=== PATIENT | male | born 1960 | race Caucasian/White ===

== ENCOUNTER 2017-02-22 14:36 | Outpatient (CLI) | payer OTHER | END 2017-02-22 14:37 | disposition home or self-care (01) | LOC: CP 14:36 | PROVIDERS: ATTEND Family Medicine | DX: J44.1 Chronic obstructive pulmonary disease with (acute) exacerbation (principal); R06.2 Wheezing | CPT/HCPCS: 94010; 94727; 94729 ==

== ENCOUNTER 2017-07-19 08:47 | Outpatient (CLI) | payer OTHER ==
[2017-07-19 11:04] LABS: #Eosinphils 0.1 thou/uL (0.0-0.7); #Lymphocytes 1.1 thou/uL (1.20-3.40); #Monocytes 0.7 thou/uL (0.11-0.59); #Neutrophils 4.9 thou/uL (1.40-6.50); %Basophils 0.6 % (0.0-1.0); %Eosinophils 1.1 % (0.0-10.0); %Lymphocytes 16.4 % (21.0-51.0); %Monocytes 9.8 % (0.0-10.0); %Neutrophils 72.2 % (42.0-75.0); Hemoglobin 16.2 g/dL (14.0-18.0); Mean Corpuscular HGB CONC 34.4 g/dL (32.0-36.0); Mean Corpuscular Hemoglobin 34.8 pg (27.0-31.0); Platelet Count 119 thou/uL (130-400); RBC Distribution Width 11.8 % (11.5-14.5); Red Blood Cell (RBC) Count 4.65 mill/uL (4.70-6.10); White Blood Cell (WBC) Count 6.8 thou/uL (4.8-10.8)
[2017-07-19 11:14] LABS: ALT (SGPT) 90 U/L (8-55); AST (SGOT) 87 U/L (5-34); Albumin 4.1 g/dL (3.5-5.0); Alkaline Phosphatase 106 U/L (40-150); Anion Gap 13 mmol/L (10-20); BUN (Urea Nitrogen) 6 mg/dL (8.4-25.7); Bilirubin, Total 0.9 mg/dL (0.2-1.2); Calc. Creatinine Clearance 0 mL/min (70-130); Calcium 9.7 mg/dL (7.8-10.44); Carbon Dioxide 24 mmol/L (22-29); Chloride 101 mmol/L (98-107); Estimated GFR-MDRD Greater than 90; Globulin 2.5 g/dL (2.4-3.5); Glucose 88 mg/dL (70-105); Potassium 4.3 mmol/L (3.5-5.1); Protein, Total 6.6 g/dL (6.0-8.3); Sodium 134 mmol/L (136-145)
== END 2017-07-19 08:48 | disposition home or self-care (01) ==
LOC: LABBT 08:47
PROVIDERS: ATTEND Specialist
DX: Z01.818 Encounter for other preprocedural examination (principal); Z01.812 Encounter for preprocedural laboratory examination; K42.9 Umbilical hernia without obstruction or gangrene
CPT/HCPCS: 80053; 85025; 93005; 93010

== ENCOUNTER 2017-07-26 05:48 | Day surgery (SDC) | payer OTHER ==
--- NOTE | 2017-07-18 14:20 | HP ---
ADDENDUM to H&P on 10/06/2016 HISTORY OF PRESENT ILLNESS: Mr. Ten Miller is a 57-year-old male who I saw in 10/2016 for symptomatic recurrent umbilical hernia. He had this repaired as a child and again about two years ago at the me time he had repair of a recurrent left inguinal hernia. He states that he had a robotic umbilical hernia repair, but they quickly recurred. He has no coronary artery disease. He has seen Dr. Carlos esteban who performed a stress test in his office and then a cardiac ablation for SVT and now reports fo r definitive repair. Plan is to perform this in an open fashion. He may need a transabdominal rectu s repair versus repair using mesh in open fashion as defect was about 3 cm. MEDICATIONS: Lisinopril 10 mg a day, vitamin B12 daily, aspirin 325 mg a day, metoprolol 25 mg twice a day, atorvastatin one a day, albuterol p.r.n., Plavix 75 mg a day, alprazolam 1 mg p.o. twice norman y as needed. PAST MEDICAL HISTORY: Coronary artery disease, multiple myocardial infarctions and stenting RCA, rec ent ablation, recent cardiac stress test at Dr. Joyce office, hypertension, history of alcohol us e, history of tobacco abuse. PAST SURGICAL HISTORY: Multiple cardiac stents and stenting, recent cardiac ablation, recent cardiac stress test, right occipital repair. Patient had bilateral hernia repairs as a child as well as umb ilical hernia he has had 3-5 repairs on each side of his inguinal area, more recently he had this don e in [place] about a year and a half ago at the same time he had umbilical hernia repair robotically , both that reoccurred and his umbilical hernia repaired at a short time afterwards, otherwise unrema rkable. REVIEW OF SYSTEMS: Otherwise noncontributory. PHYSICAL EXAMINATION: VITAL SIGNS: 145 pounds, 67 inches, 129/74, 74 heart rate, 97.2 degrees. HEENT: Unremarkable. LUNGS: Clear to auscultation. CARDIAC: Regular rate and rhythm without murmur or gallop. ABDOMEN: Soft, nontender. He has an umbilical hernia with 3 cm defect. ASSESSMENT AND PLAN: 1. Recurrent umbilical hernia. We will plan repair in an open fashion, certainly using mesh, possib le TAR repair. 2. Coronary artery disease, stable, status post recent cardiac stress test by Dr. Joyce and betsy hyatt. 3. Colonoscopy on 06/2017, completed. 4. On Plavix, continue taking that.
[2017-07-19 09:20] VITALS: BMI 24.1
[2017-07-26] MEDS ORDERED: Bupivacaine HCl 0.5%/Epinephrine 1:200,000/PF 30 ml Vial ONE (06:49)
[2017-07-26] MEDS ORDERED: Ketorolac Tromethamine 30 MG/ML VIAL ONE (08:13)
[2017-07-26] MEDS ORDERED: CEFAZOLIN/Water 2 GM/20 ML SYRINGE ONE (08:13)
[2017-07-26] MEDS ORDERED: Fentanyl 250 MCG/5 ML VIAL ONE ×2 (11:57→13:41)
[2017-07-26] MEDS ORDERED: Promethazine HCl 25 MG/ML VIAL ONE (11:57)
--- NOTE | 2017-07-26 13:22 | OP ---
DATE OF OPERATION: 07/26/2017 PREOPERATIVE DIAGNOSIS: Recurrent incisional hernia, umbilical area 4 cm defect. POSTOPERATIVE DIAGNOSIS: Recurrent incisional hernia, umbilical area 4 cm defect. PROCEDURE: Parietex coated 8.4 cm mesh, preperitoneal reinforcement of fascial closure. SURGEON: Dr. Curtis Latham ANESTHESIA: General. Local 0.5% Marcaine with epinephrine 30 mL. PROCEDURE IN DETAIL: The patient was taken to the operating room where under general anesthesia, abd omen was clipped of hair, prepared with ChloraPrep, draped in routine fashion. Incision was made chitra tically centered about the umbilicus, carried around the umbilicus down to skin, subcutaneous tissue to the fascial defect dissected free of subcutaneous tissue. I initially was planning a rectal rectu s repair, but the fascia seemed to come together easily and there was no evidence of prior mesh used thus a decision was made to close this primarily. Fascial edges dissected free and 8.4 cm mesh coate d Parietex placed in the preperitoneal space and fascia approximated with interrupted sutures of #1 P DS [id number] type fashion incorporating mesh into the fascial approximation. Once this was acc omplished, the straps were removed. Subcutaneous tissues approximated with continuous suture of 3-0 Monocryl, umbilicus secured to the fascia with 3-0 Monocryl, skin approximately with continuous subcu ticular suture of 4-0 Monocryl and DermaGlue applied. Local anesthetic infiltrated about the wound f or postoperative pain control.
[2017-07-26] MEDS ORDERED: HYDROcodone/Acetaminophen 5/325 mg Tablet ONE ×2 (14:51→17:00)
[2017-07-26] MEDS ORDERED: ePHEDrine/0.9% NaCl/PF SYRINGE 50 mg/10 ml ONE (15:45)
[2017-07-26] MEDS ORDERED: PHENYLEPHRINE-NS 100 MCG/ML 10 ML SYRINGE ONE (15:45)
[2017-07-26] MEDS ORDERED: Lidocaine 1% PF 5 ML VIAL ONE (15:45)
[2017-07-26] MEDS ORDERED: Glycopyrrolate 0.2 MG/ML 5 ML SYRINGE ONE (15:45)
[2017-07-26] MEDS ORDERED: Ondansetron HCl/PF 4 MG/2 ML Vial ONE (15:45)
[2017-07-26] MEDS ORDERED: Propofol 200 MG/20 ML VIAL ONE (15:45)
== END 2017-07-26 19:28 | disposition home or self-care (01) ==
LOC: SDC 05:48
PROVIDERS: ATTEND Specialist
PROC: 0WUF0JZ Supplement Abdominal Wall with Synthetic Substitute, Open Approach (ICD-10-PCS; principal; 2017-07-26)
DX: K43.2 Incisional hernia without obstruction or gangrene (principal); I25.10 Atherosclerotic heart disease of native coronary artery without angina pectoris; I25.2 Old myocardial infarction; I10 Essential (primary) hypertension; Z79.82 Long term (current) use of aspirin; Z79.02 Long term (current) use of antithrombotics/antiplatelets; Z79.899 Other long term (current) drug therapy; Z88.8 Allergy status to other drugs, medicaments and biological substances; Z98.890 Other specified postprocedural states; Z87.891 Personal history of nicotine dependence
CPT/HCPCS: J0131; J0670; J1885; J2001; J2405; J2550; J2704; J3010

== ENCOUNTER 2017-10-17 23:25 | Inpatient (IN) | payer OTHER ==
[2017-10-18] MEDS ORDERED: Fentanyl 100 MCG/2 ML VIAL ONE ×4 (00:30→05:18)
[2017-10-18 00:49] LABS: #Lymphocytes 0.8 thou/uL (1.20-3.40); #Monocytes 0.9 thou/uL (0.11-0.59); #Neutrophils 17.1 thou/uL (1.40-6.50); %Basophils 0.2 % (0.0-1.0); %Eosinophils 0.2 % (0.0-10.0); %Lymphocytes 4.1 % (21.0-51.0); %Monocytes 4.8 % (0.0-10.0); %Neutrophils 90.7 % (42.0-75.0); Hemoglobin 14.7 g/dL (14.0-18.0); Mean Corpuscular HGB CONC 34.1 g/dL (32.0-36.0); Mean Corpuscular Hemoglobin 34.4 pg (27.0-31.0); Mean Platelet Volume 7.2 fL (7.4-10.4); Platelet Count 149 thou/uL (130-400); RBC Distribution Width 11.8 % (11.5-14.5); Red Blood Cell (RBC) Count 4.26 mill/uL (4.70-6.10); White Blood Cell (WBC) Count 18.9 thou/uL (4.8-10.8)
[2017-10-18 00:57] LABS: INR-International Normal Ratio 0.9; Prothrombin Time 12.5 SEC (12.0-14.7)
[2017-10-18 01:17] LABS: ALT (SGPT) 66 U/L (8-55); AST (SGOT) 72 U/L (5-34); Albumin 3.9 g/dL (3.5-5.0); Alkaline Phosphatase 99 U/L (40-150); Anion Gap 19 mmol/L (10-20); BUN (Urea Nitrogen) 6 mg/dL (8.4-25.7); Bilirubin, Total 0.6 mg/dL (0.2-1.2); CK (CPK) 831 U/L (30-200); Calc. Creatinine Clearance 0 mL/min (70-130); Calcium 8.9 mg/dL (7.8-10.44); Carbon Dioxide 20 mmol/L (22-29); Chloride 103 mmol/L (98-107); Estimated GFR-MDRD Greater than 90; Globulin 2.3 g/dL (2.4-3.5); Glucose 106 mg/dL (70-105); Potassium 4.1 mmol/L (3.5-5.1); Protein, Total 6.2 g/dL (6.0-8.3); Sodium 138 mmol/L (136-145)
[2017-10-18 01:40] LABS: Troponin I 0.056 ng/mL (< 0.028)
[2017-10-18] MEDS ORDERED: Dextrose 5% in Water 1,000 ML IV PRN (02:39)
[2017-10-18] MEDS ORDERED: Dextrose 50% Abboject 50 ML SYRINGE SLOW IVP PRN (02:39)
[2017-10-18] MEDS ORDERED: Sodium Chloride 0.9% 1,000 ML IV SCH (02:45)
[2017-10-18] MEDS ORDERED: Rib Fracture Protocol PO SCH (02:45)
[2017-10-18] MEDS ORDERED: Lidocaine 1% w/Epinephrine 1:100K 20 ML VIAL ONE (03:20)
[2017-10-18 03:38] LABS: Bilirubin Negative (Negative); Blood, Urine Negative (Negative); Clarity CLEAR (Clear); Glucose, Urine (Dipstick) Negative (Negative); Leukocyte Negative (Negative); Nitrite Negative (Negative); Protein, Urine (Dipstick) Negative (Neg-Trace); Urobilinogen 0.2 mg/dL (0.2-1.0)
[2017-10-18 03:45] LABS: Specific Gravity, Urine Greater than 1.060 (1.002-1.036)
[2017-10-18 05:13] LABS: #Lymphocytes 0.5 thou/uL (1.20-3.40); #Monocytes 0.7 thou/uL (0.11-0.59); #Neutrophils 15.3 thou/uL (1.40-6.50); %Basophils 0.1 % (0.0-1.0); %Eosinophils 0.1 % (0.0-10.0); %Lymphocytes 3.1 % (21.0-51.0); %Monocytes 4.1 % (0.0-10.0); %Neutrophils 92.6 % (42.0-75.0); Hemoglobin 13.9 g/dL (14.0-18.0); Mean Corpuscular HGB CONC 33.5 g/dL (32.0-36.0); Mean Corpuscular Hemoglobin 33.9 pg (27.0-31.0); Mean Platelet Volume 7.1 fL (7.4-10.4); Platelet Count 146 thou/uL (130-400); RBC Distribution Width 11.9 % (11.5-14.5); Red Blood Cell (RBC) Count 4.09 mill/uL (4.70-6.10); White Blood Cell (WBC) Count 16.6 thou/uL (4.8-10.8)
[2017-10-18 05:28] LABS: Lactic Acid 2.8 mmol/L (0.5-2.2)
--- NOTE | 2017-10-18 05:29 | HP ---
DATE OF ADMISSION: 10/18/2017 ATTENDING PHYSICIAN: Curtis Latham M.D. TRAUMA ACTIVATION: Not applicable. HISTORY OF PRESENT ILLNESS: Ten Miller is a 57-year-old male with a significant cardiac past medical history who presented to [facility] status post fall from a ladder approximately 10 feet. Per pat ient, he was standing on the ladder this evening attempting to cut a branch from a tree and became un steady/unbalanced. He fell landing on his right side. He was evaluated in the emergency room and fo und to have a moderate right hemopneumothorax with multiple right-sided rib fractures. Trauma Servic was asked to admit. Upon my evaluation, the patient has a chief complaint of right-sided chest di scomfort worsened with inspiration or movement, improved with pain management. The patient rates his current pain as an 8/10. Of note, the patient is a daily alcohol drinker and was drinking prior to his accident. ALLERGIES: EFFIENT. CHRONIC MEDICAL ILLNESSES: Include coronary artery disease status PTCA x7, ND x10, hypertension. HOME MEDICATIONS: Plavix 75 mg p.o. daily, nitro tablets 0.4 mg p.r.n., aspirin 325 mg p.o. daily, m etoprolol XL 25 mg b.i.d., Xanax 1 mg t.i.d. p.r.n., lisinopril 10 mg p.o. daily, vitamin C supplemen t, vitamin B12 supplement, atorvastatin 40 mg p.o. daily, albuterol inhaler p.r.n. PAST SURGICAL HISTORY: Significant for 5 inguinal hernia surgeries and an umbilical hernia surgery a s well as a complex left arm laceration repair and left bicep repair and cardiac ablation. SOCIAL HISTORY: The patient is a daily drinker endorses a few beers daily. He is a former cigarette smoker with current cigar use. Denies illicit drug use. FAMILY HISTORY: Noncontributory. REVIEW OF SYSTEMS: A 10-point review of systems was performed and was negative except as indicated i n the HPI. PHYSICAL EXAMINATION: VITAL SIGNS: Most recent vital signs include blood pressure 110/68, pulse 78, respiration 18, O2 sat 95% on 2 liters nasal cannula. GENERAL: Well-developed elderly male in no acute distress, resting in bed. HEAD: Right occipital abrasion. EYES: Pupils are PERRL. Extraocular movements are intact. NECK: Supple. Trachea is midline. C-collar is in place. There was midline tenderness to palpation , as well as lateral tenderness to palpation. CHEST/PULMONARY: Symmetric chest rise. The patient unable to take deep breaths secondary to pain. LUNGS: Clear to auscultation bilaterally. There is some right anterior and lateral chest tenderness to palpation. No left-sided tenderness to palpation. CARDIOVASCULAR: Regular rate and rhythm, no obvious murmurs, rubs or gallops. GASTROINTESTINAL: Abdomen is atraumatic, soft, nontender, nondistended. Bowel sounds are positive. MUSCULOSKELETAL: There is a right upper shoulder abrasion with ecchymosis of the bilateral upper ext remities. BACK: Within normal limits. Pulses are 2+ bilaterally. There is no lower extremity edema. Range o f motion within normal limits for patient. NEUROLOGIC: GCS is 15. No focal deficit is noted. LABORATORY FINDINGS: WBC 18.9, hemoglobin 14.7, hematocrit 43.1, platelet count 149. INR 0.9. Sodi um 138, potassium 4.1, chloride 103, carbon dioxide 20, BUN 6, creatinine 0.66, glucose 106. Lactic acid 3.3, AST 72, ALT 66, total bilirubin 0.6. CK 831, CK-MB 18. Troponin 0.056. EKG: EKG was read as sinus rhythm with a heart rate of 85, no ST segment elevation, age indeterminat e inferior infarct. RADIOGRAPHIC FINDINGS: Shoulder x-ray official read is pending, but there is evidence of a moderate pneumothorax. Pelvic x-ray, official read is pending. CT of the brain was negative for acute intrac ranial abnormality. CT of the C-spine was negative for acute fracture or dislocation. CT of the [facility] st demonstrated a moderate right-sided hydropneumothorax with right pulmonary contusion as well as ri ght 2nd through 10th rib fracture and emphysematous changes. There was an infrarenal aortic aneurysm noted at 3.3 cm. ASSESSMENT: 1. Status post fall from ladder. 2. Right 2 through 10th rib fracture. 3. Right hemopneumothorax. 4. Acute traumatic pain. 5. History of coronary artery disease and multiple myocardial infarctions with elevated troponin. 6. Daily alcohol use. PLAN: ER MD to place a chest tube. Pain management with rib fracture protocol via p.o. pathway. Th e patient should be admitted to telemetry. Trend troponins. A.m. chest x-ray. Walking program. DV T and gastritis prophylaxis as appropriate. Plans for admission were discussed with the patient who vocalizes understanding. All questions were answered at the time of this dictation. Trauma attendin g has been notified of admission. Withdrawal prophylaxis with Serax, thiamine, multivitamin and foli c acid supplementation.
[2017-10-18 05:32] LABS: Anion Gap 18 mmol/L (10-20); BUN (Urea Nitrogen) 6 mg/dL (8.4-25.7); CK (CPK) 1000 U/L (30-200); Calc. Creatinine Clearance 0 mL/min (70-130); Calcium 8.5 mg/dL (7.8-10.44); Carbon Dioxide 20 mmol/L (22-29); Chloride 105 mmol/L (98-107); Estimated GFR-MDRD Greater than 90; Glucose 113 mg/dL (70-105); Potassium 4.6 mmol/L (3.5-5.1); Sodium 138 mmol/L (136-145)
[2017-10-18] MEDS ORDERED: Ketorolac Tromethamine 30 MG/ML VIAL ONE (05:41)
[2017-10-18 05:47] LABS: CKMB 17.9 ng/mL (0-6.6); Critical Call CKMBM RESULT DECREASING
[2017-10-18 06:19] VITALS: BMI 22.6
[2017-10-18] MEDS: Oxazepam 10 MG CAP PO SCH ×3 (06:55→20:48)
[2017-10-18] MEDS: Ibuprofen 800 MG TAB PO SCH ×4 (07:47→19:11)
[2017-10-18] MEDS: Acetaminophen 500 MG TAB PO SCH ×3 (07:47→23:08)
--- NOTE | 2017-10-18 08:37 | RAD ---
RIGHT SHOULDER 3 VIEWS: DATE: 10/18/17. COMPARISON: None. HISTORY: Trauma, pain. FINDINGS: There is an incompletely imaged pneumothorax in the right lung apex, small to moderate in size. CT a dvised. No widening of the AC or CC interspace. No evidence for glenohumeral joint dislocation. La teral rib fractures are suspected on the right at the level of the 3rd, 4th, 5th, and 6th ribs, which would also be better assessed via CT. No evidence for clavicle fracture. Subcutaneous emphysema is seen along the chest wall on the right inferior to the scapula on the scapu la-Y view. IMPRESSION: Incompletely imaged right-sided rib fractures and incompletely imaged right-sided pneumothorax. No e vidence for dislocation of the glenohumeral joint. Chest CT advised. POS: [facility]
[2017-10-18 08:49] LABS: Troponin I 0.176 ng/mL (< 0.028)
--- NOTE | 2017-10-18 08:53 | RAD ---
PELVIS 1 VIEW: HISTORY: Injury. COMPARISON: None. FINDINGS: There is abnormal increased lateral upturning of the right acetabulum with coccyx magna deformity of the right femoral head. No acute fracture. No malalignment. There is contrast within the urinary b ladder and distal ureters. IMPRESSION: No acute fracture. Chronic DDH right hip. POS: [facility]
[2017-10-18 08:55] LABS: CKMB 14.6 ng/mL (0-6.6)
--- NOTE | 2017-10-18 08:58 | RAD ---
CHEST 1 VIEW: HISTORY: Hemothorax. COMPARISON: CT of the chest same day. FINDINGS: Interval placement of a thoracostomy tube on the right. Trace right apical pneumothorax. Left lung relatively clear. IMPRESSION: 1. Small right apical pneumothorax. 2. Multiple right-sided displaced rib fractures. 3. Satisfactory position of the right thoracostomy tube. POS: [facility]
[2017-10-18] MEDS: Folic Acid 1 MG TAB PO SCH (09:10)
[2017-10-18] MEDS: Multivitamin W/ Minerals 1 TAB PO SCH (09:10)
[2017-10-18] MEDS: Gabapentin 300 MG CAP PO SCH ×3 (09:10→20:48)
[2017-10-18] MEDS: traMADol HCl 50 MG TAB PO SCH ×4 (09:12→23:09)
--- NOTE | 2017-10-18 09:22 | CT ---
PRELIMINARY REPORT/[facility]/EMERGENTY AFTER-HOURS PROCEDURE CT Head Without Intravenous Contrast CLINICAL HISTORY: 57 years old, male; Injury or trauma; Fall; Initial encounter; Blunt trauma (contusions or hematomas) ; Without loss of consciousness; Patient HX: 57m presents to the ed for evaluation of right sided rustam n after falling from a ladder about 10 feet. Reports neck pain, right shoulder pain, right sided rib pain, reports pain when he tries to take a deep breath. Reports fall was 3 hours prior to arrival. Re ports hitting his head, denies loc, reports the breath was knocked out of him. Reports drinking alcoh ol today prior to getting up on the ladder to trim trees TECHNIQUE: Axial computed tomography images of the head/brain without intravenous contrast. COMPARISON: No relevant prior studies available. FINDINGS: Brain: Mild volume loss No hemorrhage. No significant white matter disease. No edema. Ventricles: Normal. No ventriculomegaly. Bones/joints: Normal. No acute fracture. Sinuses: Minimal polypoid tissue/secretions in the pterygoid recess of the right sphenoid sinus and l eft maxillary sinus No acute sinusitis. Mastoid air cells: Normal as visualized. No mastoid effusion. Soft tissues: Normal. IMPRESSION: No intracranial hemorrhage. Please see discussion above. Thank you for allowing us to participate in the care of your patient. Dictated and Authenticated by: Gurdeep Rudd MD 10/18/2017 1:54 AM Central Time ([place] & [place]) FINAL REPORT CT BRAIN WITHOUT CONTRAST: I agree with the preliminary report given by Dr. Rudd of [facility]. POS: [facility]
--- NOTE | 2017-10-18 09:24 | CT ---
PRELIMINARY REPORT/[facility]/EMERGENTY AFTER-HOURS PROCEDURE CT Cervical Spine Without Intravenous Contrast CLINICAL HISTORY: 57 years old, male; Injury or trauma; Fall; Initial encounter; Blunt trauma; Patient HX: 57m presents to the ed for evaluation of right sided pain after falling from a ladder about 10 feet. Reports neck pain, right shoulder pain, right sided rib pain, reports pain when he tries to take a deep breath. R eports fall was 3 hours prior to arrival. Reports hitting his head, denies loc, reports the breath wa s knocked out of him. Reports drinking alcohol today prior to getting up on the ladder to trim trees TECHNIQUE: Axial computed tomography images of the cervical spine without intravenous contrast. COMPARISON: No relevant prior studies available. FINDINGS: Vertebrae: No acute fracture. Mild chronic loss of height if presumed degenerative Discs/Spinal canal/Neural foramina: Mild central canal stenosis and right greater than left foraminal stenosis at C3-C4 and C4-C5. Soft tissues: Unremarkable. Lung apices: Partially visualized right apical pneumothorax. Bullous changes at the apices IMPRESSION: No definite acute cervical fracture observed Partially visualized right apical pneumothorax. Please see chest CT report to follow up Thank you for allowing us to participate in the care of your patient. Dictated and Authenticated by: Gurdeep Rudd MD 10/18/2017 1:54 AM Central Time ([place] & [place]) FINAL REPORT CT CERVICAL SPINE WITH CORONAL AND SAGITTAL REFORMATIONS: I agree with the preliminary report given by Dr. Gurdeep Rudd of [facility]. POS: [facility]
--- NOTE | 2017-10-18 09:26 | CT ---
PRELIMINARY REPORT/[facility]/EMERGENTY AFTER-HOURS PROCEDURE Addendum created by Gurdeep Rudd MD on 10/18/2017 2:24 AM Central Time ([place] & [place]) THIS REPORT CONTA INS FINDINGS THAT MAY BE CRITICAL TO PATIENT CARE. The findings were verbally communicated via teleph one conference with MIRELA LEES at 2:24 AM CDT on 10/18/2017. The findings were acknowledged and und erstood. Initial Report created on 10/18/2017 1:53 AM Central Time ([place] & [place]) CT Chest With Intravenous Contrast CLINICAL HISTORY: 57 years old, male; Injury or trauma; Fall; Initial encounter; Blunt trauma (contusions or hematomas) ; Patient HX: 57m presents to the ed for evaluation of right sided pain after falling from a ladder a bout 10 feet. Reports neck pain, right shoulder pain, right sided rib pain, reports pain when he trie s to take a deep breath. Reports fall was 3 hours prior to arrival. Reports hitting his head, denies loc, reports the breath was knocked out of him. Reports drinking alcohol today prior to getting up on the ladder to trim trees TECHNIQUE: Axial computed tomography images of the chest with intravenous contrast. COMPARISON: No relevant prior studies available. FINDINGS: Moderate right-sided hydropneumothorax and associated right lower lobe pulmonary contusions. Fractures of the right second through 10th ribs noted with overlying mild air along the chest wall. The left hemithorax is grossly clear. Mild emphysema noted at the apices The heart and mediastinal structures are intact. No mediastinal hematoma or pericardial effusions. Coronary stents observed. Degenerative changes in the thoracic spine noted Partially visualized abnormal aortic aneurysm measuring up to 3.3 cm in AP diameter. Question minimal date infiltration adjacent to the supraumbilical bowel wall on image 82 IMPRESSION: Moderate right hydropneumothorax and right lower lobe pulmonary contusions Right second through 10th rib fractures No acute traumatic aortic injury Question minimal date infiltration adjacent to the anterior bowel wall on the final image. Further ev aluation as clinically indicated 3.3 cm infrarenal abnormal aortic aneurysm partially visualized Thank you for allowing us to participate in the care of your patient. Dictated and Authenticated by: Gurdeep Rudd MD 10/18/2017 1:53 AM Central Time ([place] & [place]) FINAL REPORT CT CHEST WITH CONTRAST: HISTORY: Fall. Trauma. FINDINGS/IMPRESSION: Findings and impression are concordant with the preliminary report. There is also a soft tissue cont usion at the level of the umbilicus. Low-grade fluid adjacent to the colon and adjacent small bowel for which omental or mesentery injury cannot be totally excluded. If clinically warranted, a CT of t he abdomen and pelvis is recommended. POS: [facility]
[2017-10-18] MEDS: Cyclobenzaprine 10 MG TAB PO PRN (09:51)
[2017-10-18] MEDS ORDERED: ISOVUE-370 76%-LOCM 1 ML ONE (10:31)
--- NOTE | 2017-10-18 14:58 | CON ---
DATE OF CONSULTATION: 10/18/2017 REASON FOR CONSULTATION: Elevated troponin, history of coronary artery disease with recent hemothora x. HISTORY OF PRESENT ILLNESS: Mr. Miller is a 57-year-old gentleman, who was seen and evaluated in the [facility]. He underwent coronary angiography in 09/2015. He was found to have a chronically occluded righ t coronary artery. He has been treated medically since that time period. He also was seen and evalu ated shortly thereafter with SVT and underwent a successful ablation. Recently, he was on a ladder and fell. He broke 8 ribs and developed a hemothorax. His troponin was in the indeterminate range. He currently has a chest tube in place without any anginal-type symptom s. PAST MEDICAL HISTORY: 1. CAD. 2. Chronically occluded right coronary artery. 3. Hypertension. 4. Hyperlipidemia. 5. Tobacco abuse. 6. Anxiety disorder. 7. Biceps repair. 8. Hernia repair. SOCIAL HISTORY: Positive tobacco. Positive alcohol use. ALLERGIES: EFFIENT. HOME MEDICATIONS: Include Nitrostat, aspirin, Zocor, alprazolam, lisinopril, and Plavix. REVIEW OF SYSTEMS: Ten-point review of systems is reviewed and as above, otherwise negative. PHYSICAL EXAMINATION: GENERAL: Patient is a pleasant male, who is in no acute distress. The patient appears his stated ag e. VITAL SIGNS: Blood pressure 146/68, pulse 71, temperature 97.5. NEUROLOGIC: The patient is alert and oriented times 3 with no focal neurologic deficits. HEENT: Sclerae without icterus. Mouth has moist mucous membranes with normal pallor. NECK: No JVD. Carotid upstroke brisk. No bruits bilaterally. LUNGS: Decreased breath sounds noted on right versus left. BACK: No scoliosis or kyphosis. CARDIAC: Regular rate and rhythm with normal S1 and S2. No S3 or S4 noted. No significant rubs, mu rmurs, thrills, or gallops noted throughout the precordium. PMI is not displaced. There is no chana ternal heave. ABDOMEN: Soft, nontender, nondistended. No peritoneal signs present. No hepatosplenomegaly. No ab normal striae. EXTREMITIES: 2+ femoral and 2+ dorsalis pedis pulses. No cyanosis, clubbing, or edema. SKIN: No gross abnormalities. PERTINENT LABORATORY DATA: Hemoglobin 13.9. Peak troponin 0.176 with a CK-MB of 18. IMPRESSION: 1. Indeterminate troponin. 2. Recent hemothorax. 3. Coronary artery disease. RECOMMENDATIONS: Mr. Miller, from a CV standpoint, appears stable. At this point, I would continue cl ose observation. I would not recommend any further aggressive means or measures from a CV standpoint . We would monitor on telemetry over the next 12 to 24 hours. If no significant dysrhythmias, it wo uld be okay from my standpoint to discharge to surgical. It would be okay from my standpoint to hold Plavix. He does have a completely occluded right coronary artery. This may help decrease his bleed ing.
[2017-10-18] MEDS: Senokot S 8.6-50 MG TAB PO SCH (20:48)
[2017-10-18] MEDS: Atorvastatin Calcium 40 MG TAB PO SCH (20:48)
[2017-10-19] MEDS: Ibuprofen 800 MG TAB PO SCH ×3 (01:45→17:28)
[2017-10-19] MEDS: traMADol HCl 50 MG TAB PO SCH ×3 (05:29→17:29)
[2017-10-19] MEDS: Acetaminophen 500 MG TAB PO SCH ×3 (05:30→17:28)
[2017-10-19] MEDS: Oxazepam 10 MG CAP PO SCH ×3 (05:30→21:59)
[2017-10-19 06:05] LABS: Anion Gap 8 mmol/L (10-20); BUN (Urea Nitrogen) 11 mg/dL (8.4-25.7); CK (CPK) 740 U/L (30-200); Calc. Creatinine Clearance 116 mL/min (70-130); Calcium 8.8 mg/dL (7.8-10.44); Carbon Dioxide 30 mmol/L (22-29); Chloride 103 mmol/L (98-107); Estimated GFR-MDRD Greater than 90; Glucose 101 mg/dL (70-105); Phosphorus 3.2 mg/dL (2.3-4.7); Potassium 4.1 mmol/L (3.5-5.1); Sodium 137 mmol/L (136-145)
--- NOTE | 2017-10-19 08:06 | RAD ---
CHEST 1 VIEW: HISTORY: Dyspnea. Followup. COMPARISON: 10/18/17. FINDINGS: Cardiac silhouette magnified by projection. Pulmonary vasculature remains engorged. Mediastinum mid line. Bibasilar atelectasis is apparent. Right thoracostomy tube remains in lace. Right pneumothorax is no longer reliably demonstrated. Rig ht rib fractures are apparent. IMPRESSION: No significant residual right pneumothorax is apparent. Other findings are stable. POS: [facility]
[2017-10-19] MEDS ORDERED: Clopidogrel Bisulfate 75 MG TAB PO SCH (09:00)
--- NOTE | 2017-10-19 09:08 | RAD ---
LEFT HAND 3 VIEWS: Date: 10/19/17 HISTORY: Thumb pain, fall. FINDINGS/IMPRESSION: There is a small bony density adjacent to the head of the proximal phalanx of the left thumb, which m ay represent a fracture. Clinical correlation is recommended. POS: [facility]
--- NOTE | 2017-10-19 09:24 | PDOC.CTH ---
Cardiology Progress Note - Subjective Patient without complaints other than pleuritic CP. Coughing up phlegm and some bloody sputum. - Objective Vital Signs Temp Pulse Resp BP Pulse Ox 10/19/17 07:18 66 16 95 10/19/17 07:15 98.5 F 64 18 123/69 96 10/19/17 04:07 98.0 F 67 12 92/55 L 100 10/19/17 00:08 96 10/18/17 23:39 71 18 96 10/18/17 10/19/17 10/20/17 06:59 06:59 06:59 Intake Total 980 Output Total 3175 Balance -2195 - Physical Examination General/Neuro: alert & oriented x3 Lungs: CTA, other: (right chest tube in place) Heart: RRR Abdomen: NT/ND - Labs Result Diagrams: 10/18/17 05:02 10/19/17 05:30 Troponin/CKMB CK-MB (CK-2) 14.6 ng/mL (0-6.6) H* 10/18/17 08:10 Troponin I 0.176 ng/mL (< 0.028) H 10/18/17 08:10 - Assessment/Plan 1. s/p Fall 2 Right PTX - chest tube in place 3. CAD - stable. Asymptomatic.
[2017-10-19] MEDS: Senokot S 8.6-50 MG TAB PO SCH ×2 (09:29→20:32)
[2017-10-19] MEDS: Gabapentin 300 MG CAP PO SCH ×3 (09:29→20:32)
[2017-10-19] MEDS: Lisinopril 10 MG TAB PO SCH (09:29)
[2017-10-19] MEDS: Enoxaparin Sodium 40 MG/0.4 ML SYRINGE SC SCH (09:30)
[2017-10-19] MEDS: Folic Acid 1 MG TAB PO SCH (09:30)
[2017-10-19] MEDS: Multivitamin W/ Minerals 1 TAB PO SCH (09:30)
--- NOTE | 2017-10-19 11:57 | PRG-2 ---
DATE OF SERVICE: 10/19/2017 SUBJECTIVE: The patient is a 57-year-old male status post fall from ladder of approximately 10 feet. The patient was intoxicated, unbalanced and trying to use a chainsaw to cut a tree branch. He sujit me unsteady and fell onto his right side. The patient was found to have a moderate hemopneumothorax with multiple right-sided rib fractures. This morning, the patient states that he is still having so me pain with deep breathing, but he has been using his incentive spirometer and trying to move. The patient had a chest tube placed and is having a decreased amount of output overnight. The patient do es complain of left hand pain this morning, especially his left thumb. No other complaints today. OBJECTIVE: VITAL SIGNS: Temperature 98.5, pulse of 66, respiratory rate 16, oxygen saturation 94% on room air, blood pressure was 123/69. GENERAL: The patient appears in no acute distress. He is resting comfortably in bed. NECK: Trachea is midline. No JVD. RESPIRATORY: Clear to auscultation bilaterally. He does have right lateral chest tenderness. CARDIOVASCULAR: Regular rate and rhythm, no murmurs. GASTROINTESTINAL: Abdomen is soft, nontender, nondistended. MUSCULOSKELETAL: He does have ecchymosis over his bilateral right upper extremity. NEUROLOGIC: GCS of 15. No focal deficits. LABORATORY DATA: Sodium 137, potassium 4.1, chloride 103, bicarbonate 30, BUN was 11, creatinine 0.6 5. CK was 740. RADIOGRAPHIC FINDINGS: The patient had a left hand x-ray that shows a small bony density adjacent to the head of the proximal phalanx of the left thumb which may represent a fracture. The patient also underwent a chest x-ray that showed no significant residual right pneumothorax is apparent. ASSESSMENT: 1. Status post fall from ladder 2. Right 2 through 10 rib fractures. 3. Right hemopneumothorax. 4. Acute chronic pain. 5. History of coronary artery disease, multiple myocardial infarctions with elevated troponin. 6. Daily alcohol use. PLAN: The patient had his chest tube turned off to suction, water sealed. The patient was seen by [facility]di[facility] and essentially cleared him from a cardiac standpoint at this time. They recommended he wa s stable for transfer to the surgical floor. The patient also complained of the left hand fractures and so we will continue with pain control at this time and consider an orthopedic consult if needed. The patient otherwise will continue supportive care. Continue incentive spirometer and the HAYLEE prot ocol for any withdrawal prophylaxis. All of his questions were answered at the time of this dictatio n. The case was discussed with the trauma attending, Dr. Mortensen, and he is in agreement.
[2017-10-19] MEDS: Atorvastatin Calcium 40 MG TAB PO SCH (20:33)
[2017-10-20] MEDS: Acetaminophen 500 MG TAB PO SCH ×5 (00:34→23:28)
[2017-10-20] MEDS: traMADol HCl 50 MG TAB PO SCH ×5 (00:34→23:27)
[2017-10-20] MEDS: Ibuprofen 800 MG TAB PO SCH ×3 (04:39→17:18)
[2017-10-20] MEDS: Oxazepam 10 MG CAP PO SCH ×3 (04:39→20:15)
--- NOTE | 2017-10-20 08:23 | RAD ---
PORTABLE CHEST: Date: 10/20/17 PROVIDED CLINICAL HISTORY: Hemopneumothorax. FINDINGS: Comparison with 10/19/17. Significant interval change with respect to the prior examination is not apparent. IMPRESSION: As above. POS: [facility]
[2017-10-20] MEDS: Lisinopril 10 MG TAB PO SCH (08:28)
[2017-10-20] MEDS: Multivitamin W/ Minerals 1 TAB PO SCH (08:28)
[2017-10-20] MEDS: Enoxaparin Sodium 40 MG/0.4 ML SYRINGE SC SCH (08:28)
[2017-10-20] MEDS: Senokot S 8.6-50 MG TAB PO SCH ×2 (08:28→20:15)
[2017-10-20] MEDS: Folic Acid 1 MG TAB PO SCH (08:28)
[2017-10-20] MEDS: Gabapentin 300 MG CAP PO SCH ×3 (08:28→20:15)
[2017-10-20] MEDS: Cyclobenzaprine 10 MG TAB PO PRN ×2 (09:11→17:17)
[2017-10-20] MEDS ORDERED: Polyethylene Glycol 3350 17 GM Packet PO SCH (11:30)
--- NOTE | 2017-10-20 11:38 | PRG ---
DATE OF SERVICE: 10/20/2017 SUBJECTIVE: This is a 57-year-old male status post fall from ladder resulting in right hemopneumotho rax, which was treated with tube thoracostomy. This morning, the patient reports increased pain and discomfort with deep breathing. He has been unable to reach his 2000 mL goal on incentive spirometry . However, upon further investigation, the patient has not been receiving his muscle relaxer and has been refusing his NSAIDs. Chest tube output overnight was minimal. OBJECTIVE: VITAL SIGNS: Temperature 97.9, pulse 75, respiration 14, O2 sat 94% on room air, blood pressure 118/ 80. GENERAL: The patient is resting in bed, in no acute distress. PULMONARY: Symmetric chest rise. Lungs are clear to auscultation bilaterally. Chest tube is in giovanni ce. IS 7517-2316 mL. CARDIOVASCULAR: Regular rate and rhythm. GASTROINTESTINAL: Soft, nontender, nondistended. MUSCULOSKELETAL: Moves all extremities x4. NEUROLOGIC: No focal deficits noted. LABORATORY DATA: No new laboratory findings. RADIOGRAPHIC FINDINGS: Chest x-ray this morning shows chest tube is in place. There is bibasilar at electasis with no evidence of residual pneumothorax. Chest x-ray was reviewed by myself and Dr. Sanjay noel. ASSESSMENT: 1. Status post fall from ladder. 2. Right 2nd through 10th rib fractures. 3. Right hemopneumothorax status post tube thoracostomy. 4. Acute traumatic pain. 5. History of coronary artery disease with multiple infarcts and elevated troponin, being followed b y Cardiology, stable. 6. Daily alcohol use. PLAN: Remove chest tube today. A.m. chest x-ray. Discuss pain regimen with the patient and [facility] nursing staff to offer Flexeril instead of making the patient asked for it. Encourage the patient to follow pain regimen as ordered. Continue to encourage mobility and incentive spirometry. The megan barakat was discussed with Dr. Mortensen.
[2017-10-20] MEDS: Atorvastatin Calcium 40 MG TAB PO SCH (20:15)
[2017-10-21] MEDS: Ibuprofen 800 MG TAB PO SCH ×3 (02:48→18:08)
[2017-10-21] MEDS: Oxazepam 10 MG CAP PO SCH ×3 (05:30→21:31)
[2017-10-21] MEDS: traMADol HCl 50 MG TAB PO SCH ×4 (05:30→23:32)
[2017-10-21] MEDS: Acetaminophen 500 MG TAB PO SCH ×4 (05:30→23:31)
--- NOTE | 2017-10-21 09:04 | RAD ---
PORTABLE CHEST: Date: 10/21/17 COMPARISON: Prior day's exam. HISTORY: Hemopneumothorax. FINDINGS: Heart size is borderline. Bibasilar atelectatic lung changes are seen. The right chest tube has been removed. Right-sided rib fractures are present. I do not see any signs of a recurrent pneumothorax. IMPRESSION: Interval removal of the right chest tube. No signs of pneumothorax. POS: [facility]
[2017-10-21] MEDS: Enoxaparin Sodium 40 MG/0.4 ML SYRINGE SC SCH (09:06)
[2017-10-21] MEDS: Lisinopril 10 MG TAB PO SCH (09:06)
[2017-10-21] MEDS: Polyethylene Glycol 3350 17 GM Packet PO SCH (09:06)
[2017-10-21] MEDS: Gabapentin 300 MG CAP PO SCH ×3 (09:07→21:32)
[2017-10-21] MEDS: Senokot S 8.6-50 MG TAB PO SCH ×2 (09:07→21:36)
[2017-10-21] MEDS: Multivitamin W/ Minerals 1 TAB PO SCH (09:07)
[2017-10-21] MEDS: Folic Acid 1 MG TAB PO SCH (09:07)
--- NOTE | 2017-10-21 16:34 | PRG ---
DATE OF SERVICE: 10/21/2017 ATTENDING PHYSICIAN: Dr. Mortensen. SUBJECTIVE: Mr. Miller is a 57-year-old male status post fall from ladder. He is hospital day #3. He was treated with a tube thoracostomy for a right hemopneumothorax. Chest tube was discontinued yest erday. Follow up chest x-ray this morning is without residual pneumothorax. He has been unable to w jai from 2 liters O2 nasal cannula. He apparently had not been receiving his muscle relaxer and had been refusing his NSAIDs. This is now being given on a more scheduled basis. He reports pain is bet ter controlled. OBJECTIVE: VITAL SIGNS: Temperature 97.8, pulse 78, respirations 18, O2 sat 96% on 2 liters O2, blood pressure 110/75. PULMONARY: Bilateral breath sounds clear. No respiratory distress. Incentive spirometer 1250 mL. CARDIOVASCULAR: Regular rate and rhythm. Heart sounds normal. ABDOMEN: Soft, nontender and nondistended. MUSCULOSKELETAL: Moves all extremities x4. NEUROLOGIC: GCS 15. Awake, alert and oriented x3. ASSESSMENT: 1. Status post fall from ladder. 2. Right second through 10th rib fractures. 3. Right hemopneumothorax status post tube thoracostomy. Chest tube discontinued yesterday. Follow up x-ray without residual pneumothorax. 4. Acute traumatic pain. 5. History of coronary artery disease with multiple infarcts and elevated troponin, being followed b y Cardiology. 6. History of daily alcohol use. PLAN: 1. Encourage incentive spirometer and pulmonary toilet. 2. Encourage ambulation. 3. Encouraged patient to be compliant with pain medication as needed. 4. Wean from O2 as tolerated. The patient was seen and examined with Dr. Mortensen who agrees with the assessment and plan.
[2017-10-21] MEDS: Cyclobenzaprine 10 MG TAB PO PRN ×2 (17:21→23:31)
[2017-10-21] MEDS: Atorvastatin Calcium 40 MG TAB PO SCH (21:31)
[2017-10-22] MEDS: Ibuprofen 800 MG TAB PO SCH ×3 (01:49→18:32)
[2017-10-22] MEDS: Acetaminophen 500 MG TAB PO SCH ×3 (06:50→18:32)
[2017-10-22] MEDS: Oxazepam 10 MG CAP PO SCH ×3 (06:50→22:08)
[2017-10-22] MEDS: traMADol HCl 50 MG TAB PO SCH ×3 (06:51→18:31)
[2017-10-22] MEDS: Gabapentin 300 MG CAP PO SCH ×3 (09:26→22:08)
[2017-10-22] MEDS: Multivitamin W/ Minerals 1 TAB PO SCH (09:27)
[2017-10-22] MEDS: Lisinopril 10 MG TAB PO SCH (09:27)
[2017-10-22] MEDS: Folic Acid 1 MG TAB PO SCH (09:27)
[2017-10-22] MEDS: Enoxaparin Sodium 40 MG/0.4 ML SYRINGE SC SCH (09:30)
--- NOTE | 2017-10-22 10:52 | RAD ---
PORTABLE UPRIGHT CHEST: Date: 10/22/17 PROVIDED CLINICAL HISTORY: Hypoxia. FINDINGS: Cardiac and mediastinal silhouette is unchanged in appearance. Parenchymal opacity at the right lung base is redemonstrated. Multiple right-sided rib fractures are again seen. No evidence for pleural fl uid or pneumothorax. IMPRESSION: Stable radiographic appearance of the chest. POS: [facility]
[2017-10-22] MEDS: Polyethylene Glycol 3350 17 GM Packet PO SCH (10:56)
[2017-10-22] MEDS: Senokot S 8.6-50 MG TAB PO SCH ×2 (10:56→22:11)
--- NOTE | 2017-10-22 15:42 | PRG ---
DATE OF SERVICE: 10/22/2017 ATTENDING PHYSICIAN: Dr. Mortensen. SUBJECTIVE: Mr. Miller is a 57-year-old man status post fall from ladder. He is hospital day #4. He was treated with a tube thoracostomy for a right hemopneumothorax. Chest tube was discontinued 2 day s ago. He has been unable to wean from O2. He apparently had not been receiving his muscle relaxant and had been refusing his NSAID yesterday. He did do better yesterday with pain control and taking his muscle relaxer, however, overnight. He reports that he got behind on his pain and was unable to do effective incentive spirometry. OBJECTIVE: VITAL SIGNS: Temperature 97.4, pulse 85, respirations 16, O2 sat 94% on 3 liters, blood pressure 109 /72. PULMONARY: Bilateral breath sounds clear, diminished in bases and incentive spirometer 1250 mL. CARDIOVASCULAR: Regular rate and rhythm. Heart sounds normal. ABDOMEN: Soft, nontender, nondistended. MUSCULOSKELETAL: Moves all extremities x4, ambulatory without assistance or difficulty. NEUROLOGIC: GCS of 15. Awake, alert, oriented x3. ASSESSMENT: 1. Status post fall from ladder. 2. Right second through 10th rib fractures. 3. Right hemopneumothorax status post tube thoracostomy, which was discontinued 2 days ago. 4. Acute traumatic pain. 5. History of coronary artery disease with multiple infarcts and elevated troponin, being followed b y Cardiology. 6. History of daily alcohol use. PLAN: 1. Continue to encourage incentive spirometry and pulmonary toilet. 2. Continue to encourage ambulation. 3. Repeat chest x-ray and BMP today. 4. Wean from O2 as tolerated. The patient was seen and examined with Dr. Mortensen who agrees with the assessment and plan.
[2017-10-22] MEDS: Atorvastatin Calcium 40 MG TAB PO SCH (22:08)
[2017-10-23] MEDS: traMADol HCl 50 MG TAB PO SCH ×5 (01:03→23:13)
[2017-10-23] MEDS: Ibuprofen 800 MG TAB PO SCH ×3 (01:04→18:47)
[2017-10-23] MEDS: Acetaminophen 500 MG TAB PO SCH ×5 (01:04→23:13)
[2017-10-23] MEDS: Oxazepam 10 MG CAP PO SCH ×3 (05:40→20:28)
[2017-10-23] MEDS: Lisinopril 10 MG TAB PO SCH (09:56)
[2017-10-23] MEDS: Gabapentin 300 MG CAP PO SCH ×3 (09:57→20:29)
[2017-10-23] MEDS: Polyethylene Glycol 3350 17 GM Packet PO SCH (09:57)
[2017-10-23] MEDS: Folic Acid 1 MG TAB PO SCH (09:57)
[2017-10-23] MEDS: Senokot S 8.6-50 MG TAB PO SCH ×2 (09:57→20:29)
[2017-10-23] MEDS: Multivitamin W/ Minerals 1 TAB PO SCH (09:57)
[2017-10-23] MEDS: Enoxaparin Sodium 40 MG/0.4 ML SYRINGE SC SCH (09:59)
--- NOTE | 2017-10-23 16:52 | PRG ---
DATE OF SERVICE: 10/23/2017 ATTENDING PHYSICIAN: Darius Mortensen DO SUBJECTIVE: Mr. Miller is a 57-year-old man, status post fall from ladder. He is hospital day #5. He was treated with a tube thoracostomy for a right hemopneumothorax. Chest tube was discontinued 3 da ys ago. He has been unable to wean from O2. He is up and ambulatory in the hallway. We have asked rehab for a consult as the patient feels like he could benefit from a short stay in rehab facility. He has been compliant with his incentive spirometry. OBJECTIVE: VITAL SIGNS: Temperature 97.8, pulse 69, blood pressure 116/73, O2 sat 93% on 2 liters nasal cannula , respirations 16. PULMONARY: Bilateral breath sounds clear, diminished in bases. Coarse breath sounds in right lower lobe. Incentive spirometry 1500 mL. CARDIOVASCULAR: Regular rate and rhythm. Heart sounds normal. ABDOMEN: Soft, nontender, nondistended. MUSCULOSKELETAL: Moves all extremities x4, ambulatory without assistance or difficulty. NEUROLOGIC: GCS 15. Awake, alert, oriented x3. ASSESSMENT: 1. Status post fall from ladder. 2. Right 2nd through 10th rib fractures. 3. Right hemopneumothorax status post tube thoracostomy, discontinued 3 days ago. 4. Acute traumatic pain, controlled. 5. History of coronary artery disease with multiple infarcts and elevated troponin, being followed b y Cardiology. 6. History of daily alcohol use. PLAN: 1. Continue to encourage incentive spirometry and pulmonary toilet. 2. Continue to encourage ambulation. 3. Wean from O2 as tolerated. If the patient is not able to be weaned, may need to set up home heal th and home O2. 4. Rehab referral made. reimbursement liaison to see. Hopefully, the patient will be able to be discharged to inpatient rehabilitation facility. The patient was reviewed with Dr. Mortensen who agrees with plan.
[2017-10-23] MEDS: Atorvastatin Calcium 40 MG TAB PO SCH (20:29)
[2017-10-24] MEDS: Ibuprofen 800 MG TAB PO SCH ×3 (02:59→17:51)
[2017-10-24] MEDS: Oxazepam 10 MG CAP PO SCH ×2 (02:59→17:19)
[2017-10-24] MEDS: Acetaminophen 500 MG TAB PO SCH ×4 (05:25→23:29)
[2017-10-24] MEDS: traMADol HCl 50 MG TAB PO SCH ×4 (05:26→23:29)
[2017-10-24] MEDS ORDERED: Furosemide 20 MG/2 ML VIAL SLOW IVP SCH ×2 (07:30→17:30)
--- NOTE | 2017-10-24 08:01 | RAD ---
AP VIEW OF THE CHEST: INDICATION: History of hypoxia status post hemothorax. COMPARISON: Prior exam dated 10/18/17 and 10/22/17. FINDINGS: There is more confluent airspace opacity within the right lower lobe suspicious for developing pneumo mario. An additional area of patchy opacity now is seen within the left lower lobe which may reflect e jonathan or pneumonia. There is slight prominence of the pulmonary vasculature with hazy bilateral perih ilar opacities which can be seen with pulmonary edema or diffuse pneumonia. Recommend correlation. No pneumothorax is evident. Right-sided rib fractures are similar-appearing. IMPRESSION: 1. More confluent bibasilar opacities suspicious for pneumonia. 2. Diffuse ground-glass opacity may reflect pulmonary edema or diffuse alveolitis. Recommend contin ued followup. 3. No pneumothorax is evident. 4. Persistent right-sided rib fracture. POS: [facility]
[2017-10-24] MEDS: Senokot S 8.6-50 MG TAB PO SCH ×2 (08:22→21:32)
[2017-10-24] MEDS: Lisinopril 10 MG TAB PO SCH (08:22)
[2017-10-24] MEDS: Gabapentin 300 MG CAP PO SCH ×3 (08:22→21:32)
[2017-10-24] MEDS: Polyethylene Glycol 3350 17 GM Packet PO SCH (08:23)
[2017-10-24] MEDS: Folic Acid 1 MG TAB PO SCH (08:23)
[2017-10-24] MEDS: Multivitamin W/ Minerals 1 TAB PO SCH (08:23)
[2017-10-24] MEDS: Enoxaparin Sodium 40 MG/0.4 ML SYRINGE SC SCH (08:41)
[2017-10-24] MEDS: Aspirin 81 mg Enteric Coated Tablet PO SCH (08:48)
[2017-10-24] MEDS: Clopidogrel Bisulfate 75 MG TAB PO SCH (08:48)
--- NOTE | 2017-10-24 11:52 | PRG ---
DATE OF SERVICE: 10/24/2017 SUBJECTIVE: This is a 57-year-old male, hospital day #6 status post fall from ladder resulting in a right hemopneumothorax and multiple right rib fractures. Chest tube has been removed. He continues to be unable to wean from O2 this morning. He was denied by inpatient rehabilitation secondary to th e level of mobility. He remains on 3 liters via nasal cannula. OBJECTIVE: VITAL SIGNS: Temperature 97.7, pulse 79, respirations 16, O2 sat 92% on 3 liters via nasal cannula, blood pressure 103/65. GENERAL: Sitting in a chair, out of bed, in no acute distress. PULMONARY: Normal work of breathing, incentive spirometry roughly 1250 mL. CARDIOVASCULAR: Regular rate and rhythm. GASTROINTESTINAL: The abdomen is soft, nontender, nondistended. MUSCULOSKELETAL: Moves all extremities x4. NEUROLOGIC: No focal deficit noted. ASSESSMENT: 1. Status post fall from ladder. 2. Right second through 10th rib fractures. 3. Right hemopneumothorax status post tube thoracostomy. 4. Acute traumatic pain. 5. Hypoxic respiratory failure, persistent. 6. History of coronary artery disease with multiple MIs and multiple PTCAs. 7. History of daily alcohol use. PLAN: he patient is encouraged to use incentive spirometry and cough frequently for pulmonary toilet ing. He reports ambulating in the halls regularly. He is having a productive cough. He does endors e a history of smoking. BNP 10/22 was mildly elevated. Chest x-ray by my review shows bilateral hazy opacities with significant right lower lobe atelectasis. Gentle IV Lasix. We will start Solu-Medro l 40 mg q.6 hours x24 hours followed by prednisone taper for suspected acute exacerbation of suspecte d lung disease. Wean O2 as tolerated. We will discuss with inpatient rehabilitation reasoning behin d denial. We will discuss with case management. The patient has been seen and evaluated with Dr. Mortensen.
[2017-10-24] MEDS: Cyclobenzaprine 10 MG TAB PO PRN (17:19)
[2017-10-24] MEDS: Atorvastatin Calcium 40 MG TAB PO SCH (21:32)
[2017-10-25] MEDS: Ibuprofen 800 MG TAB PO SCH ×3 (01:17→17:30)
[2017-10-25] MEDS: Acetaminophen 500 MG TAB PO SCH ×4 (05:17→23:38)
[2017-10-25] MEDS: traMADol HCl 50 MG TAB PO SCH ×4 (05:18→23:38)
[2017-10-25] MEDS: Oxazepam 10 MG CAP PO SCH ×2 (05:19→17:27)
[2017-10-25 05:36] LABS: Anion Gap 13 mmol/L (10-20); BUN (Urea Nitrogen) 14 mg/dL (8.4-25.7); Calc. Creatinine Clearance 113 mL/min (70-130); Calcium 9.5 mg/dL (7.8-10.44); Carbon Dioxide 29 mmol/L (22-29); Chloride 99 mmol/L (98-107); Estimated GFR-MDRD Greater than 90; Glucose 155 mg/dL (70-105); Magnesium 1.8 mg/dL (1.6-2.6); Phosphorus 3.3 mg/dL (2.3-4.7); Potassium 3.7 mmol/L (3.5-5.1); Sodium 137 mmol/L (136-145)
[2017-10-25 05:46] LABS: Band 19 % (5-11); Hemoglobin 10.4 g/dL (14.0-18.0); Lymphocytes 4 % (21-51); MDiff Complete? YES; Mean Corpuscular HGB CONC 33.4 g/dL (32.0-36.0); Mean Corpuscular Hemoglobin 34.1 pg (27.0-31.0); Mean Platelet Volume 7.3 fL (7.4-10.4); Monocytes 4 % (0-10); Neutrophil 73 % (42-75); PLT Morphology Comment Appears Adequate; Platelet Count 273 thou/uL (130-400); RBC Distribution Width 11.6 % (11.5-14.5); Red Blood Cell (RBC) Count 3.05 mill/uL (4.70-6.10); White Blood Cell (WBC) Count 14.1 thou/uL (4.8-10.8)
[2017-10-25] MEDS ORDERED: predniSONE 5 MG TAB PO SCH (08:00)
[2017-10-25] MEDS: Senokot S 8.6-50 MG TAB PO SCH ×2 (08:43→21:50)
[2017-10-25] MEDS: Aspirin 81 mg Enteric Coated Tablet PO SCH (08:44)
[2017-10-25] MEDS: Gabapentin 300 MG CAP PO SCH ×3 (08:44→21:50)
[2017-10-25] MEDS: Multivitamin W/ Minerals 1 TAB PO SCH (08:44)
[2017-10-25] MEDS: Lisinopril 10 MG TAB PO SCH (08:44)
[2017-10-25] MEDS: Folic Acid 1 MG TAB PO SCH (08:45)
[2017-10-25] MEDS: Clopidogrel Bisulfate 75 MG TAB PO SCH (08:45)
[2017-10-25] MEDS: Polyethylene Glycol 3350 17 GM Packet PO SCH (08:46)
[2017-10-25] MEDS: Piperacillin/Tazobactam 3.375 GM in Sodium Chloride 0.9% 100 ML IVPB SCH ×3 (10:45→21:57)
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
[2017-10-25] MEDS: Cyclobenzaprine 10 MG TAB PO PRN (17:27)
[2017-10-25] MEDS: Atorvastatin Calcium 40 MG TAB PO SCH (21:50)
[2017-10-26] MEDS: Ibuprofen 800 MG TAB PO SCH ×3 (02:03→17:28)
[2017-10-26] MEDS: Piperacillin/Tazobactam 3.375 GM in Sodium Chloride 0.9% 100 ML IVPB SCH ×3 (03:48→16:25)
[2017-10-26] MEDS: traMADol HCl 50 MG TAB PO SCH ×4 (05:35→23:42)
[2017-10-26] MEDS: Acetaminophen 500 MG TAB PO SCH ×4 (05:35→23:42)
[2017-10-26] MEDS: Oxazepam 10 MG CAP PO SCH ×2 (05:35→17:30)
[2017-10-26] MEDS: Folic Acid 1 MG TAB PO SCH (09:26)
[2017-10-26] MEDS: Aspirin 81 mg Enteric Coated Tablet PO SCH (09:26)
[2017-10-26] MEDS: Multivitamin W/ Minerals 1 TAB PO SCH (09:27)
[2017-10-26] MEDS: Clopidogrel Bisulfate 75 MG TAB PO SCH (09:27)
[2017-10-26] MEDS: Gabapentin 300 MG CAP PO SCH ×3 (09:27→20:23)
[2017-10-26] MEDS: Lisinopril 10 MG TAB PO SCH (09:27)
[2017-10-26] MEDS: Polyethylene Glycol 3350 17 GM Packet PO SCH (09:28)
[2017-10-26] MEDS: methylPREDNISolone 4 mg Tablet PO SCH (09:28)
[2017-10-26] MEDS: Senokot S 8.6-50 MG TAB PO SCH ×2 (09:28→21:21)
[2017-10-26] MEDS ORDERED: Azithromycin 250 MG TAB PO SCH (16:45)
--- NOTE | 2017-10-26 19:29 | PRG ---
DATE OF SERVICE: 10/26/2017 SUBJECTIVE: The patient is status post fall from a ladder when he has sustained a right hemothorax a nd multiple right rib fractures. The patient currently is still requiring oxygen specifically when h e is talking for extended period of time or ambulatory. The patient is not requiring the near amount that he was previously, but he still does have an oxygen requirement. He has also been started on I V antibiotics for suspected right lower lobe pneumonia. The patient today states his pain is control led. He is tolerating a diet and is able to work with physical and occupational therapy. OBJECTIVE: VITAL SIGNS: Temperature is 97.8, heart rate 88, blood pressure 131/69, respirations 18, oxygen satu ration is 92% on 2 liters via nasal cannula. GENERAL: The patient is resting comfortably in bed. He is again sitting in a bedside chair. He is able to get 2000 on his incentive spirometry. He is alert and oriented x3. LUNGS: Clear to auscultation bilaterally. HEART: Regular rate and rhythm. ABDOMEN: Soft, flat, nontender with active bowel sounds. EXTREMITIES: Neurovascularly intact x4. LABORATORY DATA AND IMAGING DATA: There are no labs or radiographs to review this morning. ASSESSMENT AND PLAN: 1. Status post fall from ladder. 2. Right 2nd through 10th rib fractures. 3. Right hemopneumothorax, resolved. 4. Status post right chest tube placement. 5. Right chronic obstructive pulmonary disease with acute exacerbation. 6. Suspected right lower lobe pneumonia. PLAN: Will be to continue supportive care. Encourage pulmonary toilet, incentive spirometry and amb ulation. We will change his antibiotics to p.o. today in hopes that should he not requiring oxygen t omorrow, we will again be able to attempt to discharge him. The evaluation and examination were disc ussed done with Dr. Mortensen during rounds this morning.
[2017-10-26] MEDS: Atorvastatin Calcium 40 MG TAB PO SCH (20:24)
[2017-10-27] MEDS: Ibuprofen 800 MG TAB PO SCH ×3 (01:51→17:09)
[2017-10-27 05:23] LABS: #Eosinphils 0.1 thou/uL (0.0-0.7); #Lymphocytes 1.7 thou/uL (1.20-3.40); #Monocytes 0.6 thou/uL (0.11-0.59); #Neutrophils 8.5 thou/uL (1.40-6.50); %Basophils 0.2 % (0.0-1.0); %Eosinophils 0.5 % (0.0-10.0); %Lymphocytes 15.5 % (21.0-51.0); %Monocytes 5.1 % (0.0-10.0); %Neutrophils 78.7 % (42.0-75.0); Hemoglobin 10.7 g/dL (14.0-18.0); Mean Corpuscular HGB CONC 32.3 g/dL (32.0-36.0); Mean Corpuscular Hemoglobin 33.1 pg (27.0-31.0); Mean Platelet Volume 6.8 fL (7.4-10.4); Platelet Count 398 thou/uL (130-400); RBC Distribution Width 12.2 % (11.5-14.5); Red Blood Cell (RBC) Count 3.24 mill/uL (4.70-6.10); White Blood Cell (WBC) Count 10.8 thou/uL (4.8-10.8)
[2017-10-27 05:35] LABS: Phosphorus 4.6 mg/dL (2.3-4.7)
[2017-10-27] MEDS: Oxazepam 10 MG CAP PO SCH ×2 (05:37→17:09)
[2017-10-27] MEDS: traMADol HCl 50 MG TAB PO SCH ×3 (05:37→17:10)
[2017-10-27] MEDS: Acetaminophen 500 MG TAB PO SCH ×3 (05:37→17:09)
[2017-10-27] MEDS ORDERED: Spiriva 18 MCG CAP (Box of 5 Caps) INH SCH (07:00)
--- NOTE | 2017-10-27 08:17 | RAD ---
AP VIEW CHEST: Date: 10/27/17 INDICATION: Follow-up pneumonia. FINDINGS: Areas of patchy air space opacity within the right lower lobe and left lower lobe persist. No pneumot horax is evident. Mild cardiomegaly is stable. Diffuse ground-glass opacity seen bilaterally appears similar. Right-sided rib fractures are unremarkable. IMPRESSION: 1. No pneumothorax. 2. Persistent bibasilar air space opacities suspicious for pneumonia. 3. Diffuse ground-glass opacities may reflect pulmonary edema or diffuse alveolitis. 4. Persistent right-sided rib fractures. POS: [facility]
[2017-10-27] MEDS ORDERED: Azithromycin 250 MG TAB PO SCH (09:00)
[2017-10-27] MEDS: methylPREDNISolone 4 mg Tablet PO SCH (09:35)
[2017-10-27] MEDS: Senokot S 8.6-50 MG TAB PO SCH (09:36)
[2017-10-27] MEDS: Multivitamin W/ Minerals 1 TAB PO SCH (09:37)
[2017-10-27] MEDS: Lisinopril 10 MG TAB PO SCH (09:37)
[2017-10-27] MEDS: Gabapentin 300 MG CAP PO SCH ×2 (09:37→15:43)
[2017-10-27] MEDS: Aspirin 81 mg Enteric Coated Tablet PO SCH (09:38)
[2017-10-27] MEDS: Clopidogrel Bisulfate 75 MG TAB PO SCH (09:38)
[2017-10-27] MEDS: Folic Acid 1 MG TAB PO SCH (09:38)
[2017-10-27] MEDS: Polyethylene Glycol 3350 17 GM Packet PO SCH (10:35)
[2017-10-27] MEDS: Cyclobenzaprine 10 MG TAB PO PRN (12:27)
--- NOTE | 2017-10-27 13:10 | PRG ---
DATE OF SERVICE: 10/27/2017 SUBJECTIVE: This is a 57-year-old male status post fall from ladder resulting in right hemopneumotho rax. Chest tube has been removed. During his hospitalization, the patient developed COPD exacerbati on with possible associated pneumonia. He continues to have oxygen dependence despite being treated with IV antibiotics, gentle diuresis and steroids. The patient states pain has been well controlled. He continues to ambulate frequently. He reports using his IS regularly and coughing for pulmonary toileting. Upon my evaluation, he vocalizes no complaint. OBJECTIVE: VITAL SIGNS: Temperature 97.7, pulse 90, respiration 16, O2 sat 94% to 95% on 2 liters nasal cannula , blood pressure 114/76. GENERAL: Well-developed male in no acute distress, sitting in a chair, out of bed. PULMONARY: Symmetric chest rise IS approximately 1500 mL. Lungs are clear to auscultation bilateral ly. CARDIOVASCULAR: Regular rate and rhythm. GASTROINTESTINAL: Abdomen is soft and nontender. MUSCULOSKELETAL: Moves all extremities x4. NEUROLOGIC: No focal deficit noted. LABORATORY DATA: WBC 10.8, hemoglobin 10.7, hematocrit 33.2, platelet count 398. ASSESSMENT: 1. Status post fall from ladder. 2. Right two through tenth rib fractures. 3. Right hemopneumothorax, resolved. 4. Status post right tube thoracostomy. 5. Mild chronic obstructive pulmonary disease with acute exacerbation. 6. Suspected lower lobe pneumonia. PLAN: Continue antibiotics as ordered. He has been switched to Z-[id number]. Continue Medrol Dosepak. Co ntinue to encourage pulmonary toileting IS and ambulation. Continue oxygen therapy and order home ox ygen evaluation. I have reviewed the patient's outpatient records and he has a PFT from 02/2017 marilin cating mild COPD. The patient should have outpatient followup with his primary care provider and Pul monology. Once discharged from the hospital, he will need a follow up with Trauma Services in 1 week with a chest x-ray. The patient was discussed with Dr. Mortensen.
[2017-10-27 20:13] VITALS: BP 113/64; TEMP 97.9
--- NOTE | 2017-10-28 02:21 | DIS ---
DATE OF ADMISSION: 10/18/2017 DATE OF DISCHARGE: 10/27/2017 ADMISSION DIAGNOSES: 1. Status post fall from ladder. 2. Right 2nd through 10th rib fractures. 3. Right hemopneumothorax. 4. Acute traumatic pain. 5. History of coronary artery disease and multiple myocardial infarctions with elevated troponins. 6. Daily alcohol use. 7. Dual antiplatelet therapy. DISCHARGE DIAGNOSES: 1. Status post fall from ladder. 2. Right 2nd through 10th rib fractures. 3. Right hemopneumothorax. 4. Acute traumatic pain. 5. History of coronary artery disease and multiple myocardial infarctions with elevated troponins. 6. Daily alcohol use. 7. Dual antiplatelet therapy. 8. History of chronic obstructive pulmonary disease, now with acute exacerbation. PROCEDURES: Right chest tube thoracostomy by ER physician on 10/18/2017. CONSULTANTS: Dr. Joyce, Cardiology. HOSPITAL COURSE: Mr. Ten Miller is a 57-year-old male who presented to [place] [facility] status post fall from ladder. He was found to have the above injuries. Additionally, he was found to have an elevat ed troponin. He was admitted to the telemetry floor for further management. Troponin stayed stable and Cardiology indicated that there was no acute indication for intervention or concerns regarding hi s elevated troponins. He was then transferred to the surgical floor. His chest tube was removed on 10/20/2017. A post-chest tube removal x-ray was performed and remained stable. Despite this, the pa tient continued to require oxygen for persistent hypoxia. Pain appeared to be controlled with p.o. a nalgesics and he was consistent with incentive spirometry. The patient reported a long smoking histo ry with recent PFTs that indicated possible COPD. He was treated with empiric antibiotics and steroi ds for an acute COPD exacerbation. He was deemed medically stable for discharge on 10/27/2017. DISCHARGE DISPOSITION: Home. DISCHARGE CONDITION: Fair. PHYSICAL EXAMINATION: As documented in daily progress note dated 10/27/2017. DISCHARGE INSTRUCTIONS: The patient was discharged on home oxygen 2 liters nasal cannula. He was ed ucated to refrain from smoking while on oxygen therapy. He is reminded to use his incentive spiromet ry 10-15 times per hour and continued coughing for pulmonary toileting. He may keep his wound uncove red and shower, but not soak in bath or hot tubs. He should not scrub the wound. He is to return to the emergency room for any increasing shortness of breath, fevers, chills, chest pain or dyspnea. DISCHARGE MEDICATIONS: The patient was discharged on the medications documented in the electronic in dical record. This includes resuming his home medications and adding azithromycin 250 mg p.o. for a total of 5 days, Spiriva inhaler 18 mcg one dose daily, Medrol Dosepak, Flexeril 10 mg p.o. t.i.d. p. r.n., Ultram 50-100 mg q.6 hours p.r.n. for severe pain, gabapentin 300 mg p.o. t.i.d., [id number] ter Tylenol and ibuprofen as directed, continuation of stool softener and/or laxatives over the count er. FOLLOWUP APPOINTMENTS: The patient should follow up with his primary care provider in approximately 1 week. We would recommend outpatient pulmonary followup for COPD exacerbation. The patient should follow up with Dr. Mortensen, Trauma services in approximately 1 week with a chest x-ray prior to his toshia ointment. This is merely a summary of the patient's hospitalization. For more in depth information, please see his medical record in its entirety.
== END 2017-10-27 18:00 | disposition home health service (06) | DRG 200 ==
LOC: ERS 23:25 → 2NO 10-18 03:19 → SURG B 10-19 10:43
PROVIDERS: ADMIT Specialist; ATTEND Specialist
PROC: 0W9930Z Drainage of Right Pleural Cavity with Drainage Device, Percutaneous Approach (ICD-10-PCS; principal; 2017-10-18)
DX: S27.2XXA Traumatic hemopneumothorax, initial encounter (principal); S22.41XA Multiple fractures of ribs, right side, initial encounter for closed fracture; J44.1 Chronic obstructive pulmonary disease with (acute) exacerbation; G89.11 Acute pain due to trauma; I25.10 Atherosclerotic heart disease of native coronary artery without angina pectoris; Z87.891 Personal history of nicotine dependence; W11.XXXA Fall on and from ladder, initial encounter; Y93.H2 Activity, gardening and landscaping; Y92.89 Other specified places as the place of occurrence of the external cause; E78.5 Hyperlipidemia, unspecified; I10 Essential (primary) hypertension; F41.9 Anxiety disorder, unspecified; I25.82 Chronic total occlusion of coronary artery; I25.2 Old myocardial infarction; R09.02 Hypoxemia; S00.03XA Contusion of scalp, initial encounter; S40.011A Contusion of right shoulder, initial encounter; S20.211A Contusion of right front wall of thorax, initial encounter; Z95.5 Presence of coronary angioplasty implant and graft
CPT/HCPCS: 32551; 36415; 70450; 71045; 71260; 72125; 72170; 80048; 80053; 80307; 81003; 82550; 82553; 83605; 83735; 83880; 84100; 84484; 85025; 85610; 85730; 93005; 93010; 94640; 94760; 96361; 96374; 96375; 96376; G0390; G8978-GP-CK; G8979-GP-CI; G8987-GO-CI; G8988-GO-CI; G8989-GO-CI; J1650; J1885; J1940; J2001; J2543; J2920; J3010; J7050; J7509; J7620

== ENCOUNTER 2017-10-29 00:24 | Inpatient (IN) | payer OTHER ==
[2017-10-29] MEDS ORDERED: Albuterol Sulfate 2.5 mg/3 ml Neb ONE (01:04)
[2017-10-29 01:13] LABS: #Eosinphils 0.3 thou/uL (0.0-0.7); #Lymphocytes 1.3 thou/uL (1.20-3.40); #Monocytes 0.5 thou/uL (0.11-0.59); #Neutrophils 9.1 thou/uL (1.40-6.50); %Basophils 0.2 % (0.0-1.0); %Eosinophils 2.4 % (0.0-10.0); %Lymphocytes 11.5 % (21.0-51.0); %Monocytes 4.6 % (0.0-10.0); %Neutrophils 81.3 % (42.0-75.0); Hemoglobin 12.5 g/dL (14.0-18.0); Mean Corpuscular HGB CONC 34.2 g/dL (32.0-36.0); Mean Corpuscular Hemoglobin 33.8 pg (27.0-31.0); Mean Corpuscular Volume 98.8 fL (78.0-98.0); Mean Platelet Volume 6.2 fL (7.4-10.4); Platelet Count 584 thou/uL (130-400); RBC Distribution Width 12.7 % (11.5-14.5); Red Blood Cell (RBC) Count 3.68 mill/uL (4.70-6.10); White Blood Cell (WBC) Count 11.3 thou/uL (4.8-10.8)
[2017-10-29] MEDS ORDERED: Ketorolac Tromethamine 30 MG/ML VIAL ONE (01:13)
[2017-10-29 01:19] LABS: Actual Bicarbonate (HCO3a) 24.2 mEq/L (22-28); CO2 Tension 33.1 mmHg (35.0-45.0); O2 Tension (PaO2) 68.3 mmHg (80.0-100.0); pH, Arterial 7.48 (7.35-7.45)
[2017-10-29 01:20] LABS: Analyzer IN Cardio ER; Base Excess (BEa) 1.2 mEq/L (-2.0 to +3.0); Calcium, Ionized 1.2 mmol/L (1.12-1.30); Hematocrit-ABG 36.2 % (42.0-52.0); Hemoglobin (Hb) 11.7 g/dL (14.0-18.0); Puncture Site RRA
[2017-10-29 01:21] LABS: ALV-art Gradient 88.565 (0-20)
[2017-10-29 01:29] LABS: ALT (SGPT) 23 U/L (8-55); AST (SGOT) 27 U/L (5-34); Albumin 3.3 g/dL (3.5-5.0); Alkaline Phosphatase 140 U/L (40-150); Anion Gap 15 mmol/L (10-20); BUN (Urea Nitrogen) 9 mg/dL (8.4-25.7); Bilirubin, Total 0.4 mg/dL (0.2-1.2); CK (CPK) 67 U/L (30-200); Calc. Creatinine Clearance 0 mL/min (70-130); Carbon Dioxide 24 mmol/L (22-29); Chloride 104 mmol/L (98-107); Estimated GFR-MDRD Greater than 90; Globulin 2.9 g/dL (2.4-3.5); Glucose 86 mg/dL (70-105); Potassium 3.7 mmol/L (3.5-5.1); Protein, Total 6.2 g/dL (6.0-8.3); Sodium 139 mmol/L (136-145)
[2017-10-29 01:33] LABS: CKMB 3.1 ng/mL (0-6.6); Troponin I Less than 0.010 ng/mL (< 0.028)
[2017-10-29] MEDS ORDERED: Dextrose 50% Abboject 50 ML SYRINGE SLOW IVP PRN (02:05)
[2017-10-29] MEDS ORDERED: Dextrose 5% in Water 1,000 ML IV PRN (02:05)
[2017-10-29] MEDS ORDERED: Ondansetron HCl/PF 4 MG/2 ML Vial IVP PRN (02:05)
[2017-10-29] MEDS ORDERED: Cyclobenzaprine 10 MG TAB PO PRN (02:05)
[2017-10-29] MEDS ORDERED: Ondansetron ODT 4 MG TAB PO PRN (02:05)
[2017-10-29] MEDS ORDERED: Ibuprofen 800 MG TAB PO SCH (02:30)
[2017-10-29] MEDS ORDERED: cefTRIAXone\\ROCEPHIN 2 GM in Sodium Chloride 0.9% 100 ML IVPB SCH (02:30)
[2017-10-29] MEDS ORDERED: Nitroglycerin 0.4 MG TAB (25 Tab Bottle) SL PRN (02:45)
[2017-10-29 04:28] VITALS: BMI 22.1
[2017-10-29] MEDS: traMADol HCl 50 MG TAB PO SCH ×2 (04:46→09:35)
[2017-10-29] MEDS: Acetaminophen 500 MG TAB PO SCH ×2 (04:46→09:35)
[2017-10-29] MEDS: cloNIDine 0.1 MG TAB PO SCH ×2 (04:48→09:35)
[2017-10-29 05:36] LABS: #Eosinphils 0.2 thou/uL (0.0-0.7); #Lymphocytes 1.4 thou/uL (1.20-3.40); #Monocytes 0.5 thou/uL (0.11-0.59); #Neutrophils 5.9 thou/uL (1.40-6.50); %Basophils 0.4 % (0.0-1.0); %Eosinophils 2.6 % (0.0-10.0); %Lymphocytes 17.6 % (21.0-51.0); %Monocytes 6.7 % (0.0-10.0); %Neutrophils 72.8 % (42.0-75.0); Hemoglobin 11.1 g/dL (14.0-18.0); Mean Corpuscular HGB CONC 34.2 g/dL (32.0-36.0); Mean Corpuscular Volume 99.5 fL (78.0-98.0); Mean Platelet Volume 6.2 fL (7.4-10.4); Platelet Count 512 thou/uL (130-400); RBC Distribution Width 12.6 % (11.5-14.5); Red Blood Cell (RBC) Count 3.27 mill/uL (4.70-6.10); White Blood Cell (WBC) Count 8.1 thou/uL (4.8-10.8)
[2017-10-29 05:56] LABS: Anion Gap 13 mmol/L (10-20); BUN (Urea Nitrogen) 10 mg/dL (8.4-25.7); Calc. Creatinine Clearance 121 mL/min (70-130); Calcium 8.3 mg/dL (7.8-10.44); Carbon Dioxide 25 mmol/L (22-29); Chloride 104 mmol/L (98-107); Estimated GFR-MDRD Greater than 90; Glucose 85 mg/dL (70-105); Potassium 3.5 mmol/L (3.5-5.1); Sodium 138 mmol/L (136-145)
[2017-10-29] MEDS ORDERED: Spiriva 18 MCG CAP (Box of 5 Caps) INH SCH (07:00)
[2017-10-29] MEDS: Ipratropium Bromide 2.5 ml Neb NEB SCH ×4 (07:14→23:35)
[2017-10-29] MEDS ORDERED: methylPREDNISolone 4 mg Tablet PO SCH (09:00)
[2017-10-29] MEDS ORDERED: Enoxaparin Sodium 40 MG/0.4 ML SYRINGE SC SCH (09:00)
--- NOTE | 2017-10-29 09:03 | RAD ---
SINGLE VIEW OF THE CHEST: COMPARISON: 10/27/17. HISTORY: Shortness of breath and right chest wall pain. FINDINGS: A single view of the chest shows a normal-size cardiomediastinal silhouette. Increased interstitial lung markings are present. There is no evidence of consolidation, mass, or pleural effusion. There may be a calcified pleural plaque in the right inferior thorax. IMPRESSION: No evidence of acute cardiopulmonary disease. POS: [facility]
[2017-10-29] MEDS ORDERED: HYDROcodone/Acetaminophen 10/325 mg Tablet PO SCH (09:30)
[2017-10-29] MEDS: Senokot S 8.6-50 MG TAB PO SCH ×2 (09:46→21:40)
[2017-10-29] MEDS: Lisinopril 10 MG TAB PO SCH (09:46)
[2017-10-29] MEDS: Metoprolol Tartrate 25 MG TAB PO SCH ×2 (09:47→21:40)
[2017-10-29] MEDS: Multivitamin W/ Minerals 1 TAB PO SCH (09:47)
[2017-10-29] MEDS: Ibuprofen 800 MG TAB PO SCH ×2 (09:47→17:47)
[2017-10-29] MEDS: Aspirin 81 mg Enteric Coated Tablet PO SCH (09:47)
[2017-10-29] MEDS: Folic Acid 1 MG TAB PO SCH (09:47)
[2017-10-29] MEDS: Gabapentin 300 MG CAP PO SCH ×3 (09:47→21:39)
[2017-10-29] MEDS: Clopidogrel Bisulfate 75 MG TAB PO SCH (09:48)
[2017-10-29] MEDS: methylPREDNISolone 4 mg Tablet PO SCH ×4 (09:48→21:40)
[2017-10-29] MEDS ORDERED: Azithromycin 250 MG TAB PO SCH (10:15)
--- NOTE | 2017-10-29 11:06 | HP ---
DATE OF ADMISSION: 10/29/2017. HISTORY OF PRESENT ILLNESS: Mr. Ten Miller is a 57-year-old male with a significant cardiac history w ho was recently discharged from [facility] status post fall from ladder resulting in a right hemopneumothorax requiring chest tube thoracostomy. Patient was discharged home on home oxygen, emp iric antibiotics, and steroids for suspected COPD exacerbation during his hospitalization. Per patie nt, post-discharge, despite taking his discharge medications as directed, his pain was uncontrolled a nd he was unable to get comfortable. He had increasing shortness of breath, because of uncontrolled pain. Per EMS report, it appears that patient has not been compliant with his pain medication regime n. He did have a temperature of 101 en route that resolved status post Tylenol. Upon my evaluation, the patient is lying on the stretcher, mildly tachypneic with 95% on 2 liters nasal cannula. He com plains of right-sided chest discomfort. PAST MEDICAL HISTORY: ALLERGIES: EFFIENT. CHRONIC MEDICAL ILLNESSES: COPD, mild; CAD status post PTCA x7; NM x10; hypertension; alcohol abuse. HOME MEDICATIONS: Include Plavix 75 mg p.o. daily, nitro tablet 0.4 mg p.r.n., aspirin 325 mg p.o. d aily, metoprolol XL 25 mg b.i.d., Xanax 1 mg t.i.d. p.r.n., lisinopril 10 mg p.o. daily, vitamin C romero pplement, vitamin B12 supplement, atorvastatin 40 mg p.o. daily. Additionally, he was discharged jaime e on Monday with Tylenol 1000 mg q.6 hours, azithromycin 250 mg p.o. daily, Flexeril 10 mg p.o. t.i.d . p.r.n., folic acid 1 mg daily, gabapentin 300 mg p.o. t.i.d., Motrin 800 mg q.8 hours, multivitamin , thiamine 100 mg p.o. daily, Spiriva inhaler, and Ultram 50-100 mg q.6 hours for pain. PAST SURGICAL HISTORY: Five inguinal hernia surgeries and an umbilical hernia surgery as well as com plex left arm laceration repair, left bicep repair, and cardiac ablation. SOCIAL HISTORY: The patient is a daily drinker. He is a former cigarette smoker with current cigar use. Denies illicit drug use. FAMILY HISTORY: Noncontributory. REVIEW OF SYSTEMS: A 10 point review of systems was performed and negative except as indicated in th e HPI. PHYSICAL EXAMINATION: VITAL SIGNS: Temperature 98, blood pressure 122/67, pulse 87, respiration 20, O2 saturation 94% on 2 liters nasal cannula. Pain 8/10. GENERAL: Resting in bed, in no acute distress. PULMONARY: Tachypneic, symmetric chest rise. LUNGS: Clear to auscultation bilaterally. CARDIOVASCULAR: Regular rate and rhythm. GASTROINTESTINAL: Abdomen is soft, nontender, nondistended. MUSCULOSKELETAL: Moves all extremities x4. NEUROLOGIC: No focal deficit noted. BACK: Reported as being within normal limits. NEUROLOGIC: GCS of 15. No focal deficit is noted. LABORATORY DATA AND IMAGING: WBC 11.3, hemoglobin 12.5, hematocrit 36.4, platelet count 584, pH 7.48 , pCO2 33.1, pO2 68.3. Sodium 139, potassium 3.7, chloride 104, carbon dioxide 24, BUN 9, creatinine 0.65. Troponin less than 0.010. Chest x-ray, official read is pending; however, appears stable fro m an exam dated 10/27/2017. There remained patchy infiltrates bilaterally, basilar atelectasis actua lly appears improved from previous. ASSESSMENT: 1. Status post fall from ladder. 2. Right 2nd through 10th rib fracture. 3. Right hemopneumothorax status post tube thoracostomy. 4. Acute traumatic pain. 5. Chronic obstructive pulmonary disease exacerbation. 6. Acute hypoxic respiratory failure secondary to above. 7. History of coronary artery disease, status post percutaneous transluminal coronary angioplasty an d multiple myocardial infarctions. 8. History of alcohol abuse. PLAN: Admit to trauma services for pain management. We will continue with broad spectrum antibiotic s. If the patient remains afebrile, we will switch to p.o. regimen. Continue Medrol taper, Spiriva inhaler and incentive spirometry/pulmonary toileting. Resume pain regimen as previously ordered as p ain was controlled prior to patient leaving hospital. Plans for admission were discussed with the megan barakat, who vocalizes understanding. Trauma attending has been notified of admission.
[2017-10-29] MEDS: HYDROcodone/Acetaminophen 10/325 mg Tablet PO SCH ×2 (15:43→21:41)
[2017-10-29] MEDS ORDERED: Potassium Chloride 20 MEQ TAB PO SCH (17:00)
--- NOTE | 2017-10-29 19:57 | PRG ---
DATE OF SERVICE: 10/29/2017 SUBJECTIVE: Mr. Ten Miller is a 57-year-old male admitted earlier this morning for uncontrolled pain and shortness of breath, status post fall from ladder. The patient's pain regimen has been increased to [place]. He states that his breathing is much more improved at this time and pain is better contro lled. OBJECTIVE: VITAL SIGNS: Temperature 97.9, pulse 68, respirations 18, O2 saturation 98% on 2 liters nasal cannul a, blood pressure 99/67. GENERAL: Sitting on edge of bed, in no acute distress. PULMONARY: Normal work of breathing. Symmetric rise. Lungs are clear to auscultation bilaterally. 1750 mL on incentive spirometry. ABDOMEN: Soft, nontender, nondistended. MUSCULOSKELETAL: Moves all extremities x4. NEUROLOGIC: No focal deficit noted. LABORATORY DATA: WBC 8.1, hemoglobin 11.1, hematocrit 32.6, platelet count 512,000. Sodium 138, pot assium 3.5, chloride 104, carbon dioxide 25, BUN 10, creatinine 0.61. ASSESSMENT: 1. Status post fall from ladder. 2. Right 2nd through 10th rib fractures. 3. Acute traumatic pain. 4. Acute chronic obstructive pulmonary disease exacerbation. 5. Hypoxic respiratory failure secondary to above. PLAN: Continue supportive care as ordered. Continue increased pain regimen as ordered at this time. Continue to monitor for fever or evidence of worsening pneumonia. Continue outpatient regimen of a ntibiotics and steroid taper. Continue inhaler as ordered. Continue to encourage incentive spiromet ry, pulmonary toileting and mobility. Replete potassium. Given the patient's elevated BNP and pedal edema and the cardiac history, we will check BNP. The patient was discussed with Trauma attending.
[2017-10-30] MEDS: Ibuprofen 800 MG TAB PO SCH ×3 (03:03→17:49)
[2017-10-30] MEDS: HYDROcodone/Acetaminophen 10/325 mg Tablet PO SCH ×4 (03:03→21:25)
[2017-10-30 05:49] LABS: Anion Gap 12 mmol/L (10-20); BUN (Urea Nitrogen) 10 mg/dL (8.4-25.7); Calc. Creatinine Clearance 112 mL/min (70-130); Calcium 9.3 mg/dL (7.8-10.44); Carbon Dioxide 26 mmol/L (22-29); Chloride 106 mmol/L (98-107); Estimated GFR-MDRD Greater than 90; Glucose 132 mg/dL (70-105); Phosphorus 4.6 mg/dL (2.3-4.7); Potassium 4.4 mmol/L (3.5-5.1); Sodium 140 mmol/L (136-145)
[2017-10-30] MEDS: Ipratropium Bromide 2.5 ml Neb NEB SCH ×4 (08:00→23:52)
[2017-10-30] MEDS: Clopidogrel Bisulfate 75 MG TAB PO SCH (08:41)
[2017-10-30] MEDS: methylPREDNISolone 4 mg Tablet PO SCH ×3 (08:41→17:48)
[2017-10-30] MEDS: Azithromycin 250 MG TAB PO SCH (08:41)
[2017-10-30] MEDS: Multivitamin W/ Minerals 1 TAB PO SCH (08:41)
[2017-10-30] MEDS: Gabapentin 300 MG CAP PO SCH ×3 (08:42→21:23)
[2017-10-30] MEDS: Metoprolol Tartrate 25 MG TAB PO SCH ×2 (08:42→21:23)
[2017-10-30] MEDS: Lisinopril 10 MG TAB PO SCH (08:42)
[2017-10-30] MEDS: Folic Acid 1 MG TAB PO SCH (08:42)
[2017-10-30] MEDS: Aspirin 81 mg Enteric Coated Tablet PO SCH (08:42)
[2017-10-30] MEDS: Senokot S 8.6-50 MG TAB PO SCH ×2 (08:42→21:27)
[2017-10-30] MEDS ORDERED: Furosemide 40 MG/4 ML VIAL SLOW IVP SCH (08:45)
--- NOTE | 2017-10-30 12:42 | PRG-2 ---
DATE OF SERVICE: 10/30/2017 SUBJECTIVE: The patient is a 57-year-old male admitted as a bounce back admission for uncontrolled p ain, shortness of breath, status post fall from ladder with a second through 10th rib fractures. The patient upon admission to the hospital, the patient's pain regimen was increased to [place]. The rocío ent states that his pain is much better. States that he is able to walk and breathe without much rustam n at all. Patient verbalizes no other complaints this morning. OBJECTIVE: VITAL SIGNS: Temperature 97.7, pulse 73, respirations are 24, oxygen sat was 95% on 2 liters, blood pressure was 125/78. GENERAL: Sitting in chair, in no acute distress. RESPIRATORY: Normal work of breathing. Symmetrical rise. CARDIOVASCULAR: Regular rate and rhythm. No murmurs. ABDOMEN: Soft, nontender, nondistended. MUSCULOSKELETAL: Moves all extremities x4 and ambulates easily. NEUROLOGIC: GCS of 15. No focal deficits noted. LABORATORY DATA: Sodium 140, potassium 4.4, chloride 106, carbon dioxide 26, BUN 10, creatinine 0.66 , glucose 132, calcium 9.3, phosphorus 4.6, magnesium 2.0. ASSESSMENT: 1. Status post fall from ladder. 2. Right second through 10th rib fractures. 3. Acute traumatic pain. 4. Acute chronic obstructive pulmonary disease exacerbation. 5. Hypoxic respiratory failure secondary to #4. PLAN: We will continue supportive care as needed. We will continue with increased pain regimen as o rdered at this time. We will continue to monitor for worsening signs of pneumonia or other systemic signs of infection. The patient will continue on his antibiotics and steroid taper which he is comin g to the end of in the next few days. The patient is encouraged to continue use incentive spirometry, pulmonary toileting and continue to b e mobile. The patient's electrolyte abnormalities have been replaced previously and on today's evalu ation, do not need any repletion. The patient was given a dose of Lasix today in an attempt to see i f there is some fluid retention or some fluid overload causing some of his desaturation. The patient has been able to walk and ambulate; however, he does desaturate down to 85% on room air with exertio n; however, he is able to tolerate a low 90s oxygen saturation on room air at rest. We will continue to work on weaning him off his oxygen and case management has been consulted for placement as this p atient has proven to not be successful going home on his own. This patient was seen and evaluated with Dr. Darius Mortensen, the trauma attending and he is in agreeme nt with this plan.
--- NOTE | 2017-10-30 17:00 | PQF ---
CLINICAL DOCUMENTATION IMPROVEMENT CLARIFICATION FORM: ICD-10 Updated PLEASE DO AN ADDENDUM TO THE PROGRESS NOTE WITH ANY DOCUMENTATION UPDATES OR ADDITIONS AND CARRY THROUGH TO DC SUMMARY. THANK YOU. DATE: 11/01/17 ATTN: DR. KING Please exercise your independent, professional judgment in responding to the clarification form. Clinical indicators are provided on the bottom of this form for your review Please check appropriate box(s) to clarify if the following diagnosis has been ruled in or ruled out: PNEUMONIA [ ] Ruled in diagnosis [ ] Continue to treat [ x] Resolved [ ] Ruled out diagnosis [ ] Cannot rule out diagnosis [ ] Other diagnosis [ ] Unable to determine In addition, please specify: Present on Admission (POA): [ ] Yes [ x ] No [ ] Unable to determine For continuity of documentation, please document condition throughout progress notes and discharge summary. Thank You. 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 All Rights Reserved ILIA [email or web address] Office: [phone] [place]
[2017-10-30] MEDS: HYDROcodone/Acetaminophen 10/325 mg Tablet PO PRN (23:46)
[2017-10-31] MEDS: Ibuprofen 800 MG TAB PO SCH ×2 (02:36→10:16)
[2017-10-31] MEDS: HYDROcodone/Acetaminophen 10/325 mg Tablet PO SCH ×2 (02:36→08:49)
[2017-10-31 06:03] LABS: Anion Gap 14 mmol/L (10-20); BUN (Urea Nitrogen) 12 mg/dL (8.4-25.7); Calc. Creatinine Clearance 116 mL/min (70-130); Calcium 9.3 mg/dL (7.8-10.44); Carbon Dioxide 27 mmol/L (22-29); Chloride 104 mmol/L (98-107); Estimated GFR-MDRD Greater than 90; Glucose 96 mg/dL (70-105); Phosphorus 5.4 mg/dL (2.3-4.7); Sodium 141 mmol/L (136-145)
[2017-10-31] MEDS: Ipratropium Bromide 2.5 ml Neb NEB SCH ×2 (06:52→12:21)
[2017-10-31] MEDS ORDERED: methylPREDNISolone 4 mg Tablet PO SCH (08:00)
[2017-10-31] MEDS: Senokot S 8.6-50 MG TAB PO SCH (08:48)
[2017-10-31] MEDS: Gabapentin 300 MG CAP PO SCH (08:48)
[2017-10-31] MEDS: Azithromycin 250 MG TAB PO SCH (08:48)
[2017-10-31] MEDS: Folic Acid 1 MG TAB PO SCH (08:48)
[2017-10-31] MEDS: Lisinopril 10 MG TAB PO SCH (08:49)
[2017-10-31] MEDS: Clopidogrel Bisulfate 75 MG TAB PO SCH (08:49)
[2017-10-31] MEDS: Multivitamin W/ Minerals 1 TAB PO SCH (08:49)
[2017-10-31] MEDS: Metoprolol Tartrate 25 MG TAB PO SCH (08:49)
[2017-10-31] MEDS: Aspirin 81 mg Enteric Coated Tablet PO SCH (08:49)
[2017-10-31 12:13] VITALS: BP 120/76; TEMP 98.1
[2017-10-31] MEDS: HYDROcodone/Acetaminophen 10/325 mg Tablet PO PRN (13:57)
--- NOTE | 2017-10-31 14:22 | DIS ---
DATE OF ADMISSION: 10/29/2017 DATE OF DISCHARGE: 10/31/2017 REASON FOR HOSPITALIZATION: Shortness of breath. HOSPITAL DIAGNOSES: 1. Status post fall from ladder. 2. Right second through 10th rib fractures. 3. Acute traumatic pain. 4. Acute chronic obstructive pulmonary disease exacerbation. 5. Hypoxic respiratory failure secondary to acute chronic obstructive pulmonary disease exacerbation . PROCEDURES: None. DISCHARGE CONDITION: Good. DISCHARGE DISPOSITION: senior living facility. DISCHARGE MEDICATIONS: 1. Aspirin 81 mg daily. 2. Zithromax 500 mg daily. 3. Clopidogrel 75 mg daily. 4. Flexeril 10 mg t.i.d. 5. Folic acid 1 mg daily. 6. Gabapentin 300 mg t.i.d. 7. [place] 10 mg/325 mg q.6h. 8. Ibuprofen 800 mg q.8 hours. 9. Atrovent 2.5 mL nebs q.6h. 10. Lisinopril 10 mg daily. 11. Methylprednisolone 4 mg x2 additional doses. 12. Lopressor 12.5 mg b.i.d. 13. Multivitamin with minerals 1 tablet daily. 14. Nitroglycerin 0.4 mg p.r.n. 15. Senokot-S 2 tablets b.i.d. 16. Thiamine 100 mg daily. 17. Albuterol 8.5 grams 2 puffs q.4 hours as needed. 18. Xanax 1 mg b.i.d. as needed. 19. Lipitor 40 mg daily. ACTIVITY: As tolerated. THERAPY: Physical and occupational therapy to resume at prison facility. DIETARY: Heart healthy diet. FOLLOWUP: Follow up with Dr. Mortensen in 2 weeks with repeat chest x-ray. BRIEF HISTORY OF HOSPITALIZATION: Mr. Miller is a 57-year-old male who was previously admitted for a f all off a ladder with right, multiple rib fractures and right pneumothorax. He was unable to be wean ed from oxygen and was sent home with home O2. He returned to the hospital a day later complaining o f shortness of breath. He was admitted to the hospital by Trauma Services with acute exacerbation of COPD. He was started on steroid Dosepak and antibiotic. He improved and on hospital day 2 was acce pted to prison facility. He had no additional complications. He was discharged to prison facility. He will follow up with Dr. Mortensen in 2 weeks with repeat chest x-ray. The patient was seen and examined with Dr. Mortensen who agrees with plan.
[2017-11-01] MEDS ORDERED: methylPREDNISolone 4 mg Tablet PO SCH (08:00)
== END 2017-10-31 15:41 | DRG 190 ==
LOC: ERS 00:24 → SURG A 01:00
PROVIDERS: ADMIT Specialist; ATTEND Specialist
DX: J44.1 Chronic obstructive pulmonary disease with (acute) exacerbation (principal); J96.01 Acute respiratory failure with hypoxia; S22.31XA Fracture of one rib, right side, initial encounter for closed fracture; W11.XXXA Fall on and from ladder, initial encounter; Z87.891 Personal history of nicotine dependence; F10.10 Alcohol abuse, uncomplicated; I25.10 Atherosclerotic heart disease of native coronary artery without angina pectoris; Z95.5 Presence of coronary angioplasty implant and graft; I25.2 Old myocardial infarction; I10 Essential (primary) hypertension
CPT/HCPCS: 36415; 71045; 80048; 80053; 80307; 82550; 82553; 82805; 83605; 83735; 83880; 84100; 84484; 85025; 87040; 93005; 94640; 94760; 96365; 96367; 96375; 96376; J0696; J1885; J1940; J1956; J2270; J3370; J7050; J7611; J7620; J7644

== ENCOUNTER 2017-10-31 21:27 | Emergency (ER) | payer OTHER ==
--- NOTE | 2017-10-31 23:10 | RAD ---
RADIOGRAPH CHEST 2 VIEWS: Date: 10/31/17 Time: 10:47 p.m. HISTORY: 57-year-old male with persistent right rib pain. Multiple rib fractures. COMPARISON: 10/27/17. FINDINGS: There is now a greater degree of displacement and angulations of the fractures involving the lateral aspects of the right third, fourth, fifth, sixth, seventh, and eighth, ribs, compared to the previous study. Previously, there was a dense air space density overlapping these fractured ribs at the later al aspect of the right mid and lower lung zones. This opacification has become slightly smaller and l ess dense, but it persists. The current findings may represent pleural thickening associated with the rib fractures. Otherwise, no consolidation in the rest of the lungs. No moderate sized or large pleu ral effusion. Cardiomediastinal silhouette is within normal limits. Diffusely prominent interstitial markings throughout both lungs. No pneumothorax. IMPRESSION: Interval worsening of displacement of the multiple acute/subacute right traumatic rib fractures jimmy red to 10/27/17. BRYANT [] POS: [facility]
[2017-10-31] MEDS ORDERED: HYDROcodone/Acetaminophen 10/325 mg Tablet ONE (23:33)
[2017-10-31 23:45] LABS: #Eosinphils 0.2 thou/uL (0.0-0.7); #Lymphocytes 1.8 thou/uL (1.20-3.40); #Neutrophils 9.1 thou/uL (1.40-6.50); %Basophils 0.3 % (0.0-1.0); %Eosinophils 1.4 % (0.0-10.0); %Lymphocytes 14.6 % (21.0-51.0); %Monocytes 8.2 % (0.0-10.0); %Neutrophils 75.6 % (42.0-75.0); Mean Corpuscular HGB CONC 33.2 g/dL (32.0-36.0); Mean Corpuscular Hemoglobin 33.4 pg (27.0-31.0); Mean Platelet Volume 6.2 fL (7.4-10.4); Platelet Count 649 thou/uL (130-400); Red Blood Cell (RBC) Count 3.59 mill/uL (4.70-6.10)
[2017-11-01 00:06] LABS: ALT (SGPT) 19 U/L (8-55); AST (SGOT) 16 U/L (5-34); Albumin 3.5 g/dL (3.5-5.0); Alkaline Phosphatase 151 U/L (40-150); Anion Gap 12 mmol/L (10-20); BUN (Urea Nitrogen) 14 mg/dL (8.4-25.7); Bilirubin, Total Less than 0.2 mg/dL (0.2-1.2); Calc. Creatinine Clearance 0 mL/min (70-130); Calcium 9.1 mg/dL (7.8-10.44); Carbon Dioxide 28 mmol/L (22-29); Chloride 104 mmol/L (98-107); Estimated GFR-MDRD Greater than 90; Globulin 2.6 g/dL (2.4-3.5); Glucose 92 mg/dL (70-105); Lipase 33 U/L (8-78); Potassium 4.4 mmol/L (3.5-5.1); Protein, Total 6.1 g/dL (6.0-8.3); Sodium 140 mmol/L (136-145)
[2017-11-01 00:46] LABS: Bilirubin Negative (Negative); Blood, Urine Negative (Negative); Clarity CLOUDY (Clear); Glucose, Urine (Dipstick) Negative (Negative); Leukocyte Negative (Negative); Nitrite Negative (Negative); Protein, Urine (Dipstick) Negative (Neg-Trace); Specific Gravity, Urine 1.012 (1.002-1.036); Urobilinogen 0.2 mg/dL (0.2-1.0); pH, Urine 7.5 (5.0-9.0)
== END 2017-11-01 01:02 | disposition home or self-care (01) ==
LOC: ERS 21:27
DX: S22.41XD Multiple fractures of ribs, right side, subsequent encounter for fracture with routine healing (principal); E78.5 Hyperlipidemia, unspecified; I10 Essential (primary) hypertension; I25.2 Old myocardial infarction; I25.119 Atherosclerotic heart disease of native coronary artery with unspecified angina pectoris; F41.9 Anxiety disorder, unspecified; W11.XXXD Fall on and from ladder, subsequent encounter
CPT/HCPCS: 36415; 71046; 81003; 83690; 85025

== ENCOUNTER 2017-11-26 10:39 | Observation (INO) | payer OTHER ==
[2017-11-26 11:15] LABS: #Basophils 0.1 thou/uL (0.0-0.2); #Eosinphils 0.1 thou/uL (0.0-0.7); #Lymphocytes 1.4 thou/uL (1.20-3.40); #Monocytes 0.3 thou/uL (0.11-0.59); #Neutrophils 10.3 thou/uL (1.40-6.50); %Basophils 0.4 % (0.0-1.0); %Eosinophils 0.6 % (0.0-10.0); %Lymphocytes 11.7 % (21.0-51.0); %Monocytes 2.6 % (0.0-10.0); %Neutrophils 84.6 % (42.0-75.0); Hemoglobin 16.6 g/dL (14.0-18.0); Mean Corpuscular HGB CONC 33.9 g/dL (32.0-36.0); Mean Corpuscular Hemoglobin 33.9 pg (27.0-31.0); Mean Platelet Volume 6.9 fL (7.4-10.4); Platelet Count 206 thou/uL (130-400); RBC Distribution Width 12.8 % (11.5-14.5); Red Blood Cell (RBC) Count 4.89 mill/uL (4.70-6.10); White Blood Cell (WBC) Count 12.2 thou/uL (4.8-10.8)
[2017-11-26 11:17] LABS: INR-International Normal Ratio 0.9; PTT 24.2 SEC (22.9-36.1); Prothrombin Time 11.9 SEC (12.0-14.7)
[2017-11-26] MEDS ORDERED: Nitroglycerin 0.4 MG TAB (25 Tab Bottle) ONE (11:28)
[2017-11-26 11:32] LABS: ALT (SGPT) 169 U/L (8-55); AST (SGOT) 230 U/L (5-34); Albumin 4.4 g/dL (3.5-5.0); Alkaline Phosphatase 176 U/L (40-150); Anion Gap 27 mmol/L (10-20); BUN (Urea Nitrogen) 7 mg/dL (8.4-25.7); CK (CPK) 45 U/L (30-200); Calc. Creatinine Clearance 0 mL/min (70-130); Carbon Dioxide 14 mmol/L (22-29); Chloride 102 mmol/L (98-107); Estimated GFR-MDRD Greater than 90; Globulin 2.8 g/dL (2.4-3.5); Glucose 65 mg/dL (70-105); Potassium 3.8 mmol/L (3.5-5.1); Protein, Total 7.2 g/dL (6.0-8.3); Sodium 139 mmol/L (136-145)
[2017-11-26 11:38] LABS: CKMB 2.1 ng/mL (0-6.6); Troponin I Less than 0.010 ng/mL (< 0.028)
--- NOTE | 2017-11-26 11:45 | RAD ---
FRONTAL VIEW CHEST: COMPARISON: 11/14/17. INDICATION: Emergency exam. New-onset chest pain. FINDINGS: There is stable chronic deformity of the lateral right chest wall with associated pleural-based densi ty. There is mild elevation of the lateral right hemidiaphragm. The left lung is clear. Cardiomedi astinal silhouette is accentuated by portable technique. There is scoliotic curvature of the imaged spine. IMPRESSION: Stable appearance of the chest. POS: [facility]
--- NOTE | 2017-11-26 12:36 | CT ---
CTA OF THE THORAX WITH IV CONTRAST AND 3D REFORMATTED IMAGING: INDICATION: Chest pain. History of fall off ladder 1 month ago with puncture. FINDINGS: There are multiple right-sided rib fractures as detailed on the CT of the chest, abdomen, and pelvis dated 10/18/17. No definite central or segmental pulmonary embolus is evident. There is some mild romero bsegmental atelectasis within the right lung base. No pneumothorax is evident. There is scattered e mphysema. There is scattered coronary artery and thoracic aortic calcifications. There is prominent fatty infiltration of the liver. There is a displaced right 1st rib fracture which was not well see n on the comparison examination. The majority of the rib fractures appear to be healing. IMPRESSION: 1. No central or segmental pulmonary embolus. 2. Multiple healing right-sided rib fractures. Mild right basilar atelectasis. 3. Interval displacement of a right anterolateral 1st rib fracture not well seen on the comparison e xamination. 4. Prominent fatty infiltration of the liver. POS: [facility]
--- NOTE | 2017-11-26 12:40 | CT ---
CT OF THE ABDOMEN AND PELVIS WITH IV CONTRAST: INDICATION: History of chest pain. COMPARISON: Prior exam dated 04/16/15. FINDINGS: There is prominent fatty infiltration of the liver. The liver demonstrates no focal hepatic lesion. There is mild right basilar atelectasis. The pancreas, spleen, adrenal glands, and kidneys appear within normal limits. The bladder is modera tely distended. A mild amount of retained stool within the colon. There are multiple right-sided rib fractures seen better on the trauma CT scan of the chest dated 10/06 07/23. There is scoliosis of the thoracolumbar spine. There is scattered degenerative and osteoarthr itic change. IMPRESSION: 1. Fatty liver. 2. Mild right basilar atelectasis. 3. Moderate distention of the bladder. 4. Other chronic findings as above. POS: [facility]
[2017-11-26] MEDS ORDERED: traMADol HCl 50 MG TAB ONE (13:00)
[2017-11-26 14:04] LABS: Troponin I 0.065 ng/mL (< 0.028)
[2017-11-26] MEDS ORDERED: traMADol HCl 50 MG TAB PO PRN (16:06)
[2017-11-26 17:51] LABS: Troponin I 0.107 ng/mL (< 0.028)
[2017-11-26] MEDS: traMADol HCl 50 MG TAB PO PRN (18:21)
[2017-11-26 18:32] VITALS: BMI 22.4
--- NOTE | 2017-11-26 19:41 | HP ---
DATE OF SERVICE: 11/26/2017 PRIMARY CARE PHYSICIAN: Dr. Lacy. CHIEF COMPLAINT: Chest pain. HISTORY OF PRESENT ILLNESS: Mr. Miller is a 57-year-old male with history of coronary artery disease and multiple stents, recent fall from a ladder resulting in two hospitalizations for pneumothorax/multiple rib fractures followed by COPD with exacerbation, dyslipidemia, hypertension, who presents to the hospital today complaining of chest pain. The patient reports around 9 o' clock this morning while sitting outside, he had the onset of substernal and left-sided chest pressure as well as stinging pain that has been constant. He states it has been intermittent over the past week in the same location, no radiation, no precipitating or relieving factors. He took 2 nitroglycerin today without any change and over the past week has averaged about 2 nitroglycerin per day. He reports this is different than the rib fracture pain , which is normally relieved by tramadol. He had taken already his alprazolam and aspirin this morning, after the nitroglycerin he tried some ibuprofen as well as using his Spiriva and there was no change in pain. Because of this, he presented to the emergency room. In addition to the chest pain/pressure, the patient complains of palpitations with an irregular heartbeat, shortness of breath, nausea, clammy and sweaty feeling. He denies any vomiting, fevers or chills. In the emergency room, the patient's presentation concerning for cardiac etiology of his chest pain and he received 1 liter of normal saline, 0.4 mg of nitroglycerin, 100 mg of tramadol and Hospitalist called for admission. ALLERGIES: EFFIENT (prasugrel). PAST MEDICAL HISTORY: 1. Chronic obstructive pulmonary disease with history of multiple stent placements, and MIs. 2. Hypertension. 3. Chronic obstructive pulmonary disease with recent exacerbation. 4. Rib fractures with recent hospitalization for pain management followed by COPD exacerbation with pneumonia. 5. Anxiety PAST SURGICAL HISTORY: 1. Hernia repairs x5. 2. Umbilical hernia surgery. 3. Right bicep repair. 4. Cardiac ablation. 5. Cardiac stents. SOCIAL HISTORY: The patient denies any tobacco use, in the past has used tobacco. He reports alcohol on the weekends averaging a 12-pack total, denies any weeks day alcohol use. He lives with his dad, who is his surrogate decision maker. FAMILY HISTORY: Mom at 58 of an MS. REVIEW OF SYSTEMS: As noted above is positive for palpitations, nausea, clammy and sweaty sensation. In addition, he noticed a change of his voiding on the tramadol that is slower than normal. He denies any vomiting, fevers or chills. All remaining review of systems are reviewed and negative. MEDICATIONS: Medications were reconciled with his last discharge summary to the best of the patient's ability. 1. Aspirin 325 mg daily. 2. Plavix 75 mg daily. 3. Flexeril 10 mg t.i.d. p.r.n. 4. Gabapentin 300 mg t.i.d. 5. Ibuprofen 400 mg every 8 hours as needed. 6. Lisinopril 10 mg daily. 7. Lopressor 12.5 mg b.i.d. 8. Multivitamin daily. 9. Nitroglycerin 0.4 mg as needed for chest pain. 10. Spiriva 1 inhalation daily. 11. Tramadol q.6 hours 50 mg tablets 1-2 tablets every 6 hours as needed. 12. Alprazolam 1 mg b.i.d. as needed. 13. Lipitor 40 mg daily. PHYSICAL EXAMINATION: VITAL SIGNS: Blood pressure 122/66, temperature 97.7, pulse 79, respirations 18 , saturations 95% on room air. GENERAL: Awake, alert, responsive, in no apparent distress, able to speak in full sentences. HEENT: Pupils are equal and round. No scleral icterus. Oral mucosa is pink and moist. NECK: Supple, nontender. LYMPHATICS: No palpable cervical or supraclavicular lymphadenopathy. LUNGS: Clear to auscultation bilateral. No audible wheezing, rhonchi or rales. HEART: Normal S1, S2, regular rate and rhythm, no audible murmurs. ABDOMEN: Soft. Present bowel sounds. Nontender, nondistended. EXTREMITIES: No pitting edema. VASCULAR: No audible carotid bruits. SKIN: Multiple areas of ecchymosis on his forearms. No visible rashes. PSYCH: Alert & oriented, euthymic, l/l/gd thought process. LABORATORY DATA: The patient underwent CT studies. CT abdomen, liver shows fatty liver, mild right basilar atelectasis, moderate distention of the bladder and other chronic findings. CT of the chest with contrast, negative for PE, multiple healing right-sided rib fractures and mild right basilar atelectasis, interval displacement of her right anterolateral first rib fracture not well seen on the comparison exam, prominent fatty liver. Chest x-ray, stable appearance of the chest. LABORATORY DATA: Reviewed. Renal panel, 139, 3.8, 102, 14, 7, 0.72 with a glucose of 65. Total bilirubin 1.0, AST 230, ALT 169, alkaline phosphatase 176. Troponin less than 0.01, second troponin 0.065. CBC: 12.2, 16.6, 48.9, 206 with an MCV of 100, 85% neutrophils. IMPRESSION: 1. Intermittent chest pain in a patient with known significant coronary artery disease and multiple stents. 2. Recent fall with rib fractures. 3. Chronic obstructive pulmonary disease with recent exacerbation and pneumonia , currently asymptomatic. 4. Elevated liver function tests of unknown etiology in the context of fatty liver based on CT exam. 5. Mild leukocytosis, unknown etiology. 6. Moderately distended bladder. 7. Low bicarbonate level of unknown etiology. 8. Anxiety PLAN: 1. Observation status in the hospital. 2. As the patient is unable to lay flat for a stress test, and I am uncertain of when his last stress test was, I will order an echocardiogram as well as Cardiology consultation to see if a stress test or other evaluation is warranted in the hospital. 3. Continue his beta lance, HAYLEE inhibitor with hold parameters, as well as his statin, full dose aspirin and Plavix. 4. Continue pain management for the healing rib fractures with the patient's home medication of gabapentin and tramadol as well as Tylenol. Hold the ibuprofen now given the cardiac workup. 5. The patient will benefit from seeing Dr. Lacy about the urinary symptoms for further evaluation. In addition, the fatty liver and elevated liver function tests will need to be further worked up. Recheck in AM. 6. I will order p.r.n. nebulizers, there are no signs of a chronic obstructive pulmonary disease exacerbation. 7. Continuing the p.r.n. Xanax. 8. We will monitor on an ASE protocol, no medications unless symptomatic 9. Deep venous thrombosis prophylaxis. The patient is ambulatory. 10. Gastrointestinal prophylaxis not indicated. CODE STATUS: FULL. Surrogate decision maker is the patient's father. I reviewed the plan of care with the patient. No questions or further needs at end of evaluation. MTDD
[2017-11-26] MEDS: Atorvastatin Calcium 40 MG TAB PO SCH (20:25)
[2017-11-26] MEDS: Gabapentin 300 MG CAP PO SCH (20:25)
[2017-11-26] MEDS: Metoprolol Tartrate 25 MG TAB PO SCH (20:26)
[2017-11-26] MEDS: Acetaminophen 325 MG TAB PO PRN (20:28)
[2017-11-26] MEDS ORDERED: Ondansetron HCl/PF 4 MG/2 ML Vial IVP PRN (21:48)
[2017-11-26] MEDS ORDERED: Ondansetron ODT 4 MG TAB PO PRN (21:49)
--- NOTE | 2017-11-26 23:32 | CON ---
DATE OF CONSULTATION: 11/26/2017 PRIMARY TRANSPORTATION ASSISTANT: Aleks Joyce M.D. REASON FOR ADMISSION: Recurrent chest pain. HISTORY OF PRESENT ILLNESS: Mr. Ten Miller is a 57-year-old gentleman with history of coronary artery disease with recurrent chest pain. Mr. Miller recently was admitted to the hospital after he fell off a ladder and developed a pneumothora x. He was seen here in the hospital by Dr. Joyce at that time, his decision was made to take him off Plavix. He has been doing relatively well and started having recurrent pain in the right lower anterior chest, this was he said the same place it hurt when he had a heart attack years ago. He cam e to the hospital and was found to have some increasing cardiac enzymes, also had found to have incre ased liver function tests, been consulted about further therapy until the patient is seen by Dr. Mike hughes tomorrow. MEDICATIONS: 1. The patient takes Lisinopril 10 mg a day. 2. Metoprolol 12.5 mg twice a day. 3. Clopidogrel. I believe he is no longer taking. 4. Gabapentin. 5. Thiamine. 6. Tramadol. ALLERGIES: PRASUGREL. SOCIAL HISTORY: Quit smoking. He says several years ago at least 3 years ago. REVIEW OF SYSTEMS: Constitutional: No significant weight gain or loss. Vision: No changes. Heari ng: No changes. Pulmonary: No cough or wheezing. Gastrointestinal: No nausea, vomiting, diarrhea . Skin: No rashes. Neurologic: No unilateral weakness or numbness. Psychiatric: No unusual depr ession or anxiety. PHYSICAL EXAMINATION: GENERAL: This is a pleasant 57-year-old man in no distress. VITAL SIGNS: Blood pressure 122/66, pulse 80, regular. HEENT: Sclerae nonicteric. Mouth mucous membranes moist. NECK: Supple, no lymphadenopathy. LUNGS: Clear, no wheezing, rales or rhonchi. CARDIAC: Normal S1, normal S2. There is no murmur, rub or gallop. ABDOMEN: Soft, nontender, no hepatosplenomegaly. EXTREMITIES: Warm, dry, no clubbing or cyanosis, no edema. LABORATORY AND X-RAY FINDINGS: Cardiac catheterization done in [address] Joyce revealed circum flex, LAD, no obstructive stenosis, right coronary 100% occluded with some collaterals right to right and left to right. There is some attempted right to right and left to right collaterals. Some atte mpt was made to open the vessel, but is not successful. It appeared to be chronically occluded. PERTINENT LABORATORY: In this occasion, the patient's AST 230, ALT 169. Troponin level of 0.107. E KG, no acute changes. ASSESSMENT: 1. Chest pain. He says it is reminiscent of the pain he had when he had a heart attack with some sl ight increased troponin level. 2. He also has increased liver function test. It is difficult to sort out how much of this could be angina, how much liver involvement. PLAN: 1. Ultrasound of the gallbladder to be done. 2. Dr. Joyce to review the patient's case tomorrow to decide whether cardiac catheterization wou ld be indicated or not. He will see the patient in the morning.
[2017-11-27] MEDS: traMADol HCl 50 MG TAB PO PRN ×4 (00:19→21:10)
[2017-11-27] MEDS: Nitroglycerin 0.4 MG TAB (25 Tab Bottle) PO PRN ×3 (02:34→03:04)
[2017-11-27] MEDS: Acetaminophen 325 MG TAB PO PRN ×2 (03:20→09:23)
[2017-11-27 05:07] LABS: ALT (SGPT) 120 U/L (8-55); AST (SGOT) 102 U/L (5-34); Albumin 3.5 g/dL (3.5-5.0); Alkaline Phosphatase 132 U/L (40-150); Anion Gap 11 mmol/L (10-20); BUN (Urea Nitrogen) 8 mg/dL (8.4-25.7); Bilirubin, Total 0.5 mg/dL (0.2-1.2); Calc. Creatinine Clearance 127 mL/min (70-130); Calcium 9.3 mg/dL (7.8-10.44); Carbon Dioxide 29 mmol/L (22-29); Chloride 100 mmol/L (98-107); Estimated GFR-MDRD Greater than 90; Globulin 2.1 g/dL (2.4-3.5); Glucose 82 mg/dL (70-105); Potassium 4.4 mmol/L (3.5-5.1); Protein, Total 5.6 g/dL (6.0-8.3); Sodium 136 mmol/L (136-145)
[2017-11-27] MEDS ORDERED: Nitroglycerin 2% Ointment 1 INCH/1 GM Packet TOP SCH ×2 (06:15→12:00)
--- NOTE | 2017-11-27 08:35 | ULT ---
RIGHT UPPER QUADRANT ABDOMINAL ULTRASOUND: INDICATION: Chest pain. FINDINGS: The liver is mildly echogenic consistent with changes of fatty infiltration. The gallbladder is mildly distended. The common bile duct is slightly prominent measuring up to 8.1 mm. No sonographic Goel's sign is reported. Visualized aspects of the pancreas are unremarkable. The right kidney measures 9.8 x 4.5 x 5.2 cm. IMPRESSION: 1. Slight prominence of the common bile duct without visible intraluminal filling defect. No stones are present within the gallbladder. No definite mass was evident within the region of the pancreati c head on the CT examination. The distal common bile duct does not apparent appreciably dilated. As a conservative measure, may consider an MRCP to exclude a distal obstructing process within the dist al common bile duct. Alternatively, a HIDA may be helpful. 2. Mild fatty liver. POS: [facility]
[2017-11-27] MEDS: Metoprolol Tartrate 25 MG TAB PO SCH ×2 (09:20→21:09)
[2017-11-27] MEDS: Gabapentin 300 MG CAP PO SCH ×3 (09:20→21:09)
[2017-11-27] MEDS: Clopidogrel Bisulfate 75 MG TAB PO SCH (09:20)
[2017-11-27] MEDS: Aspirin 325 MG TAB PO SCH (09:20)
[2017-11-27] MEDS: Lisinopril 10 MG TAB PO SCH (09:21)
--- NOTE | 2017-11-27 14:00 | MRI ---
MRI ABDOMEN WITHOUT IV CONTRAST: Date: 11/27/17 INDICATION: Abnormal LFTs, abdominal pain, and chest pain. COMPARISON: Right upper quadrant ultrasound dated 11/27/[address] of the abdomen/pelvis dated 11/26/17. FINDINGS: There are small bilateral pleural effusions. There is prominent fatty infiltration of the liver. The gallbladder is moderately distended without evidence of intraluminal stone. The common hepatic du ct measures up to 8.0 mm. The actual common bile duct is of normal caliber and measures 4.7 mm. The m ain pancreatic duct at the head measures 3.4 mm. The main pancreatic duct of the body measures 2.2 mm . The main pancreatic duct at the level of the proximal tail measures approximately 1.0 mm. No abnorm al signal intensity seen surrounding the pancreas. There are small, subcentimeter cysts, seen bilater ally within both kidneys. The spleen is normal in size measuring 10.6 cm. Visualized adrenal glands a re normal appearing. No free fluid is evident. There is levoscoliosis of the thoracolumbar spine. The re is mild aneurysmal dilatation of the infrarenal abdominal aorta measuring up to 3.0 cm. IMPRESSION: 1. Mild distention of the gallbladder is nonspecific. 2. There is no evidence of extrahepatic biliary ductal dilatation. 3. Prominent fatty liver. 4. Small renal cysts. 5. Infrarenal abdominal aortic aneurysm measuring up to 3.0 cm. POS: [facility]
--- NOTE | 2017-11-27 17:11 | EKG ---
Test Reason : STAT Blood Pressure : / mmHG Vent. Rate : 059 BPM Atrial Rate : 059 BPM P-R Int : 158 ms QRS Dur : 096 ms QT Int : 446 ms P-R-T Axes : 066 -11 023 degrees QTc Int : 441 ms Sinus bradycardia Low voltage QRS Inferior infarct (cited on or before 22-SEP-2015) Cannot rule out Anterior infarct (cited on or before 22-SEP-2015) Abnormal ECG When compared with ECG of 26-NOV-2017 11:29, (Unconfirmed) Premature atrial complexes are no longer Present Vent. rate has decreased BY 49 BPM QT has shortened Confirmed by DR. Ernesto SMITH MD ([id number]) on 11/27/2017 5:11:17 PM Referred By: ЕЛЕНА Confirmed By:DR. Ernesto SMITH MD
--- NOTE | 2017-11-27 17:12 | EKG ---
Test Reason : Blood Pressure : / mmHG Vent. Rate : 063 BPM Atrial Rate : 063 BPM P-R Int : 152 ms QRS Dur : 094 ms QT Int : 454 ms P-R-T Axes : 067 001 013 degrees QTc Int : 464 ms Normal sinus rhythm Low voltage QRS Inferior infarct (cited on or before 22-SEP-2015) Cannot rule out Anterior infarct (cited on or before 22-SEP-2015) Abnormal ECG When compared with ECG of 27-NOV-2017 02:42, (Unconfirmed) No significant change was found Confirmed by LUIS BURNETT, SHanane ([id number]) on 11/27/2017 5:12:09 PM Referred By: KEENA Confirmed By:DR. Ernesto SMITH MD
--- NOTE | 2017-11-27 17:54 | PRG ---
DATE OF SERVICE: 11/27/2017 SUBJECTIVE: Mr. Miller is doing well. No current complaints of chest pain or pressure. His LFTs have been elevated and are trending down. Mr. Miller did undergo coronary angiography 2 years ago. He was found to have a completely occluded ri ght coronary artery and [id number] disease of the LAD and circumflex artery. OBJECTIVE: VITAL SIGNS: Blood pressure 102/62, pulse 59, temperature 97.5. LUNGS: Clear to auscultation. CARDIAC: Regular rate and rhythm. ABDOMEN: Soft, nontender, nondistended. EXTREMITIES: No edema. PERTINENT LABORATORY DATA: Hemoglobin 16.6, creatinine 0.59. Peak troponin is 0.1. IMPRESSION: 1. Atypical chest pain. 2. Coronary artery disease. 3. Gallbladder disease ?. RECOMMENDATIONS: Mr. Miller did have a recent gallbladder ultrasound that did suggest prominence of co mmon bile duct and recommended HIDA versus MRCP. Given his last angiogram suggest complete occlusion of right coronary artery and a mildly elevated troponin likely due to demand, we would recommend a w orkup from a GI standpoint prior to proceeding with a cardiac etiology.
[2017-11-27] MEDS: ALPRAZolam 1 MG TAB PO PRN (21:10)
[2017-11-27] MEDS: Atorvastatin Calcium 40 MG TAB PO SCH (21:10)
[2017-11-28] MEDS: traMADol HCl 50 MG TAB PO PRN (05:55)
[2017-11-28 08:07] LABS: #Eosinphils 0.2 thou/uL (0.0-0.7); #Lymphocytes 1.5 thou/uL (1.20-3.40); #Monocytes 0.5 thou/uL (0.11-0.59); #Neutrophils 4.5 thou/uL (1.40-6.50); %Basophils 0.5 % (0.0-1.0); %Eosinophils 2.8 % (0.0-10.0); %Lymphocytes 22.1 % (21.0-51.0); %Monocytes 7.9 % (0.0-10.0); %Neutrophils 66.7 % (42.0-75.0); Hemoglobin 14.4 g/dL (14.0-18.0); Mean Corpuscular HGB CONC 33.9 g/dL (32.0-36.0); Mean Corpuscular Hemoglobin 34.1 pg (27.0-31.0); Mean Platelet Volume 7.4 fL (7.4-10.4); Platelet Count 131 thou/uL (130-400); RBC Distribution Width 12.7 % (11.5-14.5); Red Blood Cell (RBC) Count 4.22 mill/uL (4.70-6.10); White Blood Cell (WBC) Count 6.7 thou/uL (4.8-10.8)
[2017-11-28 08:13] VITALS: TEMP 97.5
--- NOTE | 2017-11-28 08:23 | PDOC.CTH ---
Cardiology Progress Note - Subjective Doing well. No recurrent episodes of CP - Objective Vital Signs Temp Pulse Resp BP BP Pulse Ox 11/28/17 07:11 97.5 F L 59 L 16 102/56 L 91 L 11/28/17 05:55 59 L 18 107/58 L Weight 142 lb 4.8 oz 11/27/17 11/28/17 11/29/17 06:59 06:59 06:59 Intake Total 1361 800 Output Total 1350 850 Balance 11 -50 - Physical Examination General/Neuro: alert & oriented x3, NAD Neck: carotid US brisk, no JVD present Lungs: CTA, unlabored respirations Heart: PMI normal, RRR Abdomen: no HSM, NT/ND, soft Extremities: + femoral B - Labs Result Diagrams: 11/28/17 07:45 11/27/17 04:00 Troponin/CKMB CK-MB (CK-2) 2.1 ng/mL (0-6.6) 11/26/17 11:05 Troponin I 0.107 ng/mL (< 0.028) H 11/26/17 17:13 - Assessment/Plan 1. Atypical CP 2. CAD 3. Occluded RCA Improved EF normal on echo ok from my standpoint to dc and close outpatient fu increase troponin likely demand ischemia from occluded RCA
[2017-11-28 08:26] LABS: ALT (SGPT) 126 U/L (8-55); AST (SGOT) 87 U/L (5-34); Alkaline Phosphatase 174 U/L (40-150); Anion Gap 15 mmol/L (10-20); BUN (Urea Nitrogen) 7 mg/dL (8.4-25.7); Bilirubin, Total 0.3 mg/dL (0.2-1.2); Calc. Creatinine Clearance 116 mL/min (70-130); Calcium 9.7 mg/dL (7.8-10.44); Carbon Dioxide 25 mmol/L (22-29); Chloride 103 mmol/L (98-107); Estimated GFR-MDRD Greater than 90; Globulin 2.7 g/dL (2.4-3.5); Glucose 90 mg/dL (70-105); Magnesium 1.9 mg/dL (1.6-2.6); Potassium 4.5 mmol/L (3.5-5.1); Protein, Total 6.7 g/dL (6.0-8.3); Sodium 138 mmol/L (136-145)
[2017-11-28 08:31] LABS: CKMB 1.4 ng/mL (0-6.6); Troponin I Less than 0.010 ng/mL (< 0.028)
[2017-11-28] MEDS: Aspirin 325 MG TAB PO SCH (08:44)
[2017-11-28] MEDS: Clopidogrel Bisulfate 75 MG TAB PO SCH (08:45)
[2017-11-28] MEDS: Gabapentin 300 MG CAP PO SCH (08:45)
[2017-11-28] MEDS: Lisinopril 10 MG TAB PO SCH (08:45)
[2017-11-28] MEDS: Metoprolol Tartrate 25 MG TAB PO SCH (08:45)
[2017-11-28 08:47] VITALS: BP 107/58
[2017-11-28] MEDS: ALPRAZolam 1 MG TAB PO PRN (08:47)
--- NOTE | 2017-12-02 11:46 | EKG ---
Test Reason : Blood Pressure : / mmHG Vent. Rate : 110 BPM Atrial Rate : 110 BPM P-R Int : 132 ms QRS Dur : 084 ms QT Int : 350 ms P-R-T Axes : 076 -44 011 degrees QTc Int : 473 ms Sinus tachycardia Possible Left atrial enlargement Left axis deviation Inferior infarct , age undetermined Anterolateral infarct , age undetermined Abnormal ECG Confirmed by CORTEZ SANCHEZ DO ([id number]), content editor CANDY FARFAN ([id number]) on 12/02/2017 11:46:18 AM Referred By: Confirmed By:CORTEZ SANCHEZ DO
== END 2017-11-28 10:04 | disposition home or self-care (01) ==
LOC: ERS 10:39 → 2SW 13:29
PROVIDERS: ADMIT Family Medicine; ATTEND Family Medicine
DX: R07.89 Other chest pain (principal); I25.10 Atherosclerotic heart disease of native coronary artery without angina pectoris; J44.9 Chronic obstructive pulmonary disease, unspecified; I10 Essential (primary) hypertension; F41.9 Anxiety disorder, unspecified; Z87.891 Personal history of nicotine dependence; Z79.82 Long term (current) use of aspirin; Z79.02 Long term (current) use of antithrombotics/antiplatelets; Z79.899 Other long term (current) drug therapy; Z88.8 Allergy status to other drugs, medicaments and biological substances
CPT/HCPCS: 36415; 71045; 71275; 74177; 74181; 76705; 80053; 82550; 82553; 83690; 83735; 84484; 85025; 85610; 85730; 93005; 93010; 93306; 94760; 96360; 96361; 96374; A4216; G0378; J2270; Q0162

== ENCOUNTER 2018-04-23 05:02 | Observation (INO) | payer OTHER ==
[2018-04-23 05:30] LABS: #Eosinphils 0.1 thou/uL (0.0-0.7); #Lymphocytes 1.4 thou/uL (1.20-3.40); #Monocytes 0.7 thou/uL (0.11-0.59); #Neutrophils 6.2 thou/uL (1.40-6.50); %Basophils 0.6 % (0.0-1.0); %Eosinophils 1.3 % (0.0-10.0); %Lymphocytes 16.6 % (21.0-51.0); %Monocytes 8.3 % (0.0-10.0); %Neutrophils 73.1 % (42.0-75.0); Hemoglobin 14.6 g/dL (14.0-18.0); Mean Corpuscular HGB CONC 34.7 g/dL (32.0-36.0); Mean Corpuscular Hemoglobin 34.3 pg (27.0-31.0); Mean Corpuscular Volume 98.9 fL (78.0-98.0); Mean Platelet Volume 7.7 fL (7.4-10.4); Platelet Count 141 thou/uL (130-400); RBC Distribution Width 11.5 % (11.5-14.5); Red Blood Cell (RBC) Count 4.24 mill/uL (4.70-6.10); White Blood Cell (WBC) Count 8.5 thou/uL (4.8-10.8)
[2018-04-23 05:51] LABS: ALT (SGPT) 42 U/L (8-55); AST (SGOT) 37 U/L (5-34); Albumin 3.8 g/dL (3.5-5.0); Alkaline Phosphatase 104 U/L (40-150); Anion Gap 14 mmol/L (10-20); BUN (Urea Nitrogen) 7 mg/dL (8.4-25.7); Bilirubin, Total 0.3 mg/dL (0.2-1.2); CK (CPK) 86 U/L (30-200); Calc. Creatinine Clearance 0 mL/min (70-130); Calcium 8.7 mg/dL (7.8-10.44); Carbon Dioxide 20 mmol/L (22-29); Chloride 104 mmol/L (98-107); Estimated GFR-MDRD 85; Globulin 2.3 g/dL (2.4-3.5); Glucose 99 mg/dL (70-105); Potassium 3.4 mmol/L (3.5-5.1); Protein, Total 6.1 g/dL (6.0-8.3); Sodium 135 mmol/L (136-145)
--- NOTE | 2018-04-23 08:38 | RAD ---
PORTABLE CHEST 1 VIEW: Date: 04/23/18 Time: 0529 hours HISTORY: Chest pain. FINDINGS: Comparison made with exam of 11/26/17. The heart size is normal. The lungs are well expanded without focal areas of consolidation, pneumotho rax, or pleural effusions. Old right-sided rib fractures are again seen. IMPRESSION: No acute process. POS: [facility]
[2018-04-23 09:18] LABS: Troponin I Less than 0.010 ng/mL (< 0.028)
--- NOTE | 2018-04-23 11:26 | HP ---
PRIMARY CARE PHYSICIAN: Dr. Bello Lacy. REASON FOR ADMISSION: Chest pain. HISTORY OF PRESENT ILLNESS: A 57-year-old male who has underlying history of hypertension, dyslipidemia, coronary artery disease, who presented to emergency room earlier today with complaint of chest pain. The patient reports that he woke up from sleep with chest pain and chest pain was substernal in location, heaviness, pressure-like sensation. This pain was different from his previous pain. He was not thinking that it was acid reflux because he can differentiate his GERD pain, which does not look like that. He woke up, he tried to drink water, but symptoms did not improve, and he took subsequently two nitroglycerin 5 minutes apart and after second nitroglycerin, his pain subsequently subsided. He did not have any associated nausea, vomiting, diaphoresis. He denies any radiation of pain. He denies any relation of chest pain with food, respiration, or activity. He did not have any recently this type of chest pain. He was scared and decided to come to emergency room for evaluation. When he came to ER, his chest pain was completely subsided. His routine blood test in the emergency room was unremarkable other than low potassium. The patient had negative cardiac enzymes. This patient was admitted in the past for similar type of chest pain. At that time, GI workup was done completely and it was unremarkable. The patient had last cardiac cath several years ago. The patient is following Dr. Joyce as an outpatient basis. He denies any fever, chills, cough. He denies any orthopnea, PND, or leg swelling. He denies any UTI symptoms. He denies any constipation, diarrhea, melena, or hematochezia. He was having headache after nitroglycerin in the emergency room. He did not have any focal neurological deficit. REVIEW OF SYSTEMS: CONSTITUTIONAL: Negative for weight loss or gain, ability to conduct usual activities. SKIN: Negative for rash, itching. EYES: Negative for double vision, pain. ENT/MOUTH: Negative for nose bleeding, neck stiffness, pain, tenderness. CARDIOVASCULAR: Negative for palpitations, dyspnea on exertion, orthopnea. RESPIRATORY: Negative for shortness of breath, wheezing, cough, hemoptysis, fever or night sweats. GASTROINTESTINAL: Negative for poor appetite, abdominal pain, heartburn, nausea, vomiting, constipation, or diarrhea. GENITOURINARY: Negative for urgency, frequency, dysuria, nocturia. MUSCULOSKELETAL: Negative for pain, swelling. NEUROLOGIC/PSYCHIATRIC: Negative for anxiety, depression. ALLERGY/IMMUNOLOGIC: Negative for skin rash, bleeding tendency. See my HPI for pertinent positives and negatives. All other review of systems reviewed and negative except as mentioned in HPI. PAST MEDICAL HISTORY: COPD, mild; coronary artery disease with multiple stent; history of [place]; hypertension; history of rib fractures, dyslipidemia. PAST PSYCHIATRIC HISTORY: Anxiety and depression. PAST SURGICAL HISTORY: Cardiac catheterization with stent placement, cardiac ablation, right biceps repair, umbilical hernia surgery. SOCIAL HISTORY: The patient is drinking alcohol, 2 to 3 beers on daily basis. He is former smoker. He quit smoking a few years ago. He denies any other illicit drug abuse. FAMILY HISTORY: Mom from [place] at the age of 58. CURRENT HOME MEDICATION: 1. Plavix 75 mg p.o. daily. 2. Nitroglycerin 0.4 mg sublingual p.r.n. for chest pain. 3. Aspirin 325 mg p.o. daily. 4. Toprol-XL 25 mg twice daily. 5. Xanax 1 mg three times daily p.r.n. 6. Lisinopril 10 mg daily. 7. Vitamin C 500 mg daily. 8. Vitamin B12 of 500 mcg daily. 9. Lipitor 40 mg p.o. daily. 10. [place] 5 one or two tablets q.6 hourly p.r.n. ALLERGIES: EFFIENT. EMERGENCY ROOM COURSE: The patient is given IV fluid. PHYSICAL EXAMINATION: VITAL SIGNS: On arrival, blood pressure 110/62, pulse 85, respiratory rate 20, temperature 98.4, saturation 96% on room air. Weight 69.4 kg. GENERAL: The patient is currently alert, awake. No obvious acute distress. HEENT: Head; normocephalic, atraumatic. Eyes; pupils round, reactive to light. Extraocular muscles are intact. ENT; oropharynx within normal limits. Moist mucous membranes. No oral lesion. No pharyngeal erythema. No exudate. NECK: Supple. No JVD. No thyromegaly. No carotid bruit. No jugular venous distention. LUNGS: Clear to auscultation without any rhonchi or rales. CARDIAC: S1, S2 regular. No murmur. No gallop. No rub. ABDOMEN: Soft. Bowel sounds present. Nontender. Nondistended. No organomegaly. No mass. No suprapubic tenderness. No epigastric tenderness. BACK: Unremarkable. No CVA tenderness. EXTREMITIES: Upper extremities; passive movement of all joints are normal. Lower extremity, no edema. No calf tenderness. Good distal pulsation. SKIN: No skin rash. HEMATOLOGICAL: No lymphadenopathy. PSYCHIATRIC: Normal affect. SIGNIFICANT LABORATORY DATA: EKG showing normal sinus rhythm without any acute ischemic changes. Chest x-ray based on my review, no acute cardiopulmonary process. CBC; WBC 8.5, hemoglobin 14.6, and platelet 141. BMP; sodium 135, potassium 3.4, chloride 104, carbon dioxide 20, anion gap 14, BUN 7, creatinine 0.92, glucose 99, and calcium 8.7. LFT; AST 37, ALT 42, alkaline phosphatase 104, and albumin 3.8. Cardiac enzymes, negative x2. ASSESSMENT AND PLAN: 1. Chest pain. The patient's chest pain description is atypical, started while sleeping and he woke up from the sleep. His description is atypical anginal. He has underlying coronary artery disease. At this point, EKG is negative for any acute ischemia and his troponins are already negative x2. We will perform pharmacological Cardiolite stress test for prognostic reason. The patient already has known coronary artery disease, but if stress test is abnormal, then we will consider Cardiology consultation. If stress test is normal, then the patient will be medically treated. We will continue with aspirin 325 mg p.o. daily, Plavix 75 mg p.o. daily, Lipitor 40 mg p.o. at bedtime, nitroglycerin p.r.n. basis. At this point, we are holding his Toprol-XL because we are going to do stress test, but after stress test, we will resume that medication as well. If blood pressure permits, then we will also continue lisinopril 10 mg p.o. daily. 2. Hypokalemia. The patient will be given potassium chloride 40 mEq p.o. one time dose. 3. Mild hypotension, likely related to nitroglycerin use. The patient is given fluid in the emergency room. We will monitor patient blood pressure and if blood pressure is below 110, then we will hold on antihypertensive medication. 4. Alcohol abuse counseling given to avoid alcohol product. The patient will be continued on folic acid 1 mg daily, vitamin B12 of 1000 mcg p.o. daily, thiamine 100 mg p.o. daily. 5. Dyslipidemia. Continue Lipitor 40 mg p.o. at bedtime and check lipid profile. 6. Gastroesophageal reflux disease. We will continue Pepcid 20 mg p.o. b.i.d. 7. Chronic back pain. We will continue gabapentin 300 mg p.o. three times daily along with pain medication as needed. 8. Coronary artery disease. Continue aspirin, Plavix, statin therapy as per home dosage. 9. Deep venous thrombosis prophylaxis not needed, because we are expecting discharge in 24 hours. 10. GI prophylaxis. Pepcid 20 mg p.o. b.i.d. CODE STATUS: The patient is full code. Plan of care discussed with the patient in detail. Job ID: [id number]
[2018-04-23 12:44] LABS: Troponin I Less than 0.010 ng/mL (< 0.028)
[2018-04-23] MEDS ORDERED: Cyclobenzaprine 10 MG TAB PO PRN (12:51)
[2018-04-23] MEDS ORDERED: Nitroglycerin 0.4 MG TAB (25 Tab Bottle) SL PRN (12:51)
[2018-04-23] MEDS ORDERED: Lisinopril 10 MG TAB PO SCH ×2 (12:51→13:30)
[2018-04-23] MEDS ORDERED: Ascorbic Acid 500 mg Chewable Tablet PO SCH ×2 (12:51→13:30)
[2018-04-23] MEDS ORDERED: Artificial Tears 18 DROP/0.9 ML EA EYE PRN (12:51)
[2018-04-23] MEDS ORDERED: Clopidogrel Bisulfate 75 MG TAB PO SCH ×2 (12:51→13:30)
[2018-04-23] MEDS ORDERED: Ondansetron ODT 4 MG TAB PO PRN (12:51)
[2018-04-23] MEDS ORDERED: Folic Acid 1 MG TAB PO SCH ×2 (12:51→13:30)
[2018-04-23] MEDS ORDERED: Gabapentin 300 MG CAP PO SCH ×2 (12:51→13:30)
[2018-04-23] MEDS ORDERED: Potassium Chloride 20 MEQ TAB PO SCH ×2 (12:51→13:15)
[2018-04-23] MEDS ORDERED: Cyanocobalamin (Vitamin B-12) 1,000 MCG TAB PO SCH ×2 (12:51→13:30)
[2018-04-23] MEDS ORDERED: Calcium Carbonate 500 MG ChewTAB PO PRN (12:51)
[2018-04-23] MEDS ORDERED: Eucerin (Mineral Oil/Petrolatum,White) 30 gm Jar TOP PRN (12:51)
[2018-04-23] MEDS ORDERED: Senokot S 8.6-50 MG TAB PO PRN (12:51)
[2018-04-23] MEDS ORDERED: Acetaminophen 325 MG TAB PO PRN (12:51)
[2018-04-23] MEDS ORDERED: Cepastat Lozenges 1 LOZ PO PRN (12:51)
[2018-04-23] MEDS ORDERED: Famotidine 20 MG TAB PO SCH ×2 (12:51→13:30)
[2018-04-23] MEDS ORDERED: Bisacodyl 10 MG SUPP PR PRN (12:51)
[2018-04-23] MEDS ORDERED: Nitroglycerin 0.4 MG TAB (25 Tab Bottle) PO PRN (12:51)
[2018-04-23] MEDS ORDERED: Ondansetron PF 4 MG/2 ML Vial IVP PRN (12:51)
[2018-04-23] MEDS ORDERED: Diabetic Tussin 200 MG/10 ML UDCUP PO PRN (12:51)
[2018-04-23] MEDS ORDERED: Zolpidem Tartrate 5 MG TAB PO PRN (12:51)
[2018-04-23] MEDS ORDERED: Loratadine 10 MG TAB PO PRN (12:51)
[2018-04-23] MEDS ORDERED: Loperamide HCl 2 MG CAP PO PRN (12:51)
[2018-04-23] MEDS ORDERED: Aspirin 325 MG TAB PO SCH ×2 (12:51→13:30)
[2018-04-23] MEDS ORDERED: HYDROcodone/Acetaminophen 5/325 mg Tablet PO PRN (12:51)
[2018-04-23] MEDS ORDERED: hydrALAZINE 20 MG/ML VIAL SLOW IVP PRN (12:51)
[2018-04-23] MEDS ORDERED: Sodium Chloride 0.65% Nasal 44 ML BOT EA NARE PRN (12:51)
[2018-04-23 12:53] VITALS: BMI 23.1
[2018-04-23 14:51] LABS: Cardiac Risk 1.7 (Less than 4.5)
[2018-04-23] MEDS: Gabapentin 300 MG CAP PO SCH ×2 (15:18→20:21)
[2018-04-23] MEDS: Metoprolol Tartrate 25 MG TAB PO SCH (20:20)
[2018-04-23] MEDS: Famotidine 20 MG TAB PO SCH (20:21)
[2018-04-23] MEDS ORDERED: Atorvastatin Calcium 40 MG TAB PO SCH (21:00)
[2018-04-23] MEDS: ALPRAZolam 1 MG TAB PO PRN (21:00)
[2018-04-24 08:12] VITALS: TEMP 97.6
[2018-04-24] MEDS ORDERED: Lisinopril 10 MG TAB PO SCH (09:00)
[2018-04-24] MEDS ORDERED: Cyanocobalamin (Vitamin B-12) 1,000 MCG TAB PO SCH (09:00)
[2018-04-24] MEDS ORDERED: Folic Acid 1 MG TAB PO SCH (09:00)
[2018-04-24] MEDS ORDERED: Aspirin 325 MG TAB PO SCH (09:00)
[2018-04-24] MEDS ORDERED: Ascorbic Acid 500 mg Chewable Tablet PO SCH (09:00)
[2018-04-24] MEDS ORDERED: Clopidogrel Bisulfate 75 MG TAB PO SCH (09:00)
--- NOTE | 2018-04-24 09:54 | NM ---
CARDIAC SPECT: HISTORY: A 57-year-old male with chest pain, coronary artery disease, stent placement, status post ablation, C OPD, hypertension, and dyslipidemia. TECHNIQUE: A myocardial perfusion scan was performed using the single isotope two-day protocol with 38 millicuri es technetium 99m sestamibi, injected intravenously, for rest and stress images. Pharmacologic stres s with Lexiscan was monitored and interpreted by Dr. Mcnamara. FINDINGS: There is a fixed defect in the proximal inferior wall. No reversible defects are seen. GATED SPECT LVEF: 56% WALL MOTION EXAM: Mild inferior wall hypokinesis. IMPRESSION: 1. No evidence of reversible ischemia. 2. Proximal inferior wall scar. POS: [facility]
[2018-04-24] MEDS: Gabapentin 300 MG CAP PO SCH (10:04)
[2018-04-24] MEDS: Famotidine 20 MG TAB PO SCH (10:04)
[2018-04-24] MEDS: Metoprolol Tartrate 25 MG TAB PO SCH (10:07)
[2018-04-24] MEDS: ALPRAZolam 1 MG TAB PO PRN (10:08)
[2018-04-24 10:09] VITALS: BP 114/69
--- NOTE | 2018-04-24 11:42 | DIS ---
DATE OF ADMISSION: 04/23/2018 DATE OF DISCHARGE: 04/24/2018 PRIMARY CARE PHYSICIAN: Dr. Bello Lacy. DISCHARGE DISPOSITION: Home. PRIMARY DISCHARGE DIAGNOSIS: Chest pain, ruled out acute coronary syndrome. SECONDARY DISCHARGE DIAGNOSES: Alcohol abuse, coronary artery disease, hypertension, and dyslipidemia. PRIMARY PROCEDURE/OPERATION: None. RADIOLOGICAL INVESTIGATION: Chest x-ray, normal. Stress test, negative. SIGNIFICANT LABORATORY DATA: WBC 8.5, hemoglobin 14.6, platelet 141. Sodium 135, potassium 3.4, BUN 7, creatinine 0.92. LFT unremarkable. Cardiac enzyme negative. LDL 59. DISCHARGE MEDICATIONS: 1. Nitroglycerin 0.4 mg sublingual p.r.n. for chest pain. 2. Xanax 1 mg p.o. b.i.d. p.r.n. 3. Vitamin C 1000 mg p.o. daily. 4. Aspirin 81 mg daily. 5. Lipitor 40 mg p.o. at bedtime. 6. Vitamin B12 of 500 mcg p.o. daily. 7. Lisinopril 10 mg p.o. daily. 8. Metoprolol 12.5 mg p.o. b.i.d. 9. Omeprazole 20 mg p.o. daily. 10. Multivitamin one tablet daily. 11. Thiamine 100 mg p.o. daily. 12. Plavix 75 mg daily. 13. Spiriva 18 mcg inhalation daily. CONTRAINDICATION: None. CODE STATUS: Full code. INPATIENT SR ACCOUNT EXECUTIVE: None. TEST RESULTS PENDING ON DISCHARGE: None. ALLERGIES: PRASUGREL. DISCHARGE PLAN: Posthospital, the patient will follow up with primary care physician in 1 week. HOSPITAL COURSE: A 57-year-old male with above-mentioned medical problem, who was admitted by me. Please see my HPI for further details. The patient presented to emergency room with complaint of chest pain. His chest pain description was atypical and consistent with atypical angina. His electrocardiogram was unremarkable, and his troponin was negative. We kept this patient in the hospital for observation. We did serial cardiac enzyme and that was negative. The patient underwent a stress test for risk stratification and that also came back negative for any reversible ischemia. While in hospital, we replaced his hypokalemia. All his home medication was continued while in hospital as well as upon discharge. At this point, the patient does not have any further chest pain. His telemetry remained unremarkable. We discussed with the patient about healthy lifestyle and avoidance of alcohol abuse. The patient will continue all his previous medication. The patient is seen and examined at bedside today. REVIEW OF SYSTEMS: All review of system reviewed with him and negative. PHYSICAL EXAMINATION: VITAL SIGNS: Currently; temperature 97.6, pulse 71, respiratory rate 18, saturation 98%, and blood pressure 114/69. Weight 147 pounds. GENERAL: The patient is currently alert and awake. No obvious acute distress. HEENT: Head; normocephalic and atraumatic. Eyes; pupils round and reactive to light. Extraocular muscle intact. ENT; oropharynx within normal limits. Moist mucous membranes. No oral lesion. No pharyngeal erythema. No exudate. NECK: Supple. No JVD. No thyromegaly. No carotid bruit. LUNGS: Clear to auscultation without any rhonchi or rales. CARDIAC: S1 and S2, regular without any murmur. ABDOMEN: Soft and benign. EXTREMITIES: No edema. NEUROLOGIC: Nonfocal examination. The patient is medically stable for discharge today. Job ID: [id number]
--- NOTE | 2018-04-29 12:23 | STRESS ---
Acquisition Time: 2018-04-23 13:37:41 Total Exercise Time: 00:01:00 Test Indications: CHEST PAIN Medications: Protocol: LEXISCAN Max HR: 107 BPM 65% of Pred: 163 BPM Max BP: 120/068 mmHG Max Work Load: 1.0 METS RESTING ECG: NORMAL SINUS RHYTHM AT 73 BPM WITH POOR R-WAVE PROGRESSION; OLD INFERIOR AK SYMPTOMS: DYSPNEA NORMAL BP RESPONSE ECTOPY: NONE ECG STRESS: NO SIGNIFICANT CHANGES INTERPRETATION: AWAIT NUCLEAR IMAGES FOR DEFINITIVE DIAGNOSIS Confirmed by ANITA RAYMOND ([id number]), communications editor BHUMI PARRA ([id number]) on 04/29/2018 12:23:02 PM Referred By: MD Ernesto STEPHENSON Confirmed By:ANITA RAYMOND
== END 2018-04-24 12:29 | disposition home or self-care (01) ==
LOC: ERS 05:02 → 2SW 12:50
PROVIDERS: ADMIT Internal Medicine; ATTEND Internal Medicine
DX: R07.89 Other chest pain (principal); E78.5 Hyperlipidemia, unspecified; I25.10 Atherosclerotic heart disease of native coronary artery without angina pectoris; I25.2 Old myocardial infarction; E87.6 Hypokalemia; F10.10 Alcohol abuse, uncomplicated; G89.29 Other chronic pain; M54.9 Dorsalgia, unspecified; K21.9 Gastro-esophageal reflux disease without esophagitis; I10 Essential (primary) hypertension; Z87.891 Personal history of nicotine dependence; Z79.02 Long term (current) use of antithrombotics/antiplatelets; Z79.82 Long term (current) use of aspirin; Z79.899 Other long term (current) drug therapy; Z88.8 Allergy status to other drugs, medicaments and biological substances; Z95.5 Presence of coronary angioplasty implant and graft
CPT/HCPCS: 36415; 36416; 71045; 78452; 80053; 80061; 82550; 84484; 85025; 93005; 93017; 94760; A9500; G0378

== ENCOUNTER 2019-05-07 13:14 | Inpatient (IN) | payer OTHER ==
[2019-05-07 13:58] LABS: #Basophils 0.1 thou/uL (0.0-0.2); #Lymphocytes 0.9 thou/uL (1.20-3.40); #Monocytes 0.9 thou/uL (0.11-0.59); %Basophils 1.1 % (0.0-1.0); %Eosinophils 0.4 % (0.0-10.0); %Lymphocytes 9.7 % (21.0-51.0); %Monocytes 10.2 % (0.0-10.0); %Neutrophils 78.6 % (42.0-75.0); Mean Corpuscular HGB CONC 34.9 g/dL (32.0-36.0); Mean Corpuscular Hemoglobin 34.9 pg (27.0-31.0); Mean Corpuscular Volume 99.8 fL (78.0-98.0); Mean Platelet Volume 8.7 fL (7.4-10.4); Platelet Count 68 thou/uL (130-400); RBC Distribution Width 11.4 % (11.5-14.5); Red Blood Cell (RBC) Count 4.58 mill/uL (4.70-6.10); White Blood Cell (WBC) Count 8.9 thou/uL (4.8-10.8)
[2019-05-07 14:09] LABS: Platelet Morphology Comment Appears Decreased; RBC Morphology Normal
[2019-05-07 14:10] LABS: ALT (SGPT) 67 U/L (8-55); AST (SGOT) 70 U/L (5-34); Albumin 3.6 g/dL (3.5-5.0); Alkaline Phosphatase 119 U/L (40-110); Anion Gap 14 mmol/L (10-20); BUN (Urea Nitrogen) 7 mg/dL (8.4-25.7); Bilirubin, Total 1.1 mg/dL (0.2-1.2); Calc. Creatinine Clearance 0 mL/min (70-130); Carbon Dioxide 24 mmol/L (22-29); Chloride 106 mmol/L (98-107); Estimated GFR-MDRD 88; Globulin 2.8 g/dL (2.4-3.5); Glucose 103 mg/dL (70-105); Potassium 3.4 mmol/L (3.5-5.1); Protein, Total 6.4 g/dL (6.0-8.3); Sodium 141 mmol/L (136-145)
[2019-05-07 14:35] LABS: CKMB 1.9 ng/mL (0-6.6)
[2019-05-07] MEDS ORDERED: cefTRIAXone\\ROCEPHIN 2 GM VIAL ONE (14:48)
[2019-05-07] MEDS ORDERED: Azithromycin 500 MG VIAL ONE (14:48)
[2019-05-07] MEDS ORDERED: Aspirin Chewable 81 MG TAB ONE (14:56)
[2019-05-07 15:23] LABS: Bilirubin Negative (Negative); Blood, Urine Negative (Negative); Clarity Clear (Clear); Glucose, Urine (Dipstick) Normal (Negative); Leukocyte Negative Leu/uL (Negative); Nitrite Negative (Negative); Protein, Urine (Dipstick) 10 mg/dL (Neg-Trace); Urobilinogen Normal mg/dL (Less than 2)
[2019-05-07] MEDS ORDERED: Potassium Chloride 20 MEQ TAB PO SCH (16:30)
[2019-05-07 16:43] LABS: Lactic Acid 1.5 mmol/L (0.5-2.2)
[2019-05-07] MEDS ORDERED: Ondansetron PF 4 MG/2 ML Vial IVP PRN (16:51)
[2019-05-07] MEDS ORDERED: HYDROcodone/Acetaminophen 5/325 mg Tablet PO PRN (16:51)
[2019-05-07] MEDS ORDERED: Acetaminophen 325 MG TAB PO PRN (16:51)
[2019-05-07] MEDS ORDERED: Ondansetron ODT 4 MG TAB PO PRN (16:51)
[2019-05-07] MEDS ORDERED: Enoxaparin Sodium 40 MG/0.4 ML SYRINGE SC SCH (17:00)
[2019-05-07 17:39] LABS: Troponin I Less than 0.010 ng/mL (< 0.028)
--- NOTE | 2019-05-07 18:03 | HP ---
PRIMARY CARE PHYSICIAN: Dr. Chinmay Whitt. CHIEF COMPLAINT: Recurrent near-syncope episodes. HISTORY OF PRESENT ILLNESS: A 58-year-old male patient with known history of coronary artery disease, status post multiple [place], COPD, atrial fibrillation, who was brought in by EMS due to recurrent syncopal episodes. The patient has been having worsening cough, productive of yellow green sputum since about eight days as well as nausea, vomiting, and frequent loose stools associated with malaise, poor oral intake, and fever and chills, reportedly developed dizziness earlier this morning on waking up and walking to the kitchen. He sat down and symptoms improved. He, however, had another episode when he stood up. episode was actually while he was seated and that was associated with bilateral numbness of both hands, hence he was concerned that he may be having another heart attack and took three sublingual nitros 15 minutes apart. Due to persistence of dizziness, he called EMS and the patient was found to be hypotensive when EMS arrived and was started on IV fluid therapy. En route to the hospital, the patient had another dizzy spell. On presentation to the ER, the patient reported feeling better with pulse of 93 and respiratory rate of 18. Initial temperature was 98.1. Further evaluation revealed elevated lactic acid of 3.1, hence the patient was treated as a case of severe sepsis despite chest x-ray being unremarkable. The patient received IV fluid bolus and currently blood pressure has improved and he is feeling better. Further evaluation revealed troponin mildly elevated at 0.036. The patient denied chest pain, shortness of breath, palpitation, abdominal pain, hematemesis, hematochezia, melena, dysuria, hematuria, or leg swelling. He also denied focal weakness, headache, or change in vision. PAST MEDICAL HISTORY: 1. Coronary artery disease, status post 10 [place]. 2. Hyperlipidemia. 3. Hypertension. 4. COPD. PAST SURGICAL HISTORY: 1. Biceps repair on the right side. 2. Hernia repair. 3. PTCA with stent placement x10. 4. Pneumothorax. 5. Broken ribs. 6. Umbilical hernia repair. FAMILY HISTORY: Significant for heart attack in mother at age 58. Also, father had hypertension. SOCIAL HISTORY: The patient lives with father. He is . He is a long-time smoker for more than 40 years that quit about 5 months ago. He drinks alcohol almost everyday with less than 5 drinks per day. Denied recreational drug use. He wants to be full code with father being the surrogate decision maker. ALLERGIES: EFFIENT. PRIOR TO HOSPITAL MEDICATIONS: 1. Plavix 75 mg p.o. daily. 2. Sublingual nitro 0.4 mg p.r.n. for chest pain. 3. Aspirin 325 mg p.o. daily. 4. Metoprolol succinate 25 mg p.o. b.i.d. 5. Xanax 1 mg three times daily. 6. Lisinopril 10 mg p.o. daily in the morning. 7. Vitamin B12, 500 mcg p.o. daily. 8. Lipitor 40 mg p.o. daily. REVIEW OF SYSTEMS: A 12-point review of system performed, was negative other than pertinent positives and negatives included in the history of present illness. PHYSICAL EXAMINATION: VITAL SIGNS: Most recent vitals showed temperature of 98.5, pulse 75, respiratory rate 15, SpO2 of 99 on room air, blood pressure is 108/78. GENERAL: Comfortable male patient, in no obvious distress. Afebrile, anicteric, acyanotic. HEENT: Normocephalic and atraumatic. Oral mucosa is moist. NECK: Supple with no JVD. CARDIOVASCULAR: Regular rhythm and rate with normal heart sounds 1 and 2. No murmur was appreciated. RESPIRATORY: Fair air entry bilaterally few transmitted breath sounds. No obvious crackle or rhonchi or use of accessory muscles appreciated. GI: Full, soft, nontender, nondistended with normal bowel sounds. EXTREMITIES: Grossly normal looking, atraumatic with no edema or erythema. 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 Cranial nerves 2 through 12 are grossly intact. The patient moves all extremities. DIAGNOSTIC DATA: CBC showed WBC count of 8.9, hemoglobin of 16, MCV of 99.9, platelets of 68. CMP showed sodium 141, potassium 3.4, chloride 106, CO2 of 24, BUN 7, creatinine 0.89, glucose 103, calcium 9.0, total bilirubin 1.1, AST 70, ALT 67, alkaline phosphatase 119, total protein 6.4, albumin 3.6, globulin 2.8. Initial lactic acid was 3.1 and 2 hours later it was 1.5. Initial cardiac markers showed CK-MB of 1.9, troponin of 0.036. Urinalysis showed yellow clear urine with pH of 7.0, specific gravity of 1.012, protein 10, normal glucose, negative ketone, blood, nitrite, bilirubin, and leukocyte esterase. EKG showed normal sinus rhythm with ectopic with rate of 97. Q-wave in inferior lead III and aVF, as well as poor R-wave progression noted. Chest x-ray reviewed by me, showed hyperinflated lungs, but no obvious consolidation or infiltrate. ASSESSMENT: 1. Hypotension: Multifactorial from volume depletion, from poor oral intake as well as increased GI losses and medications. The patient who is hypertensive and on medications, also took additional isosorbide, additional sublingual nitro. However, prior to the sublingual nitro, he was volume depleted from diarrhea, poor oral intake, and vomiting. 2. Acute gastroenteritis: Most likely viral, given association of respiratory symptoms as well as GI symptoms and hepatitis. 3. Hypokalemia: Due to GI losses. 4. Lactic acidosis: Due to hypotension. 5. Indeterminate troponin: Most likely due to hypotension leading to demand ischemia. Given the patient's history of 10 myocardial infarctions, acute coronary syndrome remains a concern here. 6. Recurrent near-syncope: Due to hypotension from volume depletion. 7. Chronic obstructive pulmonary disease with acute bronchitis. 8. Subjective fever: Subsided. The patient has been afebrile since hospitalization. 9. Hyperlipidemia. 10. Hypertension: Currently hypotensive. PLAN: 1. We will continue IV fluid therapy with LR. 2. We will replete serum potassium. 3. We will get magnesium level and replete if indicated. 4. We will get serial troponin to rule out acute myocardial infarction. 5. We will also get echocardiogram to assess cardiac function. 6. We will also get orthostatic vitals. 7. We will hold off with antibiotics at this time since the patient clearly had volume depletion from poor oral intake, GI losses, and use of antihypertensives. 8. We will however get respiratory culture. 9. We will recheck CMP in the morning. 10. Abnormal LFTs are either due to chronic alcohol use or acute viral infection with hepatitis. 11. Thrombocytopenia: The patient has chronic alcohol use history. This may be pointing to alcohol liver disease with portal hypertension. 12. We will however continue antiplatelets, given history of 10 myocardial infarctions in the past with seven stent placement. 13. With mildly elevated troponin, we will also get Cardiology input. 14. DVT prophylaxis with Lovenox will be commenced. We will avoid pharmacologic prophylaxis due to thrombocytopenia. 15. Further treatment to follow depending on hospital course. Job ID: [id number]
[2019-05-07 20:43] LABS: Troponin I 0.059 ng/mL (< 0.028)
[2019-05-08] MEDS: Lactated Ringer's 1,000 ML IV SCH ×4 (00:09→16:17)
[2019-05-08] MEDS: Famotidine 20 MG TAB PO SCH ×3 (00:19→20:40)
[2019-05-08] MEDS ORDERED: Famotidine 20 MG TAB ONE (00:19)
[2019-05-08] MEDS: Famotidine/PF 20 mg/2ml Vial SLOW IVP SCH ×3 (01:21→20:19)
[2019-05-08 04:08] LABS: ALT (SGPT) 44 U/L (8-55); AST (SGOT) 38 U/L (5-34); Albumin 2.9 g/dL (3.5-5.0); Alkaline Phosphatase 109 U/L (40-110); Anion Gap 12 mmol/L (10-20); BUN (Urea Nitrogen) 8 mg/dL (8.4-25.7); Bilirubin, Total 0.4 mg/dL (0.2-1.2); Calc. Creatinine Clearance 0 mL/min (70-130); Calcium 7.8 mg/dL (7.8-10.44); Carbon Dioxide 22 mmol/L (22-29); Chloride 111 mmol/L (98-107); Estimated GFR-MDRD Greater than 90; Globulin 2.1 g/dL (2.4-3.5); Glucose 98 mg/dL (70-105); Potassium 3.5 mmol/L (3.5-5.1); Sodium 141 mmol/L (136-145)
[2019-05-08 04:27] LABS: Band 1 % (5-11); Hemoglobin 12.9 g/dL (14.0-18.0); Lymphocytes 34 % (21-51); MDiff Complete? YES; Mean Corpuscular Hemoglobin 35.4 pg (27.0-31.0); Monocytes 8 % (0-10); Neutrophil 57 % (42-75); Platelet Count 56 thou/uL (130-400); Platelet Morphology Comment Appears Decreased; RBC Distribution Width 11.5 % (11.5-14.5); Red Blood Cell (RBC) Count 3.64 mill/uL (4.70-6.10); White Blood Cell (WBC) Count 5.7 thou/uL (4.8-10.8)
[2019-05-08 07:30] VITALS: BMI 24.3
[2019-05-08] MEDS ORDERED: Enoxaparin Sodium 40 MG/0.4 ML SYRINGE SC SCH (09:00)
[2019-05-08] MEDS ORDERED: Nitroglycerin 0.4 MG TAB (25 Tab Bottle) SL PRN (09:59)
[2019-05-08] MEDS: ALPRAZolam 0.5 MG TAB PO PRN ×2 (10:44→23:00)
--- NOTE | 2019-05-08 15:45 | PDOC.HOSPP ---
- Subjective Subjective: Seen and examined on intermediate medical care for patient with nausea, vomiting , and diarrhea for over a week. Patient tells me that he drinks beer every day, and if he skips beer he takes Xanax. Patient tells me that he does not drink beer and take the Xanax together though. Patient tells me that he has had 10 heart attacks. Cardiology consultation requested. Patient denies being told he has any problems with his liver and is never been diagnosed with cirrhosis. Patient with thrombocytopenia with platelets a 56 and a macrocytosis which would point towards liver dysfunction. Ultrasound of the abdomen to further evaluate. Abdomen does feel bloated and distended, possible ascites. - Objective Vital Signs & Weight: Vital Signs (12 hours) Temp Pulse Ox 05/08/19 10:28 97.4 F L 05/08/19 08:00 98 05/08/19 07:12 97.2 F L Weight Weight 155 lb Most Recent Monitor Data Heart Rate from ECG 54 NIBP 126/80 NIBP BP-Mean 95 Respiration from ECG 17 SpO2 94 I&O: 05/07/19 05/08/19 05/09/19 06:59 06:59 06:59 Intake Total 450 Balance 450 Result Diagrams: 05/08/19 03:32 05/08/19 03:32 Radiology Reviewed by me: Yes Hospitalist ROS - Review of Systems All other systems reviewed; all pertinent +/- noted in HPI/Subj - Medication Medications: Active Medications Generic Name Dose Route Start Last Admin Trade Name Freq PRN Reason Stop Dose Admin Alprazolam 0.5 mg 05/08/19 10:01 05/08/19 10:44 Xanax PO 0.5 mg Q4H PRN Administration Anxiety/Agitation Famotidine 20 mg 05/07/19 21:00 05/08/19 08:01 Pepcid SLOW IVP Not Given Q12HR PAWEL Famotidine 20 mg 05/07/19 21:00 05/08/19 08:40 Pepcid PO 20 mg BID PAWEL Administration Lactated Ringer's 1,000 mls @ 125 mls/hr 05/07/19 17:00 05/08/19 08:40 Lactated Ringer's IV 1,000 mls .Q8H PAWEL Administration Sodium Chloride 10 ml 05/08/19 09:00 05/08/19 08:02 Flush - Normal Saline IVF Not Given Q12HR PAWEL - Exam General Appearance: NAD, awake alert Eye: PERRL ENT: normocephalic atraumatic, moist mucosa Neck: supple, symmetric, no lymphadenopathy Heart: RRR, no murmur, no gallops Respiratory: no rales, no ronchi, no tachypnea, wheezes Gastrointestinal: soft, non-tender, normal bowel sounds, no guarding, no rigidity, distended Extremities: no edema Skin: no lesions, no rashes Neurological: cranial nerve grossly intact, no weakness Musculoskeletal: no muscle wasting, generalized weakness Psychiatric: normal behavior, A&O x 3 Hosp A/P (1) Nausea & vomiting Code(s): R11.2 - NAUSEA WITH VOMITING, UNSPECIFIED Status: Acute (2) Diarrhea Code(s): R19.7 - DIARRHEA, UNSPECIFIED Status: Acute (3) Viral gastroenteritis Code(s): A08.4 - VIRAL INTESTINAL INFECTION, UNSPECIFIED Status: Acute (4) Alcohol abuse Code(s): F10.10 - ALCOHOL ABUSE, UNCOMPLICATED Status: Chronic (5) CAD (coronary artery disease) Code(s): I25.10 - ATHSCL HEART DISEASE OF [place] CORONARY ARTERY W/O ANG PCTRS Status: Chronic (6) HLD (hyperlipidemia) Code(s): E78.5 - HYPERLIPIDEMIA, UNSPECIFIED Status: Chronic (7) HTN (hypertension) Code(s): I10 - ESSENTIAL (PRIMARY) HYPERTENSION Status: Chronic (8) Paroxysmal a-fib Code(s): I48.0 - PAROXYSMAL ATRIAL FIBRILLATION Status: Chronic (9) Thrombocytopathia Code(s): D69.1 - QUALITATIVE PLATELET DEFECTS Status: Acute (10) Macrocytic anemia Code(s): D53.9 - NUTRITIONAL ANEMIA, UNSPECIFIED Status: Acute - Plan Plan: intermediate medical care floor cardiology consultation, recommendations patient no point does patient have any chest pain cardiac enzymes are indeterminate patient with history of "10 heart attacks" echocardiogram noted for preserved ejection fraction, see report for details symptomatic therapy for viral gastroenteritis control of nausea and vomiting with symptomatic medications as needed patient tells me that he drinks beer or take Xanax every day, has not been formally diagnosed with cirrhosis ultrasound of the abdomen to eval for ascites thrombocytopenia, maybe secondary to EtOH use macrocytic anemia, patient denies black or bloody bowel movements consider gastroenterology consultation pending above workup
--- NOTE | 2019-05-08 16:17 | CON ---
DATE OF CONSULTATION: 05/08/2019 INDICATION FOR CONSULTATION: A 58-year-old gentleman with history of coronary artery disease in the past, who had a myocardial infarction, who had a totally occluded right coronary artery. He underwent angioplasty and stent placed in the past and the stent had occluded. He underwent cardiac catheterization with Dr. Joyce about 2 years ago and was found to have normal left coronary artery, left circumflex without any other significant problems with a totally occluded right coronary artery. They were unable to open the vessel. He has been treated with Plavix since that time. He had a negative stress test on 24 of April, no evidence of ischemia, but had a proximal inferior wall scar compatible with his previous myocardial infarction with a totally occluded right coronary artery. He had an echocardiogram performed on this admission, which showed an ejection fraction 50% to 55% with mild diastolic dysfunction, otherwise relatively unremarkable. We were asked to see him because he had some indeterminate cardiac enzymes. Troponin-I was 0.036 and then decreased down to 0.01, and third set showed a troponin-I of 0.059. He denies any chest pain or any significant shortness of breath and otherwise is doing very well. PAST MEDICAL HISTORY: Significant for coronary artery disease, angioplasty, stent placement, myocardial infarction. He has history of paroxysmal supraventricular tachycardia. He has undergone ablation by Dr. Bryan. He has also had a history of PEs in the past. He has had multiple rib fractures in the past after a fall. He has had hypertension, hyperlipidemia, history of alcohol abuse. He continues to drink. He had a history of tobacco abuse in the past, but he stopped smoking. ALLERGIES: HE IS ALLERGIC TO ISOSORBIDE AND PRASUGREL AND ALSO EFFIENT. MEDICATIONS: Prior to admission included; 1. Xanax. 2. Lisinopril. 3. Atorvastatin. 4. Metoprolol. 5. Plavix. 6. Vitamin B12. 7. Aspirin. 8. P.r.n. nitroglycerin. FAMILY HISTORY: Noncontributory. REVIEW OF SYSTEMS: A 12-point review of systems unremarkable except what is noted in the history of present illness with diarrhea and otherwise relatively unremarkable and significant bruising, which he attributes to the Plavix. PHYSICAL EXAMINATION: GENERAL: Reveals a well-developed, well-nourished gentleman. VITAL SIGNS: Blood pressure 126/80, heart rate 54 and regular, respiratory rate 17, O2 saturations 94%. HEENT: Shows head to be normocephalic and atraumatic. NECK: Carotid pulses are present. There are no bruits. CHEST: Clear to auscultation without rales, rhonchi, or wheezing. CARDIOVASCULAR: Reveals regular rate and rhythm. Normal S1 and S2. There was no S3 or S4. There were no significant murmurs, heaves, thrills, bruits, or rubs. ABDOMEN: Soft. Positive bowel sounds are present. There is no organomegaly or masses noted. Femoral pulses are present. Pedal pulses are present. EXTREMITIES: Showed no edema. He does have some ecchymoses in the upper extremities after trying to start IVs apparently. Otherwise, he appears to be relatively unremarkable. Overall, physical examination is within normal limits. LABORATORY DATA: Shows a potassium of 3.5, BUN was 8, creatinine 0.61. Troponin as noted above. WBC is 5.7, hemoglobin 12.9, platelet count was low at 56,000. This may be due to infection, and hopefully, this will improve. On his previous admissions, his platelet count had been as high as 649,000. In April of last year, his platelet count was 141,000. He has not had a low platelet count like this before. This may be due to infection with the associated diarrhea. IMPRESSION: 1. A 58-year-old gentleman with a slight abnormalities of cardiac enzymes, which did not appear to be with any evidence of ischemia with a recent negative stress test. No evidence of chest pain, and EKG without any evidence of ischemia. It does not appear that this patient is having any cardiac issues at this time. Should anything further developed, we more than happy to continue to follow the patient with you. However, at this time, his cardiac status appears to be stable. 2. History of angioplasty and stent placement with occluded right coronary artery, this has been stable. This occurred several years ago and the other arteries remain normal. No indication of the patient needs to undergo any further cardiac evaluation at this time. Thank you much for the consultation. I will sign off unless the patient has any new issues that would arise from a cardiac standpoint. Job ID: [id number]
[2019-05-08] MEDS ORDERED: Metoprolol Tartrate 25 MG TAB PO SCH (21:00)
[2019-05-09] MEDS: Lactated Ringer's 1,000 ML IV SCH ×3 (05:06→09:01)
[2019-05-09] MEDS: ALPRAZolam 0.5 MG TAB PO PRN (06:44)
--- NOTE | 2019-05-09 07:34 | RAD ---
EXAM: Single view of the chest HISTORY: Near syncope COMPARISON: 04/23/2018 FINDINGS: Single view of the chest shows a normal sized cardiomediastinal silhouette. There is no perlita dence of consolidation, mass, or pleural effusion. Multiple remote right rib fractures are seen. IMPRESSION: No evidence of acute cardiopulmonary disease
[2019-05-09] MEDS: Famotidine 20 MG TAB PO SCH (09:00)
[2019-05-09] MEDS ORDERED: Clopidogrel Bisulfate 75 MG TAB PO SCH (09:00)
[2019-05-09] MEDS ORDERED: Cyanocobalamin (Vitamin B-12) 1,000 MCG TAB PO SCH (09:00)
[2019-05-09] MEDS: Famotidine/PF 20 mg/2ml Vial SLOW IVP SCH (09:00)
[2019-05-09] MEDS ORDERED: Metoprolol Tartrate 25 MG TAB PO SCH (09:00)
[2019-05-09] MEDS ORDERED: Aspirin 325 MG TAB PO SCH (09:00)
[2019-05-09] MEDS ORDERED: Lisinopril 10 MG TAB PO SCH (09:00)
[2019-05-09 09:01] VITALS: BP 154/81
--- NOTE | 2019-05-09 09:10 | ULT ---
GALLBLADDER ULTRASOUND: HISTORY: Abdominal distention. Alcohol abuse. FINDINGS: The liver demonstrates increased echogenicity, consistent with fatty infiltration. No shadowing galls tones, gallbladder wall thickening or pericholecystic fluid is seen. The common duct measures 5 mm in diameter. The right kidney and the visualized portions of the pancreas are unremarkable. No free flu id is seen. IMPRESSION: 1. Fatty liver. 2. No evidence of cholelithiasis. POS: KEN
[2019-05-09 11:57] VITALS: TEMP 98
--- NOTE | 2019-05-09 12:08 | PDOC.CPN ---
- Subjective Date: 05/09/19 Time: 12:15 Interval history: The pt seen and examined. No overnight events. No cardiac complaints. - Objective Allergies/Adverse Reactions: Allergies Allergy/AdvReac Type Severity Reaction Status Date / Time prasugrel HCl [From Effient] Allergy Severe Severe Verified 05/08/19 06:26 Hives prasugrel [From Effient] Allergy Verified 05/08/19 06:26 Visit Medications: Current Medications Acetaminophen (Tylenol) 650 mg PO Q4H PRN PRN Reason: Headache/Fever/Mild Pain (1-3) Hydrocodone Bitart/Acetaminophen ([place] 5/325) 1 tab PO Q4H PRN PRN Reason: Moderate Pain (4-6) Alprazolam (Xanax) 0.5 mg PO Q4H PRN PRN Reason: Anxiety/Agitation Last Admin: 05/09/19 06:44 Dose: 0.5 mg Aspirin (Aspirin) 325 mg PO DAILY [facility] Last Admin: 05/09/19 09:00 Dose: 325 mg Atorvastatin Calcium (Lipitor) 40 mg PO [facility] Clopidogrel Bisulfate (Plavix) 75 mg PO DAILY [facility] Last Admin: 05/09/19 09:00 Dose: 75 mg Cyanocobalamin (Vitamin B-12) 500 mcg PO DAILY [facility] Last Admin: 05/09/19 08:59 Dose: 500 mcg Famotidine (Pepcid) 20 mg SLOW IVP Q12HR [facility] Last Admin: 05/09/19 09:00 Dose: Not Given Famotidine (Pepcid) 20 mg PO BID [facility] Last Admin: 05/09/19 09:00 Dose: 20 mg Lactated Ringer's (Lactated Ringer's) 1,000 mls @ 125 mls/hr IV .Q8H [facility] Last Admin: 05/09/19 09:01 Dose: 1,000 mls Lisinopril (Zestril) 10 mg PO DAILY [facility] Last Admin: 05/09/19 08:59 Dose: 10 mg Metoprolol Tartrate (Lopressor) 12.5 mg PO BID [facility] Last Admin: 05/09/19 09:00 Dose: 12.5 mg Nitroglycerin (Nitrostat) 0.4 mg SL Q5MIN PRN PRN Reason: Chest Pain Ondansetron HCl (Zofran Odt) 4 mg PO Q6H PRN PRN Reason: Nausea/Vomiting Ondansetron HCl (Zofran) 4 mg IVP Q6H PRN PRN Reason: Nausea/Vomiting Sodium Chloride (Flush - Normal Saline) 10 ml IVF Q12HR PAWEL Last Admin: 05/09/19 09:03 Dose: Not Given Sodium Chloride (Flush - Normal Saline) 10 ml IVF PRN PRN PRN Reason: Saline Flush Vital Signs & Weight: Vital Signs Temp BP BP BP BP Pulse Ox 05/09/19 11:56 98 F 05/09/19 08:59 154/81 H 05/09/19 08:00 98 05/09/19 07:13 97.6 F 05/09/19 05:57 149/86 H 166/88 H 147/81 H 05/09/19 03:41 98.2 F Weight 155 lb - Physical Exam General: alert & oriented x3 HEENT: mucus membranes moist Neck: supple neck Cardiac: regular rate and rhythm, S1/S2 Lungs: clear to auscultation - Labs Result Diagrams: 05/08/19 03:32 05/08/19 03:32 Troponin/CKMB CK-MB (CK-2) 1.9 ng/mL (0-6.6) 05/07/19 13:39 Troponin I 0.059 ng/mL (< 0.028) H 05/07/19 20:07 - Telemetry Sinus rhythms and dysrhythmias: sinus rhythm - Assessment/Plan Assessment/Plan: 1. Elevated Trop - 2/2 severe dehydration from N&V for more than 10 days per the pt. 2. CAD with hx of stent - 3. HTN - 4. HLD - 5. hx of parox SVT with RFA by Dr Bryan 6. hx of PE 7. ETOH abuse - MAR reviewed * Dr Joyce's pt; Per the pt, he already has f/u appt with Dr Briggs this month. * Echo on 05/08/2019 with EF 50-55%, grade I dd, trace MR and mild MR
--- NOTE | 2019-05-09 17:42 | DIS ---
DATE OF ADMISSION: 05/07/2019 DATE OF DISCHARGE: 05/09/2019 REASON FOR HOSPITALIZATION: Chest pain and shortness of breath. SIGNIFICANT FINDINGS: The patient found to have mildly elevated cardiac enzymes. The patient also with nausea and vomiting and diarrhea, which resolved with symptomatic therapy. PROCEDURES PERFORMED AND TREATMENTS RENDERED: The patient was admitted to the intermediate medical care floor for close medical management. The patient was seen and evaluated by Cardiology, please see full consultation and progress notes for details. The patient had echocardiogram, please see full radiographic report for details. The patient with preserved ejection fraction without significant valvular pathology. The patient was monitored on continuous telemetry throughout his hospitalization and there were no acute events. The patient was recommended safe for discharge by Cardiology with close followup in the outpatient setting. CONDITION ON DISCHARGE: Stable. SPECIFIC INSTRUCTIONS FOR THE PATIENT/FAMILY: 1. The patient recommended to abstain from alcohol use. 2. The patient recommended to take all medications as directed, to be re-evaluated by primary care physician and converting operator in the outpatient setting in the upcoming weeks. 3. The patient recommended to follow up with Cardiology in the next 1 to 2 weeks. 4. The patient recommended to follow up with primary care physician in the next 5 to 7 days. 5. The patient recommended to return to acute care hospital immediately if signs or symptoms return, worsen, or any other new symptoms occur. DISCHARGE MEDICATIONS: 1. Metoprolol tartrate 0.25 mg one tablet p.o. b.i.d. 2. Nitroglycerin 0.4 mg sublingual q.5 minutes p.r.n. chest pain. 3. Lisinopril 10 mg one tablet p.o. daily. 4. Vitamin B12 of 500 mcg one tablet p.o. daily. 5. Clopidogrel 75 mg one tablet p.o. daily. 6. Atorvastatin 40 mg one tablet p.o. daily. 7. Aspirin 325 mg one tablet p.o. daily. 8. Alprazolam 1 mg one tablet p.o. b.i.d., this medication is to be weaned by primary care physician in the upcoming days and weeks. HOSPITAL COURSE: Mr. Miller is a pleasant 58-year-old gentleman, who presented to [facility] in [place], [place] on 05/06/2019 with chest discomfort, shortness of breath, nausea, vomiting, and diarrhea. The patient was admitted to intermediate medical care floor for further evaluation and treatment. The patient was seen and evaluated by Cardiology, please see full consultation note for details. Please see full progress notes for details. The patient having an echocardiogram, please see full radiographic report for details. Echocardiogram with preserved ejection fraction. The patient monitored on continuous telemetry throughout his hospitalization and there were no acute events. The patient no longer having chest pain, shortness of breath, no near syncopal episodes, and the patient was recommended safe for discharge by Cardiology. The patient also with nausea, vomiting, and diarrhea with poor oral intake. The patient does admit that he drinks alcohol every day, when the patient is not feeling well he does not drink alcohol and he takes Xanax instead. The patient states that he does not take Xanax while he drinks alcohol regularly, though it does happen from [id number]. The patient with blood work suggestive of chronic alcohol use including macrocytic anemia with MCV of 101. The patient also with thrombocytopenia with a platelet level of 56. The patient does not have any episodes of bleeding, denies black or bloody bowel movements. States his bowel movements have been brown and formed since hospitalized. The patient feeling significantly better and there was resolution of nausea, vomiting, and diarrhea with symptomatic therapy, IV fluids and regular fluid intake. The patient was placed on benzodiazepine medications in the hospital, so he did not go through withdrawal. An ultrasound of the patient's abdomen was performed, please see full report for details, no ascites or other acute process and the liver was identified as fatty liver disease. The patient recommended to follow up with primary care physician for chronic manifestations of alcoholism. The patient recommended safe for discharge with close followup in the outpatient setting with primary care physician in the next 5 to 7 days and converting operator in the next 1 to 2 weeks. The patient recommended to take all medications as directed. The patient recommended to abstain from alcohol use. The patient recommended to wean off benzodiazepine. The patient recommended to return to acute care hospital immediately if signs or symptoms return, worsen, or any other new symptoms occur. Greater than 36 minutes spent coordinating care and discharge process for this patient. Job ID: [id number]
[2019-05-09] MEDS ORDERED: Atorvastatin Calcium 40 MG TAB PO SCH (21:00)
--- NOTE | 2019-05-11 00:08 | PQF ---
FLORIDALMADEDRICK FAGAN GHADA NG [id number] [facility] [id number] CLINICAL DOCUMENTATION CLARIFICATION FORM: POST DISCHARGE Addendum to original discharge summary date: ____ Late entry note date: __ DATE:05/10/2019 ATTN: HGADA NG Please exercise your independent, professional judgment in responding to the clarification form. Clinical indicators are provided on the bottom of this form for your review Please check appropriate box(s) to clarify if the following diagnosis has been ruled in or ruled out:Sepsis [ ] Ruled in diagnosis [ ] Continue to treat [ ] Resolved [ ] Ruled out diagnosis [ ] Cannot rule out diagnosis [ ] Other diagnosis [ ] Unable to determine In addition, please specify: Present on Admission (POA): [ ] Yes [ ] No [ ] Unable to determine For continuity of documentation, please document condition throughout progress notes and discharge summary. Thank You. CLINICAL INDICATORS - SIGNS / SYMPTOMS / LABS Fever-Documented in ED on 05/07 by Kandi Vera Severe sepsis,clinical pneumonia-Documented in ED on 05/07 by Kandi Vera The patient was found to be hypotension when EMS arrived and was stares on IV fluid therapy. En route to [facility] the patient had another dizzy spell. on presentation to the ER. The patient reported feeling better with pulse of 93 and respiratory rate of 18. intial temperature was 98.1. Further evaluation revealed elevated lactic acid of 3.1 hence the patient was treated as a case of severe sepsis despite-Documented in H&P on 05/07 by Ghada Ng Hypotension-Documented in H&P on 05/07 by Ghaad Ng Lactic acidosis due to hypotension-Documented in H&P on 05/07 by Hernandez, Ghada COPD with acute bronchitis-Documented in H&P on 05/07 by Ghada Ng Subjective fever-Documented in H&P on 05/07 by Ghada Ng Viral gastroenteritis-Documented in Hospitalist progress note on 05/09/2019 by Maurice Freeman RISK FACTORS Viral gastroenteritis-Documented in Hospitalist progress note on 05/09/2019 by Maurice Freeman COPD with acute bronchitis-Documented in H&P on 05/07 by Ghada Ng TREATMENTS We will hold off with antibiotics at this time since the patient clearly had volume depletion from poor oral intake -Documented in H&P on 05/07 by Ghada Ng Rocephin 2mg ,Azithromycin 500 mg -Documented in medication snapshot (This form is maintained as a part of the permanent medical record) 2014 [employer], [email or web address]. All Rights Reserved [email or web address] [not provided] MTDD
== END 2019-05-09 13:05 | disposition home or self-care (01) | DRG 392 ==
LOC: ERS 13:14 → ERHOLD 18:06 → IMCU/EMU 05-08 05:54
PROVIDERS: ADMIT Internal Medicine Nephrology; ATTEND Internal Medicine Nephrology
DX: A08.4 Viral intestinal infection, unspecified (principal); E87.2 Acidosis; I24.8 Other forms of acute ischemic heart disease; J44.0 Chronic obstructive pulmonary disease with (acute) lower respiratory infection; E87.6 Hypokalemia; I95.9 Hypotension, unspecified; I25.10 Atherosclerotic heart disease of native coronary artery without angina pectoris; E78.5 Hyperlipidemia, unspecified; I10 Essential (primary) hypertension; Z95.5 Presence of coronary angioplasty implant and graft; J20.9 Acute bronchitis, unspecified; D69.6 Thrombocytopenia, unspecified; I25.2 Old myocardial infarction; Z88.8 Allergy status to other drugs, medicaments and biological substances; D53.9 Nutritional anemia, unspecified; F10.10 Alcohol abuse, uncomplicated; E86.0 Dehydration
CPT/HCPCS: 36415; 36416; 71045; 76705; 80053; 81003; 82553; 83605; 83735; 84484; 85007; 85025; 85027; 87040; 87804; 93005; 93306; 96365; 96375; J0456; J0696

== ENCOUNTER 2019-07-05 15:07 | Outpatient (CLI) | payer OTHER ==
--- NOTE | 2019-07-05 15:37 | RAD ---
Exam: 6 views lumbar spine HISTORY: Left leg weakness and pain. Patient was heavy objects ulna time FINDINGS: There is a leftward curvature of the lumbar spine centered at the thoracolumbar junction. [place] y rightward curvature lumbar spine centered at the L4-L5 level. There are 5 lumbar type vertebra. There is severe loss of disc space height at the thoracolumbar junction as well as severe loss of dis c space on the right aspect of the L1-L2 level. There is severe loss of disc space along the left aspect of the L4-L5 level. Osteophyte formation and sclerosis is noted Visualized bony pelvis and sacrum are unremarkable Oblique projections do not demonstrate evidence of spondylolysis. Spondylolisthesis: L5-S1: 5.5 mm of retrolisthesis in the neutral weightbearing position, 5 mm retrolisthesis upon flexi on, 4.3 mm retrolisthesis upon extension L1-L2: Neutral weightbearing position 3 mm of retrolisthesis, flexion 1.7 mm retrolisthesis, extensio n 2.3 mm of retrolisthesis IMPRESSION: Scoliosis and degenerative changes as described above.
== END 2019-07-05 15:08 | disposition home or self-care (01) ==
LOC: BICRAD 15:07
PROVIDERS: ATTEND Family Medicine
DX: M54.9 Dorsalgia, unspecified (principal); M41.9 Scoliosis, unspecified; M47.816 Spondylosis without myelopathy or radiculopathy, lumbar region
CPT/HCPCS: 72100; 80306

== ENCOUNTER 2019-08-06 14:29 | Emergency (ER) | payer OTHER ==
--- NOTE | 2019-08-06 16:08 | RAD ---
PORTABLE CHEST ONE VIEW: 08/06/19 at 2:58 p.m. HISTORY: Cough with shortness of breath. COMPARISON: 05/07/19. The heart size is normal. The lungs are well expanded without lobar consolidation, pneumothoraces, or pleural effusions. Old right sided rib fractures are redemonstrated. IMPRESSION: No radiographic evidence of acute cardiopulmonary process. POS: MZA
[2019-08-06 16:19] LABS: Hemoglobin 15.6 g/dL (14.0-18.0); Mean Corpuscular HGB CONC 32.7 g/dL (32.0-36.0); Mean Corpuscular Hemoglobin 31.3 pg (27.0-31.0); Mean Corpuscular Volume 95.7 fL (78.0-98.0); Mean Platelet Volume 8.6 fL (7.4-10.4); Platelet Count 122 thou/uL (130-400); RBC Distribution Width 11.7 % (11.5-14.5); Red Blood Cell (RBC) Count 4.99 mill/uL (4.70-6.10); White Blood Cell (WBC) Count 5.8 thou/uL (4.8-10.8)
[2019-08-06 16:28] LABS: ALT (SGPT) 21 U/L (8-55); AST (SGOT) 22 U/L (5-34); Alkaline Phosphatase 99 U/L (40-110); Anion Gap 14 mmol/L (10-20); BUN (Urea Nitrogen) 6 mg/dL (8.4-25.7); Bilirubin, Total 0.7 mg/dL (0.2-1.2); Calc. Creatinine Clearance 0 mL/min (70-130); Carbon Dioxide 23 mmol/L (22-29); Chloride 103 mmol/L (98-107); Estimated GFR-MDRD Greater than 90; Glucose 93 mg/dL (70-105); Sodium 137 mmol/L (136-145)
[2019-08-06 16:44] LABS: Band 27 % (5-11); Eosinophils 2 % (0-10); Lymphocytes 5 % (21-51); MDiff Complete? YES; Monocytes 10 % (0-10); Neutrophil 46 % (42-75); Platelet Morphology Comment Appears Decreased; RBC Morphology Normal; Reactive Lymphocytes 10 % (0-10)
[2019-08-06 16:58] LABS: Potassium 2.9 mmol/L (3.5-5.1)
[2019-08-06 16:58] LABS: Bilirubin Negative (Negative); Blood, Urine Negative (Negative); Clarity Clear (Clear); Glucose, Urine (Dipstick) Normal (Negative); Leukocyte Negative Leu/uL (Negative); Nitrite Negative (Negative); Protein, Urine (Dipstick) Negative (Neg-Trace); Urobilinogen Normal mg/dL (Less than 2)
[2019-08-06] MEDS ORDERED: Potassium Chloride 20 MEQ TAB ONE ×2 (17:05→17:06)
== END 2019-08-06 17:20 | disposition home or self-care (01) ==
LOC: ERS 14:29
DX: R19.7 Diarrhea, unspecified (principal); R05 Cough; E78.5 Hyperlipidemia, unspecified; I10 Essential (primary) hypertension; I25.2 Old myocardial infarction; Z87.891 Personal history of nicotine dependence; Z79.899 Other long term (current) drug therapy
CPT/HCPCS: 71045; 80053; 81003; 83605; 85025; 87040; 96360

== ENCOUNTER 2019-09-14 15:26 | Inpatient (IN) | payer OTHER ==
[~2019-09-14 15:26] MED LIST: Iopamidol-370 76% 500 ML 1 ML ONE
[2019-09-14 15:51] LABS: #Monocytes 1.2 thou/uL (0.11-0.59); %Basophils 0.1 % (0.0-1.0); %Eosinophils 0.2 % (0.0-10.0); %Lymphocytes 8.5 % (21.0-51.0); %Monocytes 10.7 % (0.0-10.0); %Neutrophils 80.5 % (42.0-75.0); Hemoglobin 15.8 g/dL (14.0-18.0); Mean Corpuscular HGB CONC 32.8 g/dL (32.0-36.0); Mean Corpuscular Hemoglobin 31.8 pg (27.0-31.0); Mean Platelet Volume 7.5 fL (7.4-10.4); Platelet Count 168 thou/uL (130-400); RBC Distribution Width 12.5 % (11.5-14.5); Red Blood Cell (RBC) Count 4.96 mill/uL (4.70-6.10); White Blood Cell (WBC) Count 11.1 thou/uL (4.8-10.8)
[2019-09-14] MEDS ORDERED: Morphine 4 MG/ML VIAL ONE (15:53)
[2019-09-14] MEDS ORDERED: Promethazine HCl 25 MG/ML VIAL ONE (16:04)
[2019-09-14 16:11] LABS: ALT (SGPT) 41 U/L (8-55); AST (SGOT) 49 U/L (5-34); Albumin 4.1 g/dL (3.5-5.0); Alkaline Phosphatase 124 U/L (40-110); Anion Gap 19 mmol/L (10-20); BUN (Urea Nitrogen) 4 mg/dL (8.4-25.7); Bilirubin, Total 0.5 mg/dL (0.2-1.2); CK (CPK) 75 U/L (30-200); Calc. Creatinine Clearance 0 mL/min (70-130); Calcium 9.3 mg/dL (7.8-10.44); Carbon Dioxide 21 mmol/L (22-29); Chloride 100 mmol/L (98-107); Estimated GFR-MDRD Greater than 90; Glucose 126 mg/dL (70-105); Potassium 3.9 mmol/L (3.5-5.1); Protein, Total 7.1 g/dL (6.0-8.3); Sodium 136 mmol/L (136-145)
[2019-09-14] MEDS ORDERED: cefTRIAXone\\ROCEPHIN 2 GM VIAL ONE (16:25)
[2019-09-14] MEDS ORDERED: Fentanyl 100 MCG/2 ML VIAL ONE (16:25)
[2019-09-14] MEDS ORDERED: Azithromycin 500 MG VIAL ONE (16:25)
[2019-09-14 16:32] LABS: CKMB 2.8 ng/mL (0-6.6)
[2019-09-14] MEDS ORDERED: Albuterol 200 PUFF (6.7GM INHALER) ONE (17:27)
[2019-09-14] MEDS ORDERED: Aspirin 325 MG TAB ONE (17:27)
--- NOTE | 2019-09-14 17:37 | CT ---
CT abdomen and pelvis with IV contrast HISTORY: Abdominal pain. FINDINGS: Old right posterolateral rib fractures. Solid organs of the abdomen are intact. Fusiform di latation of the lower abdominal aorta with internal thrombus measures up to 3.8 cm depth by 4.8 cm width. No fluid within the retroperitoneum. Retroaortic left renal vein is noted. No evidence of bowel obstruction or inflammation. Urinary bladder is unremarkable. Prominent degenerative changes throughout the lumbar spine. IMPRESSION : No acute abnormalities are demonstrated. Fusiform lower abdominal aortic aneurysm measuring up to 4.8 cm diameter. Atherosclerosis.
--- NOTE | 2019-09-14 17:40 | CT ---
CT arteriogram chest with IV contrast and 3-D imaging HISTORY: Positive COVID 19 test. Dyspnea. COMPARISON: 11/26/2017. FINDINGS: There is good contrast opacification of the pulmonary arteries and thoracic aorta with norm al branching of the great vessels at the aortic arch. No focal airspace disease, pleural fluid, or pneumothorax. Old right rib fractures are again demonstrated. Abnormalities of the partially visualized upper abdomen are better detailed on CT abdomen performed a t the same time. There are degenerative changes throughout the thoracolumbar spine. IMPRESSION : No CT evidence of pulmonary embolus. No active lung disease.
[2019-09-14 18:01] LABS: Bilirubin Negative (Negative); Blood, Urine Negative (Negative); Clarity Clear (Clear); Glucose, Urine (Dipstick) Normal (Negative); Leukocyte Negative Leu/uL (Negative); Nitrite Negative (Negative); Protein, Urine (Dipstick) Negative (Neg-Trace); Urobilinogen Normal mg/dL (Less than 2)
[2019-09-14 19:18] LABS: Troponin I 0.023 ng/mL (< 0.028)
[2019-09-14 19:58] VITALS: BMI 22.8
[2019-09-14] MEDS ORDERED: Ondansetron ODT 4 MG TAB SL PRN (20:14)
[2019-09-14] MEDS ORDERED: Acetaminophen 325 MG TAB PO PRN (20:14)
[2019-09-14] MEDS ORDERED: Ondansetron PF 4 MG/2 ML Vial IVP PRN (20:14)
[2019-09-14] MEDS ORDERED: Fentanyl 100 MCG/2 ML VIAL SLOW IVP PRN (20:14)
[2019-09-14] MEDS ORDERED: HYDROcodone/Acetaminophen 5/325 mg Tablet PO PRN (20:59)
[2019-09-14] MEDS ORDERED: Nitroglycerin 0.4 MG TAB (25 Tab Bottle) SL PRN (21:02)
--- NOTE | 2019-09-14 21:13 | PDOC.HHP ---
Hospitalist HPI - History of Present Illness generalise weakness History of Present Illness: Case of an 59y/o male with pmhx of htn hypercholesterolemia, copd and cad who comes to [facility] due to generalize weakeners. patient refers he was on his usual state of health until about a week ago when he started with diarrhea non bloody multiple episodes a day, with associated nausea and occasional vomiting. then 3 days ago he started with fever chill and cough non productive and got tested for covid with positive results. patient refereed he has been staying at home tryng to maintain hydrate but has not been eating well and has getting progressively weaker almost passing out today for which he called ems and was brought to the hospital. Hospitalist ROS - Review of Systems All other systems reviewed; all pertinent +/- noted in HPI/Subj Hospitalist History - Past Medical History Cardiac: reports: CAD, HTN, Hyperlipidemia Pulmonary: reports: COPD - Past Surgical History Past Surgical History: reports: Hernia Repair - Family History Family History: reports: cardiac disorder, hypertension - Social History Smoking Status: Current some day smoker Alcohol: reports: Occassional Drugs: reports: none Living Situation: With Family - Exam General Appearance: ill appearing Eye: PERRL, anicteric sclera ENT: normocephalic atraumatic, no oropharyngeal lesions Neck: supple, symmetric, no JVD, no thyromegaly Heart: no gallops, no rubs, normal peripheral pulses Heart - other findings: tachycardic Respiratory: CTAB, no wheezes, no rales, no ronchi, tachypneic Gastrointestinal: soft, non-tender, non-distended, normal bowel sounds Extremities: no cyanosis, no clubbing, no edema Skin: normal turgor, no rashes Neurological: cranial nerve grossly intact, normal sensation to touch Musculoskeletal: normal tone, normal strength, no muscle wasting Psychiatric: normal affect, normal behavior, A&O x 3 Hospitalist Results - Labs Result Diagrams: 09/14/19 15:37 09/14/19 15:37 Lab results: WBC 11.1 thou/uL (4.8-10.8) H 09/14/19 15:37 Hgb 15.8 g/dL (14.0-18.0) 09/14/19 15:37 Hct 48.1 % (42.0-52.0) 09/14/19 15:37 MCV 97.0 fL (78.0-98.0) 09/14/19 15:37 Plt Count 168 thou/uL (130-400) 09/14/19 15:37 Neutrophils % 80.5 % (42.0-75.0) H 09/14/19 15:37 Sodium 136 mmol/L (136-145) 09/14/19 15:37 Potassium 3.9 mmol/L (3.5-5.1) 09/14/19 15:37 Chloride 100 mmol/L (98-107) 09/14/19 15:37 Carbon Dioxide 21 mmol/L (22-29) L 09/14/19 15:37 BUN 4 mg/dL (8.4-25.7) L 09/14/19 15:37 Creatinine 0.65 mg/dL (0.7-1.3) L 09/14/19 15:37 Glucose 126 mg/dL (70-105) H 09/14/19 15:37 Lactic Acid 3.0 mmol/L (0.5-2.2) H 09/14/19 19:04 Calcium 9.3 mg/dL (7.8-10.44) 09/14/19 15:37 Total Bilirubin 0.5 mg/dL (0.2-1.2) 09/14/19 15:37 AST 49 U/L (5-34) H 09/14/19 15:37 ALT 41 U/L (8-55) 09/14/19 15:37 Alkaline Phosphatase 124 U/L (40-110) H 09/14/19 15:37 Creatine Kinase 75 U/L (30-200) 09/14/19 15:37 CK-MB (CK-2) 2.8 ng/mL (0-6.6) 09/14/19 15:37 Troponin I 0.023 ng/mL (< 0.028) 09/14/19 18:41 B-Natriuretic Peptide 63.5 pg/mL (0-100) 09/14/19 15:37 Serum Total Protein 7.1 g/dL (6.0-8.3) 09/14/19 15:37 Albumin 4.1 g/dL (3.5-5.0) 09/14/19 15:37 Urine Ketones Negative mg/dL (Negative) 09/14/19 17:45 Urine Blood Negative (Negative) 09/14/19 17:45 Urine Nitrite Negative (Negative) 09/14/19 17:45 Ur Leukocyte Esterase Negative Shruti/uL (Negative) 09/14/19 17:45 - Radiology Interpretation CT scan - abdomen Status: report reviewed by me (aaa 4.8cm) CT scan - chest Status: report reviewed by me (no pe) Hospitalist H&P A/P - Problem (1) COVID-19 virus infection Code(s): U07.1 - COVID-19 Status: Acute (2) Sepsis Code(s): A41.9 - SEPSIS, UNSPECIFIED ORGANISM Status: Acute (3) Diarrhea Code(s): R19.7 - DIARRHEA, UNSPECIFIED Status: Acute (4) Nausea & vomiting Code(s): R11.2 - NAUSEA WITH VOMITING, UNSPECIFIED Status: Acute (5) Alcohol abuse Code(s): F10.10 - ALCOHOL ABUSE, UNCOMPLICATED Status: Chronic (6) CAD (coronary artery disease) Code(s): I25.10 - ATHSCL HEART DISEASE OF [place] CORONARY ARTERY W/O ANG PCTRS Status: Chronic (7) HLD (hyperlipidemia) Code(s): E78.5 - HYPERLIPIDEMIA, UNSPECIFIED Status: Chronic (8) HTN (hypertension) Code(s): I10 - ESSENTIAL (PRIMARY) HYPERTENSION Status: Chronic - Plan Plan: sepsis / covid 19 - tachycardic, febrile leukocytosis and elevated lactid acid, likely secondary to covid 19, positive test 2 days ago. pt started on sepsis protocol, lactic acid improved, will continue with iv hydration. ruling out other possivle sources, u/a looks clean as well as cxr cta, f/u u/c blood sputum and stool cultures. covered prphylactically with rocephin and ruthann nause and vomiting - symptomatic tx prn cad - continue home meds, holding htn medication hypoercholesterolemia - continue statin htn - holding for now due to sepsis
[2019-09-14] MEDS: Sodium Chloride 0.9% 1,000 ML IV SCH (21:39)
[2019-09-14] MEDS: HYDROcodone/Acetaminophen 5/325 mg Tablet PO PRN (21:40)
[2019-09-14] MEDS ORDERED: ALPRAZolam 1 MG TAB PO SCH (22:00)
[2019-09-14 22:03] LABS: Troponin I 0.016 ng/mL (< 0.028)
[2019-09-15 05:17] LABS: ALT (SGPT) 31 U/L (8-55); AST (SGOT) 45 U/L (5-34); Albumin 3.1 g/dL (3.5-5.0); Alkaline Phosphatase 90 U/L (40-110); Anion Gap 12 mmol/L (10-20); BUN (Urea Nitrogen) 4 mg/dL (8.4-25.7); Bilirubin, Total 0.6 mg/dL (0.2-1.2); Calc. Creatinine Clearance 133 mL/min (70-130); Calcium 7.9 mg/dL (7.8-10.44); Carbon Dioxide 25 mmol/L (22-29); Chloride 106 mmol/L (98-107); Estimated GFR-MDRD Greater than 90; Globulin 2.4 g/dL (2.4-3.5); Glucose 52 mg/dL (70-105); Potassium 3.8 mmol/L (3.5-5.1); Protein, Total 5.5 g/dL (6.0-8.3); Sodium 139 mmol/L (136-145)
[2019-09-15] MEDS: HYDROcodone/Acetaminophen 5/325 mg Tablet PO PRN ×4 (06:17→21:02)
[2019-09-15] MEDS: Thiamine 100 MG TAB PO SCH (08:11)
[2019-09-15] MEDS: Enoxaparin Sodium 40 MG/0.4 ML SYRINGE SC SCH (08:11)
[2019-09-15] MEDS: Aspirin 325 MG TAB PO SCH (08:11)
[2019-09-15] MEDS: ALPRAZolam 1 MG TAB PO SCH ×2 (08:12→21:02)
[2019-09-15] MEDS: Folic Acid 1 MG TAB PO SCH (08:12)
[2019-09-15] MEDS: Atorvastatin Calcium 40 MG TAB PO SCH (08:12)
[2019-09-15] MEDS: Sodium Chloride 0.9% 1,000 ML IV SCH (08:12)
[2019-09-15] MEDS: Clopidogrel Bisulfate 75 MG TAB PO SCH (08:12)
[2019-09-15 08:15] LABS: Band 10 % (5-11); Hemoglobin 13.3 g/dL (14.0-18.0); Lymphocytes 27 % (21-51); MDiff Complete? YES; Mean Corpuscular HGB CONC 32.6 g/dL (32.0-36.0); Mean Corpuscular Hemoglobin 32.1 pg (27.0-31.0); Mean Corpuscular Volume 98.4 fL (78.0-98.0); Mean Platelet Volume 8.2 fL (7.4-10.4); Monocytes 3 % (0-10); Neutrophil 59 % (42-75); Platelet Count 106 thou/uL (130-400); Platelet Morphology Comment Appears Decreased; RBC Distribution Width 12.4 % (11.5-14.5); Red Blood Cell (RBC) Count 4.15 mill/uL (4.70-6.10); White Blood Cell (WBC) Count 5.6 thou/uL (4.8-10.8)
[2019-09-15] MEDS ORDERED: cefTRIAXone\\ROCEPHIN 1 GM in Sodium Chloride 0.9% 100 ML IVPB SCH (16:00)
[2019-09-15] MEDS ORDERED: Azithromycin 500 MG in Sodium Chloride 0.9% 250 ML 250 ML IVPB SCH (17:00)
[2019-09-15] MEDS: Zinc Sulfate 220 MG CAP PO SCH (17:19)
[2019-09-15 19:26] LABS: SARS-CoV-2 MS2 Positive; SARS-CoV-2 N Gene Negative; SARS-CoV-2 S Gene Negative; SARS-CoV-2 orf1ab Negative
--- NOTE | 2019-09-15 19:48 | PDOC.HOSPP ---
- Subjective Encounter Date: 09/15/19 Encounter Time: 19:20 Subjective: f/u for sepsis/lactic acidosis and COVID-19 rule out. Some coughing but no fever. Receiving Rocephin/Zithromax. + diarrhea but no melena - Objective Vital Signs & Weight: Vital Signs (12 hours) Temp Pulse Resp BP Pulse Ox 09/15/19 15:10 98.3 F 71 18 114/63 96 09/15/19 11:20 98.5 F 86 16 102/55 L 96 09/15/19 08:12 98.3 F 83 16 93/61 97 Weight Weight 146 lb 1.6 oz I&O: 09/14/19 09/15/19 09/16/19 06:59 06:59 06:59 Intake Total 1203 840 Output Total 700 300 Balance 503 540 Result Diagrams: 09/15/19 04:26 09/15/19 04:26 Additional Labs: Accuchecks 09/15/19 05:25 POC Glucose 85 Laboratory Tests 09/14/19 09/14/19 09/14/19 15:37 15:37 15:37 WBC 11.1 H Lactic Acid Troponin I 0.042 H B-Natriuretic Peptide 63.5 COVID-19 PCR 09/14/19 09/14/19 09/14/19 16:28 18:41 19:04 WBC Lactic Acid 6.0 H* 3.0 H Troponin I 0.023 B-Natriuretic Peptide COVID-19 PCR 09/14/19 09/15/19 21:29 01:15 WBC Lactic Acid Troponin I 0.016 B-Natriuretic Peptide COVID-19 PCR Not Detected Radiology Reviewed by me: Yes (CTA chest - no lung infiltrate, PE) EKG Reviewed by me: Yes (Tele - SR) Hospitalist ROS - Medication Medications: Active Medications Generic Name Dose Route Start Last Admin Trade Name Freq PRN Reason Stop Dose Admin Hydrocodone Bitart/Acetaminophen 1 tab 09/14/19 20:59 09/15/19 17:18 [place] 5/325 PO 1 tab Q4H PRN Administration Moderate Pain (4-6) Hydrocodone Bitart/Acetaminophen 2 tab 09/14/19 20:59 09/15/19 01:17 [place] 5/325 PO 2 tab Q4H PRN Administration Severe Pain (7-10) Alprazolam 1 mg 09/15/19 09:00 09/15/19 08:12 Xanax PO 1 mg BID PAWEL Administration Aspirin 325 mg 09/15/19 09:00 09/15/19 08:11 Aspirin PO 325 mg DAILY PAWEL Administration Atorvastatin Calcium 40 mg 09/15/19 09:00 09/15/19 08:12 Lipitor PO 40 mg DAILY PAWEL Administration Clopidogrel Bisulfate 75 mg 09/15/19 09:00 09/15/19 08:12 Plavix PO 75 mg DAILY PAWEL Administration Enoxaparin Sodium 40 mg 09/15/19 09:00 09/15/19 08:11 Lovenox SC 40 mg 0900 PAWEL Administration Folic Acid 1 mg 09/15/19 09:00 09/15/19 08:12 Folvite PO 1 mg DAILY PAWEL Administration Azithromycin 500 mg/ Sodium 250 mls @ 250 mls/hr 09/15/19 17:00 09/15/19 17: 18 Chloride IVPB 250 mls 1700 PAWEL Administration Ceftriaxone Sodium 1 gm/ 100 mls @ 200 mls/hr 09/15/19 16:00 09/15/19 15:10 Sodium Chloride IVPB 100 mls 1600 PAWEL Administration Sodium Chloride 1,000 mls @ 70 mls/hr 09/14/19 21:15 09/15/19 08:12 Normal Saline 0.9% IV 1,000 mls .[id number] PAWEL Administration Thiamine HCl 100 mg 09/15/19 09:00 09/15/19 08:11 Thiamine PO 100 mg DAILY PAWEL Administration Zinc Sulfate 220 mg 09/15/19 17:00 09/15/19 17:19 Zinc Sulfate PO 220 mg 1700 PAWEL Administration - Exam General Appearance: NAD, awake alert Eye: PERRL, anicteric sclera ENT: normocephalic atraumatic, no oropharyngeal lesions Neck: supple, symmetric, no JVD, no thyromegaly Heart: RRR, no murmur, no gallops, no rubs, normal peripheral pulses Respiratory: CTAB, no wheezes, no rales, no ronchi, normal chest expansion Gastrointestinal: soft, non-tender, non-distended, normal bowel sounds Extremities: no cyanosis, no clubbing, no edema Skin: normal turgor, no lesions Neurological: cranial nerve grossly intact, no new deficit Musculoskeletal: normal tone, normal strength, no muscle wasting Psychiatric: normal affect, A&O x 3 Hosp A/P (1) Sepsis Code(s): A41.9 - SEPSIS, UNSPECIFIED ORGANISM Status: Acute Plan: Suspected but unclear source, COVID-19 ruled out, continue IV abx another 24h then d/c if all cx negative (2) Chest pain Code(s): R07.9 - CHEST PAIN, UNSPECIFIED Status: Acute Plan: Unclear etiology, cardiac biomarkers negative (3) Diarrhea Code(s): R19.7 - DIARRHEA, UNSPECIFIED Status: Acute Plan: Imodium, IVF's, stool studies pending (4) Hypokalemia Code(s): E87.6 - HYPOKALEMIA Status: Acute Plan: resolving (5) Nausea & vomiting Code(s): R11.2 - NAUSEA WITH VOMITING, UNSPECIFIED Status: Acute Plan: Resolving, advance diet - Plan continue antibiotics, perinatal social worker, out of bed/ambulate, DVT proph w/SCDs Stable currently COVID-19 ruled out Continue Rocephin/Zithromax another 24h then d/c Continue IVF's OOB/ambulate Protonix 40mg po daily D/C resp precautions Likely home in 24h
[2019-09-15] MEDS: Loperamide HCl 1 MG/7.5 ML UDCUP PO PRN (21:46)
[2019-09-16] MEDS: Sodium Chloride 0.9% 1,000 ML IV SCH ×2 (01:20→18:01)
[2019-09-16] MEDS: HYDROcodone/Acetaminophen 5/325 mg Tablet PO PRN ×2 (03:35→08:56)
[2019-09-16] MEDS: Loperamide HCl 1 MG/7.5 ML UDCUP PO PRN ×2 (03:37→22:01)
[2019-09-16] MEDS: Thiamine 100 MG TAB PO SCH (08:08)
[2019-09-16] MEDS: Clopidogrel Bisulfate 75 MG TAB PO SCH (08:09)
[2019-09-16] MEDS: Aspirin 325 MG TAB PO SCH (08:09)
[2019-09-16] MEDS: Atorvastatin Calcium 40 MG TAB PO SCH (08:09)
[2019-09-16] MEDS: ALPRAZolam 1 MG TAB PO SCH ×2 (08:09→20:17)
[2019-09-16] MEDS: Folic Acid 1 MG TAB PO SCH (08:09)
[2019-09-16] MEDS: Enoxaparin Sodium 40 MG/0.4 ML SYRINGE SC SCH (11:59)
--- NOTE | 2019-09-16 13:24 | PDOC.HOSPP ---
- Subjective Encounter Date: 09/16/19 Encounter Time: 13:05 Subjective: f/u for sepsis of unclear source, lactic acidosis and COVID-19 rule out. Feels better overall. Diarrhea improved. Appetite ok. - Objective Vital Signs & Weight: Vital Signs (12 hours) Temp Pulse Resp BP BP Pulse Ox 09/16/19 11:04 98.1 F 86 14 128/79 99 09/16/19 08:11 93 L 09/16/19 07:46 98.5 F 87 14 120/74 95 09/16/19 03:58 98.1 F 89 20 140/76 95 Weight Weight 146 lb 1.6 oz I&O: 09/15/19 09/16/19 09/17/19 06:59 06:59 06:59 Intake Total 1203 2483 Output Total 700 300 300 Balance 503 2183 -300 Result Diagrams: 09/15/19 04:26 09/15/19 04:26 Additional Labs: Microbiology 09/15/19 06:20 Stool Stool Lactoferrin - Final 09/15/19 06:20 Stool Campylobacter Antigen Assay - Final 09/15/19 06:20 Stool Shiga Toxin Test - Final 09/15/19 06:20 Stool C. difficile GDH Antigen & Toxins - Final 09/14/19 17:45 Urine voided Urine Culture - Final NO GROWTH AT 36 HOURS 09/15/19 06:20 Stool Stool Culture - Preliminary 09/15/19 03:47 Sputum Respiratory Culture - Preliminary 09/14/19 16:28 Venous blood - Right Hand Blood Culture - Preliminary NO GROWTH AT 48 HOURS 09/14/19 16:28 Venous blood - Left Hand Blood Culture - Preliminary NO GROWTH AT 48 HOURS Laboratory Tests 09/14/19 09/14/19 09/14/19 15:37 15:37 15:37 WBC 11.1 H Lactic Acid Troponin I 0.042 H B-Natriuretic Peptide 63.5 COVID-19 PCR 09/14/19 09/14/19 09/14/19 16:28 18:41 19:04 WBC Lactic Acid 6.0 H* 3.0 H Troponin I 0.023 B-Natriuretic Peptide COVID-19 PCR 09/14/19 09/15/19 21:29 01:15 WBC Lactic Acid Troponin I 0.016 B-Natriuretic Peptide COVID-19 PCR Not Detected EKG Reviewed by me: Yes (Tele - SR) Hospitalist ROS - Medication Medications: Active Medications Generic Name Dose Route Start Last Admin Trade Name Freq PRN Reason Stop Dose Admin Hydrocodone Bitart/Acetaminophen 1 tab 09/14/19 20:59 09/16/19 08:56 [place]o 5/325 PO 1 tab Q4H PRN Administration Moderate Pain (4-6) Hydrocodone Bitart/Acetaminophen 2 tab 09/14/19 20:59 09/15/19 01:17 [place] 5/325 PO 2 tab Q4H PRN Administration Severe Pain (7-10) Alprazolam 1 mg 09/15/19 09:00 09/16/19 08:09 Xanax PO 1 mg BID PAWEL Administration Aspirin 325 mg 09/15/19 09:00 09/16/19 08:09 Aspirin PO 325 mg DAILY PAWEL Administration Atorvastatin Calcium 40 mg 09/15/19 09:00 09/16/19 08:09 Lipitor PO 40 mg DAILY PAWEL Administration Clopidogrel Bisulfate 75 mg 09/15/19 09:00 09/16/19 08:09 Plavix PO 75 mg DAILY PAWEL Administration Enoxaparin Sodium 40 mg 09/15/19 09:00 09/16/19 11:59 Lovenox SC Not Given 0900 PAWEL Folic Acid 1 mg 09/15/19 09:00 09/16/19 08:09 Folvite PO 1 mg DAILY PAWEL Administration Azithromycin 500 mg/ Sodium 250 mls @ 250 mls/hr 09/15/19 17:00 09/15/19 17: 18 Chloride IVPB 250 mls 1700 PAWEL Administration Ceftriaxone Sodium 1 gm/ 100 mls @ 200 mls/hr 09/15/19 16:00 09/15/19 15:10 Sodium Chloride IVPB 100 mls 1600 PAWEL Administration Sodium Chloride 1,000 mls @ 70 mls/hr 09/14/19 21:15 09/16/19 01:20 Normal Saline 0.9% IV 1,000 mls .[id number] PAWEL Administration Loperamide HCl 1 mg 09/15/19 19:44 09/16/19 03:37 Imodium PO 1 mg Q4H PRN Administration Diarrhea/Loose Stools Pantoprazole Sodium 40 mg 09/16/19 09:00 09/16/19 08:09 Protonix PO 40 mg DAILY PAWEL Administration Thiamine HCl 100 mg 09/15/19 09:00 09/16/19 08:08 Thiamine PO 100 mg DAILY PAWEL Administration Zinc Sulfate 220 mg 09/15/19 17:00 09/15/19 17:19 Zinc Sulfate PO 220 mg 1700 PAWEL Administration - Exam General Appearance: NAD, awake alert Eye: PERRL, anicteric sclera ENT: normocephalic atraumatic, no oropharyngeal lesions Neck: supple, symmetric, no JVD, no thyromegaly Heart: RRR, no murmur, no gallops, no rubs, normal peripheral pulses Heart - other findings: S1, S2 Respiratory: CTAB, no wheezes, no rales, no ronchi, normal chest expansion Gastrointestinal: soft, non-tender, non-distended, normal bowel sounds, no palpable masses Extremities: no cyanosis, no clubbing, no edema Skin: normal turgor, no lesions Neurological: cranial nerve grossly intact, no new deficit Musculoskeletal: normal tone, normal strength, no muscle wasting Psychiatric: normal affect, A&O x 3 Hosp A/P (1) Sepsis Code(s): A41.9 - SEPSIS, UNSPECIFIED ORGANISM Status: Acute Plan: Resolving, D/C IV abx as no identified source (2) Chest pain Code(s): R07.9 - CHEST PAIN, UNSPECIFIED Status: Acute Plan: Due to dehydration (3) Diarrhea Code(s): R19.7 - DIARRHEA, UNSPECIFIED Status: Acute Plan: ? etiology, resolving, continue Imodium PRN (4) Hypokalemia Code(s): E87.6 - HYPOKALEMIA Status: Acute (5) Nausea & vomiting Code(s): R11.2 - NAUSEA WITH VOMITING, UNSPECIFIED Status: Acute Plan: Resolved - Plan out of bed/ambulate, DVT proph w/SCDs Stable currently COVID-19 ruled out D/C Rocephin/Zithromax Continue IVF's OOB/ambulate Protonix 40mg po daily D/C resp precautions Likely home in 24h
[2019-09-16] MEDS: Zinc Sulfate 220 MG CAP PO SCH (18:26)
[2019-09-17] MEDS ORDERED: Magnesium 2 GM/50 ML 2 GM in Premix Bag 1 BAG IVPB SCH (03:00)
[2019-09-17 03:27] LABS: #Eosinphils 0.2 thou/uL (0.0-0.7); #Lymphocytes 1.1 thou/uL (1.20-3.40); #Monocytes 0.6 thou/uL (0.11-0.59); #Neutrophils 3.8 thou/uL (1.40-6.50); %Basophils 0.6 % (0.0-1.0); %Eosinophils 3.2 % (0.0-10.0); %Lymphocytes 18.6 % (21.0-51.0); %Monocytes 10.5 % (0.0-10.0); %Neutrophils 67.1 % (42.0-75.0); Hemoglobin 14.7 g/dL (14.0-18.0); Mean Corpuscular HGB CONC 31.8 g/dL (32.0-36.0); Mean Corpuscular Hemoglobin 31.2 pg (27.0-31.0); Mean Corpuscular Volume 98.2 fL (78.0-98.0); Mean Platelet Volume 7.9 fL (7.4-10.4); Platelet Count 83 thou/uL (130-400); RBC Distribution Width 12.6 % (11.5-14.5); White Blood Cell (WBC) Count 5.7 thou/uL (4.8-10.8)
[2019-09-17 03:43] LABS: ALT (SGPT) 38 U/L (8-55); AST (SGOT) 69 U/L (5-34); Albumin 3.3 g/dL (3.5-5.0); Alkaline Phosphatase 112 U/L (40-110); Anion Gap 13 mmol/L (10-20); BUN (Urea Nitrogen) 4 mg/dL (8.4-25.7); Bilirubin, Total 0.7 mg/dL (0.2-1.2); Calc. Creatinine Clearance 120 mL/min (70-130); Calcium 8.7 mg/dL (7.8-10.44); Carbon Dioxide 25 mmol/L (22-29); Chloride 105 mmol/L (98-107); Estimated GFR-MDRD Greater than 90; Globulin 2.8 g/dL (2.4-3.5); Glucose 79 mg/dL (70-105); Magnesium 1.5 mg/dL (1.6-2.6); Potassium 3.8 mmol/L (3.5-5.1); Protein, Total 6.1 g/dL (6.0-8.3); Sodium 139 mmol/L (136-145)
[2019-09-17] MEDS: Folic Acid 1 MG TAB PO SCH (09:14)
[2019-09-17] MEDS: Aspirin 325 MG TAB PO SCH (09:14)
[2019-09-17] MEDS: Thiamine 100 MG TAB PO SCH (09:14)
[2019-09-17] MEDS: Clopidogrel Bisulfate 75 MG TAB PO SCH (09:14)
[2019-09-17] MEDS: Atorvastatin Calcium 40 MG TAB PO SCH (09:14)
[2019-09-17] MEDS: ALPRAZolam 1 MG TAB PO SCH (09:15)
[2019-09-17] MEDS: HYDROcodone/Acetaminophen 5/325 mg Tablet PO PRN (09:15)
[2019-09-17] MEDS: Loperamide HCl 1 MG/7.5 ML UDCUP PO PRN (09:17)
[2019-09-17] MEDS: Sodium Chloride 0.9% 1,000 ML IV SCH (09:36)
[2019-09-17 11:49] VITALS: BP 145/91; TEMP 99
--- NOTE | 2019-09-17 12:29 | DIS ---
DATE OF ADMISSION: 09/14/2019 DATE OF DISCHARGE: 09/17/2019 DISCHARGE DIAGNOSES: 1. Sepsis, suspected unclear etiology, resolved. 2. Chest pain secondary to dehydration, resolved. 3. Dehydration, resolved. 4. Diarrhea, organism not identified. 5. Hypokalemia, resolved. 6. Nausea and vomiting, resolved. CONSULTATIONS: None. PERTINENT LABORATORY AND X-RAY FINDINGS: Lactic acid ranged between 3.0 to 6.0. Magnesium level ranged between 1.5 to 1.8. AST ranged between 45 to 69, ALT ranged between 31 to 38, alkaline phosphatase ranged between 90 to 112. Troponin I ranged between 0.016 to 0.042. BNP 63.5. CBC showed a white blood cell count ranged between 5.7 to 11.1, hemoglobin ranged between 13.3 to 15.8. COVID-19 PCR not detected on 09/15/2019. Blood cultures x2 dated 09/14/2019 negative at 48 hours. Urine culture dated 09/14/2019, showed no growth at 36 hours. Respiratory culture dated 09/15/2019, showed moderate normal respiratory marcos. Clostridium difficile antigen and toxin negative on 09/15/2019. Stool culture dated 09/15/2019 showed normal marcos. Shigella and Campylobacter negative on 09/15/2019. CT of the abdomen and pelvis dated 09/14/2019, showed no acute intraabdominal process. Lower abdominal aortic aneurysm measuring 4.8 cm, stable. CT angiogram of the chest dated 09/14/2019, showed no evidence for pulmonary embolus. No acute infiltrates. HOSPITAL COURSE: The patient was initially admitted after presenting with generalized weakness and dehydration. The patient underwent extensive evaluation with initial concern for potential COVID-19 infection. The patient was ruled out with PCR testing as stated previously. The patient was treated for sepsis syndrome, however, no specific dominant organism was identified. The patient received broad-spectrum IV antibiotic therapy, which was discontinued prior to discharge, as no dominant organism was identified. The patient was noted with severe dehydration, receiving IV fluids through the remainder of his hospital course. The patient clinically stabilized and electrolytes returned to normal status prior to discharge. I have examined the patient at the time of discharge and discussed followup instructions. The patient verbalized understanding and agreement, ready for discharge on 09/17/2019. DISCHARGE MEDICATIONS: 1. Xanax 0.5 mg p.o. b.i.d. 2. Aspirin 325 mg p.o. daily. 3. Lipitor 40 mg p.o. daily. 4. Lisinopril 10 mg p.o. daily. 5. Metoprolol tartrate 12.5 mg p.o. b.i.d. 6. Omeprazole 20 mg p.o. daily. 7. Spiriva 18 mcg inhaled daily. 8. Plavix 75 mg p.o. daily. 9. Breo Ellipta 100 mcg/25 mcg one inhalation daily. FOLLOWUP: The patient may follow up with Dr. Chinmay Whitt within 7 days of discharge. CONDITION ON DISCHARGE: Stable. ACTIVITY: Ad-parrish. DIET: Heart healthy. CODE STATUS: Full. DISPOSITION: Home on 09/17/2019. Job ID: [id number]
--- NOTE | 2019-09-19 06:39 | PQF ---
DEDRICK HEDRICKTELMA DO [id number] CLINICAL DOCUMENTATION CLARIFICATION FORM: POST DISCHARGE Addendum to original discharge summary date: ____ Late entry note date: __ DATE: 09/19/2019 ATTN: Telma Sexton Please exercise your independent, professional judgment in responding to the clarification form. Clinical indicators are provided on the bottom of this form for your review Please check appropriate box(s) to clarify if the following diagnosis has been ruled in or ruled out: PNEUMONIA [ ] Ruled in diagnosis [ ] Continue to treat [ ] Resolved [ x ] Ruled out diagnosis [ ] Cannot rule out diagnosis [ ] Other diagnosis [ ] Unable to determine In addition, please specify: Present on Admission (POA): [ ] Yes [ x ] No [ ] Unable to determine For continuity of documentation, please document condition throughout progress notes and discharge summary. Thank You. CLINICAL INDICATORS - SIGNS / SYMPTOMS / LABS ED Notes 09/13 "pneumonia" Chest xray 09/13 "opacification of the pulmonary" ED Notes 09/13 "evaluation of SOB associated with cough" HP 09/13 "nausea and vomiting" Vital signs 09/13: utue=725.3 Pulse=92 Respi=20 RS=002/64 Labs WBC: 09/13=11.1 09/14=5.6 09/16=5.7 Collected 09/14 "sputum culture:gram positive Cocci" RISK FACTORS COPD-ED Notes 09/13 Smoker-ED Notes 09/13 Hx of covid 19-HP 09/13 Sepsis-HP 09/13 TREATMENTS Chest Xray-Collected 09/13 Sputum culture-Collected 09/14 Azithromycin 500mg IV - JUL 10 Rocephin 2gm IV - JUL 10 (This form is maintained as a part of the permanent medical record) 2014 [email or web address]. All Rights Reserved Maica [email or web address] [email or web address] [phone] [email or web address]
== END 2019-09-17 13:53 | disposition home or self-care (01) | DRG 872 ==
LOC: ERS 15:26 → 2SW 18:09
PROVIDERS: ADMIT Internal Medicine; ATTEND Internal Medicine
DX: A41.9 Sepsis, unspecified organism (principal); E87.2 Acidosis; J44.9 Chronic obstructive pulmonary disease, unspecified; E78.5 Hyperlipidemia, unspecified; Z20.828 Contact with and (suspected) exposure to other viral communicable diseases; I10 Essential (primary) hypertension; I25.10 Atherosclerotic heart disease of native coronary artery without angina pectoris; F41.9 Anxiety disorder, unspecified; F17.210 Nicotine dependence, cigarettes, uncomplicated; F10.10 Alcohol abuse, uncomplicated; R19.7 Diarrhea, unspecified; E87.6 Hypokalemia; E86.0 Dehydration; I71.4 Abdominal aortic aneurysm, without rupture; Z86.19 Personal history of other infectious and parasitic diseases; I25.2 Old myocardial infarction; Z95.5 Presence of coronary angioplasty implant and graft; Z88.8 Allergy status to other drugs, medicaments and biological substances; Z79.02 Long term (current) use of antithrombotics/antiplatelets; Z79.82 Long term (current) use of aspirin; Z79.899 Other long term (current) drug therapy
CPT/HCPCS: 36415; 36416; 71275; 74177; 80053; 81003; 82550; 82553; 83605; 83630; 83735; 83880; 84484; 85007; 85025; 85027; 87040; 87045; 87046; 87070; 87086; 87205; 87324; 87427; 87449; 87635; 93005; 96361; 96365; 96375; J0456; J0696; J1650; J2270; J2550; J3010; J3475; J3490; J7050; Q9967; U0003

== ENCOUNTER 2019-09-18 01:34 | Emergency (ER) | payer OTHER ==
[2019-09-18 02:18] LABS: #Eosinphils 0.1 thou/uL (0.0-0.7); #Lymphocytes 0.8 thou/uL (1.20-3.40); #Monocytes 0.8 thou/uL (0.11-0.59); #Neutrophils 8.8 thou/uL (1.40-6.50); %Basophils 0.4 % (0.0-1.0); %Eosinophils 1.3 % (0.0-10.0); %Monocytes 7.4 % (0.0-10.0); Hemoglobin 15.3 g/dL (14.0-18.0); Mean Corpuscular Hemoglobin 32.5 pg (27.0-31.0); Mean Corpuscular Volume 98.7 fL (78.0-98.0); Mean Platelet Volume 8.5 fL (7.4-10.4); Platelet Count 105 thou/uL (130-400); RBC Distribution Width 12.6 % (11.5-14.5); White Blood Cell (WBC) Count 10.6 thou/uL (4.8-10.8)
[2019-09-18 02:32] LABS: ALT (SGPT) 51 U/L (8-55); AST (SGOT) 91 U/L (5-34); Albumin 3.9 g/dL (3.5-5.0); Alkaline Phosphatase 118 U/L (40-110); Anion Gap 16 mmol/L (10-20); BUN (Urea Nitrogen) 4 mg/dL (8.4-25.7); Bilirubin, Total 0.7 mg/dL (0.2-1.2); Calc. Creatinine Clearance 0 mL/min (70-130); Carbon Dioxide 25 mmol/L (22-29); Chloride 103 mmol/L (98-107); Estimated GFR-MDRD Greater than 90; Globulin 3.2 g/dL (2.4-3.5); Glucose 104 mg/dL (70-105); Potassium 3.6 mmol/L (3.5-5.1); Protein, Total 7.1 g/dL (6.0-8.3); Sodium 140 mmol/L (136-145)
[2019-09-18] MEDS ORDERED: predniSONE 20 MG TAB ONE (02:55)
--- NOTE | 2019-09-18 07:55 | RAD ---
SINGLE VIEW OF THE CHEST: Comparison: 08-06-19 History: Shortness of breath, dyspnea. FINDINGS: Single view of the chest shows a normal sized cardiomediastinal silhouette. There is no evidence of c onsolidation, mass, or pleural effusion. Multiple remote right rib fractures are seen. IMPRESSION: No evidence of acute cardiopulmonary disease. POS: EAA
--- NOTE | 2019-09-21 13:22 | EKG ---
Test Reason : Blood Pressure : / mmHG Vent. Rate : 108 BPM Atrial Rate : 108 BPM P-R Int : 112 ms QRS Dur : 088 ms QT Int : 360 ms P-R-T Axes : 083 042 043 degrees QTc Int : 482 ms Sinus tachycardia Possible Anterior infarct , age undetermined Abnormal ECG Confirmed by HANANE ZHANG ([id number]), movie editor CANDY FARFAN ([id number]) on 09/21/2019 1:22:20 PM Referred By: Confirmed By:HANANE ZHANG
== END 2019-09-18 03:05 | disposition home or self-care (01) ==
LOC: ERS 01:34
DX: J44.1 Chronic obstructive pulmonary disease with (acute) exacerbation (principal); E78.5 Hyperlipidemia, unspecified; E78.00 Pure hypercholesterolemia, unspecified; I10 Essential (primary) hypertension; I25.119 Atherosclerotic heart disease of native coronary artery with unspecified angina pectoris; I25.2 Old myocardial infarction; J44.9 Chronic obstructive pulmonary disease, unspecified; F41.9 Anxiety disorder, unspecified; Z87.891 Personal history of nicotine dependence; Z79.82 Long term (current) use of aspirin; Z79.899 Other long term (current) drug therapy
CPT/HCPCS: 71045; 80053; 83880; 84484; 85025; 93005; 94640; 94760; J7512; J7620

== ENCOUNTER 2019-10-06 12:31 | Emergency (ER) | payer OTHER ==
[2019-10-06] MEDS ORDERED: Aspirin Chewable 81 MG TAB ONE (13:15)
[2019-10-06] MEDS ORDERED: Lorazepam 2 MG/ML VIAL ONE (13:15)
[2019-10-06] MEDS ORDERED: Nitroglycerin 2% Ointment 1 INCH/1 GM Packet ONE (13:15)
[2019-10-06 14:01] LABS: #Eosinphils 0.3 thou/uL (0.0-0.7); #Monocytes 0.9 thou/uL (0.11-0.59); #Neutrophils 12.6 thou/uL (1.40-6.50); %Basophils 0.3 % (0.0-1.0); %Eosinophils 2.1 % (0.0-10.0); %Lymphocytes 6.9 % (21.0-51.0); %Monocytes 6.1 % (0.0-10.0); %Neutrophils 84.7 % (42.0-75.0); Hemoglobin 15.5 g/dL (14.0-18.0); Mean Corpuscular HGB CONC 33.1 g/dL (32.0-36.0); Mean Corpuscular Volume 96.5 fL (78.0-98.0); Mean Platelet Volume 7.9 fL (7.4-10.4); Platelet Count 238 thou/uL (130-400); RBC Distribution Width 12.4 % (11.5-14.5); Red Blood Cell (RBC) Count 4.85 mill/uL (4.70-6.10); White Blood Cell (WBC) Count 14.9 thou/uL (4.8-10.8)
--- NOTE | 2019-10-06 14:11 | RAD ---
ONE VIEW CHEST: History: Patient admitted earlier this week for dehydration. Patient has been on antibiotics and now has diarrhea. Headache. Shortness of breath. Comparison: 09-23-2019 FINDINGS: Cardiac silhouette and pulmonary vasculature are within normal limits. Lungs are again clear. Multipl e remote right sided rib fractures and deformities are again seen. Coronary arteries are seen overlyi ng the right cardiac border. There has been no interval change from the prior exam. IMPRESSION: No acute cardiopulmonary process. POS: WILLIAM
[2019-10-06 14:21] LABS: ALT (SGPT) 25 U/L (8-55); AST (SGOT) 26 U/L (5-34); Albumin 4.4 g/dL (3.5-5.0); Alkaline Phosphatase 172 U/L (40-110); Anion Gap 16 mmol/L (10-20); BUN (Urea Nitrogen) 6 mg/dL (8.4-25.7); Bilirubin, Total 0.8 mg/dL (0.2-1.2); Calc. Creatinine Clearance 0 mL/min (70-130); Calcium 9.5 mg/dL (7.8-10.44); Carbon Dioxide 23 mmol/L (22-29); Chloride 96 mmol/L (98-107); Estimated GFR-MDRD Greater than 90; Globulin 3.4 g/dL (2.4-3.5); Glucose 95 mg/dL (70-105); Lipase 33 U/L (8-78); Potassium 4.2 mmol/L (3.5-5.1); Protein, Total 7.8 g/dL (6.0-8.3); Sodium 131 mmol/L (136-145)
== END 2019-10-06 15:45 | disposition home or self-care (01) ==
LOC: ERS 12:31
DX: R53.1 Weakness (principal); F41.9 Anxiety disorder, unspecified; E78.5 Hyperlipidemia, unspecified; E78.00 Pure hypercholesterolemia, unspecified; I10 Essential (primary) hypertension; I25.10 Atherosclerotic heart disease of native coronary artery without angina pectoris; I25.2 Old myocardial infarction; J44.9 Chronic obstructive pulmonary disease, unspecified; F17.290 Nicotine dependence, other tobacco product, uncomplicated; Z79.82 Long term (current) use of aspirin; Z79.52 Long term (current) use of systemic steroids; Z79.899 Other long term (current) drug therapy
CPT/HCPCS: 36415; 71045; 80053; 83690; 83880; 84484; 85025; 93005; 96361; 96374; J2060

== ENCOUNTER 2019-10-08 21:28 | Emergency (ER) | payer OTHER ==
[2019-10-08 22:19] LABS: #Eosinphils 0.3 thou/uL (0.0-0.7); #Lymphocytes 0.7 thou/uL (1.20-3.40); #Monocytes 0.8 thou/uL (0.11-0.59); %Basophils 0.5 % (0.0-1.0); %Eosinophils 3.9 % (0.0-10.0); %Lymphocytes 8.3 % (21.0-51.0); %Monocytes 9.2 % (0.0-10.0); %Neutrophils 78.1 % (42.0-75.0); Hemoglobin 15.2 g/dL (14.0-18.0); Mean Corpuscular HGB CONC 34.4 g/dL (32.0-36.0); Mean Corpuscular Hemoglobin 32.1 pg (27.0-31.0); Mean Corpuscular Volume 93.3 fL (78.0-98.0); Mean Platelet Volume 7.5 fL (7.4-10.4); Platelet Count 218 thou/uL (130-400); RBC Distribution Width 12.1 % (11.5-14.5); Red Blood Cell (RBC) Count 4.73 mill/uL (4.70-6.10); White Blood Cell (WBC) Count 8.9 thou/uL (4.8-10.8)
[2019-10-08 22:41] LABS: Digoxin Less than 0.15 ng/mL (0.8-2.0)
[2019-10-08 22:43] LABS: ALT (SGPT) 22 U/L (8-55); AST (SGOT) 27 U/L (5-34); Alkaline Phosphatase 151 U/L (40-110); Anion Gap 11 mmol/L (10-20); BUN (Urea Nitrogen) 5 mg/dL (8.4-25.7); Bilirubin, Total 0.7 mg/dL (0.2-1.2); CK (CPK) 57 U/L (30-200); Calc. Creatinine Clearance 0 mL/min (70-130); Calcium 9.1 mg/dL (7.8-10.44); Carbon Dioxide 26 mmol/L (22-29); Chloride 98 mmol/L (98-107); Estimated GFR-MDRD Greater than 90; Globulin 3.3 g/dL (2.4-3.5); Glucose 95 mg/dL (70-105); Lipase 48 U/L (8-78); Potassium 4.3 mmol/L (3.5-5.1); Protein, Total 7.3 g/dL (6.0-8.3); Sodium 131 mmol/L (136-145)
[2019-10-09] MEDS ORDERED: Lidocaine Viscous Sol 2% 15 ml UD Cup ONE (00:16)
[2019-10-09] MEDS ORDERED: Mag-Al 1200 mg/1200 mg/30 ML UDCUP ONE (00:16)
[2019-10-09 01:09] LABS: Troponin I 0.011 ng/mL (< 0.028)
--- NOTE | 2019-10-09 07:21 | RAD ---
CHEST 1 VIEW: Date: 10/08/2019 HISTORY: Heart failure. COMPARISON: Radiograph dated 10/06/2019. FINDINGS: Heart size is normal. Scarring through lung bases. No confluent air space consolidation, pneumothorax , or effusion. Old right-sided rib fracture. Mild background pulmonary emphysema. IMPRESSION: No acute intrathoracic abnormality. POS: HOME
--- NOTE | 2019-10-12 11:55 | EKG ---
Test Reason : CP Blood Pressure : / mmHG Vent. Rate : 083 BPM Atrial Rate : 083 BPM P-R Int : 124 ms QRS Dur : 086 ms QT Int : 386 ms P-R-T Axes : 073 013 034 degrees QTc Int : 453 ms Normal sinus rhythm Inferior infarct , age undetermined Abnormal ECG Confirmed by HANANE ZHANG ([id number]), editor news CANDY FARFAN ([id number]) on 10/12/2019 11:55:13 AM Referred By: Confirmed By:AHNANE ZHANG
--- NOTE | 2019-10-12 11:55 | EKG ---
Test Reason : REPEAT Blood Pressure : / mmHG Vent. Rate : 078 BPM Atrial Rate : 078 BPM P-R Int : 124 ms QRS Dur : 090 ms QT Int : 410 ms P-R-T Axes : 070 -22 026 degrees QTc Int : 467 ms Normal sinus rhythm Inferior infarct , age undetermined Abnormal ECG Confirmed by HANANE ZHANG ([id number]), supervising editor news reel CANDY FARFAN ([id number]) on 10/12/2019 11:55:22 AM Referred By: Confirmed By:HANANE ZHANG
== END 2019-10-09 02:26 | disposition home or self-care (01) ==
LOC: ERS 21:28
DX: R07.9 Chest pain, unspecified (principal); R06.02 Shortness of breath; E78.00 Pure hypercholesterolemia, unspecified; E78.5 Hyperlipidemia, unspecified; I10 Essential (primary) hypertension; I25.119 Atherosclerotic heart disease of native coronary artery with unspecified angina pectoris; F41.9 Anxiety disorder, unspecified; I25.2 Old myocardial infarction; J44.9 Chronic obstructive pulmonary disease, unspecified; Z87.891 Personal history of nicotine dependence; Z79.82 Long term (current) use of aspirin; Z79.899 Other long term (current) drug therapy
CPT/HCPCS: 36415; 71045; 80053; 80162; 82550; 83690; 84484; 85025; 93005; 94640; 94760; J7620

== ENCOUNTER 2019-12-06 19:22 | Emergency (ER) | payer OTHER ==
[2019-12-06] MEDS ORDERED: Ondansetron PF 4 MG/2 ML Vial ONE (20:42)
[2019-12-06 21:43] LABS: #Lymphocytes 0.5 thou/uL (1.20-3.40); #Monocytes 0.5 thou/uL (0.11-0.59); #Neutrophils 6.3 thou/uL (1.40-6.50); %Basophils 0.3 % (0.0-1.0); %Eosinophils 0.2 % (0.0-10.0); %Lymphocytes 6.7 % (21.0-51.0); %Monocytes 7.1 % (0.0-10.0); %Neutrophils 85.7 % (42.0-75.0); Hemoglobin 14.6 g/dL (14.0-18.0); Mean Corpuscular HGB CONC 33.1 g/dL (32.0-36.0); Mean Corpuscular Hemoglobin 32.1 pg (27.0-31.0); Mean Corpuscular Volume 96.9 fL (78.0-98.0); RBC Distribution Width 12.8 % (11.5-14.5); Red Blood Cell (RBC) Count 4.56 mill/uL (4.70-6.10); White Blood Cell (WBC) Count 7.4 thou/uL (4.8-10.8)
[2019-12-06 22:01] LABS: ALT (SGPT) 56 U/L (8-55); AST (SGOT) 85 U/L (5-34); Albumin 3.9 g/dL (3.5-5.0); Alkaline Phosphatase 92 U/L (40-110); Anion Gap 15 mmol/L (10-20); BUN (Urea Nitrogen) 4 mg/dL (8.4-25.7); Bilirubin, Total 1.1 mg/dL (0.2-1.2); Calc. Creatinine Clearance 0 mL/min (70-130); Calcium 8.7 mg/dL (7.8-10.44); Carbon Dioxide 25 mmol/L (22-29); Chloride 100 mmol/L (98-107); Estimated GFR-MDRD Greater than 90; Globulin 2.7 g/dL (2.4-3.5); Glucose 75 mg/dL (70-105); Lipase 48 U/L (8-78); Potassium 4.3 mmol/L (3.5-5.1); Protein, Total 6.6 g/dL (6.0-8.3); Sodium 136 mmol/L (136-145)
[2019-12-06 22:10] LABS: MDiff Complete? YES; Mean Platelet Volume 8.4 fL (7.4-10.4); Platelet Count 70 thou/uL (130-400); Platelet Morphology Comment Appears Decreased; Polychromasia SLIGHT = 2-3 cells (100X) (0-2/hpf); Target Cells SLIGHT = 2-5 cells (100X) (0-1/hpf)
[2019-12-06] MEDS ORDERED: Acetaminophen 500 MG TAB ONE (22:15)
[2019-12-06 22:24] LABS: Bilirubin Negative (Negative); Blood, Urine Negative (Negative); Clarity Clear (Clear); Glucose, Urine (Dipstick) Normal (Negative); Ketone, Urine 10 mg/dL (Negative); Leukocyte Negative Leu/uL (Negative); Nitrite Negative (Negative); Protein, Urine (Dipstick) 10 mg/dL (Neg-Trace); Specific Gravity, Urine 1.015 (1.002-1.036); Urobilinogen Normal mg/dL (Less than 2); pH, Urine 6.5 (5.0-9.0)
== END 2019-12-06 22:48 | disposition home or self-care (01) ==
LOC: ERS 19:22
DX: R11.2 Nausea with vomiting, unspecified (principal); R19.7 Diarrhea, unspecified; I10 Essential (primary) hypertension; E78.5 Hyperlipidemia, unspecified; I25.10 Atherosclerotic heart disease of native coronary artery without angina pectoris; I25.2 Old myocardial infarction; F41.9 Anxiety disorder, unspecified; Z87.891 Personal history of nicotine dependence; Z79.899 Other long term (current) drug therapy; Z79.82 Long term (current) use of aspirin
CPT/HCPCS: 36415; 80053; 81003; 83690; 85025; 96361; 96374; J2405

== ENCOUNTER 2020-02-29 14:50 | Emergency (ER) | payer OTHER ==
[2020-02-29] MEDS ORDERED: Ondansetron ODT 4 MG TAB ONE (15:34)
[2020-02-29 15:51] LABS: #Eosinphils 0.1 thou/uL (0.0-0.7); #Lymphocytes 1.3 thou/uL (1.20-3.40); #Monocytes 0.6 thou/uL (0.11-0.59); #Neutrophils 5.7 thou/uL (1.40-6.50); %Basophils 0.4 % (0.0-1.0); %Eosinophils 0.8 % (0.0-10.0); %Lymphocytes 16.7 % (21.0-51.0); %Monocytes 8.3 % (0.0-10.0); %Neutrophils 73.8 % (42.0-75.0); Hemoglobin 15.9 g/dL (14.0-18.0); Mean Corpuscular HGB CONC 34.7 g/dL (32.0-36.0); Mean Corpuscular Hemoglobin 33.4 pg (27.0-31.0); Mean Corpuscular Volume 96.4 fL (78.0-98.0); Mean Platelet Volume 7.9 fL (7.4-10.4); Platelet Count 188 thou/uL (130-400); RBC Distribution Width 11.7 % (11.5-14.5); Red Blood Cell (RBC) Count 4.76 mill/uL (4.70-6.10); White Blood Cell (WBC) Count 7.7 thou/uL (4.8-10.8)
[2020-02-29 16:13] LABS: ALT (SGPT) 108 U/L (8-55); AST (SGOT) 127 U/L (5-34); Albumin 4.2 g/dL (3.5-5.0); Alkaline Phosphatase 112 U/L (40-110); Anion Gap 18 mmol/L (10-20); BUN (Urea Nitrogen) 9 mg/dL (8.4-25.7); Bilirubin, Total 1.8 mg/dL (0.2-1.2); Calc. Creatinine Clearance 0 mL/min (70-130); Calcium 9.4 mg/dL (7.8-10.44); Carbon Dioxide 20 mmol/L (22-29); Chloride 102 mmol/L (98-107); Estimated GFR-MDRD Greater than 90; Globulin 2.8 g/dL (2.4-3.5); Glucose 108 mg/dL (70-105); Sodium 136 mmol/L (136-145)
[2020-03-01 11:41] LABS: SARS-CoV-2 MS2 Positive; SARS-CoV-2 N Gene Negative; SARS-CoV-2 S Gene Negative; SARS-CoV-2 by NAA Not Detected (NotDetected); SARS-CoV-2 orf1ab Negative
== END 2020-02-29 17:05 | disposition home or self-care (01) ==
LOC: ERS 14:50
DX: R19.7 Diarrhea, unspecified (principal); R11.0 Nausea; R63.0 Anorexia; Z20.828 Contact with and (suspected) exposure to other viral communicable diseases; E78.5 Hyperlipidemia, unspecified; E78.00 Pure hypercholesterolemia, unspecified; I10 Essential (primary) hypertension; I25.10 Atherosclerotic heart disease of native coronary artery without angina pectoris; I25.2 Old myocardial infarction; J44.9 Chronic obstructive pulmonary disease, unspecified; F41.9 Anxiety disorder, unspecified; Z87.891 Personal history of nicotine dependence; Z79.899 Other long term (current) drug therapy; Z79.82 Long term (current) use of aspirin; Z79.52 Long term (current) use of systemic steroids
CPT/HCPCS: 36415; 80053; 83605; 83690; 85025; 87635; 99284; Q0162; U0003

== ENCOUNTER 2020-04-03 13:15 | Emergency (ER) | payer OTHER ==
--- NOTE | 2020-04-03 14:14 | CT ---
EXAM: CT brain without contrast HISTORY: Confusion COMPARISON: 10/18/2017 TECHNIQUE: Multiple contiguous axial images were obtained and a CT of the brain without contrast. FINDINGS: The brain is normal in morphology and attenuation without focal lesions or confluent areas of infarction. There is no evidence of hydrocephalus, intracranial hemorrhage, or extra-axial fluid collection. The calvarium and overlying soft tissues are unremarkable. The visualized paranasal sinuses and masto id air cells are well aerated. IMPRESSION: No evidence of acute intracranial abnormality
[2020-04-03 14:16] LABS: #Basophils 0.1 thou/uL (0.0-0.2); #Lymphocytes 1.6 thou/uL (1.20-3.40); #Monocytes 0.6 thou/uL (0.11-0.59); #Neutrophils 5.6 thou/uL (1.40-6.50); %Basophils 0.7 % (0.0-1.0); %Eosinophils 0.3 % (0.0-10.0); %Lymphocytes 20.4 % (21.0-51.0); %Monocytes 7.6 % (0.0-10.0); Hemoglobin 14.9 g/dL (14.0-18.0); Mean Corpuscular HGB CONC 32.7 g/dL (32.0-36.0); Mean Corpuscular Hemoglobin 32.2 pg (27.0-31.0); Mean Corpuscular Volume 98.4 fL (78.0-98.0); Mean Platelet Volume 7.6 fL (7.4-10.4); Platelet Count 176 thou/uL (130-400); RBC Distribution Width 12.1 % (11.5-14.5); Red Blood Cell (RBC) Count 4.65 mill/uL (4.70-6.10); White Blood Cell (WBC) Count 7.9 thou/uL (4.8-10.8)
[2020-04-03 14:35] LABS: ALT (SGPT) 22 U/L (8-55); AST (SGOT) 26 U/L (5-34); Albumin 3.7 g/dL (3.5-5.0); Alcohol Less than 10 mg/dL (Less than 10); Alkaline Phosphatase 76 U/L (40-110); Anion Gap 17 mmol/L (10-20); BUN (Urea Nitrogen) 7 mg/dL (8.4-25.7); Bilirubin, Total 0.3 mg/dL (0.2-1.2); Calc. Creatinine Clearance 0 mL/min (70-130); Calcium 8.4 mg/dL (7.8-10.44); Carbon Dioxide 18 mmol/L (22-29); Chloride 107 mmol/L (98-107); Estimated GFR-MDRD Greater than 90; Globulin 2.9 g/dL (2.4-3.5); Glucose 100 mg/dL (70-105); Potassium 4.2 mmol/L (3.5-5.1); Protein, Total 6.6 g/dL (6.0-8.3); Sodium 138 mmol/L (136-145)
[2020-04-03 14:37] LABS: Acetaminophen Less than 6.0 mcg/mL (10.0-30.0); Alcohol Less than 10 mg/dL (Less than 10); CK (CPK) 44 U/L (30-200); Salicylate Less than 8.0 mg/dL (15.0-30.0)
[2020-04-03 15:23] LABS: Bilirubin Negative (Negative); Blood, Urine Negative (Negative); Clarity Clear (Clear); Glucose, Urine (Dipstick) Normal (Negative); Ketone, Urine 20 mg/dL (Negative); Leukocyte Negative Leu/uL (Negative); Nitrite Negative (Negative); Protein, Urine (Dipstick) Negative (Neg-Trace); Specific Gravity, Urine 1.005 (1.002-1.036); Urobilinogen Normal mg/dL (Less than 2); pH, Urine 6.5 (5.0-9.0)
[2020-04-03 15:36] LABS: Amphetamine Not Detected (NotDetected); Barbiturates Screen Not Detected (NotDetected); Benzodiazepine Screen Detected (NotDetected); Cocaine Metabolite Screen Not Detected (NotDetected); Medtox Control Line Valid? VALID (VALID); Medtox Reader # READER 1; Methadone Not Detected (NotDetected); Methamphetamine Not Detected (NotDetected); Opiate Screen Not Detected (NotDetected); Oxycodone Screen Not Detected (NotDetected); Phencyclidine (PCP) Not Detected (NotDetected); THC/Cannabinoid Screen Not Detected (NotDetected); Tricyclic Screen Not Detected (NotDetected)
[2020-04-03 17:05] LABS: Lactic Acid 2.1 mmol/L (0.5-2.2)
[2020-04-03 18:13] LABS: ALT (SGPT) 19 U/L (8-55); AST (SGOT) 20 U/L (5-34); Albumin 3.8 g/dL (3.5-5.0); Alkaline Phosphatase 74 U/L (40-110); Anion Gap 16 mmol/L (10-20); BUN (Urea Nitrogen) 6 mg/dL (8.4-25.7); Bilirubin, Total 0.3 mg/dL (0.2-1.2); Calc. Creatinine Clearance 0 mL/min (70-130); Calcium 8.2 mg/dL (7.8-10.44); Carbon Dioxide 21 mmol/L (22-29); Chloride 108 mmol/L (98-107); Estimated GFR-MDRD Greater than 90; Globulin 2.7 g/dL (2.4-3.5); Glucose 99 mg/dL (70-105); Potassium 3.7 mmol/L (3.5-5.1); Protein, Total 6.5 g/dL (6.0-8.3); Sodium 141 mmol/L (136-145)
[2020-04-03 20:44] LABS: ALT (SGPT) 19 U/L (8-55); AST (SGOT) 21 U/L (5-34); Albumin 3.8 g/dL (3.5-5.0); Alkaline Phosphatase 75 U/L (40-110); Anion Gap 16 mmol/L (10-20); BUN (Urea Nitrogen) 5 mg/dL (8.4-25.7); Bilirubin, Total 0.3 mg/dL (0.2-1.2); Calc. Creatinine Clearance 0 mL/min (70-130); Calcium 8.5 mg/dL (7.8-10.44); Carbon Dioxide 23 mmol/L (22-29); Chloride 107 mmol/L (98-107); Estimated GFR-MDRD Greater than 90; Globulin 2.8 g/dL (2.4-3.5); Glucose 100 mg/dL (70-105); Potassium 3.9 mmol/L (3.5-5.1); Protein, Total 6.6 g/dL (6.0-8.3); Sodium 142 mmol/L (136-145)
== END 2020-04-03 21:39 | disposition home or self-care (01) ==
LOC: ERS 13:15
DX: T65.891A Toxic effect of other specified substances, accidental (unintentional), initial encounter (principal); E78.5 Hyperlipidemia, unspecified; E78.00 Pure hypercholesterolemia, unspecified; I25.2 Old myocardial infarction; J44.9 Chronic obstructive pulmonary disease, unspecified; I10 Essential (primary) hypertension; F41.9 Anxiety disorder, unspecified; F17.290 Nicotine dependence, other tobacco product, uncomplicated
CPT/HCPCS: 36415; 70450; 80053; 80306; 80307; 81003; 82550; 83605; 83930; 84443; 85025; 93005

== ENCOUNTER 2020-04-11 19:41 | Inpatient (IN) | payer OTHER ==
[2020-04-11] MEDS ORDERED: Adenosine 6 MG/2 ML VIAL ONE (19:51)
[2020-04-11] MEDS ORDERED: Midazolam HCl 2 mg/2 ml Vial ONE (20:08)
[2020-04-11] MEDS ORDERED: Diltiazem 125 MG/25 ML ONE (20:08)
[2020-04-11] MEDS ORDERED: Magnesium 2 GM/50 ML BAG (IN WATER) ONE ×2 (20:20→20:22)
[2020-04-11] MEDS ORDERED: Esmolol 2,500 MG/250 ML 0 ML ONE (20:20)
[2020-04-11] MEDS ORDERED: Esmolol 2,500 MG/250 ML 250 ML ONE (20:22)
[2020-04-11 20:44] LABS: #Eosinphils 0.2 thou/uL (0.0-0.7); #Lymphocytes 3.4 thou/uL (1.20-3.40); #Neutrophils 6.3 thou/uL (1.40-6.50); %Basophils 0.4 % (0.0-1.0); %Eosinophils 1.5 % (0.0-10.0); %Lymphocytes 31.5 % (21.0-51.0); %Neutrophils 57.5 % (42.0-75.0); Hemoglobin 15.3 g/dL (14.0-18.0); Mean Corpuscular Hemoglobin 33.9 pg (27.0-31.0); Mean Corpuscular Volume 96.9 fL (78.0-98.0); Mean Platelet Volume 7.1 fL (7.4-10.4); Platelet Count 364 thou/uL (130-400); RBC Distribution Width 12.1 % (11.5-14.5); Red Blood Cell (RBC) Count 4.52 mill/uL (4.70-6.10); White Blood Cell (WBC) Count 10.9 thou/uL (4.8-10.8)
--- NOTE | 2020-04-11 20:57 | RAD ---
CHEST ONE VIEW PORTABLE: 04/11/20 HISTORY: Chest pain. COMPARISON: 10/08/19. FINDINGS: Heart size is within normal limits. Numerous healed right rib fractures. No confluent pneumonia, over t edema, or pleural effusion. IMPRESSION: No significant acute intrathoracic disease. Stable from prior study. POS: RRE
[2020-04-11 21:03] LABS: ALT (SGPT) 19 U/L (8-55); AST (SGOT) 28 U/L (5-34); Albumin 4.2 g/dL (3.5-5.0); Alkaline Phosphatase 103 U/L (40-110); Anion Gap 25 mmol/L (10-20); BUN (Urea Nitrogen) 9 mg/dL (8.4-25.7); Bilirubin, Total Less than 0.2 mg/dL (0.2-1.2); Calc. Creatinine Clearance 0 mL/min (70-130); Calcium 8.9 mg/dL (7.8-10.44); Carbon Dioxide 18 mmol/L (22-29); Chloride 101 mmol/L (98-107); Glucose 90 mg/dL (70-105); Potassium 4.6 mmol/L (3.5-5.1); Protein, Total 7.2 g/dL (6.0-8.3); Sodium 139 mmol/L (136-145)
--- NOTE | 2020-04-11 21:11 | CT ---
Exam: CT angiogram of the chest HISTORY: Chest pain. SVT. COMPARISON: 09/23/2019 TECHNIQUE: CT angiogram of the chest is performed in the axial plane. Three-dimensional reformatted i mages are submitted for interpretation FINDINGS: Mediastinum: No mass, lymphadenopathy or hematoma. HEART: Normal size. No significant pericardial fluid. Aorta: No aneurysm or dissection Upper solid abdominal viscera: No abnormality enhancement. Trachea and central bronchi: Patent Pleural spaces: No effusion Lung parenchyma: No masses or consolidation. Pneumothorax: None Osseous structures: No lytic or blastic lesions. Multiple old right rib fractures. Pulmonary arteries: Adequate contrast opacification pulmonary arterial system to the level of segment al arteries. No filling defect to suggest pulmonary embolism IMPRESSION:No evidence of pulmonary arterial embolism to level of segmental arteries.
--- NOTE | 2020-04-11 22:05 | PDOC.FPRHP ---
- History of Present Illness Chief Complaint: Racing Heart History of Present Illness: This is a 59yo M presenting via EMS to ER for CC of SVT. He reports his HR has been "nuts" off and on the last few days. He reports he has been stressed due to a in the family. His uncle of COVID last Monday and he has been very upset by this. He was never exposed to his uncle. He reports that today he had a fast HR for about 3 hours and it was not going away on its own. Prior to the last few days he has had a couple episodes of elevated HR but they go away. Started around 4 or 5pm this evening and was constant. He tried to "fend it off" and took 2 ASA, drank gatorade. Reports feeling, lightheaded, dizziness during the episode. Reports mild headache. Reports taking his medications as directed and has not missed doses. Has been taking benadryl and melatonin for sleep at night - he has been weened off of benzos. Reports some body aches and chills 2 days ago. He had an ablation by Dr. Bryan 2-3 years ago. He also follows with Dr. Joyce and has a hx of VA s/p stents. ED Course: Patient received adenosine 6 then 12 by EMS, HR was 170-180 on admission, received another 12 mg of adenosine. He then got 15 then 20 of Cardizem with no resolution. He refused cardioversion, was started on esmolol drip at 50 mcg and was weaned to 25 mcg. Patient reports that he did not refuse cardioversion but said to not do it if there was an alternative. - Allergies/Adverse Reactions Allergies Allergy/AdvReac Type Severity Reaction Status Date / Time prasugrel HCl [From Effient] Allergy Severe Severe Verified 09/23/19 17:01 Hives prasugrel [From Effient] Allergy Verified 09/23/19 17:01 - Home Medications Medication Instructions Recorded Confirmed Type Lisinopril 10 mg PO DAILY 06/27/15 04/12/20 History Atorvastatin Calcium [Lipitor] 40 mg PO DAILY 07/19/17 04/12/20 History Metoprolol Tartrate [Lopressor] 0.5 tab PO BID 10/18/17 04/12/20 History Clopidogrel Bisulfate [Plavix] 75 mg PO DAILY tab 10/27/17 04/12/20 Rx Aspirin 325 mg PO DAILY 05/08/19 04/12/20 History Fluticasone/Vilanterol [Breo 1 inh INH PRN PRN 09/14/19 04/12/20 History Ellipta] Omeprazole 20 mg PO DAILY 09/14/19 04/12/20 History Tiotropium [place] [Spiriva] 1 inh INH PRN PRN 09/14/19 04/12/20 History Albuterol Sulfate [Albuterol 2.5 mg NEB Q6H PRN #2 vial 09/25/19 04/12/20 Rx Sulfate Neb] - History PMHx: HTN, HLD, VA X 10, chronic diarrhea, anxiety, VA X10, CAD PSHx: Bicep repair, hernia repair X 5, Cardiac stent FHx: Significant family hx of CAD, mother with VA @ 58, grandfather and grandmother with MIs Social: currently vapes- e cig 5mg, hx of 40 yrs of 0.5 ppd, denies drug use; Alcohol - had a beer at 1pm, usually drinks only on the weekends (either F or Sat)- about 3 beers - Review of Systems General: reports: fever/chills (Endorses chills-"freezing under a blanket a couple nights ago"). denies: weight/appetite/sleep changes, night sweats, fatigue Eyes: denies: vision changes ENT: denies: nasal congestion, rhinorrhea Respiratory: denies: cough, congestion, shortness of breath, exercise intolerance Cardiovascular: reports: palpitation. denies: chest pain, edema, paroxysmal nocturnal dyspnea, orthopnea Gastrointestinal: reports: diarrhea. denies: nausea, vomiting, constipation, abdominal pain Genitourinary: denies: dysuria Skin: denies: rashes, lesions Musculoskeletal: denies: pain, tenderness, stiffness, swelling Neurological: reports: syncope (Presyncope). denies: weakness Psychological: reports: anxiety, depression - Vital signs BP: 97/72, Pulse: 179, Resp: 18, Temp: 98.5 (Oral), Pain: 7, O2 sat: 93 on (Room Air), Time: 04/11/2020 19:42. Wt 62 kg BP: 86/62, MAP: 70, Pulse: 63, Resp: 20, Pain: 0, O2 sat: 96 on (Room Air), Time: 04/11/2020 21:52. - Physical Exam Constitutional: NAD, awake, alert and oriented, well developed HEENT: normocephalic and atraumatic, PERRLA, EOMI, grossly normal vision, grossly normal hearing, MMM Neck: supple, FROM, trachea midline, no LAD Chest: no-tender to palpation Heart: RRR, normal S1/S2, no murmurs/rubs/gallops, pulses present, no edema Lungs: CTAB, no respiratory distress, good air movement, no rales/rhonchi, no wheezing, no retractions Abdomen: soft, non-tender, bowel sounds present, no masses/distention, no hernias Musculoskeletal: normal structure, normal tone, ROM grossly normal Neurological: no focal deficit Skin: good turgor, capillary refill <2 seconds -Heme/Lymphatic: Significant bruising of BLT arms Psychiatric: normal mood and affect FMR H&P: Results - Labs Result Diagrams: 04/12/20 03:50 04/12/20 07:03 Lab results: WBC 10.9 thou/uL (4.8-10.8) H 04/11/20 19:56 Hgb 15.3 g/dL (14.0-18.0) 04/11/20 19:56 Hct 43.8 % (42.0-52.0) 04/11/20 19:56 MCV 96.9 fL (78.0-98.0) 04/11/20 19:56 Plt Count 364 thou/uL (130-400) 04/11/20 19:56 Neutrophils % 57.5 % (42.0-75.0) 04/11/20 19:56 Sodium 139 mmol/L (136-145) 04/11/20 19:56 Potassium 4.6 mmol/L (3.5-5.1) 04/11/20 19:56 Chloride 101 mmol/L (98-107) 04/11/20 19:56 Carbon Dioxide 18 mmol/L (22-29) L 04/11/20 19:56 BUN 9 mg/dL (8.4-25.7) 04/11/20 19:56 Creatinine 0.74 mg/dL (0.7-1.3) 04/11/20 19:56 Glucose 90 mg/dL (70-105) 04/11/20 19:56 Calcium 8.9 mg/dL (7.8-10.44) 04/11/20 19:56 Total Bilirubin Less than 0.2 mg/dL (0.2-1.2) L 04/11/20 19:56 AST 28 U/L (5-34) 04/11/20 19:56 ALT 19 U/L (8-55) 04/11/20 19:56 Alkaline Phosphatase 103 U/L (40-110) 04/11/20 19:56 Serum Total Protein 7.2 g/dL (6.0-8.3) 04/11/20 19:56 Albumin 4.2 g/dL (3.5-5.0) 04/11/20 19:56 - EKG Interpretation EKG: SVT HR 179 on admission, repeat NSR - Radiology Interpretation Chest x-ray Status: report reviewed by me (no acute intrathoracic disease) Other Status: report reviewed by me (CTA neg for PE) FMR H&P: A/P - Plan Unstable SVT - Hypotensive w/ presyncope @ admission - hx of SVT s/p ablation 2-3 yrs ago with Randi, follows w/ Isiah - On esmolol drip @ 25 mcg/kg/min - Procalcitonin, TSH, UDS, EtOH, BNP to evaluate for cause of SVT - Repeat EKG - Attempt to wean esmolol as tolerated based on HR and BP Metabolic acidosis w/ AG - Likely 2/2 chronic diarrhea - continue home meds CAD s/p stent - resume home medications - Trend troponin HTN - Monitor, hold home medications until BP normalizes Anxiety/depression - Continue home medications Dispo: Admit to CCU, LOS > 48 hrs PCP [facility] Diet: NPO @ 0100 GI ppx: TUMS DVT ppx: Lovenox FMR H&P: Upper Level - Plan Date/Time: 04/11/202202 ISuzanna MD, have evaluated this patient and agree with findings/plan as outlined by corporate legal intern resident. Pertinent changes/additions are listed here. This is a 59yo M with PMH of paroxysmal SVT s/p ablation, CAD and VA s/p stents, HTN, resistant MDD who presented to the ER today via EMS due to elevated HR. He has elevated HR off and on, but today it persisted for several hours without getting better. He reported some dizziness, lightheadedness, and headache during this episode. Denies any chest pain or SOB. Reportedly drinks several gatorades/day. He did not try any vagal maneuvers. In the EMS - he was given 6 then 12 of adenosine. Given another dose of adenosine in the ER. Patient refused cardioconversion in the ER. He was started on an esmolol drip. Labs were not significant. CTA neg. CXR nml. On PE: patient was in RRR, no edema, CTAB, no significant findings. Will admit the patient for unstable SVT that has now resolved. He is on esmolol drip and we will ween as tolerated. Will work up with TSH, procal, BNP, UDS. Electrolytes normal. COVID pending. Will consult cards and possible EP as well. Sees Dr. Do outpatient. Metabolic acidosis 2/2 chronic diarrhea - low bicarb. Will continue chronic medications for other conditions. see corporate legal intern note for full HPI details Dispo: admit to CCU, inpt Diet: NPO @ midnight Code: FULL PCP: CHRISTIANO Wilkerson Case discussed with Dr. Cervantes. Addendum - Attending - Attending Attestation Date/Time: 04/12/20 1644 Late entry note for 04/11/20 2300 I personally evaluated the patient and discussed the management with Dr. Sy/Duarte. I agree with the History, Examination, Assessment and Plan documented above with any addition or exceptions noted below. SVT- on esmolol gtt and back in sinus. Appreciate cards input. Wean gtt as tolerated. Check TSH EtOh intoxication- counseling Anxiety/depression- recent stress from his uncle's from COVID- continue home meds. Chronic diarrhea- check c diff.
[2020-04-11] MEDS ORDERED: Acetaminophen 325 MG TAB PO PRN (22:54)
[2020-04-11] MEDS ORDERED: Ondansetron ODT 4 MG TAB PO PRN (22:54)
[2020-04-11] MEDS ORDERED: Ondansetron PF 4 MG/2 ML Vial IVP PRN (22:54)
[2020-04-11] MEDS ORDERED: Acetaminophen 650 MG Suppository PR PRN (22:54)
[2020-04-11 23:14] LABS: SARS-CoV-2 NAA Rapid Test Not Detected (NotDetected)
[2020-04-11 23:17] LABS: Troponin I 0.024 ng/mL (< 0.028)
[2020-04-11] MEDS ORDERED: Esmolol 2,500 MG/250 ML 250 ML IVPB SCH (23:45)
[2020-04-12] MEDS: diphenhydrAMINE 50 MG CAP PO PRN ×2 (00:01→22:48)
[2020-04-12 01:05] LABS: Alcohol 122 mg/dL (Less than 10); Anion Gap 18 mmol/L (10-20); BUN (Urea Nitrogen) 8 mg/dL (8.4-25.7); CK (CPK) 73 U/L (30-200); Calc. Creatinine Clearance 102 mL/min (70-130); Calcium 7.9 mg/dL (7.8-10.44); Carbon Dioxide 19 mmol/L (22-29); Chloride 106 mmol/L (98-107); Glucose 84 mg/dL (70-105); Potassium 4.4 mmol/L (3.5-5.1); Sodium 139 mmol/L (136-145)
[2020-04-12 01:28] LABS: Amphetamine Not Detected (NotDetected); Barbiturates Screen Not Detected (NotDetected); Benzodiazepine Screen Not Detected (NotDetected); Cocaine Metabolite Screen Not Detected (NotDetected); Medtox Control Line Valid? VALID (VALID); Medtox Reader # READER 4; Methadone Not Detected (NotDetected); Methamphetamine Not Detected (NotDetected); Opiate Screen Not Detected (NotDetected); Oxycodone Screen Not Detected (NotDetected); Phencyclidine (PCP) Not Detected (NotDetected); THC/Cannabinoid Screen Not Detected (NotDetected); Tricyclic Screen Detected (NotDetected)
[2020-04-12] MEDS ORDERED: Albuterol Sulfate 2.5 mg/3 ml Neb NEB PRN (02:30)
[2020-04-12 02:35] LABS: Troponin I 0.042 ng/mL (< 0.028)
[2020-04-12 04:43] LABS: #Eosinphils 0.1 thou/uL (0.0-0.7); #Lymphocytes 1.6 thou/uL (1.20-3.40); #Monocytes 0.5 thou/uL (0.11-0.59); #Neutrophils 5.7 thou/uL (1.40-6.50); %Basophils 0.3 % (0.0-1.0); %Eosinophils 1.3 % (0.0-10.0); %Lymphocytes 19.8 % (21.0-51.0); %Monocytes 6.6 % (0.0-10.0); %Neutrophils 72.1 % (42.0-75.0); Hemoglobin 12.8 g/dL (14.0-18.0); Mean Corpuscular HGB CONC 33.4 g/dL (32.0-36.0); Mean Corpuscular Hemoglobin 32.1 pg (27.0-31.0); Mean Corpuscular Volume 96.3 fL (78.0-98.0); Mean Platelet Volume 7.3 fL (7.4-10.4); Platelet Count 289 thou/uL (130-400); Red Blood Cell (RBC) Count 3.99 mill/uL (4.70-6.10); White Blood Cell (WBC) Count 7.9 thou/uL (4.8-10.8)
--- NOTE | 2020-04-12 06:02 | PDOC.FM ---
- Subjective Subjective: Patient denies chest pain this AM. No SOB. Had liquid stool this AM. feeling another one coming on. RN reports smell of C Diff. Sent sample. Pt reports chronic diarrhea since april 2019. - Objective MAR Reviewed: Yes Vital Signs & Weight: Vital Signs (12 hours) Temp Pulse Ox 04/12/20 04:00 98.7 F 04/11/20 23:00 98.5 F 99 Weight Weight 61.6 kg Most Recent Monitor Data Heart Rate from ECG 75 NIBP 100/60 NIBP BP-Mean 73 Respiration from ECG 14 SpO2 92 I&O: 04/10/20 04/11/20 04/12/20 06:59 06:59 06:59 Intake Total 120 Output Total 600 Balance -480 Result Diagrams: 04/12/20 03:50 04/12/20 07:03 Radiology Reviewed by me: Yes Phys Exam - Physical Examination Constitutional: NAD Respiratory: no wheezing, clear to auscultation bilateral Cardiovascular: RRR, no significant murmur Gastrointestinal: soft, non-tender, no distention Musculoskeletal: no edema (SCDs on) Neurological: non-focal Psychiatric: normal affect, A&O x 3 Dx/Plan - Plan Plan: Unstable SVT - Hypotensive w/ presyncope @ admission - hx of SVT s/p ablation 2-3 yrs ago with Randi, follows w/ Isiah - Titrating down esmolol drip @ 5 mcg/kg/min - Cardiology consulted, appreciate recs. - procal, TSH, electrolytes wnl. Awaiting magnesium lab this AM. Metabolic acidosis w/ AG - Likely 2/2 chronic diarrhea - continue home meds - CDiff pending CAD s/p stent - resume home medications HTN - Monitor, hold home medications until BP normalizes Anxiety/depression - Continue home medications Dispo: Admit to CCU, LOS > 48 hrs PCP [facility] Diet: NPO @ 0100 GI ppx: TUMS DVT ppx: Lovenox Addendum - Attending - Attending Attestation Date/Time: 04/12/20 5946 I personally evaluated the patient and discussed the management with Dr. Lackey. I agree with the History, Examination, Assessment and Plan documented above with any addition or exceptions noted below. SVT- off gtt and HR stable- transfer to tele. Appreciate cards recs. Most likely will need EP consult in am.
[2020-04-12 07:34] LABS: Anion Gap 16 mmol/L (10-20); BUN (Urea Nitrogen) 7 mg/dL (8.4-25.7); Calc. Creatinine Clearance 116 mL/min (70-130); Calcium 8.1 mg/dL (7.8-10.44); Carbon Dioxide 20 mmol/L (22-29); Chloride 106 mmol/L (98-107); Glucose 77 mg/dL (70-105); Potassium 4.1 mmol/L (3.5-5.1); Sodium 138 mmol/L (136-145)
[2020-04-12] MEDS: Ipratropium Bromide 2.5 ml Neb NEB SCH ×4 (07:52→23:49)
[2020-04-12] MEDS: Mometasone 100 MCG/Formoterol 5 MCG 120 PUFF INHALER INH SCH ×2 (07:52→18:21)
[2020-04-12] MEDS: Atorvastatin Calcium 40 MG TAB PO SCH (08:10)
[2020-04-12] MEDS: Metoprolol Tartrate 25 MG TAB PO SCH ×2 (08:10→21:11)
[2020-04-12] MEDS: Aspirin 325 MG TAB PO SCH (08:10)
[2020-04-12] MEDS: Lisinopril 10 MG TAB PO SCH (08:10)
[2020-04-12] MEDS: Clopidogrel Bisulfate 75 MG TAB PO SCH (08:10)
[2020-04-12] MEDS ORDERED: FLU VACC QS2020-21(6MOS UP)/PF 60 MCG/0.5 ML SYRINGE IM ONE (09:00)
[2020-04-12] MEDS ORDERED: Enoxaparin Sodium 30 MG/0.3 ML SYRINGE SC SCH (09:00)
--- NOTE | 2020-04-12 18:10 | CON ---
DATE OF CONSULTATION: HISTORY OF PRESENT ILLNESS: The patient is a 59-year-old gentleman who presents with recurrent palpitations. The patient has a history of coronary artery disease, status post PTCA and stent placement right coronary artery. The patient has a known occluded right coronary artery. He has a history of PTCA and stent placement of the right coronary artery. The patient also has a history of SVT. The patient has previously undergone ablation for SVT. The patient presented to the emergency room with rapid palpitations and chest discomfort. PAST MEDICAL HISTORY: 1. Coronary artery disease. 2. SVT. 3. Hypertension. 4. Depression. 5. History of pulmonary embolus. PAST SURGICAL HISTORY: Hernia repair. MEDICATIONS: 1. Aspirin 325 daily. 2. Plavix 75 daily. 3. Zocor 20 at bedtime. 4. Metoprolol 12.5 b.i.d. 5. Lisinopril 10 daily. ALLERGIES: PRASUGREL. SOCIAL HISTORY: Patient continues to smoke. PHYSICAL EXAMINATION: GENERAL: Thin gentleman,in no acute distress. VITAL SIGNS: Blood pressure 135/83. NECK: No jugular venous distention. Poor dentition. LUNGS: Decreased breath sounds bilateral. HEART: Regular rate and rhythm. Normal S1, S2. No murmurs. ABDOMEN: Nondistended. EXTREMITIES: No edema. LABORATORY DATA: Sodium 138, potassium 4.1, chloride 106, bicarbonate 20, BUN 7, creatinine 0.6. Troponin 0.042. EKG revealed supraventricular tachycardia, right bundle-branch block, and Q-wave suggestive of previous inferior infarct. Followup EKG revealed sinus rhythm with Q-waves suggestive of previous inferior infarct and anterior infarct. IMPRESSION: 1. Supraventricular tachycardia. 2. History of coronary artery disease. 3. History of pulmonary embolus. 4. Hypertension. This gentleman presents with recurrent SVT. We would recommend he be considered for repeat ablation. We will contact the wire annealer. We will follow this patient with you through his hospitalization. Job ID: [id number] [facility]
[2020-04-12] MEDS ORDERED: Metamucil PACK PO SCH (20:00)
[2020-04-12] MEDS ORDERED: Lactinex Tablet PO SCH (20:00)
[2020-04-12] MEDS: Melatonin 3 MG TAB PO PRN ×2 (22:48)
[2020-04-13 04:55] LABS: #Basophils 0.1 thou/uL (0.0-0.2); #Eosinphils 0.2 thou/uL (0.0-0.7); #Lymphocytes 1.6 thou/uL (1.20-3.40); #Monocytes 0.7 thou/uL (0.11-0.59); #Neutrophils 6.4 thou/uL (1.40-6.50); %Basophils 0.8 % (0.0-1.0); %Eosinophils 1.7 % (0.0-10.0); %Lymphocytes 17.8 % (21.0-51.0); %Monocytes 7.6 % (0.0-10.0); Hemoglobin 14.5 g/dL (14.0-18.0); Mean Corpuscular HGB CONC 33.5 g/dL (32.0-36.0); Mean Corpuscular Hemoglobin 32.7 pg (27.0-31.0); Mean Corpuscular Volume 97.5 fL (78.0-98.0); Mean Platelet Volume 7.2 fL (7.4-10.4); Platelet Count 295 thou/uL (130-400); Red Blood Cell (RBC) Count 4.43 mill/uL (4.70-6.10); White Blood Cell (WBC) Count 8.9 thou/uL (4.8-10.8)
[2020-04-13 05:38] LABS: Anion Gap 15 mmol/L (10-20); BUN (Urea Nitrogen) 11 mg/dL (8.4-25.7); Calc. Creatinine Clearance 100 mL/min (70-130); Calcium 8.9 mg/dL (7.8-10.44); Carbon Dioxide 23 mmol/L (22-29); Chloride 104 mmol/L (98-107); Glucose 111 mg/dL (70-105); Potassium 4.2 mmol/L (3.5-5.1); Sodium 138 mmol/L (136-145)
[2020-04-13] MEDS: Ipratropium Bromide 2.5 ml Neb NEB SCH ×3 (06:38→18:32)
[2020-04-13] MEDS: Mometasone 100 MCG/Formoterol 5 MCG 120 PUFF INHALER INH SCH ×2 (06:38→18:31)
--- NOTE | 2020-04-13 07:46 | PDOC.FM ---
- Subjective Subjective: Patient says he is feeling "wet and clammy" this morning. Thinks it is because he got his PNA and flu shot yesterday. Otherwise, he is very talkative this morning. He gets emotional when saying he could not visit his uncle in the hospital because of Covid. - Objective MAR Reviewed: Yes Vital Signs & Weight: Vital Signs (12 hours) Temp Pulse Resp BP Pulse Ox 04/13/20 03:46 98.0 F 64 20 119/76 97 04/12/20 22:52 60 15 118/71 95 04/12/20 19:58 97 Weight Weight 60.01 kg Most Recent Monitor Data Heart Rate from ECG 75 NIBP 141/79 NIBP BP-Mean 99 Respiration from ECG 20 SpO2 100 I&O: 04/12/20 04/13/20 04/14/20 06:59 06:59 06:59 Intake Total 422.4 890 850 Output Total 1400 1000 Balance -977.6 -110 850 Result Diagrams: 04/13/20 03:56 04/13/20 03:56 Phys Exam - Physical Examination Constitutional: NAD Respiratory: no wheezing, clear to auscultation bilateral Cardiovascular: RRR, no significant murmur Gastrointestinal: no distention Musculoskeletal: no edema, pulses present Neurological: non-focal Psychiatric: A&O x 3 Deviation from normal: patient emotional/tearful this AM talking about of uncle Dx/Plan - Plan Plan: Unstable SVT - hx of SVT s/p ablation 2-3 yrs ago with Randi, follows w/ Joyce - s/p esmolol drip - Cardiology consulted, appreciate recs. - Cardiology to consult EP, plan for ablation. Metabolic acidosis w/ AG - Likely 2/2 chronic diarrhea - infectious workup of diarrhea negative - immodium and metamucil given overnight CAD s/p stent HTN - Monitor, continue home meds Anxiety/depression - Continue home medications Dispo: inpatient telemetry. Awaiting EP intervention/recs. Will also place spiritual consult for patient. He says he and his family pray together often. PCP Matthew Diet: NPO @ 0100 DVT ppx: Lovenox Addendum - Attending - Attending Attestation Date/Time: 04/13/20 1116 I personally evaluated the patient and discussed the management with Dr. Lackey. I agree with the History, Examination, Assessment and Plan documented above with any addition or exceptions noted below. Patient with with recurrent SVT in setting of known CAD. Cardiology on board. Awaiting EP recs and likely ablation today or tomorrow. Further mgmt pending that result.
[2020-04-13] MEDS ORDERED: PROPOFOL 200 MG/20 ML VIAL ONE (10:54)
[2020-04-13] MEDS ORDERED: Lidocaine 1% PF 5 ML VIAL ONE (10:54)
[2020-04-13] MEDS ORDERED: Fentanyl 100 MCG/2 ML VIAL ONE ×2 (12:17→14:18)
[2020-04-13] MEDS ORDERED: Heparin 10,000 UNITS/ 10 ML VIAL ONE (12:18)
[2020-04-13] MEDS ORDERED: Propofol 1,000 MG/100 ML VIAL IV ONE ×2 (12:22→14:38)
[2020-04-13] MEDS ORDERED: Isoproterenol 0.2 MG/1 ML AMP ONE (13:29)
[2020-04-13 15:00] VITALS: BMI 20.7
[2020-04-13] MEDS: Metoprolol Tartrate 25 MG TAB PO SCH ×2 (15:06→21:18)
[2020-04-13] MEDS ORDERED: Midazolam HCl 2 mg/2 ml Vial ONE (15:39)
[2020-04-13] MEDS ORDERED: Promethazine HCl 25 MG/ML VIAL IM PRN (15:54)
[2020-04-13] MEDS ORDERED: HYDROmorphone 2 MG/ML VIAL SLOW IVP PRN (15:54)
[2020-04-13] MEDS ORDERED: PACU-Morphine 4MG/ML VIAL SLOW IVP PRN (15:54)
[2020-04-13] MEDS ORDERED: Promethazine HCl 25 MG/ML VIAL SLOW IVP PRN (15:54)
[2020-04-13] MEDS ORDERED: Ondansetron HCl/PF 4 MG/2 ML Vial IVP PRN (15:54)
[2020-04-13] MEDS ORDERED: Morphine Sulfate 2 MG/ML SYRINGE SLOW IVP PRN (15:54)
[2020-04-13] MEDS ORDERED: Acetaminophen/Codeine 30-300mg Tablet PO PRN ×2 (17:30)
[2020-04-13] MEDS: Clopidogrel Bisulfate 75 MG TAB PO SCH (18:03)
[2020-04-13] MEDS: Atorvastatin Calcium 40 MG TAB PO SCH (18:04)
[2020-04-13] MEDS: Lactinex Tablet PO SCH (18:04)
[2020-04-13] MEDS: Lisinopril 10 MG TAB PO SCH (18:04)
[2020-04-13] MEDS: Aspirin 325 MG TAB PO SCH (18:04)
[2020-04-13] MEDS: Metamucil PACK PO SCH (18:05)
--- NOTE | 2020-04-13 19:16 | CON ---
DATE OF CONSULTATION: 04/13/2020 REASON FOR CONSULTATION: SVT. HISTORY OF PRESENT ILLNESS: Mr. Miller is a 59-year-old man with a history of recurrent palpitations and EKG documenting a narrow complex SVT. He also has significant coronary artery disease with a complete RCA occlusion that is non-revascularizable. In 2017, he was taken to the EP lab for study and ablation. He was found to have a left accessory pathway in the left atrium that was ablated. He has never returned to clinic for followup, but now reports that he did well for about a year and a half and then began to have occasional fluttering sensations. He had not had any sustained or very rapid tachycardia episodes until recently. He had been doing some work outside and went to sit down and then felt his heart began to race like a light switch went off. He had subsequent chest pain and was scared if he was having a heart attack, so he took a couple of aspirin and came to the hospital for evaluation. He is found to be in SVT and EP consultation has been requested for management of this recurrent arrhythmia. EMS had given him 6 mg, then 12 mg of adenosine which was unsuccessful. Upon arriving to the hospital, heart rate was 171-180 beats per minute when he was given another 12 mg of adenosine which was also unsuccessful. He has been given 15-20 mg of IV Cardizem, but his tachycardia persists. He was then placed on an esmolol drip and his tachycardia eventually terminated. REVIEW OF SYSTEMS: Positive for heart racing palpitations. Otherwise, 12-point review of systems is negative. Also positive for chronic diarrhea. PAST MEDICAL HISTORY: 1. Supraventricular tachycardia. a. 01/24/2017, status post EP study and lateral accessory pathway and left atrial ablation. 2. Coronary artery disease. a. Prior [place]. b. Prior stents. c. Occluded RCA by left heart catheterization, 09/22/2015. 3. LVEF 50% to 55% by echo 05/13/2016. a. 2016 echocardiogram 40% to 45%. 4. History of pulmonary embolism. 5. Coronary artery disease risk factors include hypertension, hyperlipidemia. 6. History of alcohol abuse. 7. History of anxiety, depression. ALLERGIES: ISOSORBIDE AND PRASUGREL. HOME MEDICATION LIST: 1. Breo Ellipta. 2. Aspirin. 3. Albuterol as needed. 4. Lipitor. 5. Plavix 75 mg daily. 6. Lisinopril 10 mg daily. 7. Metoprolol tartrate b.i.d. 8. Omeprazole daily. 9. Spiriva as needed. FAMILY HISTORY: Does not recall. SOCIAL HISTORY: Active life. He denies alcohol, tobacco, or illicit drug use, but does endorse prior alcohol consumption. DATABASE: Telemetry and EKGs show narrow complex tachycardia with right bundle left axis morphology, P waves at the terminal portion of the QRS, ventricular rate up to 180 beats per minute. Repeat EKG in sinus rhythm with narrow QRS. normal intervals. LABORATORY DATA: Hematology stable. Chemistry; potassium 4.2, creatinine 0.69, magnesium 2. Electrolytes were stable on admission. TSH 1.8. IMPRESSION: 1. Supraventricular tachycardia. 2. History of coronary artery disease with negative troponin. 3. Metabolic acidosis. 4. Chronic diarrhea. PLAN AND RECOMMENDATIONS: Mr. Miller is a 59-year-old gentleman who we see has come in with a narrow complex tachycardia of 180 beats per minute. He has previously undergone EP study in 2017 and was seen to be inducible for a lateral accessory pathway mapped to the left atrium. This was ablated. He is now having recurrent tachycardia episodes. We discussed treatment options with him. He would like to proceed with EP study to determine if this is new arrhythmia or if his prior accessory pathways regained conduction. SVT ablation will be performed if location of the arrhythmias amenable to this. We discussed the risks, benefits, and alternatives. The patient voices understanding and wishes to proceed. He is n.p.o. There is a possibility this will happen later today. Job ID: [id number] [facility]
[2020-04-13] MEDS: diphenhydrAMINE 50 MG CAP PO PRN (21:19)
[2020-04-13] MEDS: Melatonin 3 MG TAB PO PRN (21:19)
--- NOTE | 2020-04-13 21:22 | OP ---
DATE OF PROCEDURE: 04/13/2020 PROCEDURES PERFORMED: Electrophysiology study and radiofrequency ablation. REASON FOR PROCEDURE: Mr. Miller is a 59-year-old man with history of recurrent arrhythmias. 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 Vascular pathway was ablated at that time with no recurrence of tachycardia up until recently. He had recurrent arrhythmia sensations and he was presented with a thought to be narrow complex tachycardia, which appeared to be the right bundle left axis in morphology. No VA dissociation was present. One-to-one VA conduction was seen. He is here for assessing the nature of the tachycardia and possible ablation. DESCRIPTION OF PROCEDURE: The patient received deep sedation by Anesthesia specialist. After adequate level of sedation achieved, the left and right femoral venous area were prepped, draped, and anesthetized with subcutaneous lidocaine. Under ultrasound guidance, both femoral veins were cannulated. On the left side, a 6 and 8-Spanish sheath were used to advance a DecaNav and an octapolar catheter into the right atrium, right ventricle, His bundle, and CS position. A 3D map of the right atrium and CS were also obtained. The EP study was performed with the following findings. The AV Wenckebach cycle was 340 milliseconds, retrograde Wenckebach cycle length was 330 milliseconds. Concentric retrograde VA conduction was seen. Dual AV mitra physiology was not demonstrated at baseline, but significant atrial delay was seen. The AV mitra ERP was less than 600/220 milliseconds. No definite slow pathway was demonstrated. Burst atrial pacing and ventricular pacing both induced tachycardia, which appears to be right bundle morphology. No definite His was noted prior to the QRS, although the His signal was relatively weak on the His channel. Overdrive atrial pacing was performed entering the tachycardia with on stopping, pacing AV-AV response was noted. Overdrive ventricular pacing also entering the tachycardia and VA-VA response was noted. The VA timing was very short about 40 milliseconds. 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 The His bundle and slow pathway were again marked on the 3D map and slow pathway modification was performed with total of 10 lesions at 5 minutes and 28 seconds in duration. Despite the tachycardia remain inducible. The VA timing has changed from 330 milliseconds to 400 milliseconds suggestive of admission of a retrograde slow pathway. The tachycardia remained inducible and on further monitoring disassociated VA tachycardia was seen transiently. Also during the ongoing tachycardia, which was at cycle length of 340 milliseconds, atrial pacing at 230 milliseconds captured the atrium and disassociated the AV conduction never as the tachycardia resumed after this maneuver. Also during override atrial pacing during tachycardia, His signal was noted prior to the QRS, but not during the tachycardia. These right bundle aberration was also seen during atrial overdrive pacing, but there was slightly different morphology than the presenting tachycardia. Further signals in the distal right bundle was and lesions in this area did not terminate the tachycardia. Overdrive ventricular pacing reliably terminated the ventricular tachycardia. Based on these likely diagnosis of septal or possibly fascicular ventricular tachycardia was made, the Isuprel was used every single time to induce the tachycardia. Ventricular tachycardia was not inducible without Isuprel. In the end of the case, HV did not change at 43 milliseconds. Right bundle aberration was seen and no AV block noted up until 330 milliseconds. VA block was at 400 milliseconds. CONCLUSION: 1. The presenting clinical tachycardia reinduced, which was a right bundle left axis tachycardia with cycle length about 340 milliseconds with very short VA timing about 40 milliseconds. 2. Slow pathway modification did not eliminate inducibility of this tachycardia. 3. After slow pathway modification, tachycardia was seen to have a VA dissociation suggestive of ventricular origin. 4. Right bundle ablation did not eliminate the tachycardia. 5. No evidence of accessory pathway. 6. No evidence of dual AV mitra physiology present at the end of the case. 7. Normal AV mitra and sinus mitra function pre and post ablation. 8. Right bundle aberration noted. Job ID: [id number]
[2020-04-13] MEDS ORDERED: Lactated Ringer's 500 ML IV SCH (23:30)
[2020-04-13 23:36] LABS: Hemoglobin 13.1 g/dL (14.0-18.0); Platelet Count 285 thou/uL (130-400)
[2020-04-13 23:46] LABS: INR-International Normal Ratio 0.9; PTT 25.6 sec (22.9-36.1); Prothrombin Time 11.9 sec (12.0-14.7)
[2020-04-14 04:18] LABS: #Eosinphils 0.1 thou/uL (0.0-0.7); #Lymphocytes 1.3 thou/uL (1.20-3.40); #Monocytes 0.7 thou/uL (0.11-0.59); #Neutrophils 5.6 thou/uL (1.40-6.50); %Basophils 0.6 % (0.0-1.0); %Eosinophils 1.5 % (0.0-10.0); %Lymphocytes 16.7 % (21.0-51.0); %Monocytes 8.6 % (0.0-10.0); %Neutrophils 72.6 % (42.0-75.0); Hemoglobin 13.2 g/dL (14.0-18.0); Mean Corpuscular HGB CONC 33.5 g/dL (32.0-36.0); Mean Corpuscular Hemoglobin 32.6 pg (27.0-31.0); Mean Corpuscular Volume 97.4 fL (78.0-98.0); Mean Platelet Volume 7.3 fL (7.4-10.4); Platelet Count 254 thou/uL (130-400); Red Blood Cell (RBC) Count 4.04 mill/uL (4.70-6.10); White Blood Cell (WBC) Count 7.7 thou/uL (4.8-10.8)
[2020-04-14 04:43] LABS: Anion Gap 15 mmol/L (10-20); BUN (Urea Nitrogen) 10 mg/dL (8.4-25.7); Calc. Creatinine Clearance 109 mL/min (70-130); Calcium 8.7 mg/dL (7.8-10.44); Carbon Dioxide 22 mmol/L (22-29); Chloride 107 mmol/L (98-107); Glucose 114 mg/dL (70-105); Potassium 3.8 mmol/L (3.5-5.1); Sodium 140 mmol/L (136-145)
[2020-04-14] MEDS: Mometasone 100 MCG/Formoterol 5 MCG 120 PUFF INHALER INH SCH ×2 (06:46→18:57)
[2020-04-14] MEDS: Ipratropium Bromide 2.5 ml Neb NEB SCH ×4 (06:47→18:57)
--- NOTE | 2020-04-14 06:53 | PDOC.FM ---
- Subjective Subjective: Patient feeling well this AM. Says Dr. Bryan wants to do an ECHO. Patient plans to shower and walk today. He is very motivated. He is worried and still complaining of chronic diarrhea. Otherwise, he had BPs as low as 90/50 overnight, was given 500 mL bolus. Was bleeding from cath site, but H/H was normal. - Objective MAR Reviewed: Yes Vital Signs & Weight: Vital Signs (12 hours) Temp Pulse Resp BP BP Pulse Ox 04/14/20 05:20 65 112/64 04/14/20 04:00 98.3 F 66 18 90/53 L 94 L 04/14/20 00:00 59 L 100/64 04/13/20 20:00 96 04/13/20 19:20 97.9 F 71 18 130/78 96 Weight Admit Weight 60.01 kg Weight 56.835 kg Most Recent Monitor Data Heart Rate from ECG 75 NIBP 141/79 NIBP BP-Mean 99 Respiration from ECG 20 SpO2 100 I&O: 04/12/20 04/13/20 04/14/20 06:59 06:59 06:59 Intake Total 422.4 890 2190 Output Total 1400 1000 Balance -977.6 -110 2190 Result Diagrams: 04/14/20 03:47 04/14/20 03:47 Phys Exam - Physical Examination Constitutional: NAD Respiratory: no wheezing, clear to auscultation bilateral Cardiovascular: RRR, no significant murmur Gastrointestinal: soft Musculoskeletal: no edema Psychiatric: normal affect, A&O x 3 Dx/Plan - Plan Plan: Unstable SVT, now in stable sinus rhythm - s/p EP study and ablation on 04/13 - Cardiology consulted, appreciate recs. - EP consulted, appreciate recs. Per note, tachycardia not resolved with ablat ion. Dr. Bryan has ordered ECHO. Will await his recs for today. Unlikely home today. - continue home metoprolol Metabolic acidosis w/ AG 2/2 chronic diarrhea, resolved Chronic diarrhea - AG today is 11. - infectious workup of diarrhea negative - scheduled metamucil, florastor, and immodium CAD s/p stent HTN - Monitor - has been having BPs somewhat low, hold lisinopril Anxiety/depression - Continue home medications Dispo: inpatient telemetry. Await Randi recs and Echo. PCP [facility] Diet: HH DVT ppx: Lovenox Addendum - Attending - Attending Attestation Date/Time: 04/14/20 0859 I personally evaluated the patient and discussed the management with Dr. Lackey. I agree with the History, Examination, Assessment and Plan documented above with any addition or exceptions noted below. Patient feels well s/p EP procedure and ablation. Awaiting further recs from EP and cardiology. No further episodes of SVT.
[2020-04-14] MEDS: Atorvastatin Calcium 40 MG TAB PO SCH (08:55)
[2020-04-14] MEDS: Aspirin 325 MG TAB PO SCH (08:55)
[2020-04-14] MEDS: Lactinex Tablet PO SCH (08:56)
[2020-04-14] MEDS: Clopidogrel Bisulfate 75 MG TAB PO SCH (08:56)
[2020-04-14] MEDS: Metamucil PACK PO SCH (08:57)
[2020-04-14] MEDS: Lisinopril 10 MG TAB PO SCH (09:16)
[2020-04-14] MEDS: Metoprolol Tartrate 25 MG TAB PO SCH ×2 (09:17→21:31)
[2020-04-14] MEDS ORDERED: Saccharomyces boulardii 250 MG CAP PO SCH (10:30)
--- NOTE | 2020-04-14 16:18 | PDOC.EP ---
- Subjective Date: 04/14/20 Time: 08:00 Interval History: No cardiac events overnight. + diarrhea No problems at right groin access site. - Review of Systems Constitutional: denies: chills, fever, malaise Respiratory: denies: cough, dry, hemoptysis, shortness of breath Cardiology: denies: chest pain, edema, heart racing, light headedness Gastrointestinal: reports: diarrhea. denies: abdominal pain, constipation, nausea Musculoskeletal: denies: unstable gait, falls, neck pain - Objective Allergies/Adverse Reactions: Allergies Allergy/AdvReac Type Severity Reaction Status Date / Time prasugrel HCl [From Effient] Allergy Severe Severe Verified 09/23/19 17:01 Hives prasugrel [From Effient] Allergy Verified 09/23/19 17:01 Current Medications Acetaminophen (Acetaminophen 325 Mg Tab) 650 mg PO Q4H PRN PRN Reason: Headache/Fever/Mild Pain (1-3) Acetaminophen (Acetaminophen 650 Mg Suppository) 650 mg [place] Q4H PRN PRN Reason: Headache/Fever/Mild Pain (1-3) Acetaminophen/Codeine Phosphate (Acetaminophen/Codeine 30-300mg Tablet) 1 tab PO Q4H PRN PRN Reason: Mild Pain (1-3) Acetaminophen/Codeine Phosphate (Acetaminophen/Codeine 30-300mg Tablet) 2 tab PO Q4H PRN PRN Reason: Moderate Pain (4-6) Aspirin (Aspirin 325 Mg Tab) 325 mg PO QAM-WM [facility] Last Admin: 04/14/20 08:55 Dose: 325 mg Documented by: Atorvastatin Calcium (Atorvastatin Calcium 40 Mg Tab) 40 mg PO DAILY [facility] Last Admin: 04/14/20 08:55 Dose: 40 mg Documented by: Clopidogrel Bisulfate (Clopidogrel Bisulfate 75 Mg Tab) 75 mg PO DAILY [facility] Last Admin: 04/14/20 08:56 Dose: 75 mg Documented by: Diphenhydramine HCl (Diphenhydramine 50 Mg Cap) 50 mg PO Q6H PRN PRN Reason: Itching & Insomnia Last Admin: 04/13/20 21:19 Dose: 50 mg Documented by: Ipratropium [place] (Ipratropium [place] 2.5 Ml Neb) 2.5 ml NEB [id number] [facility] Last Admin: 04/14/20 12:53 Dose: Not Given Documented by: Lisinopril (Lisinopril 10 Mg Tab) 10 mg PO DAILY [facility] Last Admin: 04/14/20 09:16 Dose: Not Given Documented by: Loperamide HCl (Loperamide Hcl 2 Mg Cap) 2 mg PO BID [facility] Melatonin (Melatonin 3 Mg Tab) 9 mg PO HSPRN PRN PRN Reason: Insomnia Last Admin: 04/13/20 21:19 Dose: 9 mg Documented by: Metoprolol Tartrate (Metoprolol Tartrate 25 Mg Tab) 12.5 mg PO BID [facility] Last Admin: 04/14/20 09:17 Dose: 12.5 mg Documented by: Mometasone Furoate/Formoterol Fumar (Mometasone 100 Mcg/Formoterol 5 Mcg 120 Puff Inhaler) 2 puff INH BID-RT [facility] Last Admin: 04/14/20 06:46 Dose: Not Given Documented by: Ondansetron HCl (Ondansetron Odt 4 Mg Tab) 4 mg PO Q6H PRN PRN Reason: Nausea/Vomiting Ondansetron HCl (Ondansetron Pf 4 Mg/2 Ml Vial) 4 mg IVP Q6H PRN PRN Reason: Nausea/Vomiting Pantoprazole Sodium (Pantoprazole 40 Mg Tab) 40 mg PO DAILY [facility] Last Admin: 04/14/20 08:57 Dose: 40 mg Documented by: Psyllium Hydrophilic Mucilloid (Metamucil Pack) 1 pk PO DAILY [facility] Last Admin: 04/14/20 08:57 Dose: 1 pk Documented by: Saccharomyces Boulardii (Saccharomyces Boulardii 250 Mg Cap) 250 mg PO DAILY [facility] Sodium Chloride (Flush - Normal Saline 10 Ml Syringe) 10 ml IVF PRN PRN PRN Reason: Saline Flush Vital Signs & Weight: Vital Signs Temp Pulse Resp BP BP Pulse Ox 04/14/20 15:18 97.7 F 70 15 142/90 H 98 04/14/20 11:42 97.9 F 66 16 132/81 97 04/14/20 07:30 97.7 F 65 18 100/66 94 L 04/14/20 05:20 65 112/64 Admit Weight 132 lb 4.8 oz Weight 125 lb 4.8 oz I/O: I/O 04/13/20 04/14/20 04/15/20 06:59 06:59 06:59 Intake Total 890 2190 Output Total 1000 Balance -110 2190 - Physical Exam General: alert & oriented x3, no apparent distress, cachectic, speech clear, affect appropriate HEENT: mucus membranes moist, normocephaly Neck: supple neck, midline trachea, no JVD/HJR, no masses, no bruit, no lymphadenopathy, no thromegaly Cardiology: regular rate and rhythm, no murmur, PMI nondisplaced Lungs: clear to auscultation, normal breath sounds, no wheeze, rales, rhonchi Neurology: cranial nerve 2-12 intact, grossly intact, no lateralizing findings Abdomen: unremarkable, active bowel sounds, no pulsations/bruits Extremities: dry, strong pulses, warm Skin: groin sites stable Musculoskeletal: normal range of motion, no pain, no fluid collection - Labs Result Diagrams: 04/14/20 03:47 04/14/20 03:47 - EKG Interpretation EKG Method: Telemetry EKG shows: Sinus rhythm - Assessment/Plan Assessment/Plan: 1. Recurrent SVT 2. EP Study - Reinduced Right bundle left axis tachycardia CL 340ms, very short VA timing of 40ms - s/p slow pathway modification performed - inducible for septal vs fascicular VT, not eliminated with right bundle ablation. Only inducible on isuprel - no accessory pathways found 3. Preserved LVEF 50-55% 4. Diarrhea 5. VT inducible during EPS- possib;y fascicular VT. - only inisuprel - on metoprolol tartrate 12.5mg BID No recurrent tachycardic arrhythmias on tele overnight. LVEF is normal. In regards to his inducible VT on isuprel, plan to add verapamil and consider outpt ablation.
[2020-04-14] MEDS: Loperamide HCl 2 MG CAP PO SCH (21:31)
[2020-04-14] MEDS: Melatonin 3 MG TAB PO PRN (21:37)
[2020-04-15] MEDS: Ipratropium Bromide 2.5 ml Neb NEB SCH ×3 (00:30→12:28)
[2020-04-15 04:21] LABS: #Eosinphils 0.2 thou/uL (0.0-0.7); #Lymphocytes 1.1 thou/uL (1.20-3.40); #Monocytes 0.7 thou/uL (0.11-0.59); #Neutrophils 6.1 thou/uL (1.40-6.50); %Basophils 0.4 % (0.0-1.0); %Eosinophils 2.3 % (0.0-10.0); %Lymphocytes 13.8 % (21.0-51.0); %Neutrophils 74.5 % (42.0-75.0); Hemoglobin 13.3 g/dL (14.0-18.0); Mean Corpuscular HGB CONC 33.3 g/dL (32.0-36.0); Mean Corpuscular Hemoglobin 32.6 pg (27.0-31.0); Mean Corpuscular Volume 98.1 fL (78.0-98.0); Mean Platelet Volume 7.4 fL (7.4-10.4); Platelet Count 234 thou/uL (130-400); RBC Distribution Width 11.9 % (11.5-14.5); Red Blood Cell (RBC) Count 4.06 mill/uL (4.70-6.10); White Blood Cell (WBC) Count 8.1 thou/uL (4.8-10.8)
[2020-04-15 04:45] LABS: Anion Gap 14 mmol/L (10-20); BUN (Urea Nitrogen) 11 mg/dL (8.4-25.7); Calc. Creatinine Clearance 105 mL/min (70-130); Calcium 9.1 mg/dL (7.8-10.44); Carbon Dioxide 26 mmol/L (22-29); Chloride 104 mmol/L (98-107); Glucose 93 mg/dL (70-105); Potassium 3.7 mmol/L (3.5-5.1); Sodium 140 mmol/L (136-145)
--- NOTE | 2020-04-15 06:01 | PDOC.FM ---
- Subjective Subjective: Patient resting comfortably this morning. No acute events overnight. Tele overnight in sinus rhythm with no SVT or other events. Dr. Bryan started verapamil for today. - Objective MAR Reviewed: Yes Vital Signs & Weight: Vital Signs (12 hours) Temp Pulse Resp BP Pulse Ox 04/15/20 02:50 97.9 F 65 18 102/63 93 L 04/14/20 23:42 65 114/52 L 04/14/20 19:48 98.1 F 74 14 133/81 95 Weight Admit Weight 60.01 kg Weight 56.835 kg Most Recent Monitor Data Heart Rate from ECG 75 NIBP 141/79 NIBP BP-Mean 99 Respiration from ECG 20 SpO2 100 I&O: 04/13/20 04/14/20 04/15/20 06:59 06:59 06:59 Intake Total 890 2190 1240 Output Total 1000 Balance -110 2190 1240 Result Diagrams: 04/15/20 04:00 04/15/20 03:59 Phys Exam - Physical Examination Constitutional: NAD Respiratory: no wheezing (nonlabored breathing) Cardiovascular: RRR Gastrointestinal: no distention Musculoskeletal: no edema Dx/Plan - Plan Plan: Unstable SVT, now in stable sinus rhythm - s/p EP study and ablation on 04/13 - Cardiology consulted, appreciate recs. - EP consulted, appreciate recs. Started verapamil and will consider outpatient ablation. - continue home metoprolol - Echo EF 50-55%, E/A flow reversal/diastolic dysfunction noted Metabolic acidosis w/ AG 2/2 chronic diarrhea, resolved Chronic diarrhea - infectious workup of diarrhea negative - scheduled metamucil, florastor, and immodium. Continue in the outpatient setting. Consider colonoscopy outpatient. CAD s/p stent HTN - Monitor Anxiety/depression - Continue home medications Dispo: inpatient telemetry. Likely d/c today pending Dr. Bryan recs. PCP [facility] Diet: HH DVT ppx: Lovenox Addendum - Attending - Attending Attestation Date/Time: 04/15/20 1051 I personally evaluated the patient and discussed the management with Dr. Krishna mccabe. I agree with the History, Examination, Assessment and Plan documented above with any addition or exceptions noted below. Patient feeling well. Awaiting any further recs from EP but hopeful discharge later today.
[2020-04-15] MEDS: Mometasone 100 MCG/Formoterol 5 MCG 120 PUFF INHALER INH SCH (06:26)
[2020-04-15] MEDS: Aspirin 325 MG TAB PO SCH (08:51)
[2020-04-15] MEDS: Loperamide HCl 2 MG CAP PO SCH (08:51)
[2020-04-15] MEDS: Metoprolol Tartrate 25 MG TAB PO SCH (08:51)
[2020-04-15] MEDS: Clopidogrel Bisulfate 75 MG TAB PO SCH (08:52)
[2020-04-15] MEDS: Atorvastatin Calcium 40 MG TAB PO SCH (08:52)
[2020-04-15] MEDS: Metamucil PACK PO SCH (08:52)
[2020-04-15] MEDS: Lisinopril 10 MG TAB PO SCH (08:52)
[2020-04-15] MEDS ORDERED: Saccharomyces boulardii 250 MG CAP PO SCH (09:00)
--- NOTE | 2020-04-15 10:15 | PDOC.EP ---
- Subjective Date: 04/15/20 Time: 07:00 Interval History: no new cardiac events. Feels well except ongoing diarrhea - Review of Systems Constitutional: denies: chills, fever, malaise, sweats, weakness, other Respiratory: denies: cough, dry, hemoptysis, pleuritic pain, shortness of breath, SOB with excertion, sputum, wheezing, other Cardiology: denies: chest pain, edema, heart racing, light headedness, pa roxysmal noc. dyspnea, orthopnea, palpitations, passing out, pleuritic pain, pressure, swelling, other Gastrointestinal: reports: diarrhea. denies: abdominal pain, constipation, hematochezia, melena, nausea, vomitting, other - Objective Allergies/Adverse Reactions: Allergies Allergy/AdvReac Type Severity Reaction Status Date / Time prasugrel HCl [From Effient] Allergy Severe Severe Verified 09/23/19 17:01 Hives prasugrel [From Effient] Allergy Verified 09/23/19 17:01 Current Medications Acetaminophen (Acetaminophen 325 Mg Tab) 650 mg PO Q4H PRN PRN Reason: Headache/Fever/Mild Pain (1-3) Acetaminophen (Acetaminophen 650 Mg Suppository) 650 mg FL Q4H PRN PRN Reason: Headache/Fever/Mild Pain (1-3) Acetaminophen/Codeine Phosphate (Acetaminophen/Codeine 30-300mg Tablet) 1 tab PO Q4H PRN PRN Reason: Mild Pain (1-3) Acetaminophen/Codeine Phosphate (Acetaminophen/Codeine 30-300mg Tablet) 2 tab PO Q4H PRN PRN Reason: Moderate Pain (4-6) Aspirin (Aspirin 325 Mg Tab) 325 mg PO [facility] Last Admin: 04/15/20 08:51 Dose: 325 mg Documented by: Atorvastatin Calcium (Atorvastatin Calcium 40 Mg Tab) 40 mg PO DAILY [facility] Last Admin: 04/15/20 08:52 Dose: 40 mg Documented by: Clopidogrel Bisulfate (Clopidogrel Bisulfate 75 Mg Tab) 75 mg PO DAILY [facility] Last Admin: 04/15/20 08:52 Dose: 75 mg Documented by: Diphenhydramine HCl (Diphenhydramine 50 Mg Cap) 50 mg PO Q6H PRN PRN Reason: Itching & Insomnia Last Admin: 04/13/20 21:19 Dose: 50 mg Documented by: Ipratropium [place] (Ipratropium [place] 2.5 Ml Neb) 2.5 ml NEB [id number] [facility] Last Admin: 04/15/20 06:27 Dose: Not Given Documented by: Lisinopril (Lisinopril 10 Mg Tab) 10 mg PO DAILY [facility] Last Admin: 04/15/20 08:52 Dose: 10 mg Documented by: Loperamide HCl (Loperamide Hcl 2 Mg Cap) 2 mg PO BID [facility] Last Admin: 04/15/20 08:51 Dose: 2 mg Documented by: Melatonin (Melatonin 3 Mg Tab) 9 mg PO HSPRN PRN PRN Reason: Insomnia Last Admin: 04/14/20 21:37 Dose: 9 mg Documented by: Metoprolol Tartrate (Metoprolol Tartrate 25 Mg Tab) 12.5 mg PO BID [facility] Last Admin: 04/15/20 08:51 Dose: 12.5 mg Documented by: Mometasone Furoate/Formoterol Fumar (Mometasone 100 Mcg/Formoterol 5 Mcg 120 Puff Inhaler) 2 puff INH BID-RT [facility] Last Admin: 04/15/20 06:26 Dose: Not Given Documented by: Ondansetron HCl (Ondansetron Odt 4 Mg Tab) 4 mg PO Q6H PRN PRN Reason: Nausea/Vomiting Ondansetron HCl (Ondansetron Pf 4 Mg/2 Ml Vial) 4 mg IVP Q6H PRN PRN Reason: Nausea/Vomiting Pantoprazole Sodium (Pantoprazole 40 Mg Tab) 40 mg PO DAILY [facility] Last Admin: 04/15/20 08:51 Dose: 40 mg Documented by: Psyllium Hydrophilic Mucilloid (Metamucil Pack) 1 pk PO DAILY [facility] Last Admin: 04/15/20 08:52 Dose: 1 pk Documented by: Saccharomyces Boulardii (Saccharomyces Boulardii 250 Mg Cap) 250 mg PO DAILY [facility] Last Admin: 04/15/20 08:51 Dose: 250 mg Documented by: Sodium Chloride (Flush - Normal Saline 10 Ml Syringe) 10 ml IVF PRN PRN PRN Reason: Saline Flush Verapamil HCl (Verapamil Er 120 Mg Tab) 120 mg PO DAILY [facility] Last Admin: 04/15/20 09:21 Dose: 120 mg Documented by: Vital Signs & Weight: Vital Signs Temp Pulse Resp BP BP Pulse Ox 04/15/20 07:35 98.0 F 74 18 122/75 97 04/15/20 02:50 97.9 F 65 18 102/63 93 L 04/14/20 23:42 65 114/52 L Admit Weight 132 lb 4.8 oz Weight 138 lb 11.2 oz I/O: I/O 04/14/20 04/15/20 04/16/20 06:59 06:59 06:59 Intake Total 2190 1480 Output Total 200 Balance 2190 1280 - Physical Exam General: alert & oriented x3, appears well, no apparent distress, speech clear, affect appropriate HEENT: mucus membranes moist, normocephaly Neck: supple neck, midline trachea, no JVD/HJR, no masses, no bruit, no lymphadenopathy, no thromegaly Cardiology: regular rate and rhythm, no murmur, regular rate, regular rhythm, PMI nondisplaced Lungs: clear to auscultation, normal breath sounds, no wheeze, rales, rhonchi Neurology: cranial nerve 2-12 intact, grossly intact, no lateralizing findings - Labs Result Diagrams: 04/15/20 04:00 04/15/20 03:59 - EKG Interpretation EKG Method: Telemetry EKG shows: Sinus rhythm - Assessment/Plan Assessment/Plan: 1. Recurrent SVT 2. EP Study - Reinduced Right bundle left axis tachycardia CL 340ms, very short VA timing of 40ms - s/p slow pathway modification performed - no accessory pathways found 3. Preserved LVEF 50-55% 4. Diarrhea 5. VT inducible during EPS- possibly fascicular VT. -not eliminated with right bundle ablation. Only inducible on isuprel - on metoprolol tartrate 12.5mg BID - added verapamil 120mg QD. - consider OP ablation No recurrent tachycardic arrhythmias on tele overnight. OK for DC by EP. need to come by my office after DC for event monitor.
[2020-04-15 11:27] VITALS: BP 137/80; TEMP 97.8
--- NOTE | 2020-04-16 09:30 | DIS ---
DATE OF ADMISSION: 04/11/2020 DATE OF DISCHARGE: 04/15/2020 RESIDENT: Montserrat Lackey MD ADMITTING ATTENDING: Dr. Cervantes. DISCHARGE ATTENDING: Ant Cano MD PROCEDURES: 1. Chest x-ray. Impression: No significant intrathoracic disease. 2. CT angio of the chest. Impression: No evidence of pulmonary embolism. 3. Electrophysiology study and ablation on 04/13. Results include inducible tachycardia with Isuprel. 4. Echocardiogram with EF of 50% to 55%. E/A flow reversal noted. Suggestive of diastolic dysfunction. CONSULTS: 1. Cardiology, Dr. Ochoa. 2. Electrophysiology, Dr. Bryan. DISCHARGE MEDICATIONS: 1. Florastor 250 mg p.o. daily. 2. Imodium 2 mg p.o. twice daily. 3. Metamucil packet one pack p.o. daily. 4. Verapamil 120 mg p.o. daily. 5. Lisinopril 10 mg p.o. daily. 6. Atorvastatin 40 mg p.o. daily. 7. Metoprolol tartrate 12.5 mg p.o. twice daily. 8. Plavix 75 mg p.o. daily. 9. Aspirin 325 mg p.o. daily. 10. Omeprazole 20 mg p.o. daily. 11. Breo Ellipta one inhalation p.r.n. once daily. 12. Spiriva 1 inhalation once a day. 13. Albuterol 2.5 mg nebulizer q.6 hours p.r.n. PRIMARY DIAGNOSES: 1. Supraventricular tachycardia, resolved. 2. Anion gap metabolic acidosis, likely secondary to chronic diarrhea. SECONDARY DIAGNOSES: 1. Coronary artery disease, status post multiple stents and myocardial infarctions. 2. Hypertension. 3. Anxiety and depression. 4. Suspected chronic obstructive pulmonary disease. 5. Previous tobacco user with a 40 pack-year history. Currently, vapes e- cigarettes. HISTORY OF PRESENT ILLNESS AND HOSPITAL COURSE: This pleasant 59-year-old man with significant coronary artery disease, presented to the emergency room for complaint of palpitations. The patient had been stressed because his uncle of COVID the week prior to his presentation. The patient denies ever being exposed to his uncle. The patient noted heart palpitations for about 3 hours and it was not resolving on its own. The patient tried to resolve this by taking aspirin and drinking Gatorade to hydrate. His symptoms included feeling lightheaded and dizzy along with a mild headache. The patient has been taking his medications as directed and denies missing any doses. The patient takes Benadryl and melatonin at night for sleep sometimes. Of note, the patient had an ablation for a similar problem by Dr. Bryan about 3 years ago. The patient follows with Dr. Joyce for his history of myocardial infarctions. In the emergency room, the patient received adenosine 6 mg followed by 12 mg. His heart rate was still in the 170s, so he received another 12 mg of adenosine. The patient was then started on a Cardizem drip, but his heart rate was still rapid. The patient did not want to be cardioverted if another medication could help. He was started on esmolol drip, which brought his heart rate down. He was briefly placed in the ICU due to being on the esmolol drip, but this was rapidly weaned the day after admission. He was transferred to the telemetry floor in stable condition. Cardiology was consulted and recommended Electrophysiology consult. On 04/13, the patient had the EP study and ablation. The patient was started on verapamil per Electrophysiology. They then recommended followup for possible outpatient ablation in the future. Also, the patient has been having chronic diarrhea for about 1 year now. He was hydrated. Infectious workup was negative. So we started Metamucil, Imodium, and Florastor. The patient reports this did help slow his bowel movements some. Otherwise, the patient was walking all over the hospital and feeling well on the day of discharge. DISCHARGE INSTRUCTIONS: 1. Discharge location: Home. 2. Activity: As tolerated. 3. Diet: Heart healthy. 4. The patient is to immediately present to Dr. Bryan's office after discharge. Follow up with Dr. Bryan of Electrophysiology, his normal surgery consultant, and with his primary care provider within 7 days to follow up on the chronic diarrhea. Job ID: [id number] MTDD
== END 2020-04-15 14:42 | disposition home or self-care (01) | DRG 274 ==
LOC: ERS 19:41 → CCU 21:58 → 2NO 04-12 19:56
PROVIDERS: ADMIT Family Medicine; ATTEND Family Medicine
PROC: 02583ZZ Destruction of Conduction Mechanism, Percutaneous Approach (ICD-10-PCS; principal; 2020-04-13)
PROC: 4A023FZ Measurement of Cardiac Rhythm, Percutaneous Approach (ICD-10-PCS; 2020-04-13)
PROC: 4A0234Z Measurement of Cardiac Electrical Activity, Percutaneous Approach (ICD-10-PCS; 2020-04-13)
PROC: 02K83ZZ Map Conduction Mechanism, Percutaneous Approach (ICD-10-PCS; 2020-04-13)
DX: I47.1 Supraventricular tachycardia (principal); E87.2 Acidosis; Z23 Encounter for immunization; Z20.828 Contact with and (suspected) exposure to other viral communicable diseases; K52.9 Noninfective gastroenteritis and colitis, unspecified; I25.10 Atherosclerotic heart disease of native coronary artery without angina pectoris; I10 Essential (primary) hypertension; F32.9 Major depressive disorder, single episode, unspecified; F41.9 Anxiety disorder, unspecified; J44.9 Chronic obstructive pulmonary disease, unspecified; F17.290 Nicotine dependence, other tobacco product, uncomplicated; E78.5 Hyperlipidemia, unspecified; E78.00 Pure hypercholesterolemia, unspecified; F10.10 Alcohol abuse, uncomplicated; I25.2 Old myocardial infarction; Z95.5 Presence of coronary angioplasty implant and graft; Z88.8 Allergy status to other drugs, medicaments and biological substances; Z79.01 Long term (current) use of anticoagulants; Z79.82 Long term (current) use of aspirin; Z79.899 Other long term (current) drug therapy; Z86.711 Personal history of pulmonary embolism
CPT/HCPCS: 36415; 71045; 71275; 76942; 80048; 80053; 80306; 80307; 82550; 83630; 83735; 83880; 84145; 84443; 84484; 85025; 85610; 85730; 87045; 87046; 87324; 87328; 87329; 87427; 87449; 90471; 90662; 90732; 93005; 93010; 93306; 93613; 93621; 93623; 93653; 93655; 96365; 96366; 96375; 96376; C1730; C1732; G0008; G0009; J0153; J1644; J2250; J2704; J3010; J3475; Q9967; U0002

== ENCOUNTER 2020-05-01 10:35 | Observation (INO) | payer OTHER ==
[2020-05-01 11:09] LABS: #Basophils 0.1 thou/uL (0.0-0.2); #Lymphocytes 1.1 thou/uL (1.20-3.40); #Monocytes 0.4 thou/uL (0.11-0.59); #Neutrophils 7.6 thou/uL (1.40-6.50); %Basophils 0.8 % (0.0-1.0); %Eosinophils 0.1 % (0.0-10.0); %Lymphocytes 11.8 % (21.0-51.0); %Monocytes 4.3 % (0.0-10.0); Hemoglobin 14.9 g/dL (14.0-18.0); Mean Corpuscular HGB CONC 34.3 g/dL (32.0-36.0); Mean Corpuscular Hemoglobin 32.9 pg (27.0-31.0); Mean Corpuscular Volume 95.8 fL (78.0-98.0); Platelet Count 248 thou/uL (130-400); RBC Distribution Width 12.2 % (11.5-14.5); Red Blood Cell (RBC) Count 4.52 mill/uL (4.70-6.10); White Blood Cell (WBC) Count 9.2 thou/uL (4.8-10.8)
--- NOTE | 2020-05-01 11:16 | RAD ---
Exam: Chest one view HISTORY:Pain. Comparison: 04/11/2020 Correlation: Chest CT 04/11/2020 FINDINGS: Cardiac silhouette:Cardiomegaly. Aorta: Atherosclerosis. Pulmonary vessels: Normal Costophrenic angles: Clear LUNGS: Chronic lung parenchymal changes. Hyperinflation. Pneumothorax: No pneumothorax Osseous abnormalities: Multiple old right rib fractures. IMPRESSION: No acute cardiopulmonary process.
[2020-05-01 11:29] LABS: ALT (SGPT) 31 U/L (8-55); AST (SGOT) 37 U/L (5-34); Albumin 4.2 g/dL (3.5-5.0); Alkaline Phosphatase 91 U/L (40-110); Anion Gap 19 mmol/L (10-20); BUN (Urea Nitrogen) 7 mg/dL (8.4-25.7); Bilirubin, Total 0.5 mg/dL (0.2-1.2); Calc. Creatinine Clearance 0 mL/min (70-130); Calcium 8.5 mg/dL (7.8-10.44); Carbon Dioxide 20 mmol/L (22-29); Chloride 103 mmol/L (98-107); Globulin 2.7 g/dL (2.4-3.5); Glucose 94 mg/dL (70-105); Protein, Total 6.9 g/dL (6.0-8.3); Sodium 138 mmol/L (136-145)
[2020-05-01] MEDS ORDERED: Aspirin Chewable 81 MG TAB ONE (12:11)
[2020-05-01] MEDS ORDERED: Iopamidol-370 76% 500 ML 1 ML ONE (13:27)
--- NOTE | 2020-05-01 13:41 | CT ---
CTA Angio Chest W WO Con 05/01/2020 1:20 PM Indication: Weakness and feeling faint with heart palpitations Technique: Multiple CTA images were obtained of the thorax with IV contrast. 3-D rendering: MIP vanesa nstructed images were created and reviewed. Comparison: Prior CT PE dated April 11, 2020 Findings: Pulmonary arteries: No central or segmental pulmonary embolus is evident. Heart and Aorta: There are coronary arteries and thoracic aortic calcifications. Mediastinum:Normal appearing. No enlarged lymph nodes. Lungs:The lungs are clear. Pleural space: Clear. Upper Abdomen: No acute abnormality. Osseous Structures: There is thoracolumbar scoliosis. There is scattered degenerative and osteoarthr itic change present. There are multiple healed rib deformities involving the right chest wall. Soft tissues:No abnormality. Other findings:None. Impression: No central or segmental pulmonary embolus.
--- NOTE | 2020-05-01 14:27 | PDOC.FPRHP ---
- History of Present Illness Chief Complaint: dizziness, palpitations, N/V History of Present Illness: 59YOM with a PMH notable for mutiple MIs w/ CAD s/p stents x7, HTN, COPD, and SVT s/p ablation x2 who presented to the ED from home for evaluation for multiple complaints including shaking, dizziness & N/V. Of note, the patient was recently discharged on 04/15/20 after an admission for SVT & underwent a successful ablation with Dr. Bryan during that stay. He was discharged with a heart monitor to wear at home which he is still wearing & was instructed to mail it in about 2 weeks s/p discharge & to f/u w/ Dr. Bryan outpatient as he would likely need a second ablation. Regarding his symptoms prompting today's visit to the ED, the patient reports he was in his usual state of health until yesterday around ~1400. Says he went walking his usual route his father & after ~1/2 block began to feel lightheaded & like his heart was pounding so has to stop and rest & returned home. Overnight he endorsed some chills but checked his temp & was afebrile. Then reports this AM while sitting in his porch at home he began lightheaded, nauseous, and had shaking in his B/L hands. Says he also vomited once and then had his father bring him to the ED for evaluation. He denies any chest pressure but had an episode of chest "stinging" in his low left side that last a few minutes before subsiding on its since arriving to the ER. Reports his dizziness & nausea have also resolved on exam. Denies any fever, cough, SOB, rapid heart rate, or syncope. Does endorse return of his chronic diarrhea since his recent discharge. ED Course: No meds given in the ER as patient reportedly took 2 325mg ASA tablets WEED THINNER. - Allergies/Adverse Reactions Allergies Allergy/AdvReac Type Severity Reaction Status Date / Time prasugrel HCl [From Effient] Allergy Severe Severe Verified 05/01/20 15:30 Hives prasugrel [From Effient] Allergy Verified 05/01/20 15:30 - Home Medications Medication Instructions Recorded Confirmed Type Lisinopril 10 mg PO DAILY 06/27/15 05/01/20 History Atorvastatin Calcium [Lipitor] 40 mg PO DAILY 07/19/17 05/01/20 History Metoprolol Tartrate [Lopressor] 0.5 tab PO BID 10/18/17 05/01/20 History Clopidogrel Bisulfate [Plavix] 75 mg PO DAILY tab 10/27/17 05/01/20 Rx Aspirin 325 mg PO DAILY 05/08/19 05/01/20 History Tiotropium [place] [Spiriva] 1 inh INH PRN PRN 09/14/19 05/01/20 History Albuterol Sulfate [Albuterol 2.5 mg NEB Q6H PRN #2 vial 09/25/19 05/01/20 Rx Sulfate Neb] Loperamide HCl [Imodium] 2 mg PO BID #28 cap 04/15/20 05/01/20 Rx Psyllium Seed (With Sugar) 1 pk PO DAILY pk 04/15/20 05/01/20 Rx [Metamucil Packet] Saccharomyces boulardii [Florastor] 250 mg PO DAILY #30 cap 04/15/20 05/01/20 Rx Verapamil SR [Calan SR] 120 mg PO DAILY #30 tab 04/15/20 05/01/20 Rx Melatonin [Melatonin ER] 10 mg PO HS 05/01/20 05/01/20 History - History PMHx: HTN, HLD, CAD s/p stent placement x7 & AL X 10, chronic diarrhea, anxiety, depression, COPD, insomnia, Hx SVT s/p ablation x2 (2016 & 04/2020) PSHx: Bicep repair, hernia repair X 5, Cardiac stent x7 FHx: Significant family hx of CAD, mother with AL @ 58, grandfather and grandmother with MIs Social: Former smoker but currently vapes- e cig 5mg, hx of 40 yrs of 0.5 ppd. No drug use. Usually drinks ~3 beers on the weekends. Lives in [place] with his father. - Review of Systems General: reports: fever/chills. denies: weight/appetite/sleep changes Eyes: denies: eye pain, vision changes ENT: reports: other (no sore throat). denies: nasal congestion Respiratory: denies: cough, shortness of breath Cardiovascular: reports: chest pain, palpitation. denies: edema Gastrointestinal: reports: nausea, vomiting, diarrhea. denies: constipation Genitourinary: reports: other (no hematuria). denies: dysuria Skin: denies: rashes, lesions Musculoskeletal: denies: arthritis/arthralgias Neurological: reports: other (shaking in B/L hands). denies: numbness, syncope Psychological: reports: anxiety, depression - Vital signs BP: 151/90 HR: 80 RR: 16 Tmax: Pox: 97% on RA Wt: 62 kg - Physical Exam Constitutional: NAD, awake, alert and oriented, well developed HEENT: normocephalic and atraumatic, grossly normal vision, grossly normal hearing, MMM, oropharynx clear Neck: supple, FROM Chest: other (rn neonatal icu in place) Heart: RRR, normal S1/S2, no murmurs/rubs/gallops, pulses present, no edema Lungs: CTAB, no respiratory distress, good air movement, no rales/rhonchi, no wheezing, no retractions Abdomen: soft, non-tender, bowel sounds present, no masses/distention Musculoskeletal: normal structure, normal tone Neurological: no focal deficit, CN II-XII intact (grossly normal) Skin: no rash/lesions Heme/Lymphatic: no unusual bruising or bleeding Psychiatric: normal mood and affect, good judgment and insight, intact recent and remote memory FMR H&P: Results - Labs Result Diagrams: 05/01/20 10:55 05/01/20 10:55 Lab results: WBC 9.2 thou/uL (4.8-10.8) 05/01/20 10:55 Hgb 14.9 g/dL (14.0-18.0) 05/01/20 10:55 Hct 43.3 % (42.0-52.0) 05/01/20 10:55 MCV 95.8 fL (78.0-98.0) 05/01/20 10:55 Plt Count 248 thou/uL (130-400) 05/01/20 10:55 Neutrophils % 83.0 % (42.0-75.0) H 05/01/20 10:55 Sodium 138 mmol/L (136-145) 05/01/20 10:55 Potassium 4.0 mmol/L (3.5-5.1) 05/01/20 10:55 Chloride 103 mmol/L (98-107) 05/01/20 10:55 Carbon Dioxide 20 mmol/L (22-29) L 05/01/20 10:55 BUN 7 mg/dL (8.4-25.7) L 05/01/20 10:55 Creatinine 0.70 mg/dL (0.7-1.3) 05/01/20 10:55 Glucose 94 mg/dL (70-105) 05/01/20 10:55 Calcium 8.5 mg/dL (7.8-10.44) 05/01/20 10:55 Total Bilirubin 0.5 mg/dL (0.2-1.2) 05/01/20 10:55 AST 37 U/L (5-34) H 05/01/20 10:55 ALT 31 U/L (8-55) 05/01/20 10:55 Alkaline Phosphatase 91 U/L (40-110) 05/01/20 10:55 B-Natriuretic Peptide 130.1 pg/mL (0-100) H 05/01/20 11:08 Serum Total Protein 6.9 g/dL (6.0-8.3) 05/01/20 10:55 Albumin 4.2 g/dL (3.5-5.0) 05/01/20 10:55 - EKG Interpretation EKG: Sinus tach @ 102 bpm w/ T wave inversions in leads II, III & aVF & RBBB noted - Radiology Interpretation Chest x-ray Status: image reviewed by me, report reviewed by me (hyperinflation, NAF) CT scan - chest Status: image reviewed by me, report reviewed by me (no PE) FMR H&P: A/P - Problem List (1) Intermittent palpitations Current Visit: Yes Status: Acute Code(s): R00.2 - PALPITATIONS (2) COPD (chronic obstructive pulmonary disease) Current Visit: Yes Status: Acute (3) Anxiety Current Visit: Yes Status: Acute Code(s): F41.9 - ANXIETY DISORDER, UNSPECIFIED (4) Depression Current Visit: Yes Status: Acute Code(s): F32.9 - MAJOR DEPRESSIVE DISORDER, SINGLE EPISODE, UNSPECIFIED (5) Insomnia Current Visit: Yes Status: Acute Code(s): G47.00 - INSOMNIA, UNSPECIFIED (6) Chest pain Current Visit: No Status: Acute Code(s): R07.9 - CHEST PAIN, UNSPECIFIED (7) Diarrhea Current Visit: No Status: Acute Code(s): R19.7 - DIARRHEA, UNSPECIFIED (8) CAD (coronary artery disease) Current Visit: No Status: Chronic Code(s): I25.10 - ATHSCL HEART DISEASE OF [place] CORONARY ARTERY W/O ANG PCTRS (9) HLD (hyperlipidemia) Current Visit: No Status: Chronic Code(s): E78.5 - HYPERLIPIDEMIA, UNSPECIFIED (10) HTN (hypertension) Current Visit: No Status: Chronic Code(s): I10 - ESSENTIAL (PRIMARY) HYPERTENSION (11) Paroxysmal a-fib Current Visit: No Status: Chronic Code(s): I48.0 - PAROXYSMAL ATRIAL FIBRILLATION - Plan 59YOM with a PMH notable for mutiple MIs w/ CAD s/p stents x7, HTN, COPD, and SVT s/p ablation x2 who presented to the ED from home for evaluation for multiple complaints including palpitations, shaking, dizziness & N/V. Intermittent palpitations w/ associated dizziness, N/V & tremors: - Patient presented with multitude of complaints as noted above. EKG on presentation notable for new T wave inversions in II, III & aVF but was sinus tach @ ~102 bpm. Of note, comparing this presenting EKG to 2 prior EKGs from last ER visit, on 04/11 when patient presented for SVT he was initially in SVT with a RBBB but next EKG done after conversion to sinus showed no RBBB. EKG this admission shows sinus tach but re-appearance of a RBBB. - Trending troponins but negative x2 so far. Low suspicion for ACS, suspect arrhythmia as culprit of sxs but will trend a 3rd troponin given T wave inversions as noted above. Will try to interrogate his monitor while he is here. - Checking Mg & phos levels as well since patient's diarrhea also recently returned & will replace PRN. K WNLs. - Will monitor closely overnight on tele with plans to consult EP first thing in the AM. Hx SVT s/p ablation x2 (2016 & 04/2020) - Aware, as noted in HPI patient was recently admitted for & treated for this. In sinus on presentation but will try to interrogate his monitor as noted above. Continue continuous cardiac monitoring. Elevated D-dimer: - D-dimer elevated @ 1.52 w/ negative CTA of chest. Will give lovenox for VTE PPX. HTN - Aware, will resume home meds. HLD - Aware, will resume home meds. CAD s/p stent placement x7 & AL X 10 - Aware, troponins to be trended x3 & will resume home ASA & plavix. Chronic diarrhea - Will resume regimen patient was recently discharged on as he reports it helped his diarrhea. Anxiety/depression: - Will resume home meds once can clarify with patient as multiple meds listed in clinic chart not on recent d/c summary. COPD - Aware, not in acute exacerbation. Resume home meds. Insomnia, - Will resume home melatonin & seroquel. Dispo: Will admit to telemetry for close cardiac monitoring & continued trending of troponin levels with plans to consult EP in the AM. PCP: CARLOS Wilkerson Diet: GISSELLE IVFs: SL Abx: None GI PPX: protonix VTE PPX: Lovenox CODE STATUS: FULL CODE FMR H&P: Upper Level - Plan Date/Time: 05/01/20 1422 I, [], have evaluated this patient and agree with findings/plan as outlined by human resource internship resident. Pertinent changes/additions are listed here.
[2020-05-01] MEDS ORDERED: Nitroglycerin 0.4 MG TAB (25 Tab Bottle) SL PRN (14:56)
[2020-05-01] MEDS ORDERED: Calcium Carbonate 500 MG ChewTAB PO PRN (14:56)
[2020-05-01] MEDS ORDERED: Ondansetron ODT 4 MG TAB PO PRN (14:56)
[2020-05-01] MEDS ORDERED: Acetaminophen 325 MG TAB PO PRN (14:56)
[2020-05-01] MEDS ORDERED: Albuterol Sulfate 2.5 mg/3 ml Neb NEB PRN (15:15)
[2020-05-01 15:20] LABS: Troponin I Less than 0.010 ng/mL (< 0.028)
[2020-05-01 15:46] VITALS: BMI 21.1
[2020-05-01 15:47] LABS: Hemoglobin A1c 4.5 % (4.0-6.0)
[2020-05-01 16:06] LABS: Magnesium 1.6 mg/dL (1.6-2.6); Phosphorus 3.1 mg/dL (2.3-4.7)
[2020-05-01 17:13] LABS: Troponin I 0.012 ng/mL (< 0.028)
[2020-05-01] MEDS ORDERED: Magnesium 2 GM/50 ML 2 GM in Premix Bag 1 BAG IVPB SCH ×2 (17:15→20:00)
[2020-05-01] MEDS: Metoprolol Tartrate 25 MG TAB PO SCH (20:55)
[2020-05-01] MEDS ORDERED: Loperamide HCl 2 MG CAP PO SCH (21:00)
[2020-05-01] MEDS ORDERED: Melatonin 3 MG TAB PO SCH (21:00)
[2020-05-01] MEDS ORDERED: Enoxaparin Sodium 40 MG/0.4 ML SYRINGE SC SCH (21:00)
[2020-05-01 22:13] LABS: SARS-CoV-2 MS2 Positive; SARS-CoV-2 N Gene Negative; SARS-CoV-2 S Gene Negative; SARS-CoV-2 by NAA Not Detected (NotDetected); SARS-CoV-2 orf1ab Negative
[2020-05-02] MEDS: Ipratropium Bromide 2.5 ml Neb NEB SCH ×2 (00:04→04:13)
[2020-05-02 04:49] LABS: Anion Gap 15 mmol/L (10-20); BUN (Urea Nitrogen) 8 mg/dL (8.4-25.7); Calc. Creatinine Clearance 101 mL/min (70-130); Calcium 8.2 mg/dL (7.8-10.44); Carbon Dioxide 23 mmol/L (22-29); Chloride 104 mmol/L (98-107); Glucose 88 mg/dL (70-105); Magnesium 2.2 mg/dL (1.6-2.6); Potassium 3.7 mmol/L (3.5-5.1); Sodium 138 mmol/L (136-145)
--- NOTE | 2020-05-02 06:04 | PDOC.FM ---
- Subjective Subjective: Mr. Miller is doing well this morning. He endorses and episode at 0400 where he felt some palpitations. On tele, he has been in NSR in the 60s-80s with occasional PVCs only. He currently denies dyspnea, SOB, CP, dizziness. His only complaints are his ongoing diarrhea and that he feels cold. - Objective Vital Signs & Weight: Vital Signs (12 hours) Temp Pulse Resp BP Pulse Ox 05/02/20 04:00 97.9 F 60 21 H 133/68 95 05/01/20 19:20 98.0 F 78 16 121/67 97 Weight Weight 65.499 kg I&O: 04/30/20 05/01/20 05/02/20 06:59 06:59 06:59 Intake Total 620 Output Total 250 Balance 370 Result Diagrams: 05/01/20 10:55 05/02/20 04:08 Phys Exam - Physical Examination Constitutional: NAD Neck: supple, full ROM Respiratory: clear to auscultation bilateral Cardiovascular: RRR, no significant murmur Gastrointestinal: soft, non-tender, no distention, positive bowel sounds Musculoskeletal: no edema Neurological: non-focal, moves all 4 limbs Psychiatric: normal affect, A&O x 3 Skin: no rash Dx/Plan - Plan Plan: 59M with a hx of mutiple MIs w/ CAD s/p stents x7, HTN, COPD, and SVT s/p ablation x2 who presented to the ED for palpitations, shaking, dizziness & N/V. Intermittent palpitations w/ associated dizziness, N/V & tremors - EKG on presentation notable for new T wave inversions in II, III & aVF but was sinus tach @ ~102 bpm. Shows re-appearance of a RBBB, as in last admission. - Low suspicion for ACS, suspect arrhythmia as culprit of sxs. * Trops neg x3 - Mg & P d/t diarrhea * Mg 1.6 -> 2.2 s/p replacement * P WNL - Admit to tele. * Has been in NSR at 60s-80s with occasional PVCs - Unable to interrogate quality assurance monitor final, as described in nursing note - Call EP to see if they want OP f/u or IP eval Hx SVT s/p ablation x2 (2016 & 04/2020) - Has a third ablation planned with Dr. Bryan - Sinus tach on presentation, now resolved - Plan as stated above Elevated D-dimer - D-dimer elevated @ 1.52 w/ negative CTA of chest. - Lovenox for VTE PPX. HTN - Resume home meds - Monitor vitals and adjust regimen as needed HLD - Resume home meds. CAD s/p stent placement x7 & NC X 10 - Trops neg x3 - Resume home ASA & plavix. Chronic diarrhea - Will resume regimen on which patient was recently discharged Anxiety/depression - Resume home meds once can clarify as multiple meds listed in clinic chart not on recent d/c summary. COPD - Not in acute exacerbation - Resume home meds. Insomnia - Resume home melatonin & seroquel. Dispo: Will admit to telemetry for cardiac monitoring with plans to reach out to EP today. Possible discharge today pending EP recs. PCP: CARLOS Wilkerson Diet: HH IVFs: SL Abx: None GI PPX: protonix VTE PPX: Lovenox CODE STATUS: FULL CODE Addendum - Attending - Attending Attestation Date/Time: 05/02/20 2884 I personally evaluated the patient and discussed the management with Dr. Melania Valenzuela. I agree with the History, Examination, Assessment and Plan documented above with any addition or exceptions noted below. The patient was stable on tele monitor overnight. Will touch base with EP regarding f/u for arrhythmia.
[2020-05-02] MEDS ORDERED: Mometasone 100 MCG/Formoterol 5 MCG 120 PUFF INHALER INH SCH (06:30)
[2020-05-02 07:51] VITALS: BP 141/87; TEMP 97.7
[2020-05-02] MEDS: Metoprolol Tartrate 25 MG TAB PO SCH (08:14)
[2020-05-02] MEDS ORDERED: Clopidogrel Bisulfate 75 MG TAB PO SCH (09:00)
[2020-05-02] MEDS ORDERED: Aspirin 325 mg Enteric Coated Tablet PO SCH (09:00)
[2020-05-02] MEDS ORDERED: Saccharomyces boulardii 250 MG CAP PO SCH (09:00)
[2020-05-02] MEDS ORDERED: Atorvastatin Calcium 40 MG TAB PO SCH (09:00)
[2020-05-02] MEDS ORDERED: Lisinopril 10 MG TAB PO SCH (09:00)
[2020-05-02] MEDS ORDERED: Metamucil PACK PO SCH (09:00)
--- NOTE | 2020-05-02 15:52 | DIS ---
DATE OF ADMISSION: 05/01/2020 DATE OF DISCHARGE: 05/02/2020 RESIDENT: Paris Green MD DISCHARGE ATTENDING: Liz Michael MD. CONSULTS: None. PROCEDURES: 1. Chest x-ray (05/01), noncontributory. 2. CTA of chest with and without contrast (05/01), no pulmonary embolism. PRIMARY DIAGNOSIS: Chest pain rule out. SECONDARY DIAGNOSES: History of myocardial infarction x10, coronary artery disease status post stent placement x7, hypertension, history of supraventricular tachycardia status post ablation x2 (2016, April 2020), chronic obstructive pulmonary disease, heart failure with preserved ejection fraction, chronic diarrhea, anxiety, depression, insomnia. DISCHARGE MEDICATIONS: 1. Albuterol q.6h p.r.n. 2. Atorvastatin 40 mg p.o. daily. 3. Plavix 75 mg p.o. daily. 4. Lisinopril 10 mg p.o. daily. 5. Imodium 2 mg p.o. b.i.d. 6. Melatonin 10 mg p.o. q.h.s. 7. Metoprolol tartrate 12.5 mg p.o. b.i.d. 8. Psyllium seed 1 pack p.o. daily. 9. Florastor 250 mg p.o. daily. 10. Spiriva 1 inhalation p.r.n. 11. Verapamil 120 mg p.o. daily. 12. Aspirin 325 mg p.o. daily. Discontinued medications: None. HISTORY OF PRESENT ILLNESS/HOSPITAL COURSE: This is a 59-year-old male who presented for evaluation of multiple complaints including shaking, dizziness, chest discomfort, nausea/vomiting, diarrhea. He had recently been discharged on 04/15/2020 after admission for SVT and underwent a successful ablation with Dr. Bryan. He is scheduled to get another ablation in the outpatient setting, which would be his third one total. At that time, he was discharged with a heart monitor at home, which he is still wearing and which he was told to mail in 2 weeks after discharge. Regarding his symptoms, he was walking outside, when he began to feel lightheaded and having palpitation, then got nauseous and had shaking in his hands bilaterally. He vomited once and after that and was brought to the ED for concern that the symptoms were cardiac in nature given his significant cardiac history. On presentation, EKG showed new T-wave inversion in leads 2, 3, and AVF and sinus tachycardia at about 102 bpm. He was also found to have recurrence of a right bundle branch block, which was found on his most recent admission. His troponins were negative x3. His phosphorus was within normal limits. His magnesium was low and required replacement. He was admitted to telemetry. His monitor could not be interrogated as it does not collect information in real time. He had an elevated D-dimer at 1.52 with a negative CTA of the chest. Throughout his stay, the only thing telemetry showed was normal sinus rhythm in the 60s to 80s with a right bundle branch block and occasional PVC. The patient denied recurrence of the symptoms, he had experienced prior to coming to the hospital. This case was discussed with on-call claim auditor, who recommended discharging the patient and having him follow up with Dr. Bryan in the outpatient setting as initially planned. He requested that we encourage the patient to send in his monitor at once, so that the episode he had experienced could be evaluated. DISPOSITION: Stable. DISCHARGE INSTRUCTIONS: 1. Location: Home. 2. Diet: Heart healthy. 3. Activity: As tolerated. 4. Followup: Patient is encouraged to follow up with his PCP, Dr. Wilkerson, in 7 to 10 days. 5. Patient was encouraged to follow up with his claim auditor, Dr. Bryan, as soon as possible. Job ID: [id number]
== END 2020-05-02 13:38 | disposition home or self-care (01) ==
LOC: ERS 10:35 → 2NO 14:23
PROVIDERS: ADMIT Family Medicine; ATTEND Family Medicine
DX: R07.89 Other chest pain (principal); R00.2 Palpitations; R42 Dizziness and giddiness; R11.2 Nausea with vomiting, unspecified; R25.1 Tremor, unspecified; R79.1 Abnormal coagulation profile; I25.2 Old myocardial infarction; I25.10 Atherosclerotic heart disease of native coronary artery without angina pectoris; I11.0 Hypertensive heart disease with heart failure; I50.30 Unspecified diastolic (congestive) heart failure; K52.9 Noninfective gastroenteritis and colitis, unspecified; J44.9 Chronic obstructive pulmonary disease, unspecified; F41.9 Anxiety disorder, unspecified; F32.9 Major depressive disorder, single episode, unspecified; G47.00 Insomnia, unspecified; E78.5 Hyperlipidemia, unspecified; I48.0 Paroxysmal atrial fibrillation; Z87.891 Personal history of nicotine dependence; Z79.02 Long term (current) use of antithrombotics/antiplatelets; Z79.82 Long term (current) use of aspirin; Z79.899 Other long term (current) drug therapy; Z88.8 Allergy status to other drugs, medicaments and biological substances; Z20.828 Contact with and (suspected) exposure to other viral communicable diseases; Z95.5 Presence of coronary angioplasty implant and graft
CPT/HCPCS: 36415; 71045; 71275; 80048; 80053; 80061; 83036; 83735; 83880; 84100; 84484; 85025; 85379; 87635; 93005; 93010; 94760; 96372; 96374; 96376; G0378; J1650; J3475; Q9967; U0003

== ENCOUNTER 2020-05-14 14:05 | Emergency (ER) | payer OTHER ==
[2020-05-14 21:59] LABS: SARS-CoV-2 MS2 Positive; SARS-CoV-2 N Gene Negative; SARS-CoV-2 S Gene Negative; SARS-CoV-2 by NAA Not Detected (NotDetected); SARS-CoV-2 orf1ab Negative
== END 2020-05-14 14:38 | disposition home or self-care (01) ==
LOC: ERS 14:05
DX: Z20.822 Contact with and (suspected) exposure to COVID-19 (principal); E78.5 Hyperlipidemia, unspecified; E78.00 Pure hypercholesterolemia, unspecified; I10 Essential (primary) hypertension; J44.9 Chronic obstructive pulmonary disease, unspecified; I25.2 Old myocardial infarction
CPT/HCPCS: 87635; U0003

== ENCOUNTER 2020-06-08 08:12 | Observation (INO) | payer OTHER ==
[2020-06-05 09:13] VITALS: BMI 21.9
[2020-06-08] MEDS ORDERED: Sodium Chloride 0.9% 10 ML ONE (08:30)
[2020-06-08] MEDS ORDERED: Heparin 10,000 UNITS/ 10 ML VIAL ONE (09:16)
[2020-06-08] MEDS ORDERED: PHENYLEPHRINE-NS 100 MCG/ML 10 ML SYRINGE ONE (09:43)
[2020-06-08] MEDS ORDERED: Glycopyrrolate 0.2 MG/ML 5 ML SYRINGE ONE (09:43)
[2020-06-08] MEDS ORDERED: Rocuronium Bromide 10 MG/ML (10ML VIAL) ONE (09:43)
[2020-06-08] MEDS ORDERED: ePHEDrine 50 MG/ML VIAL ONE (09:43)
[2020-06-08] MEDS ORDERED: PROPOFOL 200 MG/20 ML VIAL ONE (09:43)
[2020-06-08] MEDS ORDERED: Ondansetron PF 4 MG/2 ML Vial ONE (09:43)
[2020-06-08] MEDS ORDERED: Lidocaine 1% PF 5 ML VIAL ONE (09:43)
[2020-06-08] MEDS ORDERED: Dexamethasone 20 MG/5 ML VIAL ONE (09:43)
[2020-06-08] MEDS ORDERED: Vecuronium 10 MG VIAL ONE (09:43)
[2020-06-08] MEDS ORDERED: Phenylephrine 10 MG/ML VIAL ONE ×2 (10:49→13:48)
[2020-06-08] MEDS ORDERED: Isoproterenol 0.2 MG/1 ML AMP ONE ×2 (11:32→11:47)
[2020-06-08] MEDS ORDERED: Rocuronium Bromide 50 MG/5 ML VIAL ONE (12:41)
[2020-06-08] MEDS ORDERED: Heparin 25,000 units/D5W 500 ML ONE (13:25)
[2020-06-08] MEDS ORDERED: Protamine Sulfate 50 MG/5 ML VIAL ONE (15:02)
[2020-06-08] MEDS ORDERED: Morphine 2 MG/ML VIAL ONE ×2 (15:21→16:24)
[2020-06-08] MEDS ORDERED: Albuterol Sulfate 2.5 mg/3 ml Neb NEB PRN (20:56)
[2020-06-08] MEDS ORDERED: Atorvastatin Calcium 40 MG TAB PO SCH (21:00)
[2020-06-08] MEDS ORDERED: Ipratropium Bromide 2.5 ml Neb NEB PRN (21:03)
[2020-06-08] MEDS ORDERED: Melatonin 3 MG TAB PO PRN (21:05)
[2020-06-08] MEDS ORDERED: Metoprolol Tartrate 25 MG TAB PO SCH (22:00)
[2020-06-09] MEDS ORDERED: Acetaminophen 325 MG TAB PO PRN (03:18)
[2020-06-09] MEDS ORDERED: Saccharomyces boulardii 250 MG CAP PO SCH (09:00)
[2020-06-09] MEDS ORDERED: Lisinopril 10 MG TAB PO SCH (09:00)
[2020-06-09] MEDS ORDERED: Clopidogrel Bisulfate 75 MG TAB PO SCH (09:00)
[2020-06-09] MEDS ORDERED: Aspirin 325 MG TAB PO SCH (09:00)
[2020-06-09] MEDS ORDERED: Metamucil PACK PO SCH (09:00)
[2020-06-09] MEDS ORDERED: Metoprolol Tartrate 25 MG TAB PO SCH (09:00)
[2020-06-09] MEDS ORDERED: Loperamide HCl 2 MG CAP PO SCH (09:00)
[2020-06-09 10:12] VITALS: BP 109/55; TEMP 97.4
== END 2020-06-09 12:20 | disposition home or self-care (01) ==
LOC: CCL 08:12 → 2NO 16:07
PROVIDERS: ADMIT Internal Medicine Cardiovascular Disease; ATTEND Internal Medicine Cardiovascular Disease
PROC: 4A0234Z Measurement of Cardiac Electrical Activity, Percutaneous Approach (ICD-10-PCS; principal; 2020-06-08)
PROC: 02K83ZZ Map Conduction Mechanism, Percutaneous Approach (ICD-10-PCS; principal; 2020-06-08)
PROC: 02583ZZ Destruction of Conduction Mechanism, Percutaneous Approach (ICD-10-PCS; principal; 2020-06-08)
PROC: 4A023FZ Measurement of Cardiac Rhythm, Percutaneous Approach (ICD-10-PCS; principal; 2020-06-08)
DX: I47.2 Ventricular tachycardia (principal); I47.1 Supraventricular tachycardia; I45.10 Unspecified right bundle-branch block; I10 Essential (primary) hypertension; I25.10 Atherosclerotic heart disease of native coronary artery without angina pectoris; E78.5 Hyperlipidemia, unspecified; F10.11 Alcohol abuse, in remission; F32.9 Major depressive disorder, single episode, unspecified; I25.2 Old myocardial infarction; Z86.711 Personal history of pulmonary embolism; Z87.891 Personal history of nicotine dependence; Z79.02 Long term (current) use of antithrombotics/antiplatelets; Z79.899 Other long term (current) drug therapy; Z91.048 Other nonmedicinal substance allergy status; Z95.5 Presence of coronary angioplasty implant and graft
CPT/HCPCS: 76942; 85347; 92960; 93005; 93010; 93462; 93613; 93621; 93623; 93654; 93662; C1730; C1732; C1759; J1100; J1644; J2270; J2370; J2405; J2704; J2720; J3490

== ENCOUNTER 2020-08-27 04:32 | Inpatient (IN) | payer OTHER ==
[2020-08-27 05:10] LABS: Mean Corpuscular Volume 97.2 fL (78.0-98.0)
[2020-08-27 05:15] LABS: ALT (SGPT) 85 U/L (8-55); AST (SGOT) 457 U/L (5-34); Albumin 2.6 g/dL (3.5-5.0); Alkaline Phosphatase 151 U/L (40-110); Anion Gap 14 mmol/L (10-20); BUN (Urea Nitrogen) 9 mg/dL (8.4-25.7); Bilirubin, Total 0.5 mg/dL (0.2-1.2); Calc. Creatinine Clearance 0 mL/min (70-130); Calcium 6.5 mg/dL (7.8-10.44); Carbon Dioxide 19 mmol/L (22-29); Chloride 111 mmol/L (98-107); Globulin 2.3 g/dL (2.4-3.5); Glucose 77 mg/dL (70-105); Lipase 60 U/L (8-78); Potassium 3.2 mmol/L (3.5-5.1); Protein, Total 4.9 g/dL (6.0-8.3); Sodium 141 mmol/L (136-145)
[2020-08-27 05:17] LABS: #Eosinphils 0.1 thou/uL (0.0-0.7); #Lymphocytes 3.2 thou/uL (1.20-3.40); #Monocytes 0.5 thou/uL (0.11-0.59); #Neutrophils 3.2 thou/uL (1.40-6.50); %Basophils 0.6 % (0.0-1.0); %Eosinophils 1.7 % (0.0-10.0); %Lymphocytes 44.8 % (21.0-51.0); %Monocytes 7.3 % (0.0-10.0); %Neutrophils 45.6 % (42.0-75.0); Hemoglobin 13.3 g/dL (14.0-18.0); Mean Corpuscular HGB CONC 35.9 g/dL (32.0-36.0); Mean Corpuscular Hemoglobin 34.9 pg (27.0-31.0); Mean Platelet Volume 8.8 fL (7.4-10.4); Platelet Count 72 thou/uL (130-400); Platelet Morphology Comment Appears Decreased; RBC Distribution Width 11.9 % (11.5-14.5); RBC Morphology Normal; White Blood Cell (WBC) Count 7.1 thou/uL (4.8-10.8)
[2020-08-27] MEDS ORDERED: Calcium Gluc 4.6 MEQ/10 ML (100 MG/ML) ONE (05:18)
[2020-08-27 07:44] LABS: SARS-CoV-2 NAA Rapid Test Not Detected (NotDetected)
[2020-08-27] MEDS ORDERED: Calcium Carbonate 500 MG ChewTAB PO PRN (08:00)
[2020-08-27] MEDS ORDERED: Potassium Chloride 20 MEQ TAB PO SCH (08:15)
[2020-08-27] MEDS ORDERED: Lactated Ringer's 1,000 ML IV SCH (08:15)
[2020-08-27] MEDS ORDERED: MULTIVIT/IRON SULF/FOLIC ACID 1 EACH TAB PO SCH (09:00)
[2020-08-27] MEDS ORDERED: Enoxaparin Sodium 40 MG/0.4 ML SYRINGE SC SCH (09:00)
[2020-08-27 10:10] LABS: Phosphorus 3.2 mg/dL (2.3-4.7)
[2020-08-27 10:12] LABS: Magnesium 1.5 mg/dL (1.6-2.6)
[2020-08-27 10:17] LABS: Troponin I 0.013 ng/mL (< 0.028)
[2020-08-27 10:38] LABS: Ferritin 543.02 ng/mL (22-322); Thyroid Stimulating Hormone 1.188 uIU/mL (0.35-4.94)
[2020-08-27] MEDS ORDERED: Magnesium 2 GM/50 ML 2 GM in Premix Bag 1 BAG IVPB SCH (10:45)
[2020-08-27 11:28] VITALS: BMI 21.9
[2020-08-27] MEDS: Atorvastatin Calcium 40 MG TAB PO SCH (11:42)
[2020-08-27] MEDS: Saccharomyces boulardii 250 MG CAP PO SCH (11:42)
[2020-08-27] MEDS: Thiamine 100 MG TAB PO SCH (11:43)
[2020-08-27 13:50] LABS: Troponin I 0.011 ng/mL (< 0.028)
[2020-08-27] MEDS: Melatonin 3 MG TAB PO SCH (20:31)
[2020-08-28 04:42] LABS: #Lymphocytes 1.1 thou/uL (1.20-3.40); #Monocytes 0.2 thou/uL (0.11-0.59); #Neutrophils 4.1 thou/uL (1.40-6.50); %Basophils 0.3 % (0.0-1.0); %Eosinophils 0.8 % (0.0-10.0); %Lymphocytes 19.9 % (21.0-51.0); %Monocytes 3.6 % (0.0-10.0); %Neutrophils 75.3 % (42.0-75.0); Mean Corpuscular HGB CONC 33.9 g/dL (32.0-36.0); Mean Corpuscular Hemoglobin 33.1 pg (27.0-31.0); Mean Corpuscular Volume 97.6 fL (78.0-98.0); Mean Platelet Volume 8.8 fL (7.4-10.4); Platelet Count 55 thou/uL (130-400); Red Blood Cell (RBC) Count 3.93 mill/uL (4.70-6.10); White Blood Cell (WBC) Count 5.5 thou/uL (4.8-10.8)
[2020-08-28 04:54] LABS: ALT (SGPT) 281 U/L (8-55); AST (SGOT) 767 U/L (5-34); Albumin 2.8 g/dL (3.5-5.0); Alkaline Phosphatase 271 U/L (40-110); Anion Gap 9 mmol/L (10-20); BUN (Urea Nitrogen) 7 mg/dL (8.4-25.7); Bilirubin, Total 1.6 mg/dL (0.2-1.2); Calc. Creatinine Clearance 104 mL/min (70-130); Calcium 7.7 mg/dL (7.8-10.44); Carbon Dioxide 22 mmol/L (22-29); Cardiac Risk 1.5 (Less than 4.5); Chloride 108 mmol/L (98-107); Cholesterol 70 mg/dl (< 200 Desired); Globulin 2.2 g/dL (2.4-3.5); Glucose 80 mg/dL (70-105); HDL Cholesterol 46 mg/dL (>60 Neg Risk); LDL Cholesterol, Calculated 15 mg/dL; Magnesium 1.5 mg/dL (1.6-2.6); Phosphorus 2.1 mg/dL (2.3-4.7); Potassium 3.1 mmol/L (3.5-5.1); Sodium 136 mmol/L (136-145); Triglycerides 45 mg/dL (Less than 150)
[2020-08-28 04:58] LABS: Syphilis Antibody Nonreactive (Nonreactive); Syphilis Antibody Index 0.04 S/CO (<1.00 Non-Reactive)
[2020-08-28] MEDS ORDERED: Potassium Chloride 20 MEQ TAB PO SCH (06:45)
[2020-08-28] MEDS ORDERED: Magnesium 2 GM/50 ML 2 GM in Premix Bag 1 BAG IVPB SCH ×2 (06:45→16:30)
[2020-08-28] MEDS ORDERED: Potassium Phosphate 30 MMOL in Sodium Chloride 0.9% 500 ML IVPB SCH (06:45)
[2020-08-28] MEDS ORDERED: Magnesium Sulfate 2 GM in Sodium Chloride 0.9% 100 ML IVPB SCH (06:45)
[2020-08-28] MEDS ORDERED: Lisinopril 10 MG TAB PO SCH (09:00)
[2020-08-28 09:04] LABS: HIV (1/2) Antibody/Antigen Non-Reactive (NonReactive); HIV 1/2 INDEX 0.08 S/CO (<1.00)
[2020-08-28] MEDS ORDERED: Regadenoson 0.4 MG/5 ML SYRINGE ONE (11:52)
[2020-08-28] MEDS: Aspirin 325 MG TAB PO SCH (13:41)
[2020-08-28] MEDS: Multivit, Therapeutic 1 TAB PO SCH (13:41)
[2020-08-28] MEDS: Atorvastatin Calcium 40 MG TAB PO SCH (13:41)
[2020-08-28] MEDS: Saccharomyces boulardii 250 MG CAP PO SCH (13:41)
[2020-08-28] MEDS: Thiamine 100 MG TAB PO SCH (13:42)
[2020-08-28] MEDS: Venlafaxine XR 37.5 MG CAP PO SCH (13:42)
[2020-08-28] MEDS: Loperamide HCl 2 MG CAP PO PRN ×2 (14:30→21:03)
[2020-08-28 16:08] LABS: Anion Gap 14 mmol/L (10-20); BUN (Urea Nitrogen) 5 mg/dL (8.4-25.7); Calc. Creatinine Clearance 107 mL/min (70-130); Calcium 7.9 mg/dL (7.8-10.44); Carbon Dioxide 20 mmol/L (22-29); Chloride 108 mmol/L (98-107); Glucose 159 mg/dL (70-105); Magnesium 1.7 mg/dL (1.6-2.6); Phosphorus 2.7 mg/dL (2.3-4.7); Potassium 3.9 mmol/L (3.5-5.1); Sodium 138 mmol/L (136-145)
[2020-08-28] MEDS ORDERED: Metamucil PACK PO SCH (16:30)
[2020-08-28] MEDS: Metoprolol Tartrate 25 MG TAB PO SCH (21:01)
[2020-08-28] MEDS: Melatonin 3 MG TAB PO SCH (21:01)
[2020-08-29 05:15] LABS: #Eosinphils 0.1 thou/uL (0.0-0.7); #Lymphocytes 1.4 thou/uL (1.20-3.40); #Monocytes 0.5 thou/uL (0.11-0.59); #Neutrophils 3.5 thou/uL (1.40-6.50); %Basophils 0.4 % (0.0-1.0); %Eosinophils 1.5 % (0.0-10.0); %Lymphocytes 25.8 % (21.0-51.0); %Monocytes 8.4 % (0.0-10.0); %Neutrophils 63.9 % (42.0-75.0); Hemoglobin 13.4 g/dL (14.0-18.0); Mean Corpuscular HGB CONC 35.2 g/dL (32.0-36.0); Mean Corpuscular Hemoglobin 34.7 pg (27.0-31.0); Mean Corpuscular Volume 98.6 fL (78.0-98.0); Mean Platelet Volume 9.3 fL (7.4-10.4); Platelet Count 54 thou/uL (130-400); RBC Distribution Width 12.2 % (11.5-14.5); Red Blood Cell (RBC) Count 3.85 mill/uL (4.70-6.10); White Blood Cell (WBC) Count 5.4 thou/uL (4.8-10.8)
[2020-08-29 05:18] LABS: Phosphorus 2.7 mg/dL (2.3-4.7)
[2020-08-29 05:23] LABS: ALT (SGPT) 194 U/L (8-55); AST (SGOT) 232 U/L (5-34); Albumin 3.1 g/dL (3.5-5.0); Alkaline Phosphatase 263 U/L (40-110); Anion Gap 11 mmol/L (10-20); BUN (Urea Nitrogen) 4 mg/dL (8.4-25.7); Bilirubin, Total 1.1 mg/dL (0.2-1.2); Calc. Creatinine Clearance 109 mL/min (70-130); Calcium 8.5 mg/dL (7.8-10.44); Carbon Dioxide 25 mmol/L (22-29); Chloride 106 mmol/L (98-107); Globulin 2.6 g/dL (2.4-3.5); Glucose 87 mg/dL (70-105); Magnesium 1.7 mg/dL (1.6-2.6); Potassium 3.5 mmol/L (3.5-5.1); Protein, Total 5.7 g/dL (6.0-8.3); Sodium 138 mmol/L (136-145); Transferrin, Serum 155 mg/dL (174-364)
[2020-08-29] MEDS ORDERED: Magnesium 2 GM/50 ML 2 GM in Premix Bag 1 BAG IVPB SCH (06:15)
[2020-08-29 08:32] LABS: INR-International Normal Ratio 0.9; PTT 25.3 sec (22.9-36.1); Prothrombin Time 12.3 sec (12.0-14.7)
[2020-08-29] MEDS ORDERED: Potassium Chloride 20 MEQ TAB PO SCH (09:00)
[2020-08-29] MEDS: Saccharomyces boulardii 250 MG CAP PO SCH (09:45)
[2020-08-29] MEDS: Aspirin 325 MG TAB PO SCH (09:45)
[2020-08-29] MEDS: Venlafaxine XR 37.5 MG CAP PO SCH (09:46)
[2020-08-29] MEDS: Atorvastatin Calcium 40 MG TAB PO SCH (09:46)
[2020-08-29] MEDS: Thiamine 100 MG TAB PO SCH (09:46)
[2020-08-29] MEDS: Multivit, Therapeutic 1 TAB PO SCH (09:46)
[2020-08-29] MEDS: Metoprolol Tartrate 25 MG TAB PO SCH ×2 (09:46→22:23)
[2020-08-29] MEDS: Metamucil PACK PO SCH (09:47)
[2020-08-29] MEDS: Melatonin 3 MG TAB PO SCH (22:05)
[2020-08-30 04:57] LABS: #Eosinphils 0.1 thou/uL (0.0-0.7); #Lymphocytes 1.2 thou/uL (1.20-3.40); #Monocytes 0.6 thou/uL (0.11-0.59); #Neutrophils 5.4 thou/uL (1.40-6.50); %Basophils 0.3 % (0.0-1.0); %Eosinophils 1.1 % (0.0-10.0); %Lymphocytes 16.4 % (21.0-51.0); %Monocytes 8.7 % (0.0-10.0); %Neutrophils 73.5 % (42.0-75.0); Hemoglobin 13.5 g/dL (14.0-18.0); Mean Corpuscular HGB CONC 33.2 g/dL (32.0-36.0); Mean Corpuscular Hemoglobin 33.1 pg (27.0-31.0); Mean Corpuscular Volume 99.5 fL (78.0-98.0); Mean Platelet Volume 10.1 fL (7.4-10.4); Platelet Count 55 thou/uL (130-400); RBC Distribution Width 12.5 % (11.5-14.5); Red Blood Cell (RBC) Count 4.07 mill/uL (4.70-6.10); White Blood Cell (WBC) Count 7.4 thou/uL (4.8-10.8)
[2020-08-30 05:22] LABS: ALT (SGPT) 128 U/L (8-55); AST (SGOT) 85 U/L (5-34); Albumin 3.3 g/dL (3.5-5.0); Alkaline Phosphatase 209 U/L (40-110); Anion Gap 13 mmol/L (10-20); BUN (Urea Nitrogen) 5 mg/dL (8.4-25.7); Bilirubin, Total 0.8 mg/dL (0.2-1.2); Calc. Creatinine Clearance 112 mL/min (70-130); Calcium 8.6 mg/dL (7.8-10.44); Carbon Dioxide 25 mmol/L (22-29); Chloride 102 mmol/L (98-107); Globulin 2.7 g/dL (2.4-3.5); Glucose 94 mg/dL (70-105); Magnesium 1.6 mg/dL (1.6-2.6); Phosphorus 3.7 mg/dL (2.3-4.7); Potassium 3.9 mmol/L (3.5-5.1); Sodium 136 mmol/L (136-145)
[2020-08-30] MEDS: Metamucil PACK PO SCH (09:12)
[2020-08-30] MEDS: Saccharomyces boulardii 250 MG CAP PO SCH (09:12)
[2020-08-30] MEDS: Multivit, Therapeutic 1 TAB PO SCH (09:12)
[2020-08-30] MEDS: Metoprolol Tartrate 25 MG TAB PO SCH ×2 (09:12→20:12)
[2020-08-30] MEDS: Thiamine 100 MG TAB PO SCH (09:12)
[2020-08-30] MEDS: Venlafaxine XR 37.5 MG CAP PO SCH (09:12)
[2020-08-30] MEDS: Aspirin 325 MG TAB PO SCH (09:12)
[2020-08-30] MEDS: Atorvastatin Calcium 40 MG TAB PO SCH (09:12)
[2020-08-30] MEDS ORDERED: Magnesium 2 GM/50 ML 2 GM in Premix Bag 1 BAG IVPB SCH (10:00)
[2020-08-30] MEDS ORDERED: hydrOXYzine 25 MG TAB PO PRN (19:45)
[2020-08-30] MEDS: Melatonin 3 MG TAB PO SCH (21:43)
[2020-08-31 04:25] LABS: #Eosinphils 0.1 thou/uL (0.0-0.7); #Lymphocytes 1.8 thou/uL (1.20-3.40); #Monocytes 0.8 thou/uL (0.11-0.59); #Neutrophils 5.2 thou/uL (1.40-6.50); %Basophils 0.5 % (0.0-1.0); %Eosinophils 1.6 % (0.0-10.0); %Lymphocytes 23.2 % (21.0-51.0); %Monocytes 9.5 % (0.0-10.0); %Neutrophils 65.3 % (42.0-75.0); Hemoglobin 13.2 g/dL (14.0-18.0); Mean Corpuscular HGB CONC 33.9 g/dL (32.0-36.0); Mean Corpuscular Hemoglobin 33.7 pg (27.0-31.0); Mean Corpuscular Volume 99.6 fL (78.0-98.0); Mean Platelet Volume 9.6 fL (7.4-10.4); Platelet Count 71 thou/uL (130-400); RBC Distribution Width 12.7 % (11.5-14.5); Red Blood Cell (RBC) Count 3.91 mill/uL (4.70-6.10); White Blood Cell (WBC) Count 7.9 thou/uL (4.8-10.8)
[2020-08-31 04:44] LABS: ALT (SGPT) 99 U/L (8-55); AST (SGOT) 61 U/L (5-34); Albumin 3.2 g/dL (3.5-5.0); Alkaline Phosphatase 178 U/L (40-110); Anion Gap 15 mmol/L (10-20); BUN (Urea Nitrogen) 10 mg/dL (8.4-25.7); Bilirubin, Total 0.4 mg/dL (0.2-1.2); Calc. Creatinine Clearance 109 mL/min (70-130); Calcium 8.7 mg/dL (7.8-10.44); Carbon Dioxide 22 mmol/L (22-29); Chloride 105 mmol/L (98-107); Globulin 2.7 g/dL (2.4-3.5); Glucose 94 mg/dL (70-105); Magnesium 1.7 mg/dL (1.6-2.6); Phosphorus 4.6 mg/dL (2.3-4.7); Protein, Total 5.9 g/dL (6.0-8.3); Sodium 138 mmol/L (136-145)
[2020-08-31] MEDS: Thiamine 100 MG TAB PO SCH (08:40)
[2020-08-31] MEDS: Multivit, Therapeutic 1 TAB PO SCH (08:40)
[2020-08-31] MEDS: Metamucil PACK PO SCH (08:40)
[2020-08-31] MEDS: Venlafaxine XR 37.5 MG CAP PO SCH (08:40)
[2020-08-31] MEDS: Atorvastatin Calcium 40 MG TAB PO SCH (08:40)
[2020-08-31] MEDS: Metoprolol Tartrate 25 MG TAB PO SCH (08:40)
[2020-08-31] MEDS: Saccharomyces boulardii 250 MG CAP PO SCH (08:40)
[2020-08-31] MEDS: Aspirin 325 MG TAB PO SCH (08:40)
[2020-08-31 11:55] VITALS: BP 128/80; TEMP 98.7
[2020-08-31 12:37] LABS: Hep B Surface AG-Rflx Sendout Negative (Negative); Hepatitis B Core Total Negative (Negative); Hepatitis B Surface AB-Sendout Non Reactive (.)
== END 2020-08-31 13:00 | disposition home or self-care (01) | DRG 312 ==
LOC: ERS 04:32 → IMCU/EMU 06:25 → 2NO 08-28 18:14
PROVIDERS: ADMIT Student in an Organized Health Care Education/Training Program; ATTEND Student in an Organized Health Care Education/Training Program
DX: I95.2 Hypotension due to drugs (principal); I50.32 Chronic diastolic (congestive) heart failure; I47.1 Supraventricular tachycardia; E86.0 Dehydration; Z20.822 Contact with and (suspected) exposure to COVID-19; I25.10 Atherosclerotic heart disease of native coronary artery without angina pectoris; F41.9 Anxiety disorder, unspecified; J44.9 Chronic obstructive pulmonary disease, unspecified; I45.10 Unspecified right bundle-branch block; E87.6 Hypokalemia; D69.6 Thrombocytopenia, unspecified; F10.20 Alcohol dependence, uncomplicated; R74.01 Elevation of levels of liver transaminase levels; I45.81 Long QT syndrome; E78.5 Hyperlipidemia, unspecified; L21.9 Seborrheic dermatitis, unspecified; F32.9 Major depressive disorder, single episode, unspecified; I49.1 Atrial premature depolarization; I11.0 Hypertensive heart disease with heart failure; T46.995A Adverse effect of other agents primarily affecting the cardiovascular system, initial encounter; I48.0 Paroxysmal atrial fibrillation; D63.8 Anemia in other chronic diseases classified elsewhere; K52.9 Noninfective gastroenteritis and colitis, unspecified; I08.1 Rheumatic disorders of both mitral and tricuspid valves; Z86.711 Personal history of pulmonary embolism; Z82.49 Family history of ischemic heart disease and other diseases of the circulatory system; Z87.891 Personal history of nicotine dependence; I25.2 Old myocardial infarction; Z88.8 Allergy status to other drugs, medicaments and biological substances; Z79.899 Other long term (current) drug therapy; Z79.02 Long term (current) use of antithrombotics/antiplatelets; Z95.5 Presence of coronary angioplasty implant and graft
CPT/HCPCS: 0240U; 36415; 71045; 76705; 78452; 80053; 80061; 80307; 82607; 82728; 82746; 83540; 83550; 83605; 83690; 83735; 83880; 84100; 84443; 84466; 84484; 85025; 85610; 85730; 86704; 86705; 86706; 86707; 86709; 86780; 87340; 87350; 87389; 87521; 93005; 93017; 93306; 96374; A9500; J2001; J2785; J3475; J7030

== ENCOUNTER 2021-02-03 14:43 | Observation (INO) | payer OTHER ==
[2021-02-03] MEDS ORDERED: Boostrix 0.5 ML (Tdap) VIAL ONE (15:26)
[2021-02-03 15:39] LABS: #Basophils 0.1 thou/uL (0.0-0.2); #Lymphocytes 1.4 thou/uL (1.20-3.40); #Monocytes 0.9 thou/uL (0.11-0.59); #Neutrophils 11.5 thou/uL (1.40-6.50); %Basophils 0.6 % (0.0-1.0); %Eosinophils 0.3 % (0.0-10.0); %Lymphocytes 9.9 % (21.0-51.0); %Monocytes 6.3 % (0.0-10.0); %Neutrophils 82.8 % (42.0-75.0); Hemoglobin 14.7 g/dL (14.0-18.0); Mean Corpuscular HGB CONC 32.9 g/dL (32.0-36.0); Mean Corpuscular Hemoglobin 34.2 pg (27.0-31.0); Mean Platelet Volume 7.5 fL (7.4-10.4); Platelet Count 235 thou/uL (130-400); RBC Distribution Width 11.8 % (11.5-14.5); Red Blood Cell (RBC) Count 4.32 mill/uL (4.70-6.10); White Blood Cell (WBC) Count 13.9 thou/uL (4.8-10.8)
[2021-02-03] MEDS ORDERED: Metoprolol Tartrate 5 MG/5 ML VIAL ONE (15:40)
[2021-02-03 15:51] LABS: INR-International Normal Ratio 0.9; PTT 25.4 sec (22.9-36.1)
[2021-02-03 15:57] LABS: ALT (SGPT) 32 U/L (8-55); AST (SGOT) 41 U/L (5-34); Albumin 3.9 g/dL (3.5-5.0); Alkaline Phosphatase 157 U/L (40-110); Anion Gap 21 mmol/L (10-20); BUN (Urea Nitrogen) 6 mg/dL (8.4-25.7); Bilirubin, Total 0.3 mg/dL (0.2-1.2); Calc. Creatinine Clearance 0 mL/min (70-130); Calcium 9.2 mg/dL (7.8-10.44); Carbon Dioxide 16 mmol/L (22-29); Chloride 105 mmol/L (98-107); Glucose 109 mg/dL (70-105); Protein, Total 6.9 g/dL (6.0-8.3); Sodium 138 mmol/L (136-145)
[2021-02-03] MEDS ORDERED: Verapamil 120 MG TAB PO SCH (17:00)
[2021-02-03] MEDS ORDERED: Acetaminophen 325 MG TAB PO PRN (18:22)
[2021-02-03] MEDS ORDERED: Calcium Carbonate 500 MG ChewTAB PO PRN (18:22)
[2021-02-03] MEDS ORDERED: Albuterol Sulfate 2.5 mg/3 ml Neb NEB PRN ×2 (18:22→19:15)
[2021-02-03 19:09] LABS: Troponin I 0.012 ng/mL (< 0.028)
[2021-02-03] MEDS ORDERED: Bacitracin 1 PK ONE (19:57)
[2021-02-03 20:31] VITALS: BMI 21.7
[2021-02-03] MEDS ORDERED: diphenhydrAMINE 25 MG CAP PO SCH (20:50)
[2021-02-03] MEDS ORDERED: Nitroglycerin 0.4 MG TAB (25 Tab Bottle) SL PRN (20:57)
[2021-02-03] MEDS ORDERED: Melatonin 3 MG TAB PO SCH (21:00)
[2021-02-04] MEDS: HYDROcodone/Acetaminophen 5/325 mg Tablet PO PRN ×4 (00:14→13:53)
[2021-02-04 05:01] LABS: #Basophils 0.1 thou/uL (0.0-0.2); #Eosinphils 0.1 thou/uL (0.0-0.7); #Lymphocytes 2.5 thou/uL (1.20-3.40); #Monocytes 0.8 thou/uL (0.11-0.59); #Neutrophils 5.4 thou/uL (1.40-6.50); %Eosinophils 1.2 % (0.0-10.0); %Lymphocytes 28.2 % (21.0-51.0); %Monocytes 9.3 % (0.0-10.0); %Neutrophils 60.4 % (42.0-75.0); Hemoglobin 14.4 g/dL (14.0-18.0); Mean Corpuscular HGB CONC 34.1 g/dL (32.0-36.0); Mean Platelet Volume 7.8 fL (7.4-10.4); Platelet Count 198 thou/uL (130-400); RBC Distribution Width 11.7 % (11.5-14.5); Red Blood Cell (RBC) Count 4.11 mill/uL (4.70-6.10); White Blood Cell (WBC) Count 8.9 thou/uL (4.8-10.8)
[2021-02-04 05:23] LABS: Anion Gap 13 mmol/L (10-20); BUN (Urea Nitrogen) 4 mg/dL (8.4-25.7); Calc. Creatinine Clearance 111 mL/min (70-130); Calcium 8.8 mg/dL (7.8-10.44); Carbon Dioxide 25 mmol/L (22-29); Chloride 104 mmol/L (98-107); Glucose 74 mg/dL (70-105); Potassium 3.6 mmol/L (3.5-5.1); Sodium 138 mmol/L (136-145)
[2021-02-04] MEDS ORDERED: Venlafaxine XR 37.5 MG CAP PO SCH (09:00)
[2021-02-04] MEDS ORDERED: Metoprolol Tartrate 25 MG TAB PO SCH (09:00)
[2021-02-04] MEDS ORDERED: Clopidogrel Bisulfate 75 MG TAB PO SCH (09:00)
[2021-02-04] MEDS ORDERED: Thiamine 100 MG TAB PO SCH (09:00)
[2021-02-04] MEDS ORDERED: Atorvastatin Calcium 40 MG TAB PO SCH (09:00)
[2021-02-04] MEDS ORDERED: Aspirin 81 mg Enteric Coated Tablet PO SCH (09:00)
[2021-02-04] MEDS ORDERED: Enoxaparin Sodium 40 MG/0.4 ML SYRINGE SC SCH (09:00)
[2021-02-04] MEDS ORDERED: Lisinopril 10 MG TAB PO SCH (09:00)
[2021-02-04 12:49] LABS: SARS-CoV-2 PCR by NAA Not Detected (NotDetected)
[2021-02-04 13:30] VITALS: BP 105/63; TEMP 97.8
== END 2021-02-04 15:00 | disposition home or self-care (01) ==
LOC: ERS 14:43 → 2NO 18:30
PROVIDERS: ADMIT Emergency Medicine; ATTEND Emergency Medicine
DX: M94.0 Chondrocostal junction syndrome [Tietze] (principal); S00.93XA Contusion of unspecified part of head, initial encounter; S41.112A Laceration without foreign body of left upper arm, initial encounter; I25.2 Old myocardial infarction; I25.119 Atherosclerotic heart disease of native coronary artery with unspecified angina pectoris; I48.0 Paroxysmal atrial fibrillation; I10 Essential (primary) hypertension; J44.9 Chronic obstructive pulmonary disease, unspecified; I45.10 Unspecified right bundle-branch block; Z87.891 Personal history of nicotine dependence; Z79.02 Long term (current) use of antithrombotics/antiplatelets; Z79.82 Long term (current) use of aspirin; Z79.899 Other long term (current) drug therapy; Z91.048 Other nonmedicinal substance allergy status; Z95.5 Presence of coronary angioplasty implant and graft; Z20.822 Contact with and (suspected) exposure to COVID-19; W22.8XXA Striking against or struck by other objects, initial encounter
CPT/HCPCS: 36415; 70450; 71045; 80048; 80053; 84484; 85025; 85610; 85730; 90471; 90715; 93005; 94640; 96372; 96374; G0378; J1650; J7620; Q0163; U0003; U0005

== ENCOUNTER 2021-02-21 15:42 | Emergency (ER) | payer OTHER ==
[2021-02-21 16:22] LABS: Hemoglobin 14.6 g/dL (14.0-18.0); Mean Corpuscular HGB CONC 33.4 g/dL (32.0-36.0); Mean Corpuscular Hemoglobin 34.5 pg (27.0-31.0); Platelet Count 293 thou/uL (130-400); RBC Distribution Width 12.1 % (11.5-14.5); Red Blood Cell (RBC) Count 4.23 mill/uL (4.70-6.10); White Blood Cell (WBC) Count 16.1 thou/uL (4.8-10.8)
[2021-02-21 16:37] LABS: Band 7 % (5-11); Lymphocytes 6 % (21-51); MDiff Complete? YES; Macrocytosis SLIGHT = 6-15 cells (100X) (0-5/hpf); Monocytes 3 % (0-10); Neutrophil 84 % (42-75); Platelet Morphology Comment Appears Adequate; Vacuoles SLIGHT
[2021-02-21 16:45] LABS: ALT (SGPT) 25 U/L (8-55); AST (SGOT) 30 U/L (5-34); Albumin 3.7 g/dL (3.5-5.0); Alkaline Phosphatase 169 U/L (40-110); Anion Gap 18 mmol/L (10-20); BUN (Urea Nitrogen) 6 mg/dL (8.4-25.7); Bilirubin, Total 0.6 mg/dL (0.2-1.2); Calc. Creatinine Clearance 0 mL/min (70-130); Carbon Dioxide 22 mmol/L (22-29); Chloride 104 mmol/L (98-107); Globulin 2.8 g/dL (2.4-3.5); Glucose 136 mg/dL (70-105); Potassium 5.4 mmol/L (3.5-5.1); Protein, Total 6.5 g/dL (6.0-8.3); Sodium 139 mmol/L (136-145)
== END 2021-02-21 21:39 | disposition home or self-care (01) ==
LOC: ERS 15:42
DX: J18.9 Pneumonia, unspecified organism (principal); Z79.899 Other long term (current) drug therapy; Z79.82 Long term (current) use of aspirin; I10 Essential (primary) hypertension; I25.10 Atherosclerotic heart disease of native coronary artery without angina pectoris; I25.2 Old myocardial infarction; J44.9 Chronic obstructive pulmonary disease, unspecified; I48.91 Unspecified atrial fibrillation; Z87.891 Personal history of nicotine dependence
CPT/HCPCS: 71045; 80053; 84484; 85025; 93005

== ENCOUNTER 2021-02-24 19:14 | Emergency (ER) | payer OTHER ==
[2021-02-24 19:53] LABS: #Eosinphils 0.2 thou/uL (0.0-0.7); #Lymphocytes 2.1 thou/uL (1.20-3.40); #Monocytes 0.8 thou/uL (0.11-0.59); #Neutrophils 7.3 thou/uL (1.40-6.50); %Basophils 0.4 % (0.0-1.0); %Eosinophils 1.9 % (0.0-10.0); %Lymphocytes 20.4 % (21.0-51.0); %Monocytes 7.3 % (0.0-10.0); Hemoglobin 13.7 g/dL (14.0-18.0); Mean Corpuscular Hemoglobin 33.8 pg (27.0-31.0); Mean Platelet Volume 7.7 fL (7.4-10.4); Platelet Count 223 thou/uL (130-400); Red Blood Cell (RBC) Count 4.04 mill/uL (4.70-6.10); White Blood Cell (WBC) Count 10.4 thou/uL (4.8-10.8)
[2021-02-24 20:16] LABS: ALT (SGPT) 21 U/L (8-55); AST (SGOT) 31 U/L (5-34); Albumin 3.5 g/dL (3.5-5.0); Alkaline Phosphatase 164 U/L (40-110); Anion Gap 14 mmol/L (10-20); BUN (Urea Nitrogen) 8 mg/dL (8.4-25.7); Bilirubin, Total 0.3 mg/dL (0.2-1.2); Calc. Creatinine Clearance 0 mL/min (70-130); Carbon Dioxide 21 mmol/L (22-29); Chloride 108 mmol/L (98-107); Globulin 2.7 g/dL (2.4-3.5); Glucose 96 mg/dL (70-105); Potassium 4.4 mmol/L (3.5-5.1); Protein, Total 6.2 g/dL (6.0-8.3); Sodium 139 mmol/L (136-145)
== END 2021-02-24 21:25 | disposition home or self-care (01) ==
LOC: ERS 19:14
DX: I95.9 Hypotension, unspecified (principal); R07.9 Chest pain, unspecified; J44.9 Chronic obstructive pulmonary disease, unspecified; I48.91 Unspecified atrial fibrillation; I10 Essential (primary) hypertension; I25.2 Old myocardial infarction; I25.119 Atherosclerotic heart disease of native coronary artery with unspecified angina pectoris; E78.5 Hyperlipidemia, unspecified; Z87.891 Personal history of nicotine dependence
CPT/HCPCS: 36415; 71045; 80053; 84484; 85025; 93005

== ENCOUNTER 2021-06-12 20:36 | Inpatient (IN) | payer OTHER ==
[2021-06-12] MEDS ORDERED: Ondansetron PF 4 MG/2 ML Vial ONE (21:03)
[2021-06-12 21:21] LABS: #Monocytes 0.6 thou/uL (0.11-0.59); #Neutrophils 4.7 thou/uL (1.40-6.50); %Basophils 0.4 % (0.0-1.0); %Eosinophils 0.4 % (0.0-10.0); %Lymphocytes 16.1 % (21.0-51.0); %Monocytes 8.7 % (0.0-10.0); %Neutrophils 74.4 % (42.0-75.0); Hemoglobin 14.7 g/dL (14.0-18.0); Mean Corpuscular HGB CONC 35.4 g/dL (32.0-36.0); Mean Corpuscular Hemoglobin 34.6 pg (27.0-31.0); Mean Corpuscular Volume 97.8 fL (78.0-98.0); Mean Platelet Volume 6.8 fL (7.4-10.4); Platelet Count 192 thou/uL (130-400); RBC Distribution Width 13.8 % (11.5-14.5); Red Blood Cell (RBC) Count 4.24 mill/uL (4.70-6.10); White Blood Cell (WBC) Count 6.3 thou/uL (4.8-10.8)
[2021-06-12 21:47] LABS: ALT (SGPT) 44 U/L (8-55); AST (SGOT) 96 U/L (5-34); Albumin 3.7 g/dL (3.4-4.8); Alkaline Phosphatase 132 U/L (40-110); Anion Gap 20 mmol/L (10-20); BUN (Urea Nitrogen) 7 mg/dL (8.4-25.7); Bilirubin, Total 0.5 mg/dL (0.2-1.2); Calc. Creatinine Clearance 0 mL/min (70-130); Calcium 8.7 mg/dL (7.8-10.44); Carbon Dioxide 16 mmol/L (23-31); Chloride 94 mmol/L (98-107); Glucose 84 mg/dL (80-115); Lipase 84 U/L (8-78); Potassium 4.1 mmol/L (3.5-5.1); Protein, Total 6.7 g/dL (5.8-8.1); Sodium 126 mmol/L (136-145)
[2021-06-13] MEDS ORDERED: Ondansetron PF 4 MG/2 ML Vial IVP PRN (00:06)
[2021-06-13 01:00] LABS: SARS-CoV-2 NAA Rapid Test Not Detected (NotDetected)
[2021-06-13 01:19] LABS: Troponin I Less than 0.010 ng/mL (< 0.028)
[2021-06-13] MEDS ORDERED: Melatonin 3 MG TAB PO PRN (02:27)
[2021-06-13 03:06] VITALS: BMI 22.7
[2021-06-13 04:30] LABS: #Lymphocytes 1.2 thou/uL (1.20-3.40); #Monocytes 0.5 thou/uL (0.11-0.59); #Neutrophils 6.1 thou/uL (1.40-6.50); %Basophils 0.5 % (0.0-1.0); %Eosinophils 0.3 % (0.0-10.0); %Lymphocytes 15.4 % (21.0-51.0); %Monocytes 6.7 % (0.0-10.0); Hemoglobin 13.3 g/dL (14.0-18.0); Mean Corpuscular HGB CONC 34.9 g/dL (32.0-36.0); Mean Corpuscular Hemoglobin 34.7 pg (27.0-31.0); Mean Corpuscular Volume 99.4 fL (78.0-98.0); Mean Platelet Volume 6.7 fL (7.4-10.4); Platelet Count 161 thou/uL (130-400); RBC Distribution Width 13.9 % (11.5-14.5); Red Blood Cell (RBC) Count 3.83 mill/uL (4.70-6.10)
[2021-06-13 04:55] LABS: ALT (SGPT) 61 U/L (8-55); AST (SGOT) 155 U/L (5-34); Albumin 3.3 g/dL (3.4-4.8); Alkaline Phosphatase 124 U/L (40-110); BUN (Urea Nitrogen) 5 mg/dL (8.4-25.7); Bilirubin, Total 0.8 mg/dL (0.2-1.2); Calc. Creatinine Clearance 127 mL/min (70-130); Calcium 8.1 mg/dL (7.8-10.44); Carbon Dioxide 21 mmol/L (23-31); Globulin 2.4 g/dL (2.4-3.5); Glucose 84 mg/dL (80-115); Protein, Total 5.7 g/dL (5.8-8.1)
[2021-06-13 04:57] LABS: Troponin I Less than 0.010 ng/mL (< 0.028)
[2021-06-13 05:03] LABS: Anion Gap 12 mmol/L (10-20); Chloride 100 mmol/L (98-107); Potassium 4.1 mmol/L (3.5-5.1); Sodium 129 mmol/L (136-145)
[2021-06-13] MEDS: Atorvastatin Calcium 40 MG TAB PO SCH (08:31)
[2021-06-13] MEDS: Multivit, Therapeutic 1 TAB PO SCH (08:31)
[2021-06-13] MEDS: Metoprolol Tartrate 25 MG TAB PO SCH ×2 (08:31→21:03)
[2021-06-13] MEDS: Thiamine 100 MG TAB PO SCH (08:31)
[2021-06-13] MEDS: Clopidogrel Bisulfate 75 MG TAB PO SCH (08:31)
[2021-06-13] MEDS: Aspirin 81 mg Enteric Coated Tablet PO SCH (08:31)
[2021-06-13] MEDS: Enoxaparin Sodium 30 MG/0.3 ML SYRINGE SC SCH (08:32)
[2021-06-13] MEDS ORDERED: Lactated Ringer's 1,000 ML IV SCH (09:45)
[2021-06-13 15:20] LABS: Anion Gap 11 mmol/L (10-20); BUN (Urea Nitrogen) 7 mg/dL (8.4-25.7); Calc. Creatinine Clearance 103 mL/min (70-130); Calcium 8.5 mg/dL (7.8-10.44); Carbon Dioxide 24 mmol/L (23-31); Chloride 101 mmol/L (98-107); Glucose 124 mg/dL (80-115); Potassium 4.2 mmol/L (3.5-5.1); Sodium 132 mmol/L (136-145)
[2021-06-13] MEDS ORDERED: MELATONIN 10 MG PO SCH (21:00)
[2021-06-14 07:17] LABS: Anion Gap 10 mmol/L (10-20); BUN (Urea Nitrogen) 6 mg/dL (8.4-25.7); Calc. Creatinine Clearance 114 mL/min (70-130); Calcium 8.7 mg/dL (7.8-10.44); Carbon Dioxide 27 mmol/L (23-31); Chloride 104 mmol/L (98-107); Glucose 82 mg/dL (80-115); Potassium 4.6 mmol/L (3.5-5.1); Sodium 136 mmol/L (136-145)
[2021-06-14] MEDS: Enoxaparin Sodium 30 MG/0.3 ML SYRINGE SC SCH (08:33)
[2021-06-14] MEDS: Atorvastatin Calcium 40 MG TAB PO SCH (08:33)
[2021-06-14] MEDS: Aspirin 81 mg Enteric Coated Tablet PO SCH (08:34)
[2021-06-14] MEDS: Clopidogrel Bisulfate 75 MG TAB PO SCH (08:34)
[2021-06-14] MEDS: Multivit, Therapeutic 1 TAB PO SCH (08:34)
[2021-06-14] MEDS: Thiamine 100 MG TAB PO SCH (08:34)
[2021-06-14] MEDS: Metoprolol Tartrate 25 MG TAB PO SCH (08:34)
[2021-06-14 12:12] VITALS: BP 116/62; TEMP 98
== END 2021-06-14 13:30 | disposition home or self-care (01) | DRG 641 ==
LOC: ERS 20:36 → 2NO 23:17
PROVIDERS: ADMIT Family Medicine; ATTEND Family Medicine
DX: E87.1 Hypo-osmolality and hyponatremia (principal); F33.9 Major depressive disorder, recurrent, unspecified; I47.2 Ventricular tachycardia; Z20.822 Contact with and (suspected) exposure to COVID-19; F10.10 Alcohol abuse, uncomplicated; I10 Essential (primary) hypertension; G47.00 Insomnia, unspecified; K70.10 Alcoholic hepatitis without ascites; K52.9 Noninfective gastroenteritis and colitis, unspecified; L21.9 Seborrheic dermatitis, unspecified; F17.290 Nicotine dependence, other tobacco product, uncomplicated; E86.9 Volume depletion, unspecified; R94.31 Abnormal electrocardiogram [ECG] [EKG]; R11.2 Nausea with vomiting, unspecified; E86.0 Dehydration; F41.1 Generalized anxiety disorder; E78.5 Hyperlipidemia, unspecified; I25.10 Atherosclerotic heart disease of native coronary artery without angina pectoris; I25.2 Old myocardial infarction; Z71.41 Alcohol abuse counseling and surveillance of alcoholic; Z95.5 Presence of coronary angioplasty implant and graft; Z88.8 Allergy status to other drugs, medicaments and biological substances; Z79.899 Other long term (current) drug therapy; Z79.02 Long term (current) use of antithrombotics/antiplatelets; Z79.82 Long term (current) use of aspirin; Z82.3 Family history of stroke; Z82.49 Family history of ischemic heart disease and other diseases of the circulatory system; Z71.6 Tobacco abuse counseling
CPT/HCPCS: 36415; 71045; 80048; 80053; 82533; 83690; 83930; 83935; 84300; 84443; 84484; 85025; 93005; 96374; J1650; J2405; J7120; U0002

== ENCOUNTER 2022-01-14 10:23 | Emergency (ER) | payer OTHER ==
[2022-01-14 11:45] LABS: ALT (SGPT) 78 U/L (8-55); AST (SGOT) 115 U/L (5-34); Albumin 3.3 g/dL (3.4-4.8); Alkaline Phosphatase 169 U/L (40-110); Anion Gap 20 mmol/L (10-20); BUN (Urea Nitrogen) 4 mg/dL (8.4-25.7); Calc. Creatinine Clearance 0 mL/min (70-130); Calcium 8.4 mg/dL (7.8-10.44); Carbon Dioxide 23 mmol/L (23-31); Chloride 93 mmol/L (98-107); Estimated GFR 110; Globulin 2.8 g/dL (2.4-3.5); Glucose 86 mg/dL (80-115); Potassium 3.7 mmol/L (3.5-5.1); Protein, Total 6.1 g/dL (5.8-8.1); Sodium 132 mmol/L (136-145)
[2022-01-14 12:15] LABS: #Lymphocytes 0.4 thou/uL (1.20-3.40); #Monocytes 0.4 thou/uL (0.11-0.59); #Neutrophils 3.7 thou/uL (1.40-6.50); %Basophils 0.6 % (0.0-1.0); %Eosinophils 0.4 % (0.0-10.0); %Lymphocytes 8.7 % (21.0-51.0); %Monocytes 9.2 % (0.0-10.0); %Neutrophils 81.1 % (42.0-75.0); Hemoglobin 14.1 g/dL (14.0-18.0); Mean Corpuscular HGB CONC 33.8 g/dL (32.0-36.0); Mean Corpuscular Hemoglobin 36.1 pg (27.0-31.0); Mean Platelet Volume 8.1 fL (7.4-10.4); Platelet Count 112 thou/uL (130-400); Platelet Morphology Comment Appears Decreased; RBC Distribution Width 13.3 % (11.5-14.5); RBC Morphology Normal; White Blood Cell (WBC) Count 4.6 thou/uL (4.8-10.8)
== END 2022-01-14 13:13 | disposition home or self-care (01) ==
LOC: ERS 10:23
DX: R53.1 Weakness (principal); E87.1 Hypo-osmolality and hyponatremia; I10 Essential (primary) hypertension; I25.119 Atherosclerotic heart disease of native coronary artery with unspecified angina pectoris; I25.2 Old myocardial infarction; I48.91 Unspecified atrial fibrillation; J44.9 Chronic obstructive pulmonary disease, unspecified; E78.5 Hyperlipidemia, unspecified; Z87.891 Personal history of nicotine dependence; Z79.82 Long term (current) use of aspirin; Z79.899 Other long term (current) drug therapy; Z79.01 Long term (current) use of anticoagulants
CPT/HCPCS: 36415; 71045; 80053; 83880; 84484; 85025; 86850; 86900; 86901; 93005

== ENCOUNTER 2022-01-24 03:02 | Inpatient (IN) | payer OTHER ==
[2022-01-24 04:05] LABS: #Lymphocytes 1.1 thou/uL (1.20-3.40); #Monocytes 0.4 thou/uL (0.11-0.59); %Basophils 0.3 % (0.0-1.0); %Eosinophils 0.7 % (0.0-10.0); %Lymphocytes 16.3 % (21.0-51.0); %Monocytes 6.1 % (0.0-10.0); %Neutrophils 76.6 % (42.0-75.0); Hemoglobin 15.3 g/dL (14.0-18.0); Mean Corpuscular HGB CONC 34.3 g/dL (32.0-36.0); Mean Corpuscular Hemoglobin 35.8 pg (27.0-31.0); Mean Platelet Volume 8.4 fL (7.4-10.4); Platelet Count 114 thou/uL (130-400); RBC Distribution Width 13.6 % (11.5-14.5); Red Blood Cell (RBC) Count 4.27 mill/uL (4.70-6.10); White Blood Cell (WBC) Count 6.5 thou/uL (4.8-10.8)
[2022-01-24] MEDS ORDERED: Benzonatate 100 MG CAP ONE (05:00)
[2022-01-24 05:40] LABS: ALT (SGPT) 52 U/L (8-55); AST (SGOT) 115 U/L (5-34); Alkaline Phosphatase 159 U/L (40-110); Anion Gap 17 mmol/L (10-20); BUN (Urea Nitrogen) 6 mg/dL (8.4-25.7); Bilirubin, Total 1.3 mg/dL (0.2-1.2); Calc. Creatinine Clearance 0 mL/min (70-130); Calcium 7.8 mg/dL (7.8-10.44); Carbon Dioxide 28 mmol/L (23-31); Chloride 87 mmol/L (98-107); Estimated GFR 107; Globulin 2.5 g/dL (2.4-3.5); Glucose 92 mg/dL (80-115); Protein, Total 5.5 g/dL (5.8-8.1); Sodium 129 mmol/L (136-145)
[2022-01-24] MEDS ORDERED: Acetaminophen 325 MG TAB PO PRN (07:29)
[2022-01-24] MEDS ORDERED: Lorazepam 1 MG TAB PO PRN ×2 (07:29→17:43)
[2022-01-24] MEDS ORDERED: Lorazepam 2 MG/ML VIAL IM PRN (07:29)
[2022-01-24] MEDS ORDERED: Electrolyte Replacement Protocol 1 EACH FS SCH (07:30)
[2022-01-24] MEDS ORDERED: Lorazepam 1 MG TAB PO SCH (07:30)
[2022-01-24 07:32] LABS: Troponin I Less than 0.010 ng/mL (< 0.028)
[2022-01-24] MEDS ORDERED: Potassium Chloride 20 MEQ TAB PO SCH (08:15)
[2022-01-24] MEDS: Thiamine HCl 200 MG/2 ML VIAL SLOW IVP SCH (08:37)
[2022-01-24] MEDS: Multivit, Therapeutic 1 TAB PO SCH ×2 (08:38→08:39)
[2022-01-24] MEDS ORDERED: Lisinopril 10 MG TAB PO SCH (09:00)
[2022-01-24] MEDS ORDERED: Non-Formulary Item 1 EACH (Omeprazole [Omeprazole] 20 MG Tablet.Dr) PO SCH (09:00)
[2022-01-24] MEDS ORDERED: Non-Formulary Item 1 EACH (Zinc Sulfate [Zinc] 50 MG Tablet) PO SCH (09:00)
[2022-01-24 09:08] LABS: Magnesium 1.2 mg/dL (1.6-2.6)
[2022-01-24] MEDS ORDERED: Sodium Chloride 0.9% 1,000 ML IV SCH (09:15)
[2022-01-24 09:45] VITALS: BMI 21.4
[2022-01-24] MEDS: Folic Acid 1 MG TAB PO SCH (10:21)
[2022-01-24] MEDS: Zinc Sulfate 220 MG CAP PO SCH (10:21)
[2022-01-24] MEDS: Metoprolol Tartrate 25 MG TAB PO SCH ×2 (10:21→19:56)
[2022-01-24] MEDS: Atorvastatin Calcium 40 MG TAB PO SCH (10:21)
[2022-01-24] MEDS: Clopidogrel Bisulfate 75 MG TAB PO SCH (10:22)
[2022-01-24] MEDS: Magnesium Oxide 400 MG TAB PO SCH ×2 (10:22→19:59)
[2022-01-24] MEDS: Aspirin 81 mg Enteric Coated Tablet PO SCH (10:22)
[2022-01-24 10:39] LABS: Troponin I Less than 0.010 ng/mL (< 0.028)
[2022-01-24] MEDS ORDERED: Scopolamine 1.5 mg/72 hour Patch TD SCH (12:00)
[2022-01-24 13:02] LABS: Amphetamine Not Detected (NotDetected); Barbiturates Screen Not Detected (NotDetected); Benzodiazepine Screen Not Detected (NotDetected); Cocaine Metabolite Screen Not Detected (NotDetected); Methadone Not Detected (NotDetected); Methamphetamine Not Detected (NotDetected); Opiate Screen Not Detected (NotDetected); Oxycodone Screen Not Detected (NotDetected); Phencyclidine (PCP) Not Detected (NotDetected); THC/Cannabinoid Screen Not Detected (NotDetected); Tricyclic Screen Detected (NotDetected)
[2022-01-24] MEDS ORDERED: MELATONIN 10 MG PO SCH (21:00)
[2022-01-24] MEDS: Melatonin 3 MG TAB PO SCH (21:56)
[2022-01-25 05:36] LABS: ALT (SGPT) 39 U/L (8-55); AST (SGOT) 82 U/L (5-34); Albumin 2.5 g/dL (3.4-4.8); Alkaline Phosphatase 159 U/L (40-110); Anion Gap 12 mmol/L (10-20); BUN (Urea Nitrogen) 4 mg/dL (8.4-25.7); Bilirubin, Total 1.2 mg/dL (0.2-1.2); Calc. Creatinine Clearance 107 mL/min (70-130); Calcium 7.6 mg/dL (7.8-10.44); Carbon Dioxide 27 mmol/L (23-31); Chloride 98 mmol/L (98-107); Estimated GFR 108; Globulin 2.2 g/dL (2.4-3.5); Glucose 85 mg/dL (80-115); Magnesium 1.2 mg/dL (1.6-2.6); Protein, Total 4.7 g/dL (5.8-8.1); Sodium 134 mmol/L (136-145)
[2022-01-25 05:44] LABS: Hemoglobin 12.2 g/dL (14.0-18.0); Mean Corpuscular HGB CONC 34.2 g/dL (32.0-36.0); Mean Corpuscular Hemoglobin 36.5 pg (27.0-31.0); Mean Platelet Volume 8.7 fL (7.4-10.4); Platelet Count 94 thou/uL (130-400); RBC Distribution Width 13.8 % (11.5-14.5); Red Blood Cell (RBC) Count 3.34 mill/uL (4.70-6.10); White Blood Cell (WBC) Count 4.8 thou/uL (4.8-10.8)
[2022-01-25 06:20] LABS: #Eosinphils 0.1 thou/uL (0.0-0.7); #Lymphocytes 1.2 thou/uL (1.20-3.40); #Monocytes 0.4 thou/uL (0.11-0.59); #Neutrophils 3.1 thou/uL (1.40-6.50); %Basophils 0.4 % (0.0-1.0); %Eosinophils 1.7 % (0.0-10.0); %Lymphocytes 24.8 % (21.0-51.0); %Monocytes 7.5 % (0.0-10.0); %Neutrophils 65.5 % (42.0-75.0)
[2022-01-25] MEDS ORDERED: Lorazepam 1 MG TAB PO PRN (07:29)
[2022-01-25] MEDS ORDERED: Potassium Chloride 20 MEQ TAB PO SCH (08:15)
[2022-01-25] MEDS: Aspirin 81 mg Enteric Coated Tablet PO SCH (08:56)
[2022-01-25] MEDS: Atorvastatin Calcium 40 MG TAB PO SCH (08:56)
[2022-01-25] MEDS: Zinc Sulfate 220 MG CAP PO SCH (08:56)
[2022-01-25] MEDS: Folic Acid 1 MG TAB PO SCH (08:57)
[2022-01-25] MEDS: Multivit, Therapeutic 1 TAB PO SCH (08:57)
[2022-01-25] MEDS: Clopidogrel Bisulfate 75 MG TAB PO SCH (08:57)
[2022-01-25] MEDS: Magnesium Oxide 400 MG TAB PO SCH ×2 (08:57→21:18)
[2022-01-25] MEDS: Thiamine HCl 200 MG/2 ML VIAL SLOW IVP SCH (08:58)
[2022-01-25] MEDS: Melatonin 3 MG TAB PO SCH (21:18)
[2022-01-26] MEDS ORDERED: hydrOXYzine 25 MG TAB PO PRN (02:37)
[2022-01-26 05:27] LABS: #Basophils 0.1 thou/uL (0.0-0.2); #Eosinphils 0.2 thou/uL (0.0-0.7); #Lymphocytes 1.3 thou/uL (1.20-3.40); #Monocytes 0.4 thou/uL (0.11-0.59); #Neutrophils 3.1 thou/uL (1.40-6.50); %Basophils 1.1 % (0.0-1.0); %Eosinophils 3.2 % (0.0-10.0); %Lymphocytes 25.2 % (21.0-51.0); %Monocytes 8.6 % (0.0-10.0); Hemoglobin 11.9 g/dL (14.0-18.0); Mean Corpuscular HGB CONC 34.7 g/dL (32.0-36.0); Mean Corpuscular Hemoglobin 37.1 pg (27.0-31.0); Mean Platelet Volume 8.8 fL (7.4-10.4); Platelet Count 89 thou/uL (130-400); RBC Distribution Width 13.9 % (11.5-14.5); Red Blood Cell (RBC) Count 3.21 mill/uL (4.70-6.10)
[2022-01-26 06:01] LABS: ALT (SGPT) 32 U/L (8-55); AST (SGOT) 58 U/L (5-34); Albumin 2.6 g/dL (3.4-4.8); Alkaline Phosphatase 147 U/L (40-110); Anion Gap 12 mmol/L (10-20); BUN (Urea Nitrogen) Less than 4 mg/dL (8.4-25.7); Bilirubin, Total 1.3 mg/dL (0.2-1.2); Calc. Creatinine Clearance 105 mL/min (70-130); Calcium 7.6 mg/dL (7.8-10.44); Carbon Dioxide 22 mmol/L (23-31); Chloride 102 mmol/L (98-107); Estimated GFR 107; Globulin 2.3 g/dL (2.4-3.5); Glucose 123 mg/dL (80-115); Magnesium 1.2 mg/dL (1.6-2.6); Potassium 3.1 mmol/L (3.5-5.1); Protein, Total 4.9 g/dL (5.8-8.1); Sodium 133 mmol/L (136-145)
[2022-01-26] MEDS ORDERED: Lorazepam 1 MG TAB PO PRN (07:29)
[2022-01-26] MEDS ORDERED: Lorazepam 0.5 MG TAB PO SCH (07:30)
[2022-01-26] MEDS ORDERED: Potassium Chloride 20 MEQ TAB PO SCH (07:45)
[2022-01-26] MEDS: Folic Acid 1 MG TAB PO SCH (08:16)
[2022-01-26] MEDS: Clopidogrel Bisulfate 75 MG TAB PO SCH (08:16)
[2022-01-26] MEDS: Aspirin 81 mg Enteric Coated Tablet PO SCH (08:16)
[2022-01-26] MEDS: Multivit, Therapeutic 1 TAB PO SCH (08:16)
[2022-01-26] MEDS: Atorvastatin Calcium 40 MG TAB PO SCH (08:16)
[2022-01-26] MEDS: Thiamine HCl 200 MG/2 ML VIAL SLOW IVP SCH (08:17)
[2022-01-26] MEDS: Zinc Sulfate 220 MG CAP PO SCH (08:17)
[2022-01-26] MEDS ORDERED: Magnesium Oxide 400 MG TAB PO SCH (10:00)
[2022-01-26 15:50] VITALS: BP 115/75; TEMP 97.7
[2022-01-27] MEDS ORDERED: Lorazepam 0.5 MG TAB PO PRN (07:29)
[2022-01-27] MEDS ORDERED: Thiamine 100 MG TAB PO SCH (09:00)
== END 2022-01-26 18:28 | disposition home or self-care (01) | DRG 640 ==
LOC: ERS 03:02 → OBSVTOIN 07:35 → ERHOLD 07:35 → 2SW 09:29
PROVIDERS: ADMIT Family Medicine; ATTEND Family Medicine
DX: E87.1 Hypo-osmolality and hyponatremia (principal); E43 Unspecified severe protein-calorie malnutrition; I50.32 Chronic diastolic (congestive) heart failure; Z20.822 Contact with and (suspected) exposure to COVID-19; E86.1 Hypovolemia; E87.6 Hypokalemia; E83.42 Hypomagnesemia; K70.10 Alcoholic hepatitis without ascites; R94.31 Abnormal electrocardiogram [ECG] [EKG]; I25.10 Atherosclerotic heart disease of native coronary artery without angina pectoris; J44.9 Chronic obstructive pulmonary disease, unspecified; F10.10 Alcohol abuse, uncomplicated; E78.00 Pure hypercholesterolemia, unspecified; I10 Essential (primary) hypertension; F41.1 Generalized anxiety disorder; F32.9 Major depressive disorder, single episode, unspecified; G47.00 Insomnia, unspecified; F17.210 Nicotine dependence, cigarettes, uncomplicated; D75.89 Other specified diseases of blood and blood-forming organs; D53.9 Nutritional anemia, unspecified; Z95.5 Presence of coronary angioplasty implant and graft; Z88.8 Allergy status to other drugs, medicaments and biological substances; Z79.899 Other long term (current) drug therapy; Z79.02 Long term (current) use of antithrombotics/antiplatelets; Z79.82 Long term (current) use of aspirin; Z98.890 Other specified postprocedural states; Z82.49 Family history of ischemic heart disease and other diseases of the circulatory system; Z68.21 Body mass index [BMI] 21.0-21.9, adult
CPT/HCPCS: 36415; 71045; 80053; 80306; 83735; 83880; 83930; 83935; 84100; 84132; 84300; 84484; 85025; 85610; 93005; G0378; J3411; J7050; U0003; U0005

== ENCOUNTER 2022-05-20 23:11 | Inpatient (IN) | payer OTHER ==
[2022-05-21 00:19] LABS: #Lymphocytes 1.3 thou/uL (1.20-3.40); #Monocytes 0.9 thou/uL (0.11-0.59); #Neutrophils 11.5 thou/uL (1.40-6.50); %Basophils 0.1 % (0.0-1.0); %Eosinophils 0.1 % (0.0-10.0); %Lymphocytes 9.4 % (21.0-51.0); %Monocytes 6.7 % (0.0-10.0); %Neutrophils 83.7 % (42.0-75.0); Hemoglobin 11.4 g/dL (14.0-18.0); Mean Corpuscular HGB CONC 34.8 g/dL (32.0-36.0); Mean Corpuscular Hemoglobin 36.1 pg (27.0-31.0); Mean Platelet Volume 9.1 fL (7.4-10.4); Platelet Count 126 10x3/uL (130-400); RBC Distribution Width 15.4 % (11.5-14.5); Red Blood Cell (RBC) Count 3.17 mill/uL (4.70-6.10); White Blood Cell (WBC) Count 13.8 10x3/uL (4.8-10.8)
[2022-05-21 00:41] LABS: ALT (SGPT) 120 U/L (8-55); AST (SGOT) 118 U/L (5-34); Albumin 3.1 g/dL (3.4-4.8); Alkaline Phosphatase 196 U/L (40-110); Anion Gap 21 mmol/L (10-20); BUN (Urea Nitrogen) 10 mg/dL (8.4-25.7); Bilirubin, Total 1.1 mg/dL (0.2-1.2); Calc. Creatinine Clearance 0 mL/min (70-130); Calcium 8.4 mg/dL (7.8-10.44); Carbon Dioxide 13 mmol/L (23-31); Chloride 85 mmol/L (98-107); Estimated GFR 99; Glucose 87 mg/dL (80-115); Magnesium 1.9 mg/dL (1.6-2.6); Protein, Total 6.1 g/dL (5.8-8.1)
[2022-05-21 00:43] LABS: Sodium 113 mmol/L (136-145)
[2022-05-21 01:37] LABS: Bilirubin 1+ (Negative); Blood, Urine Negative (Negative); Clarity Clear (Clear); Glucose, Urine (Dipstick) Normal (Negative); Ketone, Urine Trace mg/dL (Negative); Leukocyte Negative Leu/uL (Negative); Nitrite Negative (Negative); Protein, Urine (Dipstick) 20 mg/dL (Neg-Trace); Specific Gravity, Urine 1.026 (1.002-1.036)
[2022-05-21 01:53] LABS: Anion Gap 16 mmol/L (10-20); BUN (Urea Nitrogen) 11 mg/dL (8.4-25.7); Calc. Creatinine Clearance 0 mL/min (70-130); Calcium 7.9 mg/dL (7.8-10.44); Carbon Dioxide 17 mmol/L (23-31); Chloride 85 mmol/L (98-107); Estimated GFR 101; Glucose 87 mg/dL (80-115)
[2022-05-21] MEDS ORDERED: Ipratropium/Albuterol 3 ML NEB ONE ×3 (02:03→06:25)
[2022-05-21 02:06] LABS: Potassium 6.2 mmol/L (3.5-5.1); Sodium 112 mmol/L (136-145)
[2022-05-21 03:28] LABS: #Lymphocytes 1.2 thou/uL (1.20-3.40); #Monocytes 0.7 thou/uL (0.11-0.59); #Neutrophils 9.4 thou/uL (1.40-6.50); %Basophils 0.1 % (0.0-1.0); %Eosinophils 0.2 % (0.0-10.0); %Lymphocytes 10.6 % (21.0-51.0); %Monocytes 5.9 % (0.0-10.0); %Neutrophils 83.2 % (42.0-75.0); Hemoglobin 10.7 g/dL (14.0-18.0); Mean Corpuscular HGB CONC 34.6 g/dL (32.0-36.0); Mean Corpuscular Hemoglobin 35.8 pg (27.0-31.0); Mean Platelet Volume 8.9 fL (7.4-10.4); Platelet Count 114 10x3/uL (130-400); RBC Distribution Width 15.2 % (11.5-14.5); Red Blood Cell (RBC) Count 2.99 mill/uL (4.70-6.10); White Blood Cell (WBC) Count 11.3 10x3/uL (4.8-10.8)
[2022-05-21] MEDS ORDERED: Lorazepam 2 MG/ML VIAL IM PRN (03:28)
[2022-05-21] MEDS ORDERED: Ondansetron ODT 4 MG TAB PO PRN (03:28)
[2022-05-21] MEDS ORDERED: Lorazepam 1 MG TAB PO PRN (03:28)
[2022-05-21] MEDS ORDERED: Electrolyte Replacement Protocol 1 EACH FS SCH (03:30)
[2022-05-21 03:49] LABS: Phosphorus 4.4 mg/dL (2.3-4.7)
[2022-05-21 03:51] LABS: Alcohol 16 mg/dL (Less than 10); Lipase 56 U/L (8-78)
[2022-05-21 03:53] LABS: ALT (SGPT) 110 U/L (8-55); AST (SGOT) 110 U/L (5-34); Albumin 2.9 g/dL (3.4-4.8); Alkaline Phosphatase 179 U/L (40-110); Anion Gap 17 mmol/L (10-20); BUN (Urea Nitrogen) 10 mg/dL (8.4-25.7); Bilirubin, Total 1.1 mg/dL (0.2-1.2); Calc. Creatinine Clearance 0 mL/min (70-130); Calcium 7.9 mg/dL (7.8-10.44); Carbon Dioxide 16 mmol/L (23-31); Chloride 86 mmol/L (98-107); Estimated GFR 101; Globulin 2.7 g/dL (2.4-3.5); Glucose 86 mg/dL (80-115); Potassium 5.9 mmol/L (3.5-5.1); Protein, Total 5.6 g/dL (5.8-8.1)
[2022-05-21 03:54] LABS: Troponin I Less than 0.010 ng/mL (< 0.028)
[2022-05-21 03:59] LABS: Sodium 113 mmol/L (136-145)
[2022-05-21 04:08] LABS: HBSAg Index 0.26 S/CO (0-0.99); Hep B Surf Ag Non-Reactive S/CO (NonReactive); Hep C IgG Ab Non-Reactive (NonReactive); Hep C Index 0.09 S/CO (0-0.79)
[2022-05-21 04:09] LABS: Hep A IgM AB Non-Reactive (NonReactive); Hep A IgM S/CO 0.18 S/CO (0-0.79)
[2022-05-21 04:10] LABS: HBCM Index 0.06 S/CO (0-0.79); Hepatitis B Core IgM Abs Non-Reactive (NonReactive)
[2022-05-21] MEDS: Thiamine HCl 200 MG/2 ML VIAL SLOW IVP SCH (04:41)
[2022-05-21] MEDS ORDERED: Ondansetron PF 4 MG/2 ML Vial IVP PRN (04:44)
[2022-05-21] MEDS ORDERED: Sodium Chloride 0.9% 1,000 ML IV SCH (04:45)
[2022-05-21] MEDS ORDERED: Ipratropium/Albuterol 3 ML NEB NEB PRN ×2 (04:45→06:00)
[2022-05-21] MEDS: Ipratropium/Albuterol 3 ML NEB NEB SCH ×3 (06:30→22:19)
[2022-05-21 07:08] LABS: Troponin I Less than 0.010 ng/mL (< 0.028)
[2022-05-21] MEDS ORDERED: Folic Acid 1 MG TAB ONE (07:41)
[2022-05-21] MEDS ORDERED: Aspirin Chewable 81 MG TAB ONE (07:42)
[2022-05-21] MEDS ORDERED: predniSONE 20 MG TAB ONE (07:47)
[2022-05-21 07:53] VITALS: BMI 23.1
[2022-05-21] MEDS: Aspirin 81 mg Enteric Coated Tablet PO SCH (07:53)
[2022-05-21] MEDS: predniSONE 20 MG TAB PO SCH (07:53)
[2022-05-21] MEDS: Folic Acid 1 MG TAB PO SCH (07:53)
[2022-05-21 07:55] LABS: Anion Gap 15 mmol/L (10-20); BUN (Urea Nitrogen) 11 mg/dL (8.4-25.7); Calc. Creatinine Clearance 91 mL/min (70-130); Carbon Dioxide 20 mmol/L (23-31); Chloride 86 mmol/L (98-107); Estimated GFR 100; Glucose 90 mg/dL (80-115); Potassium 5.4 mmol/L (3.5-5.1)
[2022-05-21 07:59] LABS: Amphetamine Not Detected (NotDetected); Barbiturates Screen Not Detected (NotDetected); Benzodiazepine Screen Not Detected (NotDetected); Cocaine Metabolite Screen Not Detected (NotDetected); Methadone Not Detected (NotDetected); Methamphetamine Not Detected (NotDetected); Opiate Screen Not Detected (NotDetected); Oxycodone Screen Not Detected (NotDetected); Phencyclidine (PCP) Not Detected (NotDetected); THC/Cannabinoid Screen Not Detected (NotDetected); Tricyclic Screen Detected (NotDetected)
[2022-05-21 08:02] LABS: Sodium 116 mmol/L (136-145)
[2022-05-21 08:17] LABS: SARS-CoV-2 NAA Rapid Test Not Detected (NotDetected)
[2022-05-21] MEDS: chlordiazePOXIDE HCl 25 MG CAP PO SCH ×3 (09:26→23:51)
[2022-05-21] MEDS: Magnesium Oxide 400 MG TAB PO SCH ×2 (09:26→20:37)
[2022-05-21] MEDS: Atorvastatin Calcium 40 MG TAB PO SCH (09:26)
[2022-05-21] MEDS: Multivit, Therapeutic 1 TAB PO SCH (09:27)
[2022-05-21] MEDS ORDERED: Zinc Sulfate 220 MG CAP ONE (09:32)
[2022-05-21] MEDS: Zinc Sulfate 220 MG CAP PO SCH (09:33)
[2022-05-21] MEDS ORDERED: Albumin 25% 25 GM/100 ML BOT IVPB SCH (12:00)
[2022-05-21 12:39] LABS: Anion Gap 17 mmol/L (10-20); BUN (Urea Nitrogen) 10 mg/dL (8.4-25.7); Calc. Creatinine Clearance 97 mL/min (70-130); Calcium 8.3 mg/dL (7.8-10.44); Carbon Dioxide 18 mmol/L (23-31); Chloride 89 mmol/L (98-107); Estimated GFR 102; Glucose 105 mg/dL (80-115)
[2022-05-21 12:50] LABS: Sodium 119 mmol/L (136-145)
[2022-05-21 16:24] LABS: Anion Gap 18 mmol/L (10-20); BUN (Urea Nitrogen) 10 mg/dL (8.4-25.7); Calc. Creatinine Clearance 100 mL/min (70-130); Calcium 8.2 mg/dL (7.8-10.44); Carbon Dioxide 18 mmol/L (23-31); Chloride 91 mmol/L (98-107); Estimated GFR 103; Glucose 111 mg/dL (80-115); Potassium 4.7 mmol/L (3.5-5.1); Sodium 122 mmol/L (136-145)
[2022-05-21] MEDS ORDERED: Rivaroxaban 10 MG TAB PO SCH (17:00)
[2022-05-21] MEDS ORDERED: Dextrose 5% in Water 1,000 ML IV SCH (17:15)
[2022-05-21] MEDS: Melatonin 3 MG TAB PO SCH (20:34)
[2022-05-21] MEDS: QUEtiapine 25 MG TAB PO SCH (20:34)
[2022-05-21 20:46] LABS: Anion Gap 15 mmol/L (10-20); BUN (Urea Nitrogen) 9 mg/dL (8.4-25.7); Calc. Creatinine Clearance 105 mL/min (70-130); Calcium 8.2 mg/dL (7.8-10.44); Carbon Dioxide 21 mmol/L (23-31); Chloride 92 mmol/L (98-107); Estimated GFR 105; Glucose 141 mg/dL (80-115); Potassium 4.2 mmol/L (3.5-5.1); Sodium 124 mmol/L (136-145)
[2022-05-21] MEDS: Dextrose 5% in Water 1,000 ML IV SCH (22:11)
[2022-05-21 22:41] LABS: PTT 28.3 sec (22.9-36.1); Prothrombin Time 13.6 sec (12.0-14.7)
[2022-05-21 23:41] LABS: Anion Gap 16 mmol/L (10-20); BUN (Urea Nitrogen) 7 mg/dL (8.4-25.7); Calc. Creatinine Clearance 105 mL/min (70-130); Calcium 8.5 mg/dL (7.8-10.44); Carbon Dioxide 21 mmol/L (23-31); Chloride 89 mmol/L (98-107); Estimated GFR 105; Glucose 130 mg/dL (80-115); Sodium 122 mmol/L (136-145)
[2022-05-22 01:04] LABS: Campy jejuni + coli by PCR Negative (Negative); STEC Shiga Toxin 1+2 Negative (Negative); Salmonella spp. by PCR Negative (Negative); Shigella spp + EIEC by PCR Negative (Negative)
[2022-05-22] MEDS: Dextrose 5% in Water 1,000 ML IV SCH (01:45)
[2022-05-22] MEDS: Thiamine HCl 200 MG/2 ML VIAL SLOW IVP SCH (03:15)
[2022-05-22] MEDS ORDERED: Lorazepam 1 MG TAB PO PRN (03:28)
[2022-05-22 04:54] LABS: ALT (SGPT) 74 U/L (8-55); AST (SGOT) 86 U/L (5-34); Albumin 2.8 g/dL (3.4-4.8); Alkaline Phosphatase 158 U/L (40-110); Anion Gap 13 mmol/L (10-20); BUN (Urea Nitrogen) 6 mg/dL (8.4-25.7); Bilirubin, Total 1.4 mg/dL (0.2-1.2); Calc. Creatinine Clearance 113 mL/min (70-130); Calcium 7.9 mg/dL (7.8-10.44); Carbon Dioxide 21 mmol/L (23-31); Chloride 92 mmol/L (98-107); Estimated GFR 107; Globulin 2.1 g/dL (2.4-3.5); Glucose 130 mg/dL (80-115); Potassium 3.8 mmol/L (3.5-5.1); Protein, Total 4.9 g/dL (5.8-8.1); Sodium 122 mmol/L (136-145)
[2022-05-22] MEDS: Ipratropium/Albuterol 3 ML NEB NEB SCH ×7 (06:02→22:27)
[2022-05-22 06:19] LABS: Anisocytosis SLIGHT = 6-15 cells (100X) (0-5/hpf); Band 8 % (5-11); Lymphocytes 18 % (21-51); MDiff Complete? YES; Macrocytosis SLIGHT = 6-15 cells (100X) (0-5/hpf); Mean Corpuscular HGB CONC 34.7 g/dL (32.0-36.0); Mean Corpuscular Hemoglobin 36.1 pg (27.0-31.0); Mean Platelet Volume 8.6 fL (7.4-10.4); Monocytes 8 % (0-10); Neutrophil 66 % (42-75); Nucleated RBC 12 % (0); Platelet Count 119 10x3/uL (130-400); Platelet Morphology Comment Appears Decreased; RBC Distribution Width 15.7 % (11.5-14.5); Red Blood Cell (RBC) Count 2.77 mill/uL (4.70-6.10); White Blood Cell (WBC) Count 8.1 10x3/uL (4.8-10.8)
[2022-05-22] MEDS ORDERED: Dextrose 5% in Water 1,000 ML IV SCH (07:15)
[2022-05-22] MEDS ORDERED: Albumin 25% 25 GM/100 ML BOT IVPB SCH (07:30)
[2022-05-22] MEDS ORDERED: Furosemide 40 MG/4 ML VIAL SLOW IVP SCH (08:15)
[2022-05-22 09:12] LABS: Anion Gap 11 mmol/L (10-20); BUN (Urea Nitrogen) 4 mg/dL (8.4-25.7); Calc. Creatinine Clearance 117 mL/min (70-130); Carbon Dioxide 23 mmol/L (23-31); Chloride 93 mmol/L (98-107); Estimated GFR 108; Glucose 121 mg/dL (80-115); Sodium 123 mmol/L (136-145)
[2022-05-22] MEDS: Zinc Sulfate 220 MG CAP PO SCH (10:13)
[2022-05-22] MEDS: Multivit, Therapeutic 1 TAB PO SCH (10:14)
[2022-05-22] MEDS: Aspirin 81 mg Enteric Coated Tablet PO SCH (10:14)
[2022-05-22] MEDS: chlordiazePOXIDE HCl 25 MG CAP PO SCH ×2 (10:14→17:05)
[2022-05-22] MEDS: Magnesium Oxide 400 MG TAB PO SCH ×2 (10:14→21:54)
[2022-05-22] MEDS: Folic Acid 1 MG TAB PO SCH (10:14)
[2022-05-22] MEDS: Atorvastatin Calcium 40 MG TAB PO SCH (10:14)
[2022-05-22] MEDS: predniSONE 20 MG TAB PO SCH (10:15)
[2022-05-22 13:19] LABS: Anion Gap 13 mmol/L (10-20); BUN (Urea Nitrogen) 4 mg/dL (8.4-25.7); Calc. Creatinine Clearance 115 mL/min (70-130); Calcium 7.9 mg/dL (7.8-10.44); Carbon Dioxide 24 mmol/L (23-31); Chloride 91 mmol/L (98-107); Estimated GFR 108; Glucose 160 mg/dL (80-115); Potassium 3.7 mmol/L (3.5-5.1); Sodium 124 mmol/L (136-145)
[2022-05-22 16:45] LABS: Anion Gap 13 mmol/L (10-20); BUN (Urea Nitrogen) 4 mg/dL (8.4-25.7); Calc. Creatinine Clearance 102 mL/min (70-130); Calcium 7.8 mg/dL (7.8-10.44); Carbon Dioxide 23 mmol/L (23-31); Chloride 90 mmol/L (98-107); Estimated GFR 104; Glucose 171 mg/dL (80-115); Potassium 3.8 mmol/L (3.5-5.1); Sodium 122 mmol/L (136-145)
[2022-05-22] MEDS: QUEtiapine 25 MG TAB PO SCH (21:54)
[2022-05-22] MEDS: Melatonin 3 MG TAB PO SCH (21:54)
[2022-05-22 22:49] LABS: Anion Gap 15 mmol/L (10-20); BUN (Urea Nitrogen) 6 mg/dL (8.4-25.7); Calc. Creatinine Clearance 101 mL/min (70-130); Calcium 8.5 mg/dL (7.8-10.44); Carbon Dioxide 22 mmol/L (23-31); Chloride 89 mmol/L (98-107); Estimated GFR 103; Glucose 130 mg/dL (80-115); Potassium 4.3 mmol/L (3.5-5.1); Sodium 122 mmol/L (136-145)
[2022-05-23] MEDS: Calcium Carbonate 500 MG ChewTAB PO PRN (00:30)
[2022-05-23] MEDS: chlordiazePOXIDE HCl 25 MG CAP PO SCH ×3 (00:30→20:59)
[2022-05-23] MEDS: Ipratropium/Albuterol 3 ML NEB NEB SCH ×6 (02:20→23:31)
[2022-05-23] MEDS ORDERED: Simethicone Chewable 80 MG TAB PO PRN (02:36)
[2022-05-23] MEDS ORDERED: Lorazepam 1 MG TAB PO PRN (03:28)
[2022-05-23] MEDS: Thiamine HCl 200 MG/2 ML VIAL SLOW IVP SCH (04:35)
[2022-05-23 05:25] LABS: ALT (SGPT) 92 U/L (8-55); AST (SGOT) 115 U/L (5-34); Albumin 3.1 g/dL (3.4-4.8); Alkaline Phosphatase 181 U/L (40-110); Anion Gap 18 mmol/L (10-20); BUN (Urea Nitrogen) 7 mg/dL (8.4-25.7); Bilirubin, Total 1.9 mg/dL (0.2-1.2); Calc. Creatinine Clearance 104 mL/min (70-130); Calcium 8.5 mg/dL (7.8-10.44); Carbon Dioxide 19 mmol/L (23-31); Chloride 88 mmol/L (98-107); Estimated GFR 104; Globulin 3.1 g/dL (2.4-3.5); Glucose 93 mg/dL (80-115); Potassium 4.8 mmol/L (3.5-5.1); Protein, Total 6.2 g/dL (5.8-8.1); Sodium 120 mmol/L (136-145)
[2022-05-23 05:40] LABS: Band 17 % (5-11); Hemoglobin 12.2 g/dL (14.0-18.0); Lymphocytes 10 % (21-51); MDiff Complete? YES; Macrocytosis SLIGHT = 6-15 cells (100X) (0-5/hpf); Mean Corpuscular Hemoglobin 36.2 pg (27.0-31.0); Mean Platelet Volume 8.8 fL (7.4-10.4); Monocytes 10 % (0-10); Neutrophil 63 % (42-75); Platelet Count 152 10x3/uL (130-400); Polychromasia SLIGHT = 2-3 cells (100X) (0-2/hpf); RBC Distribution Width 15.7 % (11.5-14.5); Red Blood Cell (RBC) Count 3.36 mill/uL (4.70-6.10); White Blood Cell (WBC) Count 12.2 10x3/uL (4.8-10.8)
[2022-05-23] MEDS ORDERED: Dicyclomine 20 MG TAB PO PRN (05:45)
[2022-05-23 08:14] LABS: Anion Gap 15 mmol/L (10-20); BUN (Urea Nitrogen) 8 mg/dL (8.4-25.7); Calc. Creatinine Clearance 107 mL/min (70-130); Calcium 8.4 mg/dL (7.8-10.44); Carbon Dioxide 23 mmol/L (23-31); Chloride 87 mmol/L (98-107); Estimated GFR 104; Glucose 97 mg/dL (80-115); Potassium 4.2 mmol/L (3.5-5.1); Sodium 121 mmol/L (136-145)
[2022-05-23] MEDS ORDERED: Sodium Chloride 0.9% 500 ML IV SCH (09:00)
[2022-05-23] MEDS: Sodium Bicarbonate Tab 325 MG TAB PO SCH ×3 (10:37→20:57)
[2022-05-23] MEDS: Aspirin 81 mg Enteric Coated Tablet PO SCH (10:37)
[2022-05-23] MEDS: Folic Acid 1 MG TAB PO SCH (10:38)
[2022-05-23] MEDS: Magnesium Oxide 400 MG TAB PO SCH ×2 (10:38→21:03)
[2022-05-23] MEDS: predniSONE 20 MG TAB PO SCH (10:38)
[2022-05-23] MEDS: Multivit, Therapeutic 1 TAB PO SCH (10:38)
[2022-05-23] MEDS: Atorvastatin Calcium 40 MG TAB PO SCH (10:38)
[2022-05-23] MEDS: Zinc Sulfate 220 MG CAP PO SCH (10:38)
[2022-05-23 12:57] LABS: Anion Gap 16 mmol/L (10-20); BUN (Urea Nitrogen) 9 mg/dL (8.4-25.7); Calc. Creatinine Clearance 109 mL/min (70-130); Calcium 8.2 mg/dL (7.8-10.44); Carbon Dioxide 23 mmol/L (23-31); Chloride 87 mmol/L (98-107); Estimated GFR 105; Glucose 92 mg/dL (80-115); Potassium 4.1 mmol/L (3.5-5.1); Sodium 122 mmol/L (136-145)
[2022-05-23] MEDS: Ondansetron PF 4 MG/2 ML Vial IVP SCH ×3 (13:31→23:23)
[2022-05-23 16:31] LABS: Anion Gap 17 mmol/L (10-20); BUN (Urea Nitrogen) 10 mg/dL (8.4-25.7); Calc. Creatinine Clearance 100 mL/min (70-130); Calcium 8.2 mg/dL (7.8-10.44); Carbon Dioxide 19 mmol/L (23-31); Chloride 87 mmol/L (98-107); Estimated GFR 102; Glucose 103 mg/dL (80-115); Potassium 4.3 mmol/L (3.5-5.1)
[2022-05-23 16:42] LABS: Sodium 119 mmol/L (136-145)
[2022-05-23] MEDS ORDERED: Sodium Chloride 1 GM TAB PO SCH (18:00)
[2022-05-23] MEDS: Albumin 25% 25 GM/100 ML BOT IVPB SCH ×2 (18:28→21:40)
[2022-05-23] MEDS: Melatonin 3 MG TAB PO SCH (20:58)
[2022-05-23] MEDS: QUEtiapine 25 MG TAB PO SCH (21:00)
[2022-05-23] MEDS: Sodium Chloride 1 GM TAB PO SCH (21:07)
[2022-05-24 00:46] LABS: Anion Gap 16 mmol/L (10-20); BUN (Urea Nitrogen) 11 mg/dL (8.4-25.7); Calc. Creatinine Clearance 93 mL/min (70-130); Calcium 8.2 mg/dL (7.8-10.44); Carbon Dioxide 23 mmol/L (23-31); Chloride 89 mmol/L (98-107); Estimated GFR 100; Glucose 78 mg/dL (80-115); Potassium 4.5 mmol/L (3.5-5.1); Sodium 123 mmol/L (136-145)
[2022-05-24] MEDS: Thiamine 100 MG TAB PO SCH (02:28)
[2022-05-24] MEDS: Albumin 25% 25 GM/100 ML BOT IVPB SCH (02:28)
[2022-05-24] MEDS: Ipratropium/Albuterol 3 ML NEB NEB SCH ×6 (03:34→23:21)
[2022-05-24 04:46] LABS: Hemoglobin 9.8 g/dL (14.0-18.0); Mean Corpuscular HGB CONC 34.1 g/dL (32.0-36.0); Mean Corpuscular Hemoglobin 36.1 pg (27.0-31.0); Mean Platelet Volume 8.5 fL (7.4-10.4); Platelet Count 123 10x3/uL (130-400); RBC Distribution Width 16.1 % (11.5-14.5); Red Blood Cell (RBC) Count 2.72 mill/uL (4.70-6.10); White Blood Cell (WBC) Count 7.9 10x3/uL (4.8-10.8)
[2022-05-24] MEDS: Ondansetron PF 4 MG/2 ML Vial IVP SCH ×3 (04:57→17:46)
[2022-05-24 05:07] LABS: ALT (SGPT) 47 U/L (8-55); AST (SGOT) 65 U/L (5-34); Albumin 3.8 g/dL (3.4-4.8); Alkaline Phosphatase 108 U/L (40-110); Anion Gap 17 mmol/L (10-20); BUN (Urea Nitrogen) 10 mg/dL (8.4-25.7); Calc. Creatinine Clearance 98 mL/min (70-130); Calcium 8.1 mg/dL (7.8-10.44); Carbon Dioxide 24 mmol/L (23-31); Chloride 88 mmol/L (98-107); Estimated GFR 101; Globulin 1.7 g/dL (2.4-3.5); Glucose 69 mg/dL (80-115); Potassium 3.8 mmol/L (3.5-5.1); Protein, Total 5.5 g/dL (5.8-8.1); Sodium 125 mmol/L (136-145)
[2022-05-24 05:39] LABS: MDiff Complete? YES
[2022-05-24 05:40] LABS: Anisocytosis SLIGHT = 6-15 cells (100X) (0-5/hpf); Band 31 % (5-11); Lymphocytes 13 % (21-51); Metamyelocyte 1 % (0-0); Monocytes 8 % (0-10); Myelocyte 1 % (0-0); Neutrophil 46 % (42-75); Nucleated RBC 2 % (0); Platelet Morphology Comment Appears Decreased; Polychromasia SLIGHT = 2-3 cells (100X) (0-2/hpf); Vacuoles SLIGHT
[2022-05-24] MEDS ORDERED: Ipratropium/Albuterol 3 ML NEB NEB SCH (09:15)
[2022-05-24] MEDS: predniSONE 20 MG TAB PO SCH (10:08)
[2022-05-24] MEDS: Sodium Bicarbonate Tab 325 MG TAB PO SCH (10:08)
[2022-05-24] MEDS: Atorvastatin Calcium 40 MG TAB PO SCH (10:09)
[2022-05-24] MEDS: Aspirin 81 mg Enteric Coated Tablet PO SCH (10:09)
[2022-05-24] MEDS: Zinc Sulfate 220 MG CAP PO SCH (10:09)
[2022-05-24] MEDS: Folic Acid 1 MG TAB PO SCH (10:09)
[2022-05-24] MEDS: Magnesium Oxide 400 MG TAB PO SCH ×2 (10:10→21:28)
[2022-05-24] MEDS: chlordiazePOXIDE HCl 25 MG CAP PO SCH (10:10)
[2022-05-24] MEDS: Multivit, Therapeutic 1 TAB PO SCH (10:10)
[2022-05-24 10:48] LABS: Anion Gap 16 mmol/L (10-20); BUN (Urea Nitrogen) 11 mg/dL (8.4-25.7); Calc. Creatinine Clearance 95 mL/min (70-130); Calcium 8.5 mg/dL (7.8-10.44); Carbon Dioxide 27 mmol/L (23-31); Chloride 88 mmol/L (98-107); Estimated GFR 101; Glucose 68 mg/dL (80-115); Potassium 3.3 mmol/L (3.5-5.1); Sodium 128 mmol/L (136-145)
[2022-05-24] MEDS ORDERED: Potassium Chloride 20 MEQ TAB PO SCH ×2 (11:15→17:00)
[2022-05-24] MEDS ORDERED: Azithromycin 250 MG TAB PO SCH (11:30)
[2022-05-24] MEDS ORDERED: Furosemide 20 MG TAB PO SCH (13:15)
[2022-05-24] MEDS: Sodium Chloride 1 GM TAB PO SCH ×2 (14:07→21:28)
[2022-05-24] MEDS: Calcium Carbonate 500 MG ChewTAB PO PRN (14:07)
[2022-05-24] MEDS ORDERED: Metoprolol Tartrate 25 MG TAB PO SCH (16:00)
[2022-05-24] MEDS ORDERED: Furosemide 20 MG/2 ML VIAL SLOW IVP SCH (16:00)
[2022-05-24 16:50] LABS: Anion Gap 21 mmol/L (10-20); BUN (Urea Nitrogen) 10 mg/dL (8.4-25.7); Calc. Creatinine Clearance 103 mL/min (70-130); Calcium 7.9 mg/dL (7.8-10.44); Carbon Dioxide 17 mmol/L (23-31); Chloride 93 mmol/L (98-107); Estimated GFR 103; Glucose 68 mg/dL (80-115); Sodium 127 mmol/L (136-145)
[2022-05-24] MEDS: Lorazepam 0.5 MG TAB PO PRN (21:29)
[2022-05-24] MEDS: QUEtiapine 25 MG TAB PO SCH (21:29)
[2022-05-24] MEDS: Melatonin 3 MG TAB PO SCH (21:31)
[2022-05-25] MEDS: Ondansetron PF 4 MG/2 ML Vial IVP SCH ×4 (00:02→18:45)
[2022-05-25] MEDS: Ipratropium/Albuterol 3 ML NEB NEB SCH ×6 (00:45→23:14)
[2022-05-25] MEDS: Thiamine 100 MG TAB PO SCH (03:20)
[2022-05-25 04:45] LABS: Hemoglobin 10.2 g/dL (14.0-18.0); Mean Corpuscular HGB CONC 33.8 g/dL (32.0-36.0); Mean Corpuscular Hemoglobin 36.3 pg (27.0-31.0); Platelet Count 128 10x3/uL (130-400); RBC Distribution Width 15.8 % (11.5-14.5); Red Blood Cell (RBC) Count 2.81 mill/uL (4.70-6.10); White Blood Cell (WBC) Count 5.9 10x3/uL (4.8-10.8)
[2022-05-25 05:12] LABS: ALT (SGPT) 48 U/L (8-55); AST (SGOT) 85 U/L (5-34); Albumin 2.9 g/dL (3.4-4.8); Alkaline Phosphatase 109 U/L (40-110); Anion Gap 14 mmol/L (10-20); BUN (Urea Nitrogen) 11 mg/dL (8.4-25.7); Bilirubin, Total 1.6 mg/dL (0.2-1.2); Calc. Creatinine Clearance 101 mL/min (70-130); Calcium 7.7 mg/dL (7.8-10.44); Carbon Dioxide 25 mmol/L (23-31); Chloride 95 mmol/L (98-107); Estimated GFR 103; Globulin 1.9 g/dL (2.4-3.5); Glucose 66 mg/dL (80-115); Magnesium 2.1 mg/dL (1.6-2.6); Potassium 3.8 mmol/L (3.5-5.1); Protein, Total 4.8 g/dL (5.8-8.1); Sodium 130 mmol/L (136-145)
[2022-05-25 05:34] LABS: Band 32 % (5-11); Lymphocytes 9 % (21-51); MDiff Complete? YES; Monocytes 14 % (0-10); Neutrophil 45 % (42-75)
[2022-05-25] MEDS ORDERED: Magnesium 2 GM/50 ML(in water) 2 GM in Premix Bag 1 BAG IVPB SCH (06:45)
[2022-05-25] MEDS ORDERED: Potassium Chloride 20 MEQ TAB PO SCH ×2 (08:00→09:30)
[2022-05-25] MEDS ORDERED: Metoprolol Tartrate 25 MG TAB PO SCH ×2 (09:00→21:00)
[2022-05-25] MEDS: Multivit, Therapeutic 1 TAB PO SCH (09:14)
[2022-05-25] MEDS: Zinc Sulfate 220 MG CAP PO SCH (09:14)
[2022-05-25] MEDS: Atorvastatin Calcium 40 MG TAB PO SCH (09:14)
[2022-05-25] MEDS: Folic Acid 1 MG TAB PO SCH (09:15)
[2022-05-25] MEDS: predniSONE 20 MG TAB PO SCH (09:16)
[2022-05-25] MEDS: Furosemide 20 MG TAB PO SCH (09:16)
[2022-05-25] MEDS: Aspirin 81 mg Enteric Coated Tablet PO SCH (09:16)
[2022-05-25] MEDS: Magnesium Oxide 400 MG TAB PO SCH ×2 (09:19→22:15)
[2022-05-25] MEDS: Sodium Chloride 1 GM TAB PO SCH ×3 (12:16→22:15)
[2022-05-25] MEDS: Azithromycin 250 MG TAB PO SCH (12:16)
[2022-05-25] MEDS ORDERED: Lactated Ringer's 250 ML IV SCH (14:00)
[2022-05-25] MEDS: Mometasone 100 MCG/Formoterol 5 MCG 120 PUFF INHALER INH SCH (19:04)
[2022-05-25] MEDS: Melatonin 3 MG TAB PO SCH (22:14)
[2022-05-25] MEDS: Lorazepam 0.5 MG TAB PO PRN (22:15)
[2022-05-25] MEDS: QUEtiapine 25 MG TAB PO SCH (22:16)
[2022-05-26] MEDS: Ondansetron PF 4 MG/2 ML Vial IVP SCH ×4 (02:31→19:35)
[2022-05-26] MEDS: Ipratropium/Albuterol 3 ML NEB NEB SCH ×6 (03:18→22:25)
[2022-05-26] MEDS: Thiamine 100 MG TAB PO SCH (04:52)
[2022-05-26 04:56] LABS: #Lymphocytes 0.8 thou/uL (1.20-3.40); #Monocytes 1.1 thou/uL (0.11-0.59); #Neutrophils 6.1 thou/uL (1.40-6.50); %Eosinophils 0.1 % (0.0-10.0); %Lymphocytes 10.2 % (21.0-51.0); %Monocytes 13.4 % (0.0-10.0); %Neutrophils 76.2 % (42.0-75.0); Mean Corpuscular HGB CONC 32.8 g/dL (32.0-36.0); Mean Corpuscular Hemoglobin 35.2 pg (27.0-31.0); Mean Platelet Volume 8.2 fL (7.4-10.4); Platelet Count 147 10x3/uL (130-400); RBC Distribution Width 15.9 % (11.5-14.5); Red Blood Cell (RBC) Count 2.83 mill/uL (4.70-6.10)
[2022-05-26 05:16] LABS: ALT (SGPT) 44 U/L (8-55); AST (SGOT) 68 U/L (5-34); Albumin 2.9 g/dL (3.4-4.8); Alkaline Phosphatase 116 U/L (40-110); Anion Gap 11 mmol/L (10-20); BUN (Urea Nitrogen) 10 mg/dL (8.4-25.7); Bilirubin, Total 0.9 mg/dL (0.2-1.2); Calc. Creatinine Clearance 106 mL/min (70-130); Calcium 7.9 mg/dL (7.8-10.44); Carbon Dioxide 26 mmol/L (23-31); Chloride 99 mmol/L (98-107); Estimated GFR 104; Globulin 1.8 g/dL (2.4-3.5); Glucose 104 mg/dL (80-115); Potassium 4.2 mmol/L (3.5-5.1); Protein, Total 4.7 g/dL (5.8-8.1); Sodium 132 mmol/L (136-145)
[2022-05-26] MEDS: Mometasone 100 MCG/Formoterol 5 MCG 120 PUFF INHALER INH SCH ×2 (07:40→18:55)
[2022-05-26] MEDS: Aspirin 81 mg Enteric Coated Tablet PO SCH (10:26)
[2022-05-26] MEDS: Atorvastatin Calcium 40 MG TAB PO SCH (10:27)
[2022-05-26] MEDS: Zinc Sulfate 220 MG CAP PO SCH (10:28)
[2022-05-26] MEDS: predniSONE 20 MG TAB PO SCH (10:28)
[2022-05-26] MEDS: Multivit, Therapeutic 1 TAB PO SCH (10:28)
[2022-05-26] MEDS: Magnesium Oxide 400 MG TAB PO SCH ×2 (10:29→21:23)
[2022-05-26] MEDS: Folic Acid 1 MG TAB PO SCH (10:29)
[2022-05-26] MEDS: Sodium Chloride 1 GM TAB PO SCH ×3 (10:37→21:22)
[2022-05-26] MEDS: Azithromycin 250 MG TAB PO SCH (13:29)
[2022-05-26] MEDS: Melatonin 3 MG TAB PO SCH (21:22)
[2022-05-26] MEDS: QUEtiapine 25 MG TAB PO SCH (21:23)
[2022-05-27] MEDS: Ipratropium/Albuterol 3 ML NEB NEB SCH ×6 (02:06→22:43)
[2022-05-27] MEDS: Ondansetron PF 4 MG/2 ML Vial IVP SCH ×2 (02:13→05:28)
[2022-05-27] MEDS: Thiamine 100 MG TAB PO SCH (03:39)
[2022-05-27 03:57] LABS: #Lymphocytes 1.1 thou/uL (1.20-3.40); #Monocytes 0.9 thou/uL (0.11-0.59); #Neutrophils 6.3 thou/uL (1.40-6.50); %Basophils 0.1 % (0.0-1.0); %Eosinophils 0.2 % (0.0-10.0); %Lymphocytes 13.5 % (21.0-51.0); %Monocytes 10.3 % (0.0-10.0); %Neutrophils 75.8 % (42.0-75.0); Hemoglobin 9.4 g/dL (14.0-18.0); Mean Corpuscular HGB CONC 33.3 g/dL (32.0-36.0); Mean Corpuscular Hemoglobin 35.6 pg (27.0-31.0); Mean Platelet Volume 7.4 fL (7.4-10.4); Platelet Count 170 10x3/uL (130-400); RBC Distribution Width 15.5 % (11.5-14.5); Red Blood Cell (RBC) Count 2.64 mill/uL (4.70-6.10); White Blood Cell (WBC) Count 8.2 10x3/uL (4.8-10.8)
[2022-05-27 04:25] LABS: ALT (SGPT) 48 U/L (8-55); AST (SGOT) 62 U/L (5-34); Albumin 2.8 g/dL (3.4-4.8); Alkaline Phosphatase 124 U/L (40-110); Anion Gap 11 mmol/L (10-20); BUN (Urea Nitrogen) 9 mg/dL (8.4-25.7); Bilirubin, Total 0.9 mg/dL (0.2-1.2); Calc. Creatinine Clearance 110 mL/min (70-130); Calcium 8.4 mg/dL (7.8-10.44); Carbon Dioxide 26 mmol/L (23-31); Chloride 100 mmol/L (98-107); Estimated GFR 105; Globulin 2.1 g/dL (2.4-3.5); Glucose 87 mg/dL (80-115); Protein, Total 4.9 g/dL (5.8-8.1); Sodium 133 mmol/L (136-145)
[2022-05-27] MEDS: Mometasone 100 MCG/Formoterol 5 MCG 120 PUFF INHALER INH SCH ×2 (07:23→19:06)
[2022-05-27] MEDS: Multivit, Therapeutic 1 TAB PO SCH (09:19)
[2022-05-27] MEDS: Atorvastatin Calcium 40 MG TAB PO SCH (09:19)
[2022-05-27] MEDS: predniSONE 20 MG TAB PO SCH (09:19)
[2022-05-27] MEDS: Folic Acid 1 MG TAB PO SCH (09:20)
[2022-05-27] MEDS: Zinc Sulfate 220 MG CAP PO SCH (09:21)
[2022-05-27] MEDS: Aspirin 81 mg Enteric Coated Tablet PO SCH (09:21)
[2022-05-27] MEDS: Magnesium Oxide 400 MG TAB PO SCH ×2 (09:21→21:13)
[2022-05-27] MEDS: Sodium Chloride 1 GM TAB PO SCH ×3 (09:27→21:13)
[2022-05-27] MEDS ORDERED: Spironolactone 25 MG TAB PO SCH (11:00)
[2022-05-27] MEDS: Furosemide 20 MG TAB PO SCH (11:25)
[2022-05-27] MEDS: Azithromycin 250 MG TAB PO SCH (11:26)
[2022-05-27] MEDS: Melatonin 3 MG TAB PO SCH (21:13)
[2022-05-27] MEDS: QUEtiapine 25 MG TAB PO SCH (21:13)
[2022-05-28] MEDS: Thiamine 100 MG TAB PO SCH (03:48)
[2022-05-28 04:23] LABS: #Monocytes 0.8 thou/uL (0.11-0.59); #Neutrophils 4.5 thou/uL (1.40-6.50); %Basophils 0.1 % (0.0-1.0); %Lymphocytes 15.5 % (21.0-51.0); %Monocytes 12.3 % (0.0-10.0); %Neutrophils 72.1 % (42.0-75.0); Hemoglobin 9.8 g/dL (14.0-18.0); Mean Corpuscular HGB CONC 32.5 g/dL (32.0-36.0); Mean Corpuscular Hemoglobin 35.3 pg (27.0-31.0); Mean Platelet Volume 7.6 fL (7.4-10.4); Platelet Count 194 10x3/uL (130-400); RBC Distribution Width 15.7 % (11.5-14.5); Red Blood Cell (RBC) Count 2.77 mill/uL (4.70-6.10); White Blood Cell (WBC) Count 6.3 10x3/uL (4.8-10.8)
[2022-05-28 04:46] LABS: ALT (SGPT) 40 U/L (8-55); AST (SGOT) 49 U/L (5-34); Albumin 2.8 g/dL (3.4-4.8); Alkaline Phosphatase 108 U/L (40-110); Anion Gap 13 mmol/L (10-20); BUN (Urea Nitrogen) 7 mg/dL (8.4-25.7); Bilirubin, Total 0.7 mg/dL (0.2-1.2); Calc. Creatinine Clearance 115 mL/min (70-130); Calcium 8.4 mg/dL (7.8-10.44); Carbon Dioxide 24 mmol/L (23-31); Chloride 102 mmol/L (98-107); Estimated GFR 108; Globulin 1.9 g/dL (2.4-3.5); Glucose 88 mg/dL (80-115); Protein, Total 4.7 g/dL (5.8-8.1); Sodium 135 mmol/L (136-145)
[2022-05-28] MEDS: Mometasone 100 MCG/Formoterol 5 MCG 120 PUFF INHALER INH SCH ×2 (06:46→18:30)
[2022-05-28] MEDS: Ipratropium/Albuterol 3 ML NEB NEB SCH ×6 (06:47→22:20)
[2022-05-28] MEDS: predniSONE 20 MG TAB PO SCH (09:20)
[2022-05-28] MEDS: Folic Acid 1 MG TAB PO SCH (11:01)
[2022-05-28] MEDS: Furosemide 20 MG TAB PO SCH (11:01)
[2022-05-28] MEDS: Atorvastatin Calcium 40 MG TAB PO SCH (11:01)
[2022-05-28] MEDS: Multivit, Therapeutic 1 TAB PO SCH (11:02)
[2022-05-28] MEDS: Zinc Sulfate 220 MG CAP PO SCH (11:02)
[2022-05-28] MEDS: Spironolactone 25 MG TAB PO SCH (11:02)
[2022-05-28] MEDS: Aspirin 81 mg Enteric Coated Tablet PO SCH (11:02)
[2022-05-28] MEDS: Magnesium Oxide 400 MG TAB PO SCH ×2 (11:03→20:39)
[2022-05-28] MEDS: Sodium Chloride 1 GM TAB PO SCH ×3 (11:05→20:38)
[2022-05-28] MEDS: Azithromycin 250 MG TAB PO SCH (13:16)
[2022-05-28] MEDS: Melatonin 3 MG TAB PO SCH (20:38)
[2022-05-28] MEDS: QUEtiapine 25 MG TAB PO SCH (20:38)
[2022-05-29] MEDS: Ipratropium/Albuterol 3 ML NEB NEB SCH ×6 (02:23→22:46)
[2022-05-29] MEDS: Thiamine 100 MG TAB PO SCH (04:25)
[2022-05-29 05:02] LABS: #Eosinphils 0.1 thou/uL (0.0-0.7); #Lymphocytes 1.9 thou/uL (1.20-3.40); #Monocytes 0.7 thou/uL (0.11-0.59); #Neutrophils 6.2 thou/uL (1.40-6.50); %Basophils 0.1 % (0.0-1.0); %Eosinophils 1.2 % (0.0-10.0); %Lymphocytes 21.6 % (21.0-51.0); %Monocytes 7.6 % (0.0-10.0); %Neutrophils 69.4 % (42.0-75.0); Hemoglobin 10.7 g/dL (14.0-18.0); Mean Corpuscular Hemoglobin 35.9 pg (27.0-31.0); Mean Platelet Volume 7.2 fL (7.4-10.4); Platelet Count 253 10x3/uL (130-400); RBC Distribution Width 15.9 % (11.5-14.5); Red Blood Cell (RBC) Count 2.99 mill/uL (4.70-6.10); White Blood Cell (WBC) Count 8.9 10x3/uL (4.8-10.8)
[2022-05-29 05:19] LABS: ALT (SGPT) 45 U/L (8-55); AST (SGOT) 50 U/L (5-34); Alkaline Phosphatase 113 U/L (40-110); Anion Gap 14 mmol/L (10-20); BUN (Urea Nitrogen) 7 mg/dL (8.4-25.7); Bilirubin, Total 0.8 mg/dL (0.2-1.2); Calc. Creatinine Clearance 96 mL/min (70-130); Calcium 8.6 mg/dL (7.8-10.44); Carbon Dioxide 25 mmol/L (23-31); Chloride 103 mmol/L (98-107); Estimated GFR 103; Globulin 2.1 g/dL (2.4-3.5); Glucose 74 mg/dL (80-115); Potassium 3.8 mmol/L (3.5-5.1); Protein, Total 5.1 g/dL (5.8-8.1); Sodium 138 mmol/L (136-145)
[2022-05-29] MEDS: Mometasone 100 MCG/Formoterol 5 MCG 120 PUFF INHALER INH SCH ×2 (07:12→18:51)
[2022-05-29] MEDS: Magnesium Oxide 400 MG TAB PO SCH ×2 (09:40→20:38)
[2022-05-29] MEDS: Atorvastatin Calcium 40 MG TAB PO SCH (09:40)
[2022-05-29] MEDS: Zinc Sulfate 220 MG CAP PO SCH (09:40)
[2022-05-29] MEDS: Multivit, Therapeutic 1 TAB PO SCH (09:40)
[2022-05-29] MEDS: Spironolactone 25 MG TAB PO SCH (09:40)
[2022-05-29] MEDS: Furosemide 20 MG TAB PO SCH (09:40)
[2022-05-29] MEDS: Folic Acid 1 MG TAB PO SCH (09:40)
[2022-05-29] MEDS: Aspirin 81 mg Enteric Coated Tablet PO SCH (09:40)
[2022-05-29] MEDS: Sodium Chloride 1 GM TAB PO SCH ×3 (13:07→20:37)
[2022-05-29] MEDS: Melatonin 3 MG TAB PO SCH (20:37)
[2022-05-29] MEDS: QUEtiapine 25 MG TAB PO SCH (20:38)
[2022-05-30] MEDS: Ipratropium/Albuterol 3 ML NEB NEB SCH ×6 (02:40→22:28)
[2022-05-30] MEDS: Thiamine 100 MG TAB PO SCH (02:46)
[2022-05-30 04:28] LABS: #Eosinphils 0.1 thou/uL (0.0-0.7); #Lymphocytes 1.6 thou/uL (1.20-3.40); #Monocytes 0.5 thou/uL (0.11-0.59); #Neutrophils 6.2 thou/uL (1.40-6.50); %Basophils 0.4 % (0.0-1.0); %Eosinophils 1.7 % (0.0-10.0); %Lymphocytes 19.2 % (21.0-51.0); %Neutrophils 72.7 % (42.0-75.0); Hemoglobin 9.8 g/dL (14.0-18.0); Mean Corpuscular HGB CONC 32.4 g/dL (32.0-36.0); Mean Corpuscular Hemoglobin 34.9 pg (27.0-31.0); Platelet Count 266 10x3/uL (130-400); RBC Distribution Width 15.8 % (11.5-14.5); Red Blood Cell (RBC) Count 2.81 mill/uL (4.70-6.10); White Blood Cell (WBC) Count 8.6 10x3/uL (4.8-10.8)
[2022-05-30 04:54] LABS: ALT (SGPT) 41 U/L (8-55); AST (SGOT) 37 U/L (5-34); Albumin 2.5 g/dL (3.4-4.8); Alkaline Phosphatase 101 U/L (40-110); Anion Gap 10 mmol/L (10-20); BUN (Urea Nitrogen) 7 mg/dL (8.4-25.7); Bilirubin, Total 0.6 mg/dL (0.2-1.2); Calc. Creatinine Clearance 105 mL/min (70-130); Calcium 8.4 mg/dL (7.8-10.44); Carbon Dioxide 26 mmol/L (23-31); Chloride 103 mmol/L (98-107); Estimated GFR 106; Globulin 2.1 g/dL (2.4-3.5); Glucose 80 mg/dL (80-115); Potassium 3.5 mmol/L (3.5-5.1); Protein, Total 4.6 g/dL (5.8-8.1); Sodium 135 mmol/L (136-145)
[2022-05-30] MEDS ORDERED: Heparin 5,000 UNITS/ML VIAL ONE (06:18)
[2022-05-30] MEDS ORDERED: Protamine Sulfate 50 MG/5 ML VIAL ONE (06:18)
[2022-05-30] MEDS ORDERED: fentaNYL PF 100 MCG/2 ML SYRINGE ONE (06:30)
[2022-05-30] MEDS ORDERED: Phenylephrine 10 MG/ML VIAL ONE (06:30)
[2022-05-30] MEDS ORDERED: Midazolam HCl 2 mg/2 ml Vial ONE (06:30)
[2022-05-30] MEDS ORDERED: Lidocaine 1% MPF 2 ML VIAL ONE (06:40)
[2022-05-30] MEDS ORDERED: Heparin 10,000 UNITS/ 10 ML VIAL ONE (06:48)
[2022-05-30] MEDS ORDERED: Dexamethasone 20 MG/5 ML VIAL ONE (07:10)
[2022-05-30] MEDS ORDERED: Glycopyrrolate 0.2 MG/ML 5 ML SYRINGE ONE (07:10)
[2022-05-30] MEDS ORDERED: PROPOFOL 200 MG/20 ML VIAL ONE (07:10)
[2022-05-30] MEDS ORDERED: Lidocaine 1% PF 5 ML VIAL ONE (07:10)
[2022-05-30] MEDS ORDERED: NEOSTIGMINE 3 MG/3 ML SYR 3 MG/3 ML SYRINGE ONE (07:10)
[2022-05-30] MEDS ORDERED: ePHEDrine 50 MG/ML VIAL ONE (07:10)
[2022-05-30] MEDS ORDERED: Rocuronium Bromide 10 MG/ML (10ML VIAL) ONE (07:10)
[2022-05-30] MEDS ORDERED: Ondansetron PF 4 MG/2 ML Vial ONE (07:10)
[2022-05-30] MEDS ORDERED: PHENYLEPHRINE-NS 100 MCG/ML 10 ML SYRINGE ONE (07:10)
[2022-05-30] MEDS: Mometasone 100 MCG/Formoterol 5 MCG 120 PUFF INHALER INH SCH ×2 (07:13→18:31)
[2022-05-30] MEDS ORDERED: Sodium Chloride 0.9% 100 ML ONE (07:37)
[2022-05-30] MEDS ORDERED: CEFAZOLIN 2 GM VIAL ONE (07:37)
[2022-05-30] MEDS ORDERED: Norepinephrine 4 MG/4 ML VIAL ONE (07:44)
[2022-05-30] MEDS ORDERED: SUGAMMADEX SODIUM 200 MG/2 ML VIAL ONE (09:06)
[2022-05-30] MEDS ORDERED: Lactated Ringer's 500 ML IV SCH (09:30)
[2022-05-30] MEDS ORDERED: Ondansetron HCl/PF 4 MG/2 ML Vial IVP PRN (09:32)
[2022-05-30] MEDS ORDERED: Promethazine HCl 25 MG/ML VIAL IM PRN (09:32)
[2022-05-30] MEDS ORDERED: Fentanyl 100 MCG/2 ML VIAL ONE (10:11)
[2022-05-30] MEDS: Spironolactone 25 MG TAB PO SCH (10:23)
[2022-05-30] MEDS: Aspirin 81 mg Enteric Coated Tablet PO SCH (10:24)
[2022-05-30] MEDS: Atorvastatin Calcium 40 MG TAB PO SCH (10:24)
[2022-05-30] MEDS: Folic Acid 1 MG TAB PO SCH (10:24)
[2022-05-30] MEDS: Magnesium Oxide 400 MG TAB PO SCH ×2 (10:24→21:31)
[2022-05-30] MEDS: Furosemide 20 MG TAB PO SCH (10:24)
[2022-05-30] MEDS: Multivit, Therapeutic 1 TAB PO SCH (10:25)
[2022-05-30] MEDS: Zinc Sulfate 220 MG CAP PO SCH (10:25)
[2022-05-30] MEDS: Sodium Chloride 1 GM TAB PO SCH ×3 (10:25→21:30)
[2022-05-30] MEDS ORDERED: Lactated Ringer's 1,000 ML IV SCH (12:45)
[2022-05-30] MEDS: QUEtiapine 25 MG TAB PO SCH (21:30)
[2022-05-30] MEDS: Melatonin 3 MG TAB PO SCH (21:31)
[2022-05-31] MEDS: Ipratropium/Albuterol 3 ML NEB NEB SCH ×2 (02:44→08:34)
[2022-05-31] MEDS: Thiamine 100 MG TAB PO SCH (04:04)
[2022-05-31] MEDS: Mometasone 100 MCG/Formoterol 5 MCG 120 PUFF INHALER INH SCH (08:35)
[2022-05-31] MEDS: Magnesium Oxide 400 MG TAB PO SCH (08:42)
[2022-05-31] MEDS: Spironolactone 25 MG TAB PO SCH (08:42)
[2022-05-31] MEDS: Atorvastatin Calcium 40 MG TAB PO SCH (08:42)
[2022-05-31] MEDS: Multivit, Therapeutic 1 TAB PO SCH (08:42)
[2022-05-31] MEDS: Aspirin 81 mg Enteric Coated Tablet PO SCH (08:42)
[2022-05-31] MEDS: Sodium Chloride 1 GM TAB PO SCH (08:42)
[2022-05-31] MEDS: Zinc Sulfate 220 MG CAP PO SCH (08:42)
[2022-05-31] MEDS: Folic Acid 1 MG TAB PO SCH (08:42)
[2022-05-31] MEDS: Furosemide 20 MG TAB PO SCH (08:42)
[2022-05-31 11:12] VITALS: TEMP 97.8
[2022-05-31 13:52] VITALS: BP 144/90
== END 2022-05-31 12:45 | disposition home or self-care (01) | DRG 268 ==
LOC: ERS 23:11 → ERHOLD 05-21 01:13 → 2NO 05-21 16:47 → CCU 05-30 09:20
PROVIDERS: ADMIT Family Medicine; ATTEND Family Medicine
PROC: 04V03EZ Restriction of Abdominal Aorta with Branched or Fenestrated Intraluminal Device, One or Two Arteries, Percutaneous Approach (ICD-10-PCS; principal; 2022-05-30)
PROC: B4101ZZ Fluoroscopy of Abdominal Aorta using Low Osmolar Contrast (ICD-10-PCS; 2022-05-30)
DX: I71.40 Abdominal aortic aneurysm, without rupture, unspecified (principal); I50.33 Acute on chronic diastolic (congestive) heart failure; J96.01 Acute respiratory failure with hypoxia; E22.2 Syndrome of inappropriate secretion of antidiuretic hormone; J44.1 Chronic obstructive pulmonary disease with (acute) exacerbation; E87.20 Acidosis, unspecified; I48.92 Unspecified atrial flutter; Z20.822 Contact with and (suspected) exposure to COVID-19; I25.10 Atherosclerotic heart disease of native coronary artery without angina pectoris; E78.00 Pure hypercholesterolemia, unspecified; J44.9 Chronic obstructive pulmonary disease, unspecified; F32.9 Major depressive disorder, single episode, unspecified; F41.1 Generalized anxiety disorder; G47.00 Insomnia, unspecified; I11.0 Hypertensive heart disease with heart failure; F17.210 Nicotine dependence, cigarettes, uncomplicated; E87.5 Hyperkalemia; R74.01 Elevation of levels of liver transaminase levels; D53.9 Nutritional anemia, unspecified; D69.6 Thrombocytopenia, unspecified; F10.20 Alcohol dependence, uncomplicated; K70.0 Alcoholic fatty liver; Y90.0 Blood alcohol level of less than 20 mg/100 ml; I87.2 Venous insufficiency (chronic) (peripheral); E87.6 Hypokalemia; Z95.5 Presence of coronary angioplasty implant and graft; I25.2 Old myocardial infarction; Z88.8 Allergy status to other drugs, medicaments and biological substances; Z79.899 Other long term (current) drug therapy; Z79.82 Long term (current) use of aspirin; Z79.01 Long term (current) use of anticoagulants; Z98.890 Other specified postprocedural states
CPT/HCPCS: 36415; 71045; 74177; 76705; 80048; 80053; 80074; 80306; 80307; 81003; 83690; 83735; 83880; 83930; 83935; 84100; 84145; 84300; 84484; 85025; 85610; 85730; 86850; 86900; 86901; 87505; 87811; 93005; 93010; 93306; 94640; 94664; C1760; C1769; C1776; J1100; J1642; J1644; J1650; J1940; J2250; J2370; J2405; J2704; J2720; J3010; J3411; J3475; J3490; J7050; J7070; J7120; J7512; J7620; P9047; Q0162; Q9967; U0002

== ENCOUNTER 2022-06-06 21:25 | Emergency (ER) | payer OTHER ==
[2022-06-06 22:47] LABS: INR-International Normal Ratio 0.9; Prothrombin Time 11.9 sec (12.0-14.7)
[2022-06-06 22:56] LABS: #Eosinphils 0.1 thou/uL (0.0-0.7); #Lymphocytes 1.4 thou/uL (1.20-3.40); #Monocytes 0.5 thou/uL (0.11-0.59); #Neutrophils 5.7 thou/uL (1.40-6.50); %Basophils 0.5 % (0.0-1.0); %Eosinophils 1.4 % (0.0-10.0); %Lymphocytes 18.2 % (21.0-51.0); %Monocytes 6.1 % (0.0-10.0); %Neutrophils 73.8 % (42.0-75.0); Hemoglobin 10.9 g/dL (14.0-18.0); Mean Corpuscular HGB CONC 31.7 g/dL (32.0-36.0); Mean Corpuscular Hemoglobin 33.6 pg (27.0-31.0); Mean Platelet Volume 7.1 fL (7.4-10.4); Platelet Count 385 10x3/uL (130-400); RBC Distribution Width 15.5 % (11.5-14.5); Red Blood Cell (RBC) Count 3.26 mill/uL (4.70-6.10); White Blood Cell (WBC) Count 7.7 10x3/uL (4.8-10.8)
[2022-06-06 23:01] LABS: CRP (Inflammatory) 3.56 mg/dL (= or < 0.5); Magnesium 1.8 mg/dL (1.6-2.6)
[2022-06-06 23:17] LABS: ALT (SGPT) 21 U/L (8-55); AST (SGOT) 34 U/L (5-34); Acetaminophen Less than 10.0 mcg/mL (10.0-30.0); Albumin 3.1 g/dL (3.4-4.8); Alcohol 189 mg/dL (Less than 10); Alkaline Phosphatase 138 U/L (40-110); Anion Gap 14 mmol/L (10-20); BUN (Urea Nitrogen) Less than 4 mg/dL (8.4-25.7); Bilirubin, Total 0.3 mg/dL (0.2-1.2); CK (CPK) 56 U/L (30-200); Calc. Creatinine Clearance 0 mL/min (70-130); Calcium 8.4 mg/dL (7.8-10.44); Carbon Dioxide 22 mmol/L (23-31); Chloride 107 mmol/L (98-107); Estimated GFR 110; Globulin 3.1 g/dL (2.4-3.5); Glucose 70 mg/dL (80-115); Potassium 3.4 mmol/L (3.5-5.1); Protein, Total 6.2 g/dL (5.8-8.1); Sodium 140 mmol/L (136-145)
== END 2022-06-06 22:44 | disposition left against medical advice (07) ==
LOC: ERS 21:25
DX: F10.129 Alcohol abuse with intoxication, unspecified (principal); R07.9 Chest pain, unspecified; I10 Essential (primary) hypertension; E78.5 Hyperlipidemia, unspecified; F17.210 Nicotine dependence, cigarettes, uncomplicated; Y90.6 Blood alcohol level of 120-199 mg/100 ml
CPT/HCPCS: 36415; 71045; 80053; 80307; 82550; 83735; 83880; 84443; 84484; 85025; 85610; 85730; 86140; 86850; 86900; 86901; 93005; 94760

== ENCOUNTER 2022-07-20 14:30 | Outpatient (CLI) | payer OTHER | END 2022-07-20 14:31 | disposition home or self-care (01) | LOC: BICMAMMO 14:30 | PROVIDERS: ATTEND Family Medicine | DX: N63.21 Unspecified lump in the left breast, upper outer quadrant (principal); N63.10 Unspecified lump in the right breast, unspecified quadrant | CPT/HCPCS: 77066; G0279 ==

== ENCOUNTER 2022-11-11 11:56 | Inpatient (IN) | payer OTHER ==
[2022-11-11 12:46] LABS: #Monocytes 0.7 thou/uL (0.11-0.59); #Neutrophils 6.8 thou/uL (1.40-6.50); %Basophils 0.1 % (0.0-1.0); %Lymphocytes 4.7 % (21.0-51.0); %Monocytes 9.2 % (0.0-10.0); %Neutrophils 85.6 % (42.0-75.0); Mean Corpuscular HGB CONC 34.3 g/dL (32.0-36.0); Mean Corpuscular Hemoglobin 32.1 pg (27.0-31.0); Mean Corpuscular Volume 93.6 fl (78.0-98.0); RBC Distribution Width 15.9 % (11.5-14.5); Red Blood Cell (RBC) Count 3.74 mill/uL (4.70-6.10); White Blood Cell (WBC) Count 7.9 10x3/uL (4.8-10.8)
[2022-11-11 12:47] LABS: Platelet Count 80 10x3/uL (130-400)
[2022-11-11] MEDS ORDERED: Multivitamins, Adult 10 ML, Folic Acid 1 MG, Thiamine HCl 100 MG in Dextrose 5 %-0.45 %... IV SCH (13:00)
[2022-11-11 13:11] LABS: ALT (SGPT) 57 U/L (8-55); AST (SGOT) 77 U/L (5-34); Albumin 2.9 g/dL (3.4-4.8); Alkaline Phosphatase 213 U/L (40-110); Anion Gap 21 mmol/L (10-20); BUN (Urea Nitrogen) 5 mg/dL (8.4-25.7); Bilirubin, Total 1.3 mg/dL (0.2-1.2); CK (CPK) 70 U/L (30-200); Calc. Creatinine Clearance 0 mL/min (70-130); Calcium 8.5 mg/dL (7.8-10.44); Carbon Dioxide 21 mmol/L (23-31); Chloride 93 mmol/L (98-107); Estimated GFR 102; Globulin 3.2 g/dL (2.4-3.5); Glucose 104 mg/dL (80-115); Lipase 15 U/L (8-78); Potassium 4.5 mmol/L (3.5-5.1); Protein, Total 6.1 g/dL (5.8-8.1); Sodium 130 mmol/L (136-145)
[2022-11-11 13:32] LABS: Bacteria/HPF None Seen HPF (None Seen); Bilirubin Negative (Negative); Blood, Urine Negative (Negative); CAUTI Indications for Culture Dysuria,urgency,freq; Clarity Clear (Clear); Glucose, Urine (Dipstick) Normal (Negative); Ketone, Urine Trace mg/dL (Negative); Leukocyte Negative Leu/uL (Negative); Nitrite Negative (Negative); Protein, Urine (Dipstick) 30 mg/dL (Neg-Trace); RBC/HPF 0-3 HPF (0-3); Specific Gravity, Urine 1.024 (1.002-1.036); Squamous Epithelial 0-3 HPF (0-3); WBC/HPF 0-3 HPF (0-3); pH, Urine 5.5 (5.0-9.0)
[2022-11-11 13:33] LABS: Urine Culture Reflex No No
[2022-11-11] MEDS ORDERED: Morphine 2 MG/ML VIAL ONE (14:34)
[2022-11-11] MEDS ORDERED: Piperacillin/Tazobactam 3.375 GM VIAL ONE (14:34)
[2022-11-11] MEDS ORDERED: Ondansetron ODT 4 MG TAB PO PRN (16:58)
[2022-11-11] MEDS ORDERED: Lorazepam 1 MG TAB PO PRN (16:58)
[2022-11-11] MEDS ORDERED: Lorazepam 2 MG/ML VIAL IM PRN (16:58)
[2022-11-11] MEDS ORDERED: Electrolyte Replacement Protocol 1 EACH FS SCH (17:00)
[2022-11-11] MEDS ORDERED: Electrolyte Replacement Protocol FS PRN (17:30)
[2022-11-11 18:05] LABS: Lactic Acid 5.5 mmol/L (0.5-2.2)
[2022-11-11 18:09] LABS: Troponin I Less than 0.010 ng/mL (< 0.028)
[2022-11-11 20:03] LABS: Troponin I Less than 0.010 ng/mL (< 0.028)
[2022-11-11] MEDS: Lorazepam 1 MG TAB PO SCH ×2 (20:39→23:49)
[2022-11-11 20:46] LABS: Amphetamine Not Detected (NotDetected); Barbiturates Screen Not Detected (NotDetected); Benzodiazepine Screen Not Detected (NotDetected); Cocaine Metabolite Screen Not Detected (NotDetected); Methadone Not Detected (NotDetected); Methamphetamine Not Detected (NotDetected); Opiate Screen Not Detected (NotDetected); Oxycodone Screen Not Detected (NotDetected); Phencyclidine (PCP) Not Detected (NotDetected); THC/Cannabinoid Screen Not Detected (NotDetected); Tricyclic Screen Detected (NotDetected)
[2022-11-11] MEDS ORDERED: Calcium Carbonate 500 MG ChewTAB PO PRN (22:02)
[2022-11-11] MEDS: Piperacillin/Tazobactam 3.375 GM in Sodium Chloride 0.9% 100 ML IVPB SCH (22:14)
[2022-11-12] MEDS: Piperacillin/Tazobactam 3.375 GM in Sodium Chloride 0.9% 100 ML IVPB SCH ×2 (04:49→12:07)
[2022-11-12] MEDS: Lorazepam 1 MG TAB PO SCH ×4 (04:55→23:06)
[2022-11-12 06:26] LABS: #Monocytes 0.5 thou/uL (0.11-0.59); #Neutrophils 3.9 thou/uL (1.40-6.50); %Basophils 0.2 % (0.0-1.0); %Eosinophils 0.6 % (0.0-10.0); %Lymphocytes 9.7 % (21.0-51.0); %Monocytes 10.7 % (0.0-10.0); %Neutrophils 78.4 % (42.0-75.0); Hemoglobin 10.3 g/dL (14.0-18.0); Mean Corpuscular HGB CONC 34.2 g/dL (32.0-36.0); Mean Corpuscular Hemoglobin 32.5 pg (27.0-31.0); RBC Distribution Width 16.1 % (11.5-14.5); Red Blood Cell (RBC) Count 3.17 mill/uL (4.70-6.10)
[2022-11-12 06:27] LABS: Platelet Count 64 10x3/uL (130-400)
[2022-11-12] MEDS: Mometasone 100 MCG/Formoterol 5 MCG 120 PUFF INHALER INH SCH ×2 (06:30→18:38)
[2022-11-12 06:51] LABS: ALT (SGPT) 40 U/L (8-55); AST (SGOT) 49 U/L (5-34); Albumin 2.3 g/dL (3.4-4.8); Alkaline Phosphatase 165 U/L (40-110); Anion Gap 9 mmol/L (10-20); BUN (Urea Nitrogen) 5 mg/dL (8.4-25.7); Bilirubin, Total 1.2 mg/dL (0.2-1.2); Calc. Creatinine Clearance 116 mL/min (70-130); Calcium 7.6 mg/dL (7.8-10.44); Carbon Dioxide 26 mmol/L (23-31); Chloride 100 mmol/L (98-107); Estimated GFR 108; Globulin 2.4 g/dL (2.4-3.5); Glucose 79 mg/dL (80-115); Potassium 3.4 mmol/L (3.5-5.1); Protein, Total 4.7 g/dL (5.8-8.1); Sodium 132 mmol/L (136-145)
[2022-11-12] MEDS ORDERED: Potassium Chloride 20 MEQ TAB PO SCH (08:00)
[2022-11-12] MEDS ORDERED: Cholecalciferol 1,000 UNITS (25 MCG) TAB PO SCH ×2 (09:00→10:45)
[2022-11-12] MEDS: Atorvastatin Calcium 40 MG TAB PO SCH (10:14)
[2022-11-12] MEDS: Aspirin 81 mg Enteric Coated Tablet PO SCH (10:14)
[2022-11-12] MEDS: Folic Acid 1 MG TAB PO SCH (10:15)
[2022-11-12] MEDS: Multivit, Therapeutic 1 TAB PO SCH (10:15)
[2022-11-12] MEDS: Spironolactone 25 MG TAB PO SCH (10:15)
[2022-11-12] MEDS: Magnesium Oxide 400 MG TAB PO SCH ×2 (10:15→20:23)
[2022-11-12] MEDS: Metoprolol Tartrate 25 MG TAB PO SCH ×2 (10:15→20:23)
[2022-11-12] MEDS: Sertraline 100 MG TAB PO SCH (10:15)
[2022-11-12] MEDS: Thiamine HCl 200 MG/2 ML VIAL SLOW IVP SCH (15:16)
[2022-11-12] MEDS ORDERED: Lorazepam 1 MG TAB PO PRN (16:59)
[2022-11-12] MEDS: QUEtiapine 25 MG TAB PO SCH (20:23)
[2022-11-12] MEDS: Melatonin 3 MG TAB PO SCH (20:23)
[2022-11-13 06:14] LABS: #Monocytes 0.6 thou/uL (0.11-0.59); #Neutrophils 3.6 thou/uL (1.40-6.50); %Basophils 0.2 % (0.0-1.0); %Eosinophils 0.8 % (0.0-10.0); %Lymphocytes 19.7 % (21.0-51.0); %Monocytes 11.1 % (0.0-10.0); Hemoglobin 10.4 g/dL (14.0-18.0); Mean Corpuscular HGB CONC 32.6 g/dL (32.0-36.0); Mean Corpuscular Hemoglobin 31.7 pg (27.0-31.0); Mean Corpuscular Volume 97.3 fl (78.0-98.0); Mean Platelet Volume 11.5 fL (7.4-10.4); RBC Distribution Width 16.2 % (11.5-14.5); Red Blood Cell (RBC) Count 3.28 mill/uL (4.70-6.10); White Blood Cell (WBC) Count 5.3 10x3/uL (4.8-10.8)
[2022-11-13] MEDS: Lorazepam 1 MG TAB PO SCH ×2 (06:18→12:12)
[2022-11-13 06:27] LABS: Platelet Count 84 10x3/uL (130-400)
[2022-11-13 06:37] LABS: ALT (SGPT) 39 U/L (8-55); AST (SGOT) 47 U/L (5-34); Albumin 2.5 g/dL (3.4-4.8); Alkaline Phosphatase 180 U/L (40-110); Anion Gap 14 mmol/L (10-20); BUN (Urea Nitrogen) 6 mg/dL (8.4-25.7); Bilirubin, Total 1.1 mg/dL (0.2-1.2); Calc. Creatinine Clearance 109 mL/min (70-130); Calcium 8.2 mg/dL (7.8-10.44); Carbon Dioxide 22 mmol/L (23-31); Chloride 99 mmol/L (98-107); Estimated GFR 106; Globulin 2.6 g/dL (2.4-3.5); Glucose 95 mg/dL (80-115); Potassium 4.1 mmol/L (3.5-5.1); Protein, Total 5.1 g/dL (5.8-8.1); Sodium 131 mmol/L (136-145)
[2022-11-13] MEDS: Mometasone 100 MCG/Formoterol 5 MCG 120 PUFF INHALER INH SCH ×2 (07:04→18:22)
[2022-11-13] MEDS: Sertraline 100 MG TAB PO SCH (10:03)
[2022-11-13] MEDS: Atorvastatin Calcium 40 MG TAB PO SCH (10:04)
[2022-11-13] MEDS: Spironolactone 25 MG TAB PO SCH (10:04)
[2022-11-13] MEDS: Multivit, Therapeutic 1 TAB PO SCH (10:04)
[2022-11-13] MEDS: Metoprolol Tartrate 25 MG TAB PO SCH ×2 (10:04→20:44)
[2022-11-13] MEDS: Folic Acid 1 MG TAB PO SCH (10:04)
[2022-11-13] MEDS: Magnesium Oxide 400 MG TAB PO SCH ×2 (10:04→20:44)
[2022-11-13] MEDS: Aspirin 81 mg Enteric Coated Tablet PO SCH (10:05)
[2022-11-13] MEDS: Cholecalciferol 1,000 UNITS (25 MCG) TAB PO SCH (10:05)
[2022-11-13] MEDS: Thiamine HCl 200 MG/2 ML VIAL SLOW IVP SCH (14:44)
[2022-11-13] MEDS ORDERED: Lorazepam 1 MG TAB PO PRN (16:59)
[2022-11-13] MEDS: Lorazepam 0.5 MG TAB PO SCH ×2 (17:47→23:28)
[2022-11-13] MEDS: QUEtiapine 25 MG TAB PO SCH (20:44)
[2022-11-13] MEDS: Melatonin 3 MG TAB PO SCH (20:44)
[2022-11-14] MEDS: Acetaminophen 325 MG TAB PO PRN ×2 (02:32→20:14)
[2022-11-14] MEDS ORDERED: Lorazepam 2 MG/ML VIAL SLOW IVP PRN (03:03)
[2022-11-14] MEDS: Lorazepam 0.5 MG TAB PO SCH ×2 (05:00→11:06)
[2022-11-14] MEDS: Mometasone 100 MCG/Formoterol 5 MCG 120 PUFF INHALER INH SCH ×2 (07:02→18:54)
[2022-11-14 08:20] LABS: #Eosinphils 0.1 thou/uL (0.0-0.7); #Monocytes 0.7 thou/uL (0.11-0.59); #Neutrophils 3.4 thou/uL (1.40-6.50); %Basophils 0.2 % (0.0-1.0); %Eosinophils 2.3 % (0.0-10.0); %Lymphocytes 18.9 % (21.0-51.0); %Monocytes 13.7 % (0.0-10.0); %Neutrophils 64.7 % (42.0-75.0); Hemoglobin 9.6 g/dL (14.0-18.0); Mean Corpuscular HGB CONC 31.7 g/dL (32.0-36.0); Mean Corpuscular Hemoglobin 31.7 pg (27.0-31.0); Mean Platelet Volume 11.2 fL (7.4-10.4); RBC Distribution Width 16.3 % (11.5-14.5); Red Blood Cell (RBC) Count 3.03 mill/uL (4.70-6.10); White Blood Cell (WBC) Count 5.2 10x3/uL (4.8-10.8)
[2022-11-14 08:23] LABS: Platelet Count 89 10x3/uL (130-400)
[2022-11-14 08:47] LABS: ALT (SGPT) 35 U/L (8-55); AST (SGOT) 44 U/L (5-34); Albumin 2.3 g/dL (3.4-4.8); Alkaline Phosphatase 156 U/L (40-110); Anion Gap 18 mmol/L (10-20); BUN (Urea Nitrogen) 5 mg/dL (8.4-25.7); Bilirubin, Total 0.9 mg/dL (0.2-1.2); Calc. Creatinine Clearance 119 mL/min (70-130); Calcium 8.3 mg/dL (7.8-10.44); Carbon Dioxide 19 mmol/L (23-31); Chloride 97 mmol/L (98-107); Estimated GFR 108; Globulin 2.4 g/dL (2.4-3.5); Glucose 55 mg/dL (80-115); Protein, Total 4.7 g/dL (5.8-8.1); Sodium 130 mmol/L (136-145)
[2022-11-14 09:27] VITALS: BMI 23.4
[2022-11-14] MEDS: Cholecalciferol 1,000 UNITS (25 MCG) TAB PO SCH (11:04)
[2022-11-14] MEDS: Aspirin 81 mg Enteric Coated Tablet PO SCH (11:04)
[2022-11-14] MEDS: Magnesium Oxide 400 MG TAB PO SCH ×2 (11:05→20:14)
[2022-11-14] MEDS: Sertraline 100 MG TAB PO SCH (11:05)
[2022-11-14] MEDS: Thiamine 100 MG TAB PO SCH (11:05)
[2022-11-14] MEDS: Multivit, Therapeutic 1 TAB PO SCH (11:05)
[2022-11-14] MEDS: Metoprolol Tartrate 25 MG TAB PO SCH ×2 (11:05→20:13)
[2022-11-14] MEDS: Spironolactone 25 MG TAB PO SCH (11:05)
[2022-11-14] MEDS: Folic Acid 1 MG TAB PO SCH (11:06)
[2022-11-14] MEDS: Atorvastatin Calcium 40 MG TAB PO SCH (11:06)
[2022-11-14 11:13] LABS: Adenovirus F 40-41 Not Detected (Not Detected); Astrovirus Not Detected (Not Detected); C. difficile toxin A+B Not Detected (Not Detected); Campylobacter by PCR Not Detected (Not Detected); Cryptosporidium Not Detected (Not Detected); Cyclospora cayetanensis Not Detected (Not Detected); Entamoeba histolytica Not Detected (Not Detected); Enteroaggregative E. coli Not Detected (Not Detected); Enteropathogenic E. coli Not Detected (Not Detected); Enterotoxigenic E. coli Not Detected (Not Detected); Giardia lamblia Not Detected (Not Detected); Norovirus GI-GII DETECTED (Not Detected); Plesiomonas shigelloides Not Detected (Not Detected); Rotavirus A Not Detected (Not Detected); Salmonella Not Detected (Not Detected); Sapovirus Not Detected (Not Detected); Shiga-toxin-producing E coli Not Detected (Not Detected); Shigella/Enteroinvasive E coli Not Detected (Not Detected); Vibrio Not Detected (Not Detected); Vibrio cholerae Not Detected (Not Detected); Yersinia enterocolitica Not Detected (Not Detected)
[2022-11-14] MEDS ORDERED: Furosemide 20 MG/2 ML VIAL SLOW IVP SCH (11:30)
[2022-11-14] MEDS ORDERED: Lorazepam 0.5 MG TAB PO PRN (16:59)
[2022-11-14] MEDS: Melatonin 3 MG TAB PO SCH (20:13)
[2022-11-14] MEDS: QUEtiapine 25 MG TAB PO SCH (20:13)
[2022-11-15] MEDS: Loperamide HCl 2 MG CAP PO PRN ×2 (04:50→09:11)
[2022-11-15] MEDS: Mometasone 100 MCG/Formoterol 5 MCG 120 PUFF INHALER INH SCH (07:36)
[2022-11-15 07:37] LABS: #Eosinphils 0.1 thou/uL (0.0-0.7); #Monocytes 0.6 thou/uL (0.11-0.59); #Neutrophils 3.9 thou/uL (1.40-6.50); %Basophils 0.2 % (0.0-1.0); %Eosinophils 1.7 % (0.0-10.0); %Lymphocytes 11.2 % (21.0-51.0); %Monocytes 11.3 % (0.0-10.0); %Neutrophils 75.4 % (42.0-75.0); Hemoglobin 10.2 g/dL (14.0-18.0); Mean Corpuscular HGB CONC 33.8 g/dL (32.0-36.0); Mean Corpuscular Hemoglobin 32.5 pg (27.0-31.0); Mean Platelet Volume 11.4 fL (7.4-10.4); Red Blood Cell (RBC) Count 3.14 mill/uL (4.70-6.10); White Blood Cell (WBC) Count 5.2 10x3/uL (4.8-10.8)
[2022-11-15 07:39] LABS: Mean Corpuscular Volume 96.2 fl (78.0-98.0)
[2022-11-15 07:40] LABS: Platelet Count 96 10x3/uL (130-400)
[2022-11-15 08:07] LABS: ALT (SGPT) 33 U/L (8-55); AST (SGOT) 52 U/L (5-34); Albumin 2.4 g/dL (3.4-4.8); Alkaline Phosphatase 159 U/L (40-110); Anion Gap 20 mmol/L (10-20); BUN (Urea Nitrogen) 9 mg/dL (8.4-25.7); Bilirubin, Total 1.1 mg/dL (0.2-1.2); Calc. Creatinine Clearance 108 mL/min (70-130); Calcium 7.9 mg/dL (7.8-10.44); Carbon Dioxide 20 mmol/L (23-31); Chloride 96 mmol/L (98-107); Estimated GFR 106; Globulin 2.4 g/dL (2.4-3.5); Glucose 69 mg/dL (80-115); Potassium 3.5 mmol/L (3.5-5.1); Protein, Total 4.8 g/dL (5.8-8.1); Sodium 132 mmol/L (136-145)
[2022-11-15] MEDS ORDERED: Potassium Chloride 20 MEQ TAB PO SCH (09:00)
[2022-11-15] MEDS: Atorvastatin Calcium 40 MG TAB PO SCH (09:11)
[2022-11-15] MEDS: Folic Acid 1 MG TAB PO SCH (09:11)
[2022-11-15] MEDS: Cholecalciferol 1,000 UNITS (25 MCG) TAB PO SCH (09:11)
[2022-11-15] MEDS: Sertraline 100 MG TAB PO SCH (09:12)
[2022-11-15] MEDS: Thiamine 100 MG TAB PO SCH (09:12)
[2022-11-15] MEDS: Multivit, Therapeutic 1 TAB PO SCH (09:12)
[2022-11-15] MEDS: Spironolactone 25 MG TAB PO SCH (09:12)
[2022-11-15] MEDS: Metoprolol Tartrate 25 MG TAB PO SCH (09:12)
[2022-11-15] MEDS: Aspirin 81 mg Enteric Coated Tablet PO SCH (09:13)
[2022-11-15] MEDS: Magnesium Oxide 400 MG TAB PO SCH (09:13)
[2022-11-15 13:36] VITALS: BP 122/80
[2022-11-15 17:14] VITALS: TEMP 97.7
[2022-11-16] MEDS ORDERED: Potassium Chloride 20 MEQ TAB PO SCH (09:00)
[2022-11-16] MEDS ORDERED: Furosemide 40 MG TAB PO SCH (09:00)
== END 2022-11-15 18:29 | disposition home or self-care (01) | DRG 391 ==
LOC: ERS 11:56 → 2SW 15:28 → OBSVTOIN 11-13 13:07 → IMCU/EMU 11-13 22:38
PROVIDERS: ADMIT Student in an Organized Health Care Education/Training Program; ATTEND Student in an Organized Health Care Education/Training Program
DX: K52.9 Noninfective gastroenteritis and colitis, unspecified (principal); G93.41 Metabolic encephalopathy; E87.1 Hypo-osmolality and hyponatremia; I50.32 Chronic diastolic (congestive) heart failure; F10.939 Alcohol use, unspecified with withdrawal, unspecified; R44.0 Auditory hallucinations; I25.10 Atherosclerotic heart disease of native coronary artery without angina pectoris; E78.5 Hyperlipidemia, unspecified; I11.0 Hypertensive heart disease with heart failure; J44.9 Chronic obstructive pulmonary disease, unspecified; F17.210 Nicotine dependence, cigarettes, uncomplicated; R44.1 Visual hallucinations; D69.6 Thrombocytopenia, unspecified; I48.91 Unspecified atrial fibrillation; F41.1 Generalized anxiety disorder; F32.9 Major depressive disorder, single episode, unspecified; G47.00 Insomnia, unspecified; S40.812A Abrasion of left upper arm, initial encounter; S40.811A Abrasion of right upper arm, initial encounter; S40.212A Abrasion of left shoulder, initial encounter; S40.211A Abrasion of right shoulder, initial encounter; K74.60 Unspecified cirrhosis of liver; I25.2 Old myocardial infarction; Z88.8 Allergy status to other drugs, medicaments and biological substances; Z79.899 Other long term (current) drug therapy; Z79.82 Long term (current) use of aspirin; Z98.890 Other specified postprocedural states; Z95.5 Presence of coronary angioplasty implant and graft
CPT/HCPCS: 36415; 36416; 70450; 71045; 71275; 74174; 80053; 80306; 81001; 82550; 83605; 83630; 83690; 84484; 85025; 87040; 87324; 87449; 87507; 93005; 94664; 96360; 96365; 96366; 96368; 96374; 96375; 96376; 97139; J1940; J2272; J2543; J3411; J3490; J7042

== ENCOUNTER 2022-11-19 17:13 | Emergency (ER) | payer OTHER | END 2022-11-19 18:04 | disposition home or self-care (01) | LOC: ERS 17:13 | DX: S41.001D Unspecified open wound of right shoulder, subsequent encounter (principal); S41.111D Laceration without foreign body of right upper arm, subsequent encounter; W18.30XD Fall on same level, unspecified, subsequent encounter | CPT/HCPCS: 99282 ==

== ENCOUNTER 2023-05-27 09:03 | Inpatient (IN) | payer OTHER ==
[2023-05-27 10:46] LABS: #Neutrophils 7.3 thou/uL (1.40-6.50); %Basophils 0.4 % (0.0-1.0); %Eosinophils 0.4 % (0.0-10.0); %Lymphocytes 11.8 % (21.0-51.0); %Monocytes 10.3 % (0.0-10.0); %Neutrophils 76.8 % (42.0-75.0); Mean Corpuscular HGB CONC 34.2 g/dL (32.0-36.0); Mean Corpuscular Hemoglobin 31.7 pg (27.0-31.0); Mean Corpuscular Volume 92.7 fl (78.0-98.0); Mean Platelet Volume 8.9 fL (7.4-10.4); Platelet Count 203 10x3/uL (130-400); RBC Distribution Width 15.2 % (11.5-14.5); White Blood Cell (WBC) Count 9.5 10x3/uL (4.8-10.8)
[2023-05-27] MEDS ORDERED: Cefepime 2 GM VIAL ONE (10:59)
[2023-05-27] MEDS ORDERED: Morphine 4 MG/ML VIAL ONE ×2 (10:59→14:31)
[2023-05-27] MEDS ORDERED: Sodium Chloride 0.9% 100 ML ONE (10:59)
[2023-05-27 11:17] LABS: CRP (Inflammatory) 1.78 mg/dL (= or < 0.5)
[2023-05-27 11:20] LABS: Critical Call Chem-Lactate NUR.LR15@1120
[2023-05-27 11:21] LABS: ALT (SGPT) 58 U/L (8-55); AST (SGOT) 93 U/L (5-34); Alkaline Phosphatase 224 U/L (40-110); Anion Gap 17 mmol/L (10-20); BUN (Urea Nitrogen) Less than 4 mg/dL (8.4-25.7); Bilirubin, Total 0.6 mg/dL (0.2-1.2); Calc. Creatinine Clearance 0 mL/min (70-130); Calcium 7.9 mg/dL (7.8-10.44); Carbon Dioxide 20 mmol/L (23-31); Chloride 94 mmol/L (98-107); Estimated GFR 111; Globulin 2.9 g/dL (2.4-3.5); Glucose 78 mg/dL (80-115); Potassium 3.3 mmol/L (3.5-5.1); Protein, Total 5.9 g/dL (5.8-8.1); Sodium 128 mmol/L (136-145)
[2023-05-27 11:24] LABS: Troponin I Less than 0.010 ng/mL (< 0.028)
[2023-05-27] MEDS ORDERED: Vancomycin 1 GM/200 ML (FROZEN) BAG ONE (12:24)
[2023-05-27] MEDS ORDERED: Enoxaparin 60 MG (0.6 mL) SYRINGE ONE (12:24)
[2023-05-27 13:44] LABS: Lactic Acid 2.3 mmol/L (0.5-2.2)
[2023-05-27] MEDS ORDERED: Lorazepam 2 MG/ML VIAL IM PRN (16:14)
[2023-05-27] MEDS ORDERED: Electrolyte Replacement Protocol 1 EACH FS SCH (16:15)
[2023-05-27] MEDS: Thiamine HCl 200 MG/2 ML VIAL SLOW IVP SCH ×2 (17:43→17:44)
[2023-05-27] MEDS: Multivit, Therapeutic 1 TAB PO SCH (17:44)
[2023-05-27] MEDS: Potassium Chloride 20 MEQ TAB PO SCH (17:44)
[2023-05-27] MEDS: Folic Acid 1 MG TAB PO SCH (17:44)
[2023-05-27] MEDS: Furosemide 20 MG (2 mL) VIAL SLOW IVP SCH (17:45)
[2023-05-27] MEDS ORDERED: Cefepime 2 GM in Sodium Chloride 0.9% 100 ML IVPB SCH (19:00)
[2023-05-27 19:54] LABS: Magnesium 1.4 mg/dL (1.6-2.6); Phosphorus 2.7 mg/dL (2.3-4.7)
[2023-05-27] MEDS: Mometasone 100 MCG/Formoterol 5 MCG 120 PUFF INHALER INH SCH (19:54)
[2023-05-27] MEDS: Metoprolol Tartrate 25 MG TAB PO SCH (19:59)
[2023-05-27] MEDS: Magnesium Oxide 400 MG TAB PO SCH (19:59)
[2023-05-27] MEDS: Rivaroxaban 15 MG TAB PO SCH (19:59)
[2023-05-27] MEDS: QUEtiapine 25 MG TAB PO SCH (19:59)
[2023-05-27] MEDS: Cefepime 2 GM in Sodium Chloride 0.9% 100 ML IVPB SCH (20:03)
[2023-05-27] MEDS: Furosemide 40 MG (4 mL) VIAL SLOW IVP SCH (20:04)
[2023-05-27] MEDS ORDERED: Magnesium 2 GM/50 ML(in water) 1 GM in Premix 1 BAG IVPB SCH (20:45)
[2023-05-27] MEDS: Vancomycin (BATCH) 1.25 GM in Premix 1 BAG IVPB SCH (23:56)
[2023-05-28] MEDS: Ondansetron ODT 4 MG TAB SL PRN (04:00)
[2023-05-28] MEDS: Acetaminophen 325 MG TAB PO PRN (04:10)
[2023-05-28 04:56] LABS: Amphetamine Not Detected (NotDetected); Barbiturates Screen Not Detected (NotDetected); Benzodiazepine Screen Not Detected (NotDetected); Cocaine Metabolite Screen Not Detected (NotDetected); Methadone Not Detected (NotDetected); Methamphetamine Not Detected (NotDetected); Opiate Screen Not Detected (NotDetected); Oxycodone Screen Not Detected (NotDetected); Phencyclidine (PCP) Not Detected (NotDetected); THC/Cannabinoid Screen Not Detected (NotDetected); Tricyclic Screen Not Detected (NotDetected)
[2023-05-28] MEDS: Furosemide 40 MG (4 mL) VIAL SLOW IVP SCH ×2 (05:20→14:11)
[2023-05-28 06:46] LABS: #Monocytes 0.7 thou/uL (0.11-0.59); #Neutrophils 4.4 thou/uL (1.40-6.50); %Basophils 0.7 % (0.0-1.0); %Eosinophils 0.5 % (0.0-10.0); %Lymphocytes 12.8 % (21.0-51.0); %Monocytes 11.7 % (0.0-10.0); Hematocrit 35.8 % (42.0-52.0); Hemoglobin 11.8 g/dL (14.0-18.0); Mean Corpuscular Hemoglobin 31.3 pg (27.0-31.0); Mean Platelet Volume 9.6 fL (7.4-10.4); Platelet Count 180 10x3/uL (130-400); RBC Distribution Width 15.7 % (11.5-14.5); Red Blood Cell (RBC) Count 3.77 mill/uL (4.70-6.10)
[2023-05-28 07:12] LABS: ALT (SGPT) 47 U/L (8-55); AST (SGOT) 80 U/L (5-34); Albumin 2.4 g/dL (3.4-4.8); Alkaline Phosphatase 192 U/L (40-110); Anion Gap 12 mmol/L (10-20); BUN (Urea Nitrogen) 5 mg/dL (8.4-25.7); Bilirubin, Total 0.9 mg/dL (0.2-1.2); Calc. Creatinine Clearance 123 mL/min (70-130); Calcium 7.5 mg/dL (7.8-10.44); Carbon Dioxide 28 mmol/L (23-31); Chloride 97 mmol/L (98-107); Estimated GFR 111; Globulin 2.6 g/dL (2.4-3.5); Glucose 79 mg/dL (80-115); Magnesium 2.2 mg/dL (1.6-2.6); Potassium 3.3 mmol/L (3.5-5.1); Sodium 134 mmol/L (136-145)
[2023-05-28] MEDS: Atorvastatin Calcium 40 MG TAB PO SCH (09:00)
[2023-05-28] MEDS: Verapamil 240 MG SR.TAB PO SCH (09:00)
[2023-05-28] MEDS: Sertraline 25 MG TAB PO SCH (09:00)
[2023-05-28] MEDS ORDERED: Folic Acid 1 MG TAB PO SCH (09:00)
[2023-05-28] MEDS ORDERED: Multivit, Therapeutic 1 TAB PO SCH (09:00)
[2023-05-28] MEDS: Thiamine 100 MG TAB PO SCH (09:01)
[2023-05-28] MEDS: Multivit, Therapeutic 1 TAB PO SCH (09:01)
[2023-05-28] MEDS: Folic Acid 1 MG TAB PO SCH (09:02)
[2023-05-28] MEDS: Aspirin 81 mg Enteric Coated Tablet PO SCH (09:02)
[2023-05-28] MEDS: Lorazepam 1 MG TAB PO PRN (10:45)
[2023-05-28] MEDS: Albumin 25% 25 GM (100 mL) BOT IVPB SCH ×2 (10:45→18:19)
[2023-05-28] MEDS: Potassium Chloride 20 MEQ TAB PO SCH (14:11)
[2023-05-28] MEDS ORDERED: Lorazepam 1 MG TAB PO PRN (16:14)
[2023-05-28] MEDS ORDERED: FLU VACC QS2023-24(6MOS UP)/PF 60 MCG/0.5 ML SYRINGE IM ONE (16:15)
[2023-05-28 20:12] LABS: Vancomycin, Trough 19.2 ug/mL
[2023-05-28] MEDS: Vancomycin 1 GM in Premix 1 BAG IVPB SCH (22:48)
[2023-05-29 06:15] LABS: #Eosinphils 0.1 thou/uL (0.0-0.7); #Monocytes 0.7 thou/uL (0.11-0.59); #Neutrophils 4.2 thou/uL (1.40-6.50); %Basophils 0.7 % (0.0-1.0); %Eosinophils 1.5 % (0.0-10.0); %Lymphocytes 18.6 % (21.0-51.0); %Monocytes 10.6 % (0.0-10.0); %Neutrophils 67.8 % (42.0-75.0); Hematocrit 32.5 % (42.0-52.0); Hemoglobin 10.4 g/dL (14.0-18.0); Mean Corpuscular Volume 96.7 fl (78.0-98.0); Mean Platelet Volume 9.9 fL (7.4-10.4); Platelet Count 169 10x3/uL (130-400); RBC Distribution Width 15.9 % (11.5-14.5); Red Blood Cell (RBC) Count 3.36 mill/uL (4.70-6.10); White Blood Cell (WBC) Count 6.1 10x3/uL (4.8-10.8)
[2023-05-29 06:36] LABS: ALT (SGPT) 44 U/L (8-55); AST (SGOT) 83 U/L (5-34); Albumin 3.3 g/dL (3.4-4.8); Alkaline Phosphatase 169 U/L (40-110); Anion Gap 12 mmol/L (10-20); BUN (Urea Nitrogen) 6 mg/dL (8.4-25.7); Bilirubin, Total 1.2 mg/dL (0.2-1.2); Calc. Creatinine Clearance 108 mL/min (70-130); Calcium 8.3 mg/dL (7.8-10.44); Carbon Dioxide 30 mmol/L (23-31); Chloride 96 mmol/L (98-107); Estimated GFR 106; Globulin 2.1 g/dL (2.4-3.5); Glucose 80 mg/dL (80-115); Potassium 3.4 mmol/L (3.5-5.1); Protein, Total 5.4 g/dL (5.8-8.1); Sodium 135 mmol/L (136-145)
[2023-05-29] MEDS: Potassium Chloride 20 MEQ TAB PO SCH (10:39)
[2023-05-29] MEDS: Lactated Ringer's 500 ML IV SCH (12:40)
[2023-05-29] MEDS: Lactated Ringer's 1,000 ML IV SCH (15:43)
[2023-05-29] MEDS: Albumin 25% 25 GM (100 mL) BOT IVPB SCH ×2 (15:49→21:06)
[2023-05-29] MEDS: Vancomycin HCl 750 MG in Sodium Chloride 0.9% 250 ML 250 ML IVPB SCH (16:05)
[2023-05-29] MEDS ORDERED: Lorazepam 1 MG TAB PO PRN (16:14)
[2023-05-29] MEDS: Cefepime 2 GM in Sodium Chloride 0.9% 100 ML IVPB SCH (21:06)
[2023-05-30] MEDS: Ipratropium/Albuterol 3 ML NEB NEB PRN (05:39)
[2023-05-30 07:15] LABS: #Eosinphils 0.1 thou/uL (0.0-0.7); #Monocytes 0.9 thou/uL (0.11-0.59); #Neutrophils 7.3 thou/uL (1.40-6.50); %Basophils 0.3 % (0.0-1.0); %Eosinophils 0.8 % (0.0-10.0); %Lymphocytes 10.4 % (21.0-51.0); %Monocytes 9.3 % (0.0-10.0); %Neutrophils 78.7 % (42.0-75.0); Hematocrit 30.5 % (42.0-52.0); Hemoglobin 9.7 g/dL (14.0-18.0); Mean Corpuscular HGB CONC 31.8 g/dL (32.0-36.0); Mean Corpuscular Hemoglobin 31.1 pg (27.0-31.0); Mean Corpuscular Volume 97.8 fl (78.0-98.0); Mean Platelet Volume 9.7 fL (7.4-10.4); Platelet Count 157 10x3/uL (130-400); Red Blood Cell (RBC) Count 3.12 mill/uL (4.70-6.10); White Blood Cell (WBC) Count 9.3 10x3/uL (4.8-10.8)
[2023-05-30] MEDS ORDERED: Potassium Chloride 20 MEQ TAB PO SCH (07:15)
[2023-05-30 07:40] LABS: ALT (SGPT) 36 U/L (8-55); AST (SGOT) 65 U/L (5-34); Albumin 3.5 g/dL (3.4-4.8); Alkaline Phosphatase 168 U/L (40-110); Anion Gap 14 mmol/L (10-20); BUN (Urea Nitrogen) 6 mg/dL (8.4-25.7); Bilirubin, Total 1.2 mg/dL (0.2-1.2); Calc. Creatinine Clearance 106 mL/min (70-130); Calcium 8.5 mg/dL (7.8-10.44); Carbon Dioxide 24 mmol/L (23-31); Chloride 100 mmol/L (98-107); Estimated GFR 104; Globulin 2.1 g/dL (2.4-3.5); Glucose 85 mg/dL (80-115); Potassium 4.1 mmol/L (3.5-5.1); Protein, Total 5.6 g/dL (5.8-8.1); Sodium 134 mmol/L (136-145)
[2023-05-30] MEDS: Furosemide 20 MG (2 mL) VIAL SLOW IVP SCH (09:35)
[2023-05-30] MEDS: Oxacillin 2 GM in Sodium Chloride 0.9% 100 ML IVPB SCH (11:07)
[2023-05-30] MEDS ORDERED: Lorazepam 0.5 MG TAB PO PRN (16:14)
[2023-05-30] MEDS: Thiamine 100 MG TAB PO SCH (20:36)
[2023-05-31 04:20] LABS: #Monocytes 0.9 thou/uL (0.11-0.59); #Neutrophils 7.5 thou/uL (1.40-6.50); %Basophils 0.4 % (0.0-1.0); %Eosinophils 0.3 % (0.0-10.0); %Monocytes 9.2 % (0.0-10.0); %Neutrophils 81.8 % (42.0-75.0); Hematocrit 31.7 % (42.0-52.0); Hemoglobin 10.1 g/dL (14.0-18.0); Mean Corpuscular HGB CONC 31.9 g/dL (32.0-36.0); Mean Corpuscular Hemoglobin 30.7 pg (27.0-31.0); Mean Corpuscular Volume 96.4 fl (78.0-98.0); Mean Platelet Volume 9.8 fL (7.4-10.4); Platelet Count 164 10x3/uL (130-400); RBC Distribution Width 15.9 % (11.5-14.5); Red Blood Cell (RBC) Count 3.29 mill/uL (4.70-6.10); White Blood Cell (WBC) Count 9.2 10x3/uL (4.8-10.8)
[2023-05-31 05:26] LABS: ALT (SGPT) 31 U/L (8-55); AST (SGOT) 51 U/L (5-34); Albumin 3.1 g/dL (3.4-4.8); Alkaline Phosphatase 170 U/L (40-110); Anion Gap 13 mmol/L (10-20); BUN (Urea Nitrogen) 8 mg/dL (8.4-25.7); Bilirubin, Total 1.2 mg/dL (0.2-1.2); Calc. Creatinine Clearance 109 mL/min (70-130); Calcium 8.2 mg/dL (7.8-10.44); Carbon Dioxide 24 mmol/L (23-31); Chloride 102 mmol/L (98-107); Estimated GFR 105; Globulin 2.2 g/dL (2.4-3.5); Glucose 68 mg/dL (80-115); Potassium 3.3 mmol/L (3.5-5.1); Protein, Total 5.3 g/dL (5.8-8.1); Sodium 136 mmol/L (136-145)
[2023-05-31] MEDS ORDERED: Potassium Chloride 20 MEQ TAB PO SCH (08:00)
[2023-05-31] MEDS: Potassium Chloride 20 MEQ TAB PO SCH (08:50)
[2023-05-31] MEDS ORDERED: Iopamidol-370 76% 500 ML MDV (1 ML CHARGE) ONE (10:50)
[2023-05-31 14:20] LABS: INR-International Normal Ratio 2.8; Prothrombin Time 29.9 sec (12.0-14.7)
[2023-05-31 14:21] LABS: PTT 41.2 sec (22.9-36.1)
[2023-05-31 14:24] LABS: D-Dimer Test 3.8 *mcg/mL (0.27-0.43)
[2023-05-31] MEDS: Midodrine HCl 5 MG TAB PO SCH (18:28)
[2023-05-31] MEDS: Rivaroxaban 2.5 MG TAB PO SCH (20:32)
[2023-06-01 07:40] LABS: #Monocytes 1.2 thou/uL (0.11-0.59); #Neutrophils 8.2 thou/uL (1.40-6.50); %Basophils 0.3 % (0.0-1.0); %Eosinophils 0.1 % (0.0-10.0); %Lymphocytes 7.7 % (21.0-51.0); %Monocytes 11.7 % (0.0-10.0); %Neutrophils 79.8 % (42.0-75.0); Hematocrit 31.2 % (42.0-52.0); Mean Corpuscular HGB CONC 32.1 g/dL (32.0-36.0); Mean Corpuscular Hemoglobin 31.4 pg (27.0-31.0); Mean Corpuscular Volume 98.1 fl (78.0-98.0); Mean Platelet Volume 9.8 fL (7.4-10.4); Platelet Count 189 10x3/uL (130-400); RBC Distribution Width 16.7 % (11.5-14.5); Red Blood Cell (RBC) Count 3.18 mill/uL (4.70-6.10); White Blood Cell (WBC) Count 10.3 10x3/uL (4.8-10.8)
[2023-06-01 08:10] LABS: ALT (SGPT) 24 U/L (8-55); AST (SGOT) 29 U/L (5-34); Albumin 2.9 g/dL (3.4-4.8); Alkaline Phosphatase 146 U/L (40-110); Anion Gap 11 mmol/L (10-20); BUN (Urea Nitrogen) 8 mg/dL (8.4-25.7); Bilirubin, Total 1.2 mg/dL (0.2-1.2); Calc. Creatinine Clearance 106 mL/min (70-130); Calcium 8.4 mg/dL (7.8-10.44); Carbon Dioxide 26 mmol/L (23-31); Chloride 105 mmol/L (98-107); Estimated GFR 106; Globulin 2.5 g/dL (2.4-3.5); Glucose 86 mg/dL (80-115); Potassium 3.3 mmol/L (3.5-5.1); Protein, Total 5.4 g/dL (5.8-8.1); Sodium 139 mmol/L (136-145)
[2023-06-01] MEDS ORDERED: Electrolyte Replacement Protocol FS PRN (08:45)
[2023-06-01] MEDS: Electrolyte Replacement Protocol 1 EACH FS ONE (09:33)
[2023-06-01] MEDS: Apixaban 2.5 MG TAB PO SCH ×2 (11:54→20:47)
[2023-06-01] MEDS: Potassium Chloride 20 MEQ TAB PO SCH (13:16)
[2023-06-01] MEDS ORDERED: Rivaroxaban 2.5 MG TAB PO SCH (21:00)
[2023-06-02 06:19] LABS: #Eosinphils 0.1 thou/uL (0.0-0.7); #Monocytes 0.8 thou/uL (0.11-0.59); #Neutrophils 9.3 thou/uL (1.40-6.50); %Basophils 0.4 % (0.0-1.0); %Eosinophils 0.5 % (0.0-10.0); %Lymphocytes 6.5 % (21.0-51.0); %Monocytes 7.6 % (0.0-10.0); %Neutrophils 84.3 % (42.0-75.0); Hematocrit 32.4 % (42.0-52.0); Hemoglobin 10.3 g/dL (14.0-18.0); Mean Corpuscular HGB CONC 31.8 g/dL (32.0-36.0); Mean Corpuscular Hemoglobin 31.6 pg (27.0-31.0); Mean Corpuscular Volume 99.4 fl (78.0-98.0); Mean Platelet Volume 10.1 fL (7.4-10.4); Platelet Count 241 10x3/uL (130-400); RBC Distribution Width 16.6 % (11.5-14.5); Red Blood Cell (RBC) Count 3.26 mill/uL (4.70-6.10)
[2023-06-02 06:51] LABS: Anion Gap 12 mmol/L (10-20); BUN (Urea Nitrogen) 12 mg/dL (8.4-25.7); Calc. Creatinine Clearance 107 mL/min (70-130); Carbon Dioxide 23 mmol/L (23-31); Chloride 105 mmol/L (98-107); Estimated GFR 107; Potassium 3.8 mmol/L (3.5-5.1); Sodium 136 mmol/L (136-145)
[2023-06-02 06:52] LABS: ALT (SGPT) 21 U/L (8-55); AST (SGOT) 27 U/L (5-34); Albumin 2.9 g/dL (3.4-4.8); Alkaline Phosphatase 167 U/L (40-110); Bilirubin, Total 1.1 mg/dL (0.2-1.2); Calcium 8.6 mg/dL (7.8-10.44); Globulin 2.7 g/dL (2.4-3.5); Glucose 76 mg/dL (80-115); Protein, Total 5.6 g/dL (5.8-8.1)
[2023-06-02] MEDS: Cefepime 2 GM in Sodium Chloride 0.9% 100 ML IVPB SCH (10:02)
[2023-06-02 10:30] LABS: INR-International Normal Ratio 1.2; Prothrombin Time 14.7 sec (12.0-14.7)
[2023-06-02 10:31] LABS: PTT 34.5 sec (22.9-36.1)
[2023-06-03 05:49] LABS: #Monocytes 0.9 thou/uL (0.11-0.59); #Neutrophils 9.3 thou/uL (1.40-6.50); %Basophils 0.3 % (0.0-1.0); %Eosinophils 0.2 % (0.0-10.0); %Lymphocytes 10.8 % (21.0-51.0); %Monocytes 7.9 % (0.0-10.0); %Neutrophils 80.3 % (42.0-75.0); Hematocrit 33.1 % (42.0-52.0); Hemoglobin 10.5 g/dL (14.0-18.0); Mean Corpuscular HGB CONC 31.7 g/dL (32.0-36.0); Mean Corpuscular Hemoglobin 31.3 pg (27.0-31.0); Mean Corpuscular Volume 98.5 fl (78.0-98.0); Mean Platelet Volume 9.8 fL (7.4-10.4); Platelet Count 297 10x3/uL (130-400); RBC Distribution Width 16.4 % (11.5-14.5); Red Blood Cell (RBC) Count 3.36 mill/uL (4.70-6.10); White Blood Cell (WBC) Count 11.6 10x3/uL (4.8-10.8)
[2023-06-03 06:18] LABS: ALT (SGPT) 19 U/L (8-55); AST (SGOT) 31 U/L (5-34); Albumin 2.9 g/dL (3.4-4.8); Alkaline Phosphatase 162 U/L (40-110); Anion Gap 11 mmol/L (10-20); BUN (Urea Nitrogen) 11 mg/dL (8.4-25.7); Calc. Creatinine Clearance 114 mL/min (70-130); Calcium 8.7 mg/dL (7.8-10.44); Carbon Dioxide 24 mmol/L (23-31); Chloride 106 mmol/L (98-107); Estimated GFR 109; Glucose 71 mg/dL (80-115); Potassium 3.8 mmol/L (3.5-5.1); Protein, Total 5.9 g/dL (5.8-8.1); Sodium 137 mmol/L (136-145)
[2023-06-03] MEDS: Apixaban 5 MG TAB PO SCH (08:45)
[2023-06-03] MEDS ORDERED: Piperacillin/Tazobactam 4.5 GM in Sodium Chloride 0.9% 100 ML IVPB SCH (12:00)
[2023-06-03] MEDS ORDERED: Lactated Ringer's 500 ML IV SCH (12:15)
[2023-06-03] MEDS ORDERED: Ipratropium/Albuterol 3 ML NEB NEB PRN ×2 (13:13→18:46)
[2023-06-03] MEDS: Piperacillin/Tazobactam 3.375 GM in Sodium Chloride 0.9% 100 ML IVPB SCH ×2 (13:46→17:46)
[2023-06-03] MEDS: Albumin 25% 25 GM (100 mL) BOT IVPB SCH ×2 (13:46→17:47)
[2023-06-03] MEDS: Lactated Ringer's 1,000 ML IV SCH (13:46)
[2023-06-03] MEDS ORDERED: LevoFLOXacin 500 mg/D5W 500 MG in Premix 1 BAG IVPB SCH (15:00)
[2023-06-03] MEDS: methylPREDNISolone Sod Succ 40 MG VIAL IVP SCH (15:29)
[2023-06-03] MEDS: LevoFLOXacin 750 mg/D5W 750 MG in Premix 1 BAG IVPB SCH (15:30)
[2023-06-03] MEDS: Ipratropium/Albuterol 3 ML NEB NEB SCH ×2 (18:12→21:50)
[2023-06-04] MEDS: Morphine 2 MG/ML VIAL SLOW IVP SCH (00:15)
[2023-06-04 06:08] LABS: #Monocytes 0.3 thou/uL (0.11-0.59); #Neutrophils 11.8 thou/uL (1.40-6.50); %Basophils 0.1 % (0.0-1.0); %Lymphocytes 3.1 % (21.0-51.0); %Monocytes 2.7 % (0.0-10.0); %Neutrophils 93.6 % (42.0-75.0); Hematocrit 28.5 % (42.0-52.0); Hemoglobin 9.2 g/dL (14.0-18.0); Mean Corpuscular HGB CONC 32.3 g/dL (32.0-36.0); Mean Corpuscular Hemoglobin 31.9 pg (27.0-31.0); Mean Platelet Volume 9.9 fL (7.4-10.4); Platelet Count 293 10x3/uL (130-400); RBC Distribution Width 15.9 % (11.5-14.5); Red Blood Cell (RBC) Count 2.88 mill/uL (4.70-6.10); White Blood Cell (WBC) Count 12.6 10x3/uL (4.8-10.8)
[2023-06-04 06:31] LABS: ALT (SGPT) 19 U/L (8-55); AST (SGOT) 37 U/L (5-34); Albumin 3.7 g/dL (3.4-4.8); Alkaline Phosphatase 142 U/L (40-110); Anion Gap 14 mmol/L (10-20); BUN (Urea Nitrogen) 13 mg/dL (8.4-25.7); Bilirubin, Total 1.1 mg/dL (0.2-1.2); Calc. Creatinine Clearance 112 mL/min (70-130); Carbon Dioxide 23 mmol/L (23-31); Chloride 103 mmol/L (98-107); Estimated GFR 108; Globulin 2.6 g/dL (2.4-3.5); Glucose 117 mg/dL (80-115); Potassium 3.5 mmol/L (3.5-5.1); Protein, Total 6.3 g/dL (5.8-8.1); Sodium 136 mmol/L (136-145)
[2023-06-04] MEDS ORDERED: Albuterol 2.5 MG (3 mL) NEB NEB PRN ×2 (07:15→07:32)
[2023-06-04] MEDS: Albuterol 2.5 MG (3 mL) NEB NEB SCH (08:25)
[2023-06-04] MEDS: Furosemide 20 MG (2 mL) VIAL SLOW IVP SCH ×2 (08:44→14:41)
[2023-06-04] MEDS: Potassium Chloride 20 MEQ TAB PO SCH ×2 (10:09→15:17)
[2023-06-04] MEDS ORDERED: Albuterol 2.5 MG (3 mL) NEB IPPB SCH (10:30)
[2023-06-04] MEDS: Magnesium 2 GM/50 ML(in water) 2 GM in Premix 1 BAG IVPB SCH (11:29)
[2023-06-04] MEDS: Pantoprazole 40 MG VIAL IVP SCH (11:33)
[2023-06-04 11:52] LABS: Lactic Acid 1.6 mmol/L (0.5-2.2)
[2023-06-04 14:36] LABS: Potassium 3.4 mmol/L (3.5-5.1)
[2023-06-04 14:42] LABS: CO2 Tension 33.9 mmHg (35.0-45.0); pH, Arterial 7.463 (7.35-7.45)
[2023-06-04 14:43] LABS: ALV-art Gradient 548.085 mmHg (0-20); Actual Bicarbonate (HCO3a) 23.7 mEq/L (22-28); Base Excess (BEa) 0.3 mEq/L (-2.0 to +3.0); Calcium, Ionized (arterial) 1.21 mmol/L (1.12-1.30); Carboxyhemoglobin (COHb) 0.3 gm% (0.0-3.0); Hematocrit-ABG 31 % (42.0-52.0); Hemoglobin (Hb) 10.5 g/dL (14.0-18.0); O2 Tension (PaO2), arterial 65.5 mmHg (> 80.0); Potassium - ABG Lab 3.28 mmol/L (3.70-5.30); Puncture Site RRA
[2023-06-04] MEDS: Acetaminophen/Codeine 30-300mg Tablet PO PRN (15:11)
[2023-06-04] MEDS: Ventilator Sedation Protocol 1 EACH FS ONE (16:00)
[2023-06-04] MEDS ORDERED: Fentanyl BOLUS 250 ML IVPB PRN (16:15)
[2023-06-04] MEDS ORDERED: LORazepam 2 MG/ML SYR.(CARPUJECT) IVP PRN (16:15)
[2023-06-04] MEDS ORDERED: DISCONTINUE PREVIOUS NARCOTIC PAIN MEDICATIONS AND BENZODIAZEPINES FS SCH (16:15)
[2023-06-04] MEDS ORDERED: Morphine 2 MG/ML VIAL SLOW IVP PRN (16:15)
[2023-06-04] MEDS ORDERED: Propofol BOLUS 1,000 MG/100 ML VIAL IV PRN (16:15)
[2023-06-04] MEDS: Propofol 1,000 MG/100 ML VIAL IV PRN (16:18)
[2023-06-04 16:40] LABS: Actual Bicarbonate (HCO3a) 22.5 mEq/L (22-28); Base Excess (BEa) -2.1 mEq/L (-2.0 to +3.0); CO2 Tension 37.6 mmHg (35.0-45.0); Calcium, Ionized (arterial) 1.19 mmol/L (1.12-1.30); Carboxyhemoglobin (COHb) 0.1 gm% (0.0-3.0); Hematocrit-ABG 29 % (42.0-52.0); Hemoglobin (Hb) 9.9 g/dL (14.0-18.0); O2 Tension (PaO2), arterial 63.1 mmHg (> 80.0); Potassium - ABG Lab 3.69 mmol/L (3.70-5.30); Puncture Site RRA; pH, Arterial 7.394 (7.35-7.45)
[2023-06-04] MEDS: Ondansetron PF 4 MG/2 ML Vial IVP PRN ×2 (16:45→16:46)
[2023-06-04] MEDS: Albumin 25% 25 GM (100 mL) BOT IVPB SCH (16:47)
[2023-06-04] MEDS: Lorazepam 2 MG/ML VIAL SLOW IVP PRN (16:47)
[2023-06-04] MEDS: NOREPINEPHRINE 8 MG/250 ML-D5W 250 ML IVPB SCH (17:03)
[2023-06-04] MEDS: Fentanyl CADD 100 ML IV SCH (19:11)
[2023-06-04] MEDS: QUEtiapine 25 MG TAB PO SCH (20:13)
[2023-06-04] MEDS: Melatonin 3 MG TAB PO SCH (20:14)
[2023-06-04 20:39] LABS: Magnesium 2.3 mg/dL (1.6-2.6)
[2023-06-05] MEDS: Vecuronium 10 MG VIAL IVP PRN (00:33)
[2023-06-05] MEDS: Sterile Water 10 ML ONE (00:33)
[2023-06-05] MEDS: Midazolam HCl 2 mg/2 ml Vial SLOW IVP PRN (00:35)
[2023-06-05] MEDS: Vecuronium 10 MG VIAL ONE (01:58)
[2023-06-05] MEDS: Midazolam HCl 2 mg/2 ml Vial ONE (01:58)
[2023-06-05 03:59] LABS: #Monocytes 0.4 thou/uL (0.11-0.59); %Basophils 0.1 % (0.0-1.0); %Lymphocytes 3.5 % (21.0-51.0); %Monocytes 3.5 % (0.0-10.0); %Neutrophils 92.3 % (42.0-75.0); Hemoglobin 10.1 g/dL (14.0-18.0); Mean Corpuscular HGB CONC 32.6 g/dL (32.0-36.0); Mean Corpuscular Hemoglobin 31.7 pg (27.0-31.0); Mean Corpuscular Volume 97.2 fl (78.0-98.0); Mean Platelet Volume 10.1 fL (7.4-10.4); Platelet Count 336 10x3/uL (130-400); RBC Distribution Width 15.7 % (11.5-14.5); Red Blood Cell (RBC) Count 3.19 mill/uL (4.70-6.10); White Blood Cell (WBC) Count 11.9 10x3/uL (4.8-10.8)
[2023-06-05 04:22] LABS: ALT (SGPT) 18 U/L (8-55); AST (SGOT) 33 U/L (5-34); Albumin 3.9 g/dL (3.4-4.8); Alkaline Phosphatase 128 U/L (40-110); Anion Gap 14 mmol/L (10-20); BUN (Urea Nitrogen) 14 mg/dL (8.4-25.7); Bilirubin, Total 0.8 mg/dL (0.2-1.2); Calc. Creatinine Clearance 94 mL/min (70-130); Calcium 9.3 mg/dL (7.8-10.44); Carbon Dioxide 24 mmol/L (23-31); Chloride 104 mmol/L (98-107); Estimated GFR 102; Globulin 2.4 g/dL (2.4-3.5); Glucose 188 mg/dL (80-115); Protein, Total 6.3 g/dL (5.8-8.1); Sodium 139 mmol/L (136-145)
[2023-06-05] MEDS: Potassium Chloride 20 MEQ in Premix 1 BAG IVPB SCH (05:13)
[2023-06-05 07:40] LABS: Actual Bicarbonate (HCO3a) 21.1 mEq/L (22-28); Base Excess (BEa) -1.9 mEq/L (-2.0 to +3.0); CO2 Tension 30.3 mmHg (35.0-45.0); Calcium, Ionized (arterial) 1.21 mmol/L (1.12-1.30); Carboxyhemoglobin (COHb) 0.2 gm% (0.0-3.0); Hematocrit-ABG 32 % (42.0-52.0); Hemoglobin (Hb) 10.9 g/dL (14.0-18.0); O2 Tension (PaO2), arterial 140.3 mmHg (> 80.0); Potassium - ABG Lab 3.25 mmol/L (3.70-5.30); pH, Arterial 7.461 (7.35-7.45)
[2023-06-05 07:41] LABS: Puncture Site RFA
[2023-06-05 07:42] LABS: ALV-art Gradient 178.325 mmHg (0-20)
[2023-06-05] MEDS: Pantoprazole 40 MG VIAL IVP SCH (09:49)
[2023-06-05] MEDS: Verapamil 80 MG TAB PO SCH ×2 (10:00→14:52)
[2023-06-05 12:05] LABS: Platelet Count 345 10x3/uL (130-400)
[2023-06-05 12:20] LABS: Fibrinogen 514 mg/dL (253-463)
[2023-06-05 12:21] LABS: INR-International Normal Ratio 1.3; PTT 30.3 sec (22.9-36.1); Prothrombin Time 15.8 sec (12.0-14.7)
[2023-06-05 12:22] LABS: D-Dimer Test 2.48 mcg/mL (0.27-0.43)
[2023-06-05 12:47] LABS: HIV (1/2) Antibody/Antigen Non-Reactive (NonReactive); HIV 1/2 INDEX 0.14 S/CO (<1.00)
[2023-06-05] MEDS: Lorazepam 2 MG/ML VIAL IVPB PRN (19:34)
[2023-06-05 20:41] LABS: Potassium 3.7 mmol/L (3.5-5.1)
[2023-06-06] MEDS: diphenhydrAMINE 50 MG/ML VIAL IVP SCH (02:33)
[2023-06-06 04:34] LABS: #Monocytes 0.6 thou/uL (0.11-0.59); #Neutrophils 10.8 thou/uL (1.40-6.50); %Basophils 0.1 % (0.0-1.0); %Lymphocytes 3.7 % (21.0-51.0); %Neutrophils 90.5 % (42.0-75.0); Hematocrit 28.4 % (42.0-52.0); Mean Corpuscular HGB CONC 31.7 g/dL (32.0-36.0); Mean Corpuscular Volume 97.9 fl (78.0-98.0); Mean Platelet Volume 10.3 fL (7.4-10.4); Platelet Count 401 10x3/uL (130-400); White Blood Cell (WBC) Count 11.9 10x3/uL (4.8-10.8)
[2023-06-06 05:04] LABS: ALT (SGPT) 21 U/L (8-55); AST (SGOT) 34 U/L (5-34); Albumin 3.2 g/dL (3.4-4.8); Alkaline Phosphatase 114 U/L (40-110); Anion Gap 13 mmol/L (10-20); BUN (Urea Nitrogen) 13 mg/dL (8.4-25.7); Bilirubin, Total 0.7 mg/dL (0.2-1.2); Calc. Creatinine Clearance 103 mL/min (70-130); Carbon Dioxide 25 mmol/L (23-31); Chloride 106 mmol/L (98-107); Estimated GFR 107; Globulin 2.2 g/dL (2.4-3.5); Glucose 129 mg/dL (80-115); Potassium 3.7 mmol/L (3.5-5.1); Protein, Total 5.4 g/dL (5.8-8.1); Sodium 140 mmol/L (136-145)
[2023-06-06 07:27] LABS: Actual Bicarbonate (HCO3a) 24.5 mEq/L (22-28); Base Excess (BEa) 1.7 mEq/L (-2.0 to +3.0); CO2 Tension 32.1 mmHg (35.0-45.0); Calcium, Ionized (arterial) 1.23 mmol/L (1.12-1.30); Carboxyhemoglobin (COHb) 0.2 gm% (0.0-3.0); Hematocrit-ABG 31 % (42.0-52.0); Hemoglobin (Hb) 10.4 g/dL (14.0-18.0); O2 Tension (PaO2), arterial 69.6 mmHg (> 80.0); Potassium - ABG Lab 3.88 mmol/L (3.70-5.30); pH, Arterial 7.501 (7.35-7.45)
[2023-06-06 07:29] LABS: Puncture Site LFA
[2023-06-06 07:30] LABS: ALV-art Gradient 175.475 mmHg (0-20)
[2023-06-06] MEDS: Senokot S 8.6-50 MG TAB PO SCH (11:36)
[2023-06-06] MEDS: Polyethylene Glycol 3350 17 GM Packet PER TUBE SCH (11:36)
[2023-06-06] MEDS: Lactated Ringer's 250 ML IV SCH (14:50)
[2023-06-06] MEDS: Senokot S 8.6-50 MG TAB PER TUBE SCH (21:15)
[2023-06-07] MEDS: Metoclopramide HCl 10 MG (2 mL) VIAL IVP SCH (03:25)
[2023-06-07 04:59] LABS: #Monocytes 0.8 thou/uL (0.11-0.59); #Neutrophils 13.8 thou/uL (1.40-6.50); %Basophils 0.1 % (0.0-1.0); %Lymphocytes 3.1 % (21.0-51.0); %Monocytes 4.9 % (0.0-10.0); %Neutrophils 90.8 % (42.0-75.0); Hematocrit 31.3 % (42.0-52.0); Hemoglobin 9.6 g/dL (14.0-18.0); Mean Corpuscular HGB CONC 30.7 g/dL (32.0-36.0); Mean Corpuscular Hemoglobin 31.3 pg (27.0-31.0); Mean Platelet Volume 10.1 fL (7.4-10.4); Platelet Count 498 10x3/uL (130-400); RBC Distribution Width 16.2 % (11.5-14.5); Red Blood Cell (RBC) Count 3.07 mill/uL (4.70-6.10); White Blood Cell (WBC) Count 15.2 10x3/uL (4.8-10.8)
[2023-06-07 05:20] LABS: ALT (SGPT) 26 U/L (8-55); AST (SGOT) 36 U/L (5-34); Albumin 3.4 g/dL (3.4-4.8); Alkaline Phosphatase 113 U/L (40-110); Anion Gap 14 mmol/L (10-20); BUN (Urea Nitrogen) 22 mg/dL (8.4-25.7); Bilirubin, Total 0.7 mg/dL (0.2-1.2); Calc. Creatinine Clearance 91 mL/min (70-130); Calcium 9.2 mg/dL (7.8-10.44); Carbon Dioxide 25 mmol/L (23-31); Chloride 107 mmol/L (98-107); Estimated GFR 103; Globulin 2.4 g/dL (2.4-3.5); Glucose 126 mg/dL (80-115); Potassium 3.9 mmol/L (3.5-5.1); Protein, Total 5.8 g/dL (5.8-8.1); Sodium 142 mmol/L (136-145)
[2023-06-07 07:10] LABS: Actual Bicarbonate (HCO3a) 23.7 mEq/L (22-28); Base Excess (BEa) -0.6 mEq/L (-2.0 to +3.0); CO2 Tension 37.6 mmHg (35.0-45.0); Calcium, Ionized (arterial) 1.27 mmol/L (1.12-1.30); Carboxyhemoglobin (COHb) 0.3 gm% (0.0-3.0); Hematocrit-ABG 31 % (42.0-52.0); Hemoglobin (Hb) 10.6 g/dL (14.0-18.0); Potassium - ABG Lab 4.11 mmol/L (3.70-5.30); pH, Arterial 7.418 (7.35-7.45)
[2023-06-07 07:12] LABS: O2 Tension (PaO2), arterial 56.9 mmHg (> 80.0); Puncture Site RRA
[2023-06-07] MEDS: Polyethylene Glycol 3350 17 GM Packet PER TUBE SCH (08:22)
[2023-06-07 08:38] LABS: Magnesium 2.1 mg/dL (1.6-2.6); Phosphorus 3.2 mg/dL (2.3-4.7)
[2023-06-07] MEDS: Metoprolol Tartrate 25 MG TAB PO SCH (08:44)
[2023-06-07] MEDS: methylPREDNISolone Sod Succ 40 MG VIAL IVP SCH (08:44)
[2023-06-07 10:54] LABS: BF Color Red; Body Fluid Source Bronchioalveol Lavag; Clarity Cloudy/Turbid (Clear)
[2023-06-07 10:55] LABS: BF WBC/Nonhematics Ct.-Manual 170 /cu.mm
[2023-06-07 11:04] LABS: BF Segmented Neutrophils 40 %; Cell Count Non Hematic 56 %; Lymphocytes 4 %
[2023-06-08 04:28] LABS: #Neutrophils 12.8 thou/uL (1.40-6.50); %Basophils 0.1 % (0.0-1.0); %Lymphocytes 3.9 % (21.0-51.0); %Monocytes 6.9 % (0.0-10.0); %Neutrophils 87.1 % (42.0-75.0); Mean Corpuscular Hemoglobin 31.4 pg (27.0-31.0); Mean Platelet Volume 9.9 fL (7.4-10.4); Platelet Count 490 10x3/uL (130-400); RBC Distribution Width 15.9 % (11.5-14.5); Red Blood Cell (RBC) Count 2.87 mill/uL (4.70-6.10); White Blood Cell (WBC) Count 14.7 10x3/uL (4.8-10.8)
[2023-06-08 04:59] LABS: ALT (SGPT) 79 U/L (8-55); AST (SGOT) 105 U/L (5-34); Albumin 3.2 g/dL (3.4-4.8); Alkaline Phosphatase 158 U/L (40-110); Anion Gap 12 mmol/L (10-20); BUN (Urea Nitrogen) 18 mg/dL (8.4-25.7); Bilirubin, Total 0.6 mg/dL (0.2-1.2); Calc. Creatinine Clearance 105 mL/min (70-130); Calcium 8.6 mg/dL (7.8-10.44); Carbon Dioxide 28 mmol/L (23-31); Chloride 108 mmol/L (98-107); Estimated GFR 107; Globulin 2.1 g/dL (2.4-3.5); Glucose 135 mg/dL (80-115); Potassium 3.8 mmol/L (3.5-5.1); Protein, Total 5.3 g/dL (5.8-8.1); Sodium 144 mmol/L (136-145)
[2023-06-08] MEDS: Furosemide 20 MG (2 mL) VIAL SLOW IVP SCH (09:52)
[2023-06-08] MEDS: Enoxaparin 40 MG (0.4 mL) SYRINGE SC SCH (09:53)
[2023-06-08] MEDS: methylPREDNISolone Sod Succ 40 MG VIAL IVP SCH (12:25)
[2023-06-08] MEDS ORDERED: Dexmedetomidine In 0.9 % NaCl 100 ML IVPB SCH (14:00)
[2023-06-08 15:15] LABS: Cytoplasmic (C-ANCA) <1:20 titer (Neg:<1:20); Myeloperoxidase AutoAbs <0.2 units (0.0-0.9); Perinuclear (P-ANCA) <1:20 titer (Neg:<1:20); Proteinase-3 AutoAbs Less than 0.2 units (0.0-0.9)
[2023-06-09 04:13] LABS: #Neutrophils 15.8 thou/uL (1.40-6.50); %Basophils 0.2 % (0.0-1.0); %Lymphocytes 5.2 % (21.0-51.0); %Monocytes 5.6 % (0.0-10.0); %Neutrophils 87.5 % (42.0-75.0); Hematocrit 29.6 % (42.0-52.0); Hemoglobin 9.2 g/dL (14.0-18.0); Mean Corpuscular HGB CONC 31.1 g/dL (32.0-36.0); Mean Corpuscular Hemoglobin 30.7 pg (27.0-31.0); Mean Corpuscular Volume 98.7 fl (78.0-98.0); Mean Platelet Volume 10.1 fL (7.4-10.4); Platelet Count 477 10x3/uL (130-400)
[2023-06-09 04:38] LABS: ALT (SGPT) 89 U/L (8-55); AST (SGOT) 94 U/L (5-34); Albumin 3.1 g/dL (3.4-4.8); Alkaline Phosphatase 147 U/L (40-110); Anion Gap 12 mmol/L (10-20); BUN (Urea Nitrogen) 15 mg/dL (8.4-25.7); Bilirubin, Total 0.8 mg/dL (0.2-1.2); Calc. Creatinine Clearance 124 mL/min (70-130); Calcium 8.8 mg/dL (7.8-10.44); Carbon Dioxide 29 mmol/L (23-31); Chloride 107 mmol/L (98-107); Estimated GFR 113; Globulin 2.1 g/dL (2.4-3.5); Glucose 91 mg/dL (80-115); Potassium 2.9 mmol/L (3.5-5.1); Protein, Total 5.2 g/dL (5.8-8.1); Sodium 145 mmol/L (136-145)
[2023-06-09] MEDS: Potassium Chloride 40 MEQ in Premix 1 BAG IVPB SCH (06:34)
[2023-06-09] MEDS ORDERED: Potassium Chloride 20 MEQ TAB PO SCH ×2 (08:00→12:00)
[2023-06-09] MEDS ORDERED: Potassium Bicarbonate/Cit Ac 20 MEQ TAB PO SCH (08:00)
[2023-06-09] MEDS ORDERED: Enoxaparin 40 MG (0.4 mL) SYRINGE SC SCH (09:00)
[2023-06-09] MEDS: Verapamil 240 MG SR.TAB PO SCH (09:46)
[2023-06-09] MEDS: Apixaban 2.5 MG TAB PO SCH ×2 (10:00→21:34)
[2023-06-09 17:37] LABS: Potassium 4.2 mmol/L (3.5-5.1)
[2023-06-09] MEDS: Ipratropium/Albuterol 3 ML NEB NEB PRN (18:48)
[2023-06-10 04:06] LABS: #Basophils 0.1 thou/uL (0.0-0.2); #Monocytes 0.7 thou/uL (0.11-0.59); #Neutrophils 12.8 thou/uL (1.40-6.50); %Basophils 0.5 % (0.0-1.0); %Eosinophils 0.3 % (0.0-10.0); %Lymphocytes 8.1 % (21.0-51.0); %Monocytes 4.3 % (0.0-10.0); %Neutrophils 82.9 % (42.0-75.0); Hematocrit 28.7 % (42.0-52.0); Hemoglobin 9.2 g/dL (14.0-18.0); Mean Corpuscular HGB CONC 32.1 g/dL (32.0-36.0); Mean Corpuscular Hemoglobin 30.8 pg (27.0-31.0); Mean Platelet Volume 10.5 fL (7.4-10.4); Platelet Count 432 10x3/uL (130-400); RBC Distribution Width 15.9 % (11.5-14.5); Red Blood Cell (RBC) Count 2.99 mill/uL (4.70-6.10); White Blood Cell (WBC) Count 15.5 10x3/uL (4.8-10.8)
[2023-06-10 04:22] LABS: ALT (SGPT) 87 U/L (8-55); AST (SGOT) 88 U/L (5-34); Albumin 2.9 g/dL (3.4-4.8); Alkaline Phosphatase 201 U/L (40-110); Anion Gap 13 mmol/L (10-20); BUN (Urea Nitrogen) 15 mg/dL (8.4-25.7); Bilirubin, Total 0.8 mg/dL (0.2-1.2); Calc. Creatinine Clearance 94 mL/min (70-130); Calcium 8.7 mg/dL (7.8-10.44); Carbon Dioxide 24 mmol/L (23-31); Chloride 111 mmol/L (98-107); Estimated GFR 104; Globulin 2.4 g/dL (2.4-3.5); Glucose 102 mg/dL (80-115); Magnesium 2.1 mg/dL (1.6-2.6); Phosphorus 3.3 mg/dL (2.3-4.7); Potassium 4.7 mmol/L (3.5-5.1); Protein, Total 5.3 g/dL (5.8-8.1); Sodium 143 mmol/L (136-145)
[2023-06-10] MEDS: Calcium Carbonate 500 MG ChewTAB PO PRN (05:15)
[2023-06-10] MEDS: predniSONE 20 MG TAB PO SCH (09:08)
[2023-06-10] MEDS: Verapamil 120 MG SR.TAB PO SCH (09:09)
[2023-06-10] MEDS: Furosemide 40 MG TAB PO SCH (09:11)
[2023-06-10 16:45] LABS: Troponin I 0.024 ng/mL (< 0.028)
[2023-06-11 04:04] LABS: #Monocytes 0.8 thou/uL (0.11-0.59); #Neutrophils 13.7 thou/uL (1.40-6.50); %Basophils 0.2 % (0.0-1.0); %Eosinophils 0.2 % (0.0-10.0); %Lymphocytes 7.8 % (21.0-51.0); %Monocytes 5.1 % (0.0-10.0); %Neutrophils 85.4 % (42.0-75.0); Hematocrit 29.8 % (42.0-52.0); Hemoglobin 9.4 g/dL (14.0-18.0); Mean Corpuscular HGB CONC 31.5 g/dL (32.0-36.0); Mean Corpuscular Hemoglobin 30.4 pg (27.0-31.0); Mean Corpuscular Volume 96.4 fl (78.0-98.0); Mean Platelet Volume 10.1 fL (7.4-10.4); Platelet Count 371 10x3/uL (130-400); RBC Distribution Width 15.6 % (11.5-14.5); Red Blood Cell (RBC) Count 3.09 mill/uL (4.70-6.10)
[2023-06-11 04:35] LABS: ALT (SGPT) 82 U/L (8-55); AST (SGOT) 71 U/L (5-34); Albumin 2.8 g/dL (3.4-4.8); Alkaline Phosphatase 136 U/L (40-110); Anion Gap 12 mmol/L (10-20); BUN (Urea Nitrogen) 12 mg/dL (8.4-25.7); Bilirubin, Total 0.6 mg/dL (0.2-1.2); Calc. Creatinine Clearance 141 mL/min (70-130); Calcium 8.6 mg/dL (7.8-10.44); Carbon Dioxide 23 mmol/L (23-31); Chloride 109 mmol/L (98-107); Estimated GFR 114; Globulin 2.3 g/dL (2.4-3.5); Glucose 68 mg/dL (80-115); Potassium 3.3 mmol/L (3.5-5.1); Protein, Total 5.1 g/dL (5.8-8.1); Sodium 141 mmol/L (136-145)
[2023-06-11] MEDS: Potassium Chloride 20 MEQ TAB PO SCH (10:16)
[2023-06-11] MEDS: Lidocaine 4% Patch TD SCH (11:36)
[2023-06-11] MEDS: LIDOCAINE Patch Removal TOP SCH (22:36)
[2023-06-12 04:28] LABS: #Eosinphils 0.2 thou/uL (0.0-0.7); #Monocytes 0.5 thou/uL (0.11-0.59); #Neutrophils 12.2 thou/uL (1.40-6.50); %Basophils 0.1 % (0.0-1.0); %Lymphocytes 8.9 % (21.0-51.0); %Monocytes 3.6 % (0.0-10.0); %Neutrophils 85.1 % (42.0-75.0); Hematocrit 28.8 % (42.0-52.0); Hemoglobin 9.3 g/dL (14.0-18.0); Mean Corpuscular HGB CONC 32.3 g/dL (32.0-36.0); Mean Corpuscular Hemoglobin 30.6 pg (27.0-31.0); Mean Corpuscular Volume 94.7 fl (78.0-98.0); Mean Platelet Volume 10.2 fL (7.4-10.4); Platelet Count 412 10x3/uL (130-400); RBC Distribution Width 15.5 % (11.5-14.5); Red Blood Cell (RBC) Count 3.04 mill/uL (4.70-6.10); White Blood Cell (WBC) Count 14.4 10x3/uL (4.8-10.8)
[2023-06-12 04:56] LABS: ALT (SGPT) 80 U/L (8-55); AST (SGOT) 61 U/L (5-34); Albumin 2.8 g/dL (3.4-4.8); Alkaline Phosphatase 140 U/L (40-110); Anion Gap 14 mmol/L (10-20); BUN (Urea Nitrogen) 12 mg/dL (8.4-25.7); Bilirubin, Total 0.6 mg/dL (0.2-1.2); Calc. Creatinine Clearance 140 mL/min (70-130); Calcium 8.7 mg/dL (7.8-10.44); Carbon Dioxide 22 mmol/L (23-31); Chloride 109 mmol/L (98-107); Estimated GFR 114; Globulin 2.2 g/dL (2.4-3.5); Glucose 72 mg/dL (80-115); Potassium 3.5 mmol/L (3.5-5.1); Sodium 141 mmol/L (136-145)
[2023-06-12] MEDS: Potassium Chloride 20 MEQ TAB PO SCH (07:58)
[2023-06-12] MEDS ORDERED: Lidocaine 4% Patch TD SCH (09:00)
[2023-06-13 04:22] LABS: #Eosinphils 0.3 thou/uL (0.0-0.7); #Monocytes 0.6 thou/uL (0.11-0.59); #Neutrophils 14.5 thou/uL (1.40-6.50); %Basophils 0.1 % (0.0-1.0); %Eosinophils 1.7 % (0.0-10.0); %Lymphocytes 5.8 % (21.0-51.0); %Monocytes 3.6 % (0.0-10.0); %Neutrophils 87.9 % (42.0-75.0); Hematocrit 29.2 % (42.0-52.0); Hemoglobin 9.6 g/dL (14.0-18.0); Mean Corpuscular HGB CONC 32.9 g/dL (32.0-36.0); Mean Corpuscular Hemoglobin 31.2 pg (27.0-31.0); Mean Corpuscular Volume 94.8 fl (78.0-98.0); Mean Platelet Volume 10.3 fL (7.4-10.4); Platelet Count 389 10x3/uL (130-400); RBC Distribution Width 15.5 % (11.5-14.5); Red Blood Cell (RBC) Count 3.08 mill/uL (4.70-6.10); White Blood Cell (WBC) Count 16.5 10x3/uL (4.8-10.8)
[2023-06-13 04:47] LABS: ALT (SGPT) 55 U/L (8-55); AST (SGOT) 38 U/L (5-34); Albumin 2.7 g/dL (3.4-4.8); Alkaline Phosphatase 141 U/L (40-110); Anion Gap 11 mmol/L (10-20); BUN (Urea Nitrogen) 10 mg/dL (8.4-25.7); Bilirubin, Total 0.5 mg/dL (0.2-1.2); Calc. Creatinine Clearance 135 mL/min (70-130); Calcium 8.5 mg/dL (7.8-10.44); Carbon Dioxide 22 mmol/L (23-31); Chloride 108 mmol/L (98-107); Estimated GFR 115; Globulin 2.4 g/dL (2.4-3.5); Glucose 77 mg/dL (80-115); Potassium 3.4 mmol/L (3.5-5.1); Protein, Total 5.1 g/dL (5.8-8.1); Sodium 138 mmol/L (136-145)
[2023-06-13] MEDS: Potassium Bicarbonate/Cit Ac 20 MEQ TAB PO SCH (08:40)
[2023-06-13 14:22] LABS: Potassium 3.9 mmol/L (3.5-5.1)
[2023-06-13] MEDS: Furosemide 40 MG (4 mL) VIAL SLOW IVP SCH (18:30)
[2023-06-14 06:44] LABS: #Eosinphils 0.3 thou/uL (0.0-0.7); #Monocytes 0.6 thou/uL (0.11-0.59); #Neutrophils 14.1 thou/uL (1.40-6.50); %Basophils 0.1 % (0.0-1.0); %Eosinophils 1.6 % (0.0-10.0); %Lymphocytes 6.6 % (21.0-51.0); %Monocytes 3.9 % (0.0-10.0); %Neutrophils 86.9 % (42.0-75.0); Hematocrit 30.8 % (42.0-52.0); Hemoglobin 9.9 g/dL (14.0-18.0); Mean Corpuscular HGB CONC 32.1 g/dL (32.0-36.0); Mean Corpuscular Hemoglobin 30.7 pg (27.0-31.0); Mean Corpuscular Volume 95.4 fl (78.0-98.0); Mean Platelet Volume 10.6 fL (7.4-10.4); Platelet Count 389 10x3/uL (130-400); RBC Distribution Width 15.5 % (11.5-14.5); Red Blood Cell (RBC) Count 3.23 mill/uL (4.70-6.10); White Blood Cell (WBC) Count 16.2 10x3/uL (4.8-10.8)
[2023-06-14 07:10] LABS: ALT (SGPT) 41 U/L (8-55); AST (SGOT) 29 U/L (5-34); Albumin 2.8 g/dL (3.4-4.8); Alkaline Phosphatase 136 U/L (40-110); Anion Gap 12 mmol/L (10-20); BUN (Urea Nitrogen) 9 mg/dL (8.4-25.7); Bilirubin, Total 0.6 mg/dL (0.2-1.2); Calc. Creatinine Clearance 134 mL/min (70-130); Calcium 8.3 mg/dL (7.8-10.44); Carbon Dioxide 24 mmol/L (23-31); Chloride 104 mmol/L (98-107); Estimated GFR 114; Globulin 2.4 g/dL (2.4-3.5); Glucose 75 mg/dL (80-115); Potassium 3.3 mmol/L (3.5-5.1); Protein, Total 5.2 g/dL (5.8-8.1); Sodium 137 mmol/L (136-145)
[2023-06-14] MEDS: Furosemide 40 MG (4 mL) VIAL SLOW IVP SCH ×2 (09:02→13:37)
[2023-06-14] MEDS: Potassium Chloride 20 MEQ TAB PO SCH ×2 (09:04→12:42)
[2023-06-14] MEDS: Magnesium 2 GM/50 ML(in water) 2 GM in Premix 1 BAG IVPB SCH (12:43)
[2023-06-15 04:10] LABS: #Eosinphils 0.1 thou/uL (0.0-0.7); #Monocytes 0.7 thou/uL (0.11-0.59); #Neutrophils 12.9 thou/uL (1.40-6.50); %Basophils 0.1 % (0.0-1.0); %Eosinophils 0.9 % (0.0-10.0); %Lymphocytes 8.5 % (21.0-51.0); %Monocytes 4.4 % (0.0-10.0); %Neutrophils 85.2 % (42.0-75.0); Hematocrit 29.6 % (42.0-52.0); Hemoglobin 9.6 g/dL (14.0-18.0); Mean Corpuscular HGB CONC 32.4 g/dL (32.0-36.0); Mean Platelet Volume 10.6 fL (7.4-10.4); Platelet Count 330 10x3/uL (130-400); RBC Distribution Width 15.3 % (11.5-14.5); White Blood Cell (WBC) Count 15.1 10x3/uL (4.8-10.8)
[2023-06-15 04:21] LABS: Mean Corpuscular Volume 92.5 fl (78.0-98.0)
[2023-06-15 04:38] LABS: ALT (SGPT) 32 U/L (8-55); AST (SGOT) 27 U/L (5-34); Albumin 2.6 g/dL (3.4-4.8); Alkaline Phosphatase 139 U/L (40-110); Anion Gap 9 mmol/L (10-20); BUN (Urea Nitrogen) 10 mg/dL (8.4-25.7); Bilirubin, Total 0.5 mg/dL (0.2-1.2); Calc. Creatinine Clearance 122 mL/min (70-130); Calcium 8.3 mg/dL (7.8-10.44); Carbon Dioxide 26 mmol/L (23-31); Chloride 105 mmol/L (98-107); Estimated GFR 111; Globulin 2.5 g/dL (2.4-3.5); Glucose 91 mg/dL (80-115); Magnesium 1.6 mg/dL (1.6-2.6); Potassium 3.7 mmol/L (3.5-5.1); Protein, Total 5.1 g/dL (5.8-8.1); Sodium 136 mmol/L (136-145)
[2023-06-15] MEDS: Magnesium 2 GM/50 ML(in water) 2 GM in Premix 1 BAG IVPB SCH ×2 (10:24→14:44)
[2023-06-15] MEDS: Potassium Chloride 20 MEQ TAB PO SCH (18:07)
[2023-06-16 06:34] LABS: #Eosinphils 0.2 thou/uL (0.0-0.7); #Monocytes 0.7 thou/uL (0.11-0.59); #Neutrophils 13.8 thou/uL (1.40-6.50); %Basophils 0.1 % (0.0-1.0); %Eosinophils 1.3 % (0.0-10.0); %Lymphocytes 9.1 % (21.0-51.0); %Monocytes 4.5 % (0.0-10.0); %Neutrophils 84.2 % (42.0-75.0); Hematocrit 32.2 % (42.0-52.0); Hemoglobin 10.4 g/dL (14.0-18.0); Mean Corpuscular HGB CONC 32.3 g/dL (32.0-36.0); Mean Corpuscular Hemoglobin 30.6 pg (27.0-31.0); Mean Corpuscular Volume 94.7 fl (78.0-98.0); Mean Platelet Volume 10.6 fL (7.4-10.4); Platelet Count 373 10x3/uL (130-400); RBC Distribution Width 15.2 % (11.5-14.5); White Blood Cell (WBC) Count 16.4 10x3/uL (4.8-10.8)
[2023-06-16 06:58] LABS: ALT (SGPT) 29 U/L (8-55); AST (SGOT) 29 U/L (5-34); Alkaline Phosphatase 177 U/L (40-110); Anion Gap 14 mmol/L (10-20); BUN (Urea Nitrogen) 9 mg/dL (8.4-25.7); Bilirubin, Total 0.7 mg/dL (0.2-1.2); Calc. Creatinine Clearance 110 mL/min (70-130); Calcium 8.8 mg/dL (7.8-10.44); Carbon Dioxide 23 mmol/L (23-31); Chloride 101 mmol/L (98-107); Estimated GFR 108; Globulin 3.1 g/dL (2.4-3.5); Glucose 95 mg/dL (80-115); Potassium 3.9 mmol/L (3.5-5.1); Protein, Total 6.1 g/dL (5.8-8.1); Sodium 134 mmol/L (136-145)
[2023-06-17] MEDS: Sodium Chloride 0.9% 1,000 ML IV SCH (02:10)
[2023-06-17] MEDS: Albumin 25% 25 GM (100 mL) BOT IVPB SCH (02:35)
[2023-06-17] MEDS: Midodrine HCl 5 MG TAB PO SCH (09:26)
[2023-06-19 07:39] LABS: #Eosinphils 0.3 thou/uL (0.0-0.7); #Monocytes 0.7 thou/uL (0.11-0.59); #Neutrophils 8.1 thou/uL (1.40-6.50); %Basophils 0.2 % (0.0-1.0); %Eosinophils 2.8 % (0.0-10.0); %Lymphocytes 10.8 % (21.0-51.0); %Monocytes 6.4 % (0.0-10.0); %Neutrophils 79.1 % (42.0-75.0); Hematocrit 31.8 % (42.0-52.0); Hemoglobin 10.1 g/dL (14.0-18.0); Mean Corpuscular HGB CONC 31.8 g/dL (32.0-36.0); Mean Corpuscular Hemoglobin 29.6 pg (27.0-31.0); Mean Corpuscular Volume 93.3 fl (78.0-98.0); Mean Platelet Volume 9.8 fL (7.4-10.4); Platelet Count 380 10x3/uL (130-400); RBC Distribution Width 14.6 % (11.5-14.5); Red Blood Cell (RBC) Count 3.41 mill/uL (4.70-6.10); White Blood Cell (WBC) Count 10.3 10x3/uL (4.8-10.8)
[2023-06-19 08:32] LABS: ALT (SGPT) 31 U/L (8-55); AST (SGOT) 35 U/L (5-34); Albumin 2.8 g/dL (3.4-4.8); Alkaline Phosphatase 158 U/L (40-110); Anion Gap 11 mmol/L (10-20); BUN (Urea Nitrogen) 6 mg/dL (8.4-25.7); Bilirubin, Total 0.4 mg/dL (0.2-1.2); Calc. Creatinine Clearance 104 mL/min (70-130); Carbon Dioxide 25 mmol/L (23-31); Chloride 104 mmol/L (98-107); Estimated GFR 108; Globulin 3.1 g/dL (2.4-3.5); Glucose 90 mg/dL (80-115); Potassium 4.1 mmol/L (3.5-5.1); Protein, Total 5.9 g/dL (5.8-8.1); Sodium 136 mmol/L (136-145)
[2023-06-20] MEDS ORDERED: Verapamil 120 MG SR.TAB PO SCH (08:30)
[2023-06-20] MEDS: Metoprolol Tartrate 25 MG TAB PO SCH (11:14)
[2023-06-20] MEDS: Verapamil 180 MG ER.TAB PO SCH (11:14)
[2023-06-21 07:18] LABS: #Eosinphils 0.4 thou/uL (0.0-0.7); #Monocytes 0.6 thou/uL (0.11-0.59); %Basophils 0.3 % (0.0-1.0); %Eosinophils 3.6 % (0.0-10.0); %Neutrophils 78.7 % (42.0-75.0); Hematocrit 31.6 % (42.0-52.0); Hemoglobin 10.2 g/dL (14.0-18.0); Mean Corpuscular HGB CONC 32.3 g/dL (32.0-36.0); Mean Corpuscular Hemoglobin 30.2 pg (27.0-31.0); Mean Corpuscular Volume 93.5 fl (78.0-98.0); Platelet Count 373 10x3/uL (130-400); Red Blood Cell (RBC) Count 3.38 mill/uL (4.70-6.10); White Blood Cell (WBC) Count 10.1 10x3/uL (4.8-10.8)
[2023-06-21 07:40] LABS: ALT (SGPT) 24 U/L (8-55); AST (SGOT) 27 U/L (5-34); Albumin 3.2 g/dL (3.4-4.8); Alkaline Phosphatase 166 U/L (40-110); Anion Gap 15 mmol/L (10-20); BUN (Urea Nitrogen) 8 mg/dL (8.4-25.7); Bilirubin, Total 0.4 mg/dL (0.2-1.2); Calc. Creatinine Clearance 103 mL/min (70-130); Calcium 9.3 mg/dL (7.8-10.44); Carbon Dioxide 22 mmol/L (23-31); Chloride 103 mmol/L (98-107); Estimated GFR 107; Globulin 3.2 g/dL (2.4-3.5); Glucose 88 mg/dL (80-115); Magnesium 1.6 mg/dL (1.6-2.6); Protein, Total 6.4 g/dL (5.8-8.1); Sodium 136 mmol/L (136-145)
[2023-06-21] MEDS: Magnesium 2 GM/50 ML(in water) 2 GM in Premix 1 BAG IVPB SCH (10:05)
[2023-06-21] MEDS: Nitroglycerin 0.4 MG TAB (25 Tab Bottle) ONE (10:16)
[2023-06-21 10:54] LABS: ALT (SGPT) 22 U/L (8-55); AST (SGOT) 22 U/L (5-34); Albumin 3.1 g/dL (3.4-4.8); Alkaline Phosphatase 171 U/L (40-110); Anion Gap 16 mmol/L (10-20); BUN (Urea Nitrogen) 8 mg/dL (8.4-25.7); Bilirubin, Total 0.3 mg/dL (0.2-1.2); Calc. Creatinine Clearance 100 mL/min (70-130); Calcium 9.2 mg/dL (7.8-10.44); Carbon Dioxide 21 mmol/L (23-31); Chloride 103 mmol/L (98-107); Estimated GFR 106; Globulin 3.1 g/dL (2.4-3.5); Glucose 145 mg/dL (80-115); Phosphorus 2.9 mg/dL (2.3-4.7); Potassium 3.7 mmol/L (3.5-5.1); Protein, Total 6.2 g/dL (5.8-8.1); Sodium 136 mmol/L (136-145)
[2023-06-21 10:58] LABS: Troponin I Less than 0.010 ng/mL (< 0.028)
[2023-06-21] MEDS: Amiodarone 450 MG in Dextrose 5% in Water 250 ML IVPB SCH (11:31)
[2023-06-21] MEDS: Spironolactone 25 MG TAB PO SCH (13:08)
[2023-06-21 14:55] LABS: Troponin I Less than 0.010 ng/mL (< 0.028)
[2023-06-22 06:47] LABS: Magnesium 1.5 mg/dL (1.6-2.6)
[2023-06-22] MEDS: Albuterol 2.5 MG (3 mL) NEB NEB PRN (08:03)
[2023-06-22] MEDS: Magnesium 2 GM/50 ML(in water) 2 GM in Premix 1 BAG IVPB SCH (08:11)
[2023-06-22] MEDS: Spironolactone 25 MG TAB PO SCH (08:12)
[2023-06-22] MEDS: Potassium Chloride 20 MEQ TAB PO SCH (09:50)
[2023-06-22] MEDS: Metoprolol Tartrate 25 MG TAB PO SCH (20:18)
[2023-06-22] MEDS: Nitroglycerin 0.4 MG TAB (25 Tab Bottle) SL PRN (22:44)
[2023-06-23] MEDS: Magnesium Oxide 400 MG TAB PO SCH (00:13)
[2023-06-23 00:27] LABS: Troponin I Less than 0.010 ng/mL (< 0.028)
[2023-06-23] MEDS ORDERED: Calcium Carbonate 500 MG ChewTAB PO PRN (06:47)
[2023-06-23 07:06] LABS: #Eosinphils 0.5 thou/uL (0.0-0.7); #Monocytes 0.8 thou/uL (0.11-0.59); #Neutrophils 8.1 thou/uL (1.40-6.50); %Basophils 0.2 % (0.0-1.0); %Eosinophils 4.5 % (0.0-10.0); %Lymphocytes 8.9 % (21.0-51.0); %Monocytes 7.3 % (0.0-10.0); %Neutrophils 78.5 % (42.0-75.0); Hematocrit 33.9 % (42.0-52.0); Hemoglobin 10.7 g/dL (14.0-18.0); Mean Corpuscular HGB CONC 31.6 g/dL (32.0-36.0); Mean Corpuscular Hemoglobin 29.6 pg (27.0-31.0); Mean Corpuscular Volume 93.9 fl (78.0-98.0); Mean Platelet Volume 10.1 fL (7.4-10.4); Platelet Count 373 10x3/uL (130-400); RBC Distribution Width 14.8 % (11.5-14.5); Red Blood Cell (RBC) Count 3.61 mill/uL (4.70-6.10); White Blood Cell (WBC) Count 10.3 10x3/uL (4.8-10.8)
[2023-06-23 07:29] LABS: ALT (SGPT) 19 U/L (8-55); AST (SGOT) 23 U/L (5-34); Albumin 3.2 g/dL (3.4-4.8); Alkaline Phosphatase 176 U/L (40-110); Anion Gap 12 mmol/L (10-20); BUN (Urea Nitrogen) 6 mg/dL (8.4-25.7); Bilirubin, Total 0.5 mg/dL (0.2-1.2); Calc. Creatinine Clearance 102 mL/min (70-130); Calcium 9.4 mg/dL (7.8-10.44); Carbon Dioxide 23 mmol/L (23-31); Chloride 102 mmol/L (98-107); Estimated GFR 107; Globulin 3.2 g/dL (2.4-3.5); Glucose 78 mg/dL (80-115); Magnesium 1.7 mg/dL (1.6-2.6); Potassium 4.1 mmol/L (3.5-5.1); Protein, Total 6.4 g/dL (5.8-8.1); Sodium 133 mmol/L (136-145)
[2023-06-23] MEDS: Magnesium 2 GM/50 ML(in water) 2 GM in Premix 1 BAG IVPB SCH (08:59)
[2023-06-23] MEDS: Sucralfate 1 GM/10 ML UDCUP PO PRN (16:12)
[2023-06-23] MEDS: Lidocaine 2% Viscous Solution 10 ML, Aluminum & Magnesium Hydroxide 30 ML SSW SCH (18:36)
[2023-06-24 05:30] LABS: #Eosinphils 0.4 thou/uL (0.0-0.7); #Monocytes 0.7 thou/uL (0.11-0.59); #Neutrophils 7.8 thou/uL (1.40-6.50); %Basophils 0.3 % (0.0-1.0); %Eosinophils 3.8 % (0.0-10.0); %Monocytes 6.8 % (0.0-10.0); %Neutrophils 76.6 % (42.0-75.0); Hematocrit 30.7 % (42.0-52.0); Hemoglobin 9.8 g/dL (14.0-18.0); Mean Corpuscular HGB CONC 31.9 g/dL (32.0-36.0); Mean Corpuscular Hemoglobin 29.6 pg (27.0-31.0); Mean Corpuscular Volume 92.7 fl (78.0-98.0); Mean Platelet Volume 10.1 fL (7.4-10.4); Platelet Count 363 10x3/uL (130-400); RBC Distribution Width 14.9 % (11.5-14.5); Red Blood Cell (RBC) Count 3.31 mill/uL (4.70-6.10); White Blood Cell (WBC) Count 10.1 10x3/uL (4.8-10.8)
[2023-06-24 05:55] LABS: ALT (SGPT) 15 U/L (8-55); AST (SGOT) 20 U/L (5-34); Albumin 2.8 g/dL (3.4-4.8); Alkaline Phosphatase 157 U/L (40-110); Anion Gap 12 mmol/L (10-20); BUN (Urea Nitrogen) 6 mg/dL (8.4-25.7); Bilirubin, Total 0.3 mg/dL (0.2-1.2); Calc. Creatinine Clearance 111 mL/min (70-130); Calcium 8.9 mg/dL (7.8-10.44); Carbon Dioxide 26 mmol/L (23-31); Chloride 100 mmol/L (98-107); Estimated GFR 110; Globulin 3.1 g/dL (2.4-3.5); Glucose 88 mg/dL (80-115); Potassium 3.9 mmol/L (3.5-5.1); Protein, Total 5.9 g/dL (5.8-8.1); Sodium 134 mmol/L (136-145)
[2023-06-24] MEDS: Magnesium 2 GM/50 ML(in water) 2 GM in Premix 1 BAG IVPB SCH (10:01)
[2023-06-24] MEDS: Atorvastatin Calcium 40 MG TAB PO SCH (20:04)
[2023-06-24] MEDS: Lidocaine 2% Viscous Solution 10 ML, Aluminum & Magnesium Hydroxide 30 ML SSW SCH (23:02)
[2023-06-25] MEDS: Amiodarone 200 MG TAB PO SCH (10:01)
[2023-06-25] MEDS ORDERED: Lidocaine 2% Viscous Solution 10 ML, Aluminum & Magnesium Hydroxide 30 ML SSW PRN (21:00)
[2023-06-26] MEDS: Amiodarone 200 MG TAB PO SCH (09:34)
[2023-06-26 11:56] VITALS: BMI 24.8
[2023-06-27 11:18] VITALS: BP 128/69; TEMP 98.5
== END 2023-06-27 13:40 | disposition home or self-care (01) | DRG 871 ==
LOC: ERS 09:03 → T4-B 15:45 → 2NO 23:15 → IMCU/EMU 05-29 18:01 → 2NO 06-02 15:17 → CCU 06-03 12:43 → IMCU/EMU 06-09 18:06 → 2NO 06-23 20:31
PROVIDERS: ADMIT Family Medicine; ATTEND Family Medicine
PROC: 3E03329 Introduction of Other Anti-infective into Peripheral Vein, Percutaneous Approach (ICD-10-PCS; 2023-05-27)
PROC: 5A0935A Assistance with Respiratory Ventilation, Less than 24 Consecutive Hours, High Flow/Velocity Cannula (ICD-10-PCS; 2023-06-03)
PROC: 02HV33Z Insertion of Infusion Device into Superior Vena Cava, Percutaneous Approach (ICD-10-PCS; principal; 2023-06-04)
PROC: B548ZZA Ultrasonography of Superior Vena Cava, Guidance (ICD-10-PCS; 2023-06-04)
PROC: 5A1945Z Respiratory Ventilation, 24-96 Consecutive Hours (ICD-10-PCS; 2023-06-04)
PROC: 0BH17EZ Insertion of Endotracheal Airway into Trachea, Via Natural or Artificial Opening (ICD-10-PCS; 2023-06-04)
PROC: 4A133R1 Monitoring of Arterial Saturation, Peripheral, Percutaneous Approach (ICD-10-PCS; 2023-06-04)
PROC: 5A09357 Assistance with Respiratory Ventilation, Less than 24 Consecutive Hours, Continuous Positive Airway Pressure (ICD-10-PCS; 2023-06-04)
PROC: 0B9D8ZX Drainage of Right Middle Lung Lobe, Via Natural or Artificial Opening Endoscopic, Diagnostic (ICD-10-PCS; 2023-06-05)
DX: A41.9 Sepsis, unspecified organism (principal); G93.41 Metabolic encephalopathy; I26.99 Other pulmonary embolism without acute cor pulmonale; J18.9 Pneumonia, unspecified organism; I50.33 Acute on chronic diastolic (congestive) heart failure; J80 Acute respiratory distress syndrome; S22.31XA Fracture of one rib, right side, initial encounter for closed fracture; I82.431 Acute embolism and thrombosis of right popliteal vein; I82.411 Acute embolism and thrombosis of right femoral vein; E87.1 Hypo-osmolality and hyponatremia; I47.20 Ventricular tachycardia, unspecified; I25.10 Atherosclerotic heart disease of native coronary artery without angina pectoris; I73.9 Peripheral vascular disease, unspecified; J44.9 Chronic obstructive pulmonary disease, unspecified; E78.5 Hyperlipidemia, unspecified; F17.210 Nicotine dependence, cigarettes, uncomplicated; S62.002A Unspecified fracture of navicular [scaphoid] bone of left wrist, initial encounter for closed fracture; W19.XXXA Unspecified fall, initial encounter; I35.0 Nonrheumatic aortic (valve) stenosis; E88.09 Other disorders of plasma-protein metabolism, not elsewhere classified; D69.6 Thrombocytopenia, unspecified; I11.0 Hypertensive heart disease with heart failure; E83.42 Hypomagnesemia; E87.6 Hypokalemia; K70.30 Alcoholic cirrhosis of liver without ascites; D63.8 Anemia in other chronic diseases classified elsewhere; K08.89 Other specified disorders of teeth and supporting structures; F10.129 Alcohol abuse with intoxication, unspecified; Z88.8 Allergy status to other drugs, medicaments and biological substances; Z79.82 Long term (current) use of aspirin; Z79.899 Other long term (current) drug therapy; I25.2 Old myocardial infarction; Z98.890 Other specified postprocedural states; Y92.89 Other specified places as the place of occurrence of the external cause
CPT/HCPCS: 36415; 36416; 36600; 70450; 71045; 71275; 72125; 76705; 80053; 80202; 80306; 80307; 82105; 82140; 82533; 82805; 83516; 83605; 83690; 83735; 83880; 84100; 84145; 84484; 85025; 85049; 85060; 85300; 85362; 85379; 85384; 85610; 85730; 86037; 86140; 87040; 87070; 87077; 87149; 87186; 87205; 87389; 88313; 89051; 93005; 93010; 93970; 94002; 94003; 94640; 94660; 94664; 96365; 96367; 96372; 96375; 96376; 97139; C9113; J0282; J0692; J1200; J1650; J1940; J1956; J2060; J2250; J2270; J2272; J2405; J2543; J2700; J2704; J2765; J2920; J3010; J3370; J3370-JW; J3411; J3475; J3480; J3490; J7050; J7070; J7120; J7512; J7611; J7620; P9047; Q0162; Q9967

== ENCOUNTER 2023-07-08 13:20 | Emergency (ER) | payer OTHER | END 2023-07-08 14:13 | disposition home or self-care (01) | LOC: ERS 13:20 | DX: S41.101A Unspecified open wound of right upper arm, initial encounter (principal); S41.102A Unspecified open wound of left upper arm, initial encounter; J44.9 Chronic obstructive pulmonary disease, unspecified; F17.200 Nicotine dependence, unspecified, uncomplicated; W18.30XA Fall on same level, unspecified, initial encounter | CPT/HCPCS: 99283 ==

== ENCOUNTER 2023-09-27 19:31 | Emergency (ER) | payer OTHER | END 2023-09-27 20:36 | disposition left against medical advice (07) | LOC: ERS 19:31 | DX: S51.001A Unspecified open wound of right elbow, initial encounter (principal); S09.90XA Unspecified injury of head, initial encounter; S59.901A Unspecified injury of right elbow, initial encounter; F10.129 Alcohol abuse with intoxication, unspecified; I25.10 Atherosclerotic heart disease of native coronary artery without angina pectoris; J44.9 Chronic obstructive pulmonary disease, unspecified; W01.198A Fall on same level from slipping, tripping and stumbling with subsequent striking against other object, initial encounter | CPT/HCPCS: 99283 ==

== ENCOUNTER 2023-10-06 22:06 | Emergency (ER) | payer OTHER | END 2023-10-06 23:49 | LOC: ERS 22:06 | DX: S61.512A Laceration without foreign body of left wrist, initial encounter (principal); S61.511A Laceration without foreign body of right wrist, initial encounter; F10.129 Alcohol abuse with intoxication, unspecified; E86.0 Dehydration; J44.9 Chronic obstructive pulmonary disease, unspecified; I25.2 Old myocardial infarction; I25.10 Atherosclerotic heart disease of native coronary artery without angina pectoris; X58.XXXA Exposure to other specified factors, initial encounter; Z95.5 Presence of coronary angioplasty implant and graft | CPT/HCPCS: 96360 ==

== ENCOUNTER 2023-12-27 05:39 | Observation (INO) | payer OTHER ==
[2023-12-27 06:56] LABS: #Basophils 0.03 10x3/uL (0.0-0.2); #Eosinphils Less than 0.03 10x3/uL (0.0-0.7); %Basophils 0.3 % (0.0-1.0); %Eosinophils 0.1 % (0.0-10.0); %Lymphocytes 9.4 % (21.0-51.0); %Monocytes 7.9 % (0.0-10.0); %Neutrophils 81.9 % (42.0-75.0); Hematocrit 37.4 % (42.0-52.0); Hemoglobin 12.1 g/dL (14.0-18.0); Mean Corpuscular HGB CONC 32.4 g/dL (32.0-36.0); Mean Corpuscular Volume 80.4 fL (78.0-98.0); Mean Platelet Volume 9.3 fL (7.4-10.4); Platelet Count 157 10x3/uL (130-400); RBC Distribution Width 20.2 % (11.5-14.5); Red Blood Cell (RBC) Count 4.65 mill/uL (4.70-6.10)
[2023-12-27 07:14] LABS: ALT (SGPT) 20 U/L (8-55); AST (SGOT) 44 U/L (5-34); Albumin 2.7 g/dL (3.4-4.8); Alkaline Phosphatase 192 U/L (40-110); Anion Gap 19 mmol/L (10-20); BUN (Urea Nitrogen) 5 mg/dL (8.4-25.7); Bilirubin, Total 0.3 mg/dL (0.2-1.2); Calc. Creatinine Clearance 0 mL/min (70-130); Calcium 7.7 mg/dL (7.8-10.44); Carbon Dioxide 18 mmol/L (23-31); Chloride 100 mmol/L (98-107); Estimated GFR 110; Globulin 3.8 g/dL (2.4-3.5); Glucose 96 mg/dL (80-115); Potassium 3.1 mmol/L (3.5-5.1); Protein, Total 6.5 g/dL (5.8-8.1); Sodium 134 mmol/L (136-145)
[2023-12-27 07:26] LABS: Troponin I Less than 0.010 ng/mL (< 0.028)
[2023-12-27] MEDS ORDERED: Aspirin Chewable 81 MG TAB ONE (07:27)
[2023-12-27] MEDS ORDERED: Electrolyte Replacement Protocol 1 EACH FS SCH (09:15)
[2023-12-27] MEDS ORDERED: Electrolyte Replacement Protocol FS PRN (09:30)
[2023-12-27] MEDS ORDERED: Potassium Chloride 20 MEQ TAB PO SCH ×2 (09:30→17:00)
[2023-12-27 10:02] LABS: Magnesium 1.3 mg/dL (1.6-2.6); Phosphorus 3.3 mg/dL (2.3-4.7)
[2023-12-27 10:03] LABS: Acetaminophen Less than 10 mcg/mL (Less than 10); Alcohol 95.4 mg/dL (Less than 10); Salicylate Less than 8.0 mg/dL (Less than 8.0)
[2023-12-27 11:48] LABS: Troponin I 0.013 ng/mL (< 0.028)
[2023-12-27] MEDS: Magnesium Sulfate In Water 4 GM in Premix 1 BAG IVPB SCH (12:00)
[2023-12-27] MEDS ORDERED: Folic Acid 1 MG TAB ONE (12:17)
[2023-12-27] MEDS ORDERED: Potassium Chloride 20 MEQ TAB ONE (12:18)
[2023-12-27] MEDS ORDERED: Thiamine HCl 200 MG/2 ML VIAL ONE (12:18)
[2023-12-27] MEDS ORDERED: Multivit, Therapeutic 1 TAB ONE (12:25)
[2023-12-27] MEDS: Folic Acid 1 MG TAB PO SCH (12:28)
[2023-12-27] MEDS: Multivit, Therapeutic 1 TAB PO SCH ×2 (12:28→13:49)
[2023-12-27] MEDS: Potassium Chloride 20 MEQ TAB PO SCH ×2 (12:29→17:22)
[2023-12-27] MEDS: Thiamine HCl 200 MG/2 ML VIAL SLOW IVP SCH (12:36)
[2023-12-27] MEDS ORDERED: Ondansetron PF 4 MG/2 ML Vial ONE (13:41)
[2023-12-27] MEDS ORDERED: Ondansetron ODT 4 MG TAB ONE (13:44)
[2023-12-27] MEDS: Ondansetron ODT 4 MG TAB PO PRN (13:46)
[2023-12-27 15:45] LABS: Anion Gap 17 mmol/L (10-20); BUN (Urea Nitrogen) 8 mg/dL (8.4-25.7); Calc. Creatinine Clearance 89 mL/min (70-130); Calcium 8.1 mg/dL (7.8-10.44); Carbon Dioxide 24 mmol/L (23-31); Chloride 95 mmol/L (98-107); Estimated GFR 103; Glucose 120 mg/dL (80-115); Sodium 132 mmol/L (136-145)
[2023-12-27 15:53] LABS: Troponin I 0.011 ng/mL (< 0.028)
[2023-12-27] MEDS ORDERED: Calcium Carbonate 500 MG ChewTAB PO PRN (19:18)
[2023-12-27] MEDS: Ibuprofen 200 MG TAB PO PRN (19:54)
[2023-12-27] MEDS: Atorvastatin Calcium 40 MG TAB PO SCH (19:55)
[2023-12-27] MEDS: Apixaban 2.5 MG TAB PO SCH (19:55)
[2023-12-27] MEDS: Melatonin 3 MG TAB PO SCH (21:39)
[2023-12-27] MEDS: QUEtiapine 25 MG TAB PO SCH (21:39)
[2023-12-28 01:12] LABS: Amphetamine Not Detected (NotDetected); Barbiturates Screen Not Detected (NotDetected); Benzodiazepine Screen Not Detected (NotDetected); Cocaine Metabolite Screen Not Detected (NotDetected); Methadone Not Detected (NotDetected); Methamphetamine Not Detected (NotDetected); Opiate Screen Not Detected (NotDetected); Oxycodone Screen Not Detected (NotDetected); Phencyclidine (PCP) Not Detected (NotDetected); THC/Cannabinoid Screen Not Detected (NotDetected); Tricyclic Screen Detected (NotDetected)
[2023-12-28 04:03] LABS: #Basophils 0.03 10x3/uL (0.0-0.2); %Basophils 0.4 % (0.0-1.0); %Eosinophils 0.7 % (0.0-10.0); %Lymphocytes 16.5 % (21.0-51.0); %Monocytes 8.3 % (0.0-10.0); %Neutrophils 73.7 % (42.0-75.0); Hematocrit 35.2 % (42.0-52.0); Hemoglobin 11.3 g/dL (14.0-18.0); Mean Corpuscular HGB CONC 32.1 g/dL (32.0-36.0); Mean Corpuscular Hemoglobin 25.6 pg (27.0-31.0); Mean Corpuscular Volume 79.8 fL (78.0-98.0); Mean Platelet Volume 10.1 fL (7.4-10.4); Platelet Count 136 10x3/uL (130-400); RBC Distribution Width 20.3 % (11.5-14.5); Red Blood Cell (RBC) Count 4.41 mill/uL (4.70-6.10)
[2023-12-28] MEDS: Nitroglycerin 0.4 MG TAB (25 Tab Bottle) SL PRN (04:11)
[2023-12-28 04:30] LABS: ALT (SGPT) 31 U/L (8-55); AST (SGOT) 101 U/L (5-34); Albumin 2.5 g/dL (3.4-4.8); Alkaline Phosphatase 196 U/L (40-110); Anion Gap 14 mmol/L (10-20); BUN (Urea Nitrogen) 8 mg/dL (8.4-25.7); Bilirubin, Total 0.8 mg/dL (0.2-1.2); Calc. Creatinine Clearance 96 mL/min (70-130); Calcium 8.3 mg/dL (7.8-10.44); Carbon Dioxide 25 mmol/L (23-31); Chloride 99 mmol/L (98-107); Estimated GFR 106; Globulin 3.2 g/dL (2.4-3.5); Glucose 81 mg/dL (80-115); Potassium 4.5 mmol/L (3.5-5.1); Protein, Total 5.7 g/dL (5.8-8.1); Sodium 133 mmol/L (136-145)
[2023-12-28 05:39] LABS: Troponin I 0.017 ng/mL (< 0.028)
[2023-12-28] MEDS: Mometasone 200 MCG/Formoterol 5 MCG 120 PUFF INHALER INH SCH (06:49)
[2023-12-28] MEDS: Magnesium 2 GM/50 ML(in water) 2 GM in Premix 1 BAG IVPB SCH (08:23)
[2023-12-28] MEDS: Aspirin 81 mg Enteric Coated Tablet PO SCH (08:24)
[2023-12-28] MEDS: Ondansetron ODT 4 MG TAB SL PRN (08:24)
[2023-12-28] MEDS: Sertraline 100 MG TAB PO SCH (08:24)
[2023-12-28] MEDS: Multivit, Therapeutic 1 TAB PO SCH (08:24)
[2023-12-28] MEDS: Folic Acid 1 MG TAB PO SCH (08:24)
[2023-12-28] MEDS: Pantoprazole DR 40 MG TAB PO SCH (08:24)
[2023-12-28] MEDS ORDERED: Aspirin Chewable 81 MG TAB PO SCH (09:00)
[2023-12-28] MEDS ORDERED: Regadenoson 0.4 MG/5 ML SYRINGE ONE (09:28)
[2023-12-28 11:40] LABS: Troponin I 0.012 ng/mL (< 0.028)
[2023-12-28] MEDS: Loperamide HCl 2 MG CAP PO PRN (12:21)
[2023-12-28 12:32] VITALS: BP 133/86; TEMP 98
[2023-12-30] MEDS ORDERED: Thiamine 100 MG TAB PO SCH (09:00)
== END 2023-12-28 16:56 | disposition home or self-care (01) ==
LOC: ERS 05:39 → ERHOLD 08:38 → 2SW 15:54
PROVIDERS: ADMIT Family Medicine; ATTEND Family Medicine
PROC: 4A12XM4 Monitoring of Cardiac Stress, External Approach (ICD-10-PCS; principal; 2023-12-27)
DX: R07.89 Other chest pain (principal); E87.6 Hypokalemia; E83.42 Hypomagnesemia; J44.9 Chronic obstructive pulmonary disease, unspecified; I25.10 Atherosclerotic heart disease of native coronary artery without angina pectoris; K74.60 Unspecified cirrhosis of liver; Z95.5 Presence of coronary angioplasty implant and graft; I48.92 Unspecified atrial flutter; Z79.01 Long term (current) use of anticoagulants; Z79.82 Long term (current) use of aspirin; Z79.899 Other long term (current) drug therapy
CPT/HCPCS: 36415; 71045; 78452; 80053; 80306; 80307; 83735; 83880; 84100; 84484; 85025; 87324; 87449; 93005; 93010; 93017; 94760; 96374; 96375; 96376; A9502; G0378; J2405; J2785; J3411; J3475; Q0162

== ENCOUNTER 2024-03-21 14:56 | Emergency (ER) | payer OTHER ==
[2024-03-21] MEDS ORDERED: Boostrix 0.5 ML (Tdap) VIAL (>/=7 yrs of age) ONE (15:11)
== END 2024-03-21 15:33 | disposition home or self-care (01) ==
LOC: ERS 14:56
DX: S51.811A Laceration without foreign body of right forearm, initial encounter (principal); I25.110 Atherosclerotic heart disease of native coronary artery with unstable angina pectoris; J44.9 Chronic obstructive pulmonary disease, unspecified; I25.2 Old myocardial infarction; Z23 Encounter for immunization; Z95.5 Presence of coronary angioplasty implant and graft
CPT/HCPCS: 90471; 90715

== ENCOUNTER 2024-12-04 11:56 | Inpatient (IN) | payer MEDICAID ==
[2024-12-04 12:38] LABS: #Basophils 0.03 10x3/uL (0.0-0.2); #Eosinophils 0.06 10x3/uL (0.0-0.7); #Monocytes 0.77 10x3/uL (0.11-0.59); #Neutrophils 6.79 10x3/uL (1.40-6.50); %Basophils 0.3 % (0.0-1.0); %Eosinophils 0.7 % (0.0-10.0); %Lymphocytes 11.5 % (21.0-51.0); %Monocytes 8.9 % (0.0-10.0); %Neutrophils 78.1 % (42.0-75.0); Hematocrit 38.3 % (42.0-52.0); Hemoglobin 12.7 g/dL (14.0-18.0); Mean Corpuscular Hemoglobin 31.1 pg (27.0-31.0); Mean Corpuscular Volume 93.9 fL (78.0-98.0); Platelet Count 178 10x3/uL (130-400); Red Blood Cell (RBC) Count 4.08 mill/uL (4.70-6.10); White Blood Cell (WBC) Count 8.69 10x3/uL (4.8-10.8)
[2024-12-04] MEDS ORDERED: Nitroglycerin 2% Ointment 1 INCH/1 GM Packet ONE (12:44)
[2024-12-04] MEDS ORDERED: Aspirin Chewable 81 MG TAB ONE (12:44)
[2024-12-04 13:02] LABS: ALT (SGPT) 13 U/L (Less than 45); AST (SGOT) 26 U/L (11-34); Albumin 2.5 g/dL (3.1-4.5); Alkaline Phosphatase 198 U/L (40-110); Anion Gap 15 mmol/L (10-20); BUN (Urea Nitrogen) 6 mg/dL (8.4-25.7); Bilirubin, Total 0.7 mg/dL (0.3-1.2); Calc. Creatinine Clearance 0 mL/min (70-130); Calcium 8.3 mg/dL (7.8-10.44); Carbon Dioxide 23 mmol/L (23-31); Chloride 104 mmol/L (98-107); Globulin 3.1 g/dL (2.4-3.5); Glucose 89 mg/dL (80-115); Potassium 4.2 mmol/L (3.5-5.1); Sodium 138 mmol/L (136-145)
[2024-12-04 13:04] LABS: Troponin I Less than 0.010 ng/mL (< 0.028)
[2024-12-04] MEDS ORDERED: Ondansetron PF 4 MG/2 ML Vial IVP PRN (14:32)
[2024-12-04 16:29] VITALS: BMI 21.4
[2024-12-04 16:40] LABS: Troponin I Less than 0.010 ng/mL (< 0.028)
[2024-12-04 18:50] LABS: Troponin I Less than 0.010 ng/mL (< 0.028)
[2024-12-04] MEDS ORDERED: Non-Formulary Item 1 EACH (Rivaroxaban [Xarelto] 20 MG Tablet) PO SCH (21:00)
[2024-12-04 21:08] LABS: #Basophils 0.04 10x3/uL (0.0-0.2); #Eosinophils 0.11 10x3/uL (0.0-0.7); #Monocytes 0.70 10x3/uL (0.11-0.59); #Neutrophils 4.50 10x3/uL (1.40-6.50); %Basophils 0.6 % (0.0-1.0); %Eosinophils 1.6 % (0.0-10.0); %Lymphocytes 20.0 % (21.0-51.0); %Monocytes 10.4 % (0.0-10.0); %Neutrophils 67.1 % (42.0-75.0); Hematocrit 37.1 % (42.0-52.0); Hemoglobin 12.3 g/dL (14.0-18.0); Mean Corpuscular Hemoglobin 31.2 pg (27.0-31.0); Mean Corpuscular Volume 94.2 fL (78.0-98.0); Platelet Count 169 10x3/uL (130-400); Red Blood Cell (RBC) Count 3.94 mill/uL (4.70-6.10); White Blood Cell (WBC) Count 6.71 10x3/uL (4.8-10.8)
[2024-12-04] MEDS: QUEtiapine 25 MG TAB PO SCH (21:28)
[2024-12-04] MEDS: Enoxaparin 60 MG (0.6 mL) SYRINGE SC SCH (21:32)
[2024-12-04 22:32] LABS: ALT (SGPT) 15 U/L (Less than 45); AST (SGOT) 33 U/L (11-34); Albumin 2.4 g/dL (3.1-4.5); Alkaline Phosphatase 187 U/L (40-110); Anion Gap 14 mmol/L (10-20); BUN (Urea Nitrogen) 7 mg/dL (8.4-25.7); Bilirubin, Direct 0.2 mg/dL (0.1-0.3); Bilirubin, Total 0.5 mg/dL (0.3-1.2); Calc. Creatinine Clearance 87 mL/min (70-130); Calcium 8.0 mg/dL (7.8-10.44); Carbon Dioxide 22 mmol/L (23-31); Cardiac Risk 2.8 (Less than 4.5); Chloride 105 mmol/L (98-107); Cholesterol 111 mg/dl (< 200 Desired); Globulin 3.1 g/dL (2.4-3.5); Glucose 104 mg/dL (80-115); HDL Cholesterol 39 mg/dL (>60 Neg Risk); LDL Cholesterol, Calculated 53 mg/dL; Magnesium 1.5 mg/dL (1.6-2.6); Potassium 4.2 mmol/L (3.5-5.1); Sodium 137 mmol/L (136-145); Triglycerides 96 mg/dL (Less than 150)
[2024-12-05 04:53] LABS: #Basophils 0.05 10x3/uL (0.0-0.2); #Eosinophils 0.20 10x3/uL (0.0-0.7); #Monocytes 0.73 10x3/uL (0.11-0.59); #Neutrophils 3.56 10x3/uL (1.40-6.50); %Basophils 0.8 % (0.0-1.0); %Eosinophils 3.2 % (0.0-10.0); %Lymphocytes 26.5 % (21.0-51.0); %Monocytes 11.7 % (0.0-10.0); %Neutrophils 57.2 % (42.0-75.0); Hematocrit 34.0 % (42.0-52.0); Hemoglobin 11.2 g/dL (14.0-18.0); Mean Corpuscular Hemoglobin 31.2 pg (27.0-31.0); Mean Corpuscular Volume 94.7 fL (78.0-98.0); Platelet Count 157 10x3/uL (130-400); Red Blood Cell (RBC) Count 3.59 mill/uL (4.70-6.10); White Blood Cell (WBC) Count 6.23 10x3/uL (4.8-10.8)
[2024-12-05 05:11] LABS: ALT (SGPT) 14 U/L (Less than 45); AST (SGOT) 27 U/L (11-34); Albumin 2.2 g/dL (3.1-4.5); Alkaline Phosphatase 163 U/L (40-110); Anion Gap 11 mmol/L (10-20); BUN (Urea Nitrogen) 8 mg/dL (8.4-25.7); Bilirubin, Total 0.4 mg/dL (0.3-1.2); Calc. Creatinine Clearance 113 mL/min (70-130); Calcium 7.6 mg/dL (7.8-10.44); Carbon Dioxide 23 mmol/L (23-31); Chloride 107 mmol/L (98-107); Globulin 2.4 g/dL (2.4-3.5); Glucose 72 mg/dL (80-115); Potassium 3.6 mmol/L (3.5-5.1); Sodium 137 mmol/L (136-145)
[2024-12-05] MEDS: Mometasone 200 MCG/Formoterol 5 MCG 120 PUFF INHALER INH SCH (07:40)
[2024-12-05] MEDS: Aspirin 81 mg Enteric Coated Tablet PO SCH (11:53)
[2024-12-05] MEDS: Folic Acid 1 MG TAB PO SCH (11:54)
[2024-12-05] MEDS: Enoxaparin 60 MG (0.6 mL) SYRINGE SC SCH (11:54)
[2024-12-05] MEDS: Multivit, Therapeutic 1 TAB PO SCH (11:54)
[2024-12-05] MEDS: Cholecalciferol 1,000 UNITS (25 MCG) TAB PO SCH (11:54)
[2024-12-05] MEDS: Sertraline 25 MG TAB PO SCH (11:55)
[2024-12-05] MEDS: Verapamil 120 MG SR.TAB PO SCH (12:05)
[2024-12-05 16:55] VITALS: BP 103/65; TEMP 98
== END 2024-12-05 19:50 | disposition home or self-care (01) | DRG 313 ==
LOC: ERS 11:56 → 2NO 14:24 → OBSVTOIN 12-05 13:56
PROVIDERS: ADMIT Family Medicine; ATTEND Family Medicine
DX: R07.9 Chest pain, unspecified (principal); I48.92 Unspecified atrial flutter; I50.32 Chronic diastolic (congestive) heart failure; I47.20 Ventricular tachycardia, unspecified; F41.9 Anxiety disorder, unspecified; R00.1 Bradycardia, unspecified; I45.10 Unspecified right bundle-branch block; E78.5 Hyperlipidemia, unspecified; G47.00 Insomnia, unspecified; I25.119 Atherosclerotic heart disease of native coronary artery with unspecified angina pectoris; J44.9 Chronic obstructive pulmonary disease, unspecified; F32.9 Major depressive disorder, single episode, unspecified; K70.31 Alcoholic cirrhosis of liver with ascites; D69.6 Thrombocytopenia, unspecified; Z86.718 Personal history of other venous thrombosis and embolism; Z86.711 Personal history of pulmonary embolism; I25.2 Old myocardial infarction; Z95.1 Presence of aortocoronary bypass graft; Z91.011 Allergy to milk products; Z88.8 Allergy status to other drugs, medicaments and biological substances; Z98.890 Other specified postprocedural states; Z82.49 Family history of ischemic heart disease and other diseases of the circulatory system
CPT/HCPCS: 36415; 71045; 78452; 80053; 80061; 82248; 83036; 83735; 84100; 84443; 84484; 85025; 85379; 93005; 93017; 94664; A9502; J1650; J2785

== ENCOUNTER 2024-12-22 19:40 | Emergency (ER) | payer MEDICAID ==
[2024-12-22] MEDS ORDERED: HYDROcodone/Acetaminophen 10/325 mg Tablet ONE (22:07)
== END 2024-12-22 22:13 | disposition home or self-care (01) ==
LOC: ERS 19:40
DX: K04.7 Periapical abscess without sinus (principal); I10 Essential (primary) hypertension; F17.210 Nicotine dependence, cigarettes, uncomplicated; Z95.5 Presence of coronary angioplasty implant and graft; Z79.899 Other long term (current) drug therapy; Z79.82 Long term (current) use of aspirin
CPT/HCPCS: 99282